=== PATIENT | female | born 1955 | race Caucasian/White ===

== ENCOUNTER 2016-10-28 10:30 | Observation (INO) | payer OTHER ==
[2016-10-21 08:44] VITALS: BMI 29.0
[2016-10-23 09:08] VITALS: BMI 29.0
--- NOTE | 2016-10-23 09:32 | PAT Medication Instructions ---
Service Date Oct 23, 2016. Current Home Medication List Albuterol (Proair Hfa), 2 PUFFS INH Q4 PRN for Shortness of Breath Alendronate/Cholecalciferol (Fosamax+D 70MG/2800 Iu), 1 TABLET PO WK Amphetamine-Dextroamphetamine 10MG (Adderall 10MG), 1 TAB PO HS Cholecalciferol (Vitamin D3), 1 TAB PO QAM Cyanocobalamin (Vitamin B12), 1 TAB PO QAM Dexamethasone (Decadron), 4 MG PO UD Escitalopram Oxalate (Lexapro), 20 MG PO QAM Folic Acid (Folvite), 1 TAB PO QAM Lamotrigine (Lamictal), 200 MG PO HS Levothyroxine (Synthroid *), 100 MCG PO QAM Prednisone (Prednisone), 1 MG PO QAM Prednisone (Prednisone), 5 MG PO QAM Simvastatin (Zocor), 1 TAB PO HS Vitamins C & E (Vitamin C), 1 CAP PO QAM Zinc Sulfate (Zinc Sulfate), 220 MG PO QAM Medication Instructions For Your Scheduled Surgery -Pt takes with chemo treatments: Dexamethasone (Decadron), 4 MG PO UD - Continue as directed: Alendronate/Cholecalciferol (Fosamax+D 70MG/2800 Iu), 1 TABLET PO WK - Hold the following medications the morning of surgery: Cholecalciferol (Vitamin D3), 1 TAB PO QAM Cyanocobalamin (Vitamin B12), 1 TAB PO QAM Zinc Sulfate (Zinc Sulfate), 220 MG PO QAM Folic Acid (Folvite), 1 TAB PO QAM Vitamins C (Vitamin C), 1 CAP PO QAM - Take the following medications the morning of surgery with a sip of water OTHERWISE NOTHING TO EAT OR DRINK AFTER MIDNIGHT: Albuterol (Proair Hfa), 2 PUFFS INH Q4 PRN for Shortness of Breath (may take if needed; BRING TO HOSPITAL) Prednisone (Prednisone), 1 MG PO QAM Prednisone (Prednisone), 5 MG PO QAM Escitalopram Oxalate (Lexapro), 20 MG PO QAM Levothyroxine (Synthroid *), 100 MCG PO QAM - Take the following medications as scheduled the night before surgery: Albuterol (Proair Hfa), 2 PUFFS INH Q4 PRN for Shortness of Breath Simvastatin (Zocor), 1 TAB PO HS Amphetamine-Dextroamphetamine 10MG (Adderall 10MG), 1 TAB PO HS Lamotrigine (Lamictal), 200 MG PO HS If you have any questions please call us at [phone] or [phone] or [phone]
[2016-10-28] VITALS (8 sets, daily range): BP systolic 101–136; BP diastolic 60–70; PULSE 67–101; TEMP 36.7–37.1; O2SAT 93–96; Ht 167.6 cm; Wt 85.9 kg
[~2016-10-28] VITALS: Ht 167.6 cm; Wt 85.9 kg
[~2016-10-28 10:30] MED LIST: ALBU1AER9 INH; AMPH10TA2 PO; ATROPINE SULFATE 0.1 MG/ML 5ML SYR IV PRN; CEFAZOLIN 2000 MG/60 ML D5W IV SCH; CHOL20007 PO; CYAN100020 PO; DXM/4 PO; ESCI1TAB10 PO; EpHEDrine SULFATE INJ 50 MG/ML AMP IV PRN; FENTANYL CITRATE INJ 50 MCG/1 ML 2 ML VIAL IV PRN; FOLI1TAB7 PO; FSMD/70 PO; HYDROmorphone INJ 1 MG/ML SYR IV PRN; LABETALOL HCL IV 5 MG/ML 20ML IV PRN; LACTATED RINGER'S 1000ML 1,000 ML IV SCH; LAMO200T PO; MEPERIDINE HCL 25 MG/ML CARP IV PRN; ONDANSETRON INJ 2 MG/ML 2 ML VIAL IV PRN; PRD/1 PO; PRED-301 PO; SIMV40TA4 PO; SYN100 PO; VITACAP26 PO; ZINC1CAP PO
[2016-10-28] MEDS ORDERED: MIDAZOLAM HCL 1 MG/ML 2ML VIAL ONE ×3 (11:35→14:22)
[2016-10-28] MEDS ORDERED: FENTANYL CITRATE INJ 50 MCG/1 ML 2 ML VIAL ONE ×2 (11:35→12:55)
--- NOTE | 2016-10-28 11:43 | History & Physical Bridge Note ---
H&P Re-Evaluation Bridge Note: I have examined the patient, reviewed the History & Physical and in the interval since the performance of the History & Physical I have noted the following changes of clinical significance: No changes noted
[2016-10-28] MEDS ORDERED: HEPARIN SOD (PORCINE) 1000 UNIT/ML 10 ML VIAL ONE (12:05)
[2016-10-28] MEDS ORDERED: BUPIVACAINE 0.5 % 5 MG/1 ML MPF 30ML VIAL ONE (12:05)
[2016-10-28] MEDS ORDERED: CEFAZOLIN SOD 1 GM VIAL ONE (12:05)
[2016-10-28] MEDS ORDERED: PROPOFOL IV EMULSION 10 MG/ML 20 ML VIAL IV ONE (13:10)
[2016-10-28] MEDS ORDERED: NEOSTIGMINE METHYLSULFATE 5 MG/5 ML SYR ONE (13:10)
[2016-10-28] MEDS ORDERED: LIDOCAINE HCL 2% 2 ML VIAL (20MG/ML) ONE (13:10)
[2016-10-28] MEDS ORDERED: ROCURONIUM BROMIDE 10 MG/ML 5 ML VIAL ONE (13:10)
[2016-10-28] MEDS ORDERED: GLYCOPYRROLATE INJ 0.2 MG/ML VIAL ONE (13:10)
[2016-10-28] MEDS ORDERED: BUPIVACAINE 0.5 % 5 MG/1 ML MPF 30ML VIAL INJ ONE (13:26)
[2016-10-28] MEDS ORDERED: MoRPHine SULFATE 4 MG/ML 1 ML CARP\\VIAL IV PRN (13:30)
[2016-10-28] MEDS ORDERED: SODIUM CHLORIDE 0.9% 1000ML 1,000 ML IV SCH (13:30)
[2016-10-28] MEDS ORDERED: ONDANSETRON INJ 2 MG/ML 2 ML VIAL IV PRN (13:30)
--- NOTE | 2016-10-28 13:30 | [facility] Post Operative Brief Note ---
Immediate Operative Summary Operative Date Oct 28, 2016. Pre-Operative Diagnosis chronic cholecystitis Post-Operative Diagnosis chronic cholecystitis Procedure(s) Performed Laparoscopic Cholecystectomy Surgeon Dr. Percy Ash Slate Roofer Surgeon(s) Genevieve Whalen PA-C Estimated Blood Loss 10ml Findings See dictation Specimens A. Gallbladder Drains None Anesthesia General Complication(s) None Disposition Recovery Room / PACU
--- NOTE | 2016-10-28 13:32 | Discharge Instructions ---
Discharge Instructions Admission Reason for Admission: Right Upper Quadrant Abdominal Pain Discharge Discharge Diagnosis / Problem: Same and cholelithiasis Discharge Goals Goal(s): Decrease discomfort Activity Recommendations Activity Limitations: per Instructions/Follow-up section Lifting Limitations: no more than 10 pounds Shower/Bathe: tomorrow (Shower only) . Instructions / Follow-Up Instructions / Follow-Up Post-Surgical ~ Discharge Instructions Activity Recommendations: - lifting limitation: (10 pounds for 2 weeks), - exercise/sex/sports limit: (nonstrenuous for 2 weeks), - driving or machine use limit: (none for 1 week), - Shower/bathe limit: (may shower beginning tomorrow) Diet: - Resume previous diet SPECIAL CARE INSTRUCTIONS: - May shower in 24 hours. Let water run over area and pat dry. - Leave steri strips on for one week. - Call the surgeon's office with any questions or concerns - - (ex. temperature higher than 101 degrees F, excessive bleeding or pain). MEDICATIONS: - Resume previous medications unless instructed otherwise by your surgeon. - Ibuprofen 600 mg every 6 hours with food - Percocet 1 every 4 hours, as needed for pain FOLLOW UP VISIT: - If not already scheduled, please call the office to schedule a two week follow-up appointment. Office number Current Hospital Diet Patient's current hospital diet: Discharge Diet Recommended Diet: Regular Diet Procedures Procedures Performed: Laparoscopic Cholecystectomy Pending Studies Studies pending at discharge: no Medical Emergencies . Who to Call and When: Medical Emergencies: If at any time you feel your situation is an emergency, please call 911 immediately. . Non-Emergent Contact Non-Emergency issues call your: Primary Care Provider, Surgeon Call Non-Emergent contact if: your pain is worsening, wound has increased redness, wound has increased pain . "Provider Documentation" section prepared by Percy Ash. VTE Core Measure Inpt VTE Proph given/why not?: Treatment not indicated
[2016-10-28] MEDS ORDERED: ALBUTEROL HFA 8 GM INHALER INH PRN (15:00)
[2016-10-28] MEDS ORDERED: ALBUTEROL HFA INHALER 8.5 GM INH ONE (15:07)
--- NOTE | 2016-10-28 15:36 | Anesthesiology Progress Note ---
Anesthesia Post Op Note Date & Time Oct 28, 2016 at 15:24 Vital Signs Pain Intensity: 1 Vital Signs Past 12 Hours Date Time Temp Pulse Resp B/P Pulse Ox O2 Delivery O2 Flow Rate FiO2 10/28/16 15:20 36.4 79 18 86/53 91 Mask 15 10/28/16 15:10 77 18 88/57 92 Mask 10 10/28/16 15:03 78 20 93 Diffusion Mask 10.0 10/28/16 15:00 78 96/58 91 Mechanical Ventilator 10/28/16 14:55 50 10/28/16 14:43 35.3 78 81/51 91 Mechanical Ventilator 10/28/16 14:40 50 10/28/16 10:50 36.7 101 20 136/69 94 Room Air Notes Mental Status: alert / awake / arousable, participated in evaluation Pt Amnestic to Procedure: Yes Nausea / Vomiting: adequately controlled Pain: adequately controlled Airway Patency, RR, SpO2: stable & adequate BP & HR: stable & adequate Hydration State: stable & adequate Anesthetic Complications: no major complications apparent Pt had laparoscopic cholecystectomy under [place]. At conclusion, pt was emerged and extubated. Developed difficulty ventilating and was treated with succinylcholine 60mg IV. Subsequently pt was manually ventilated without difficulty. However, response to peripheral nerve stimulation was weak and spontaneous respiratory effort minimal. For these reasons and for protection against aspiration, pt was reintubated. Transported to PACU and placed on mechanical ventilator. After a short time in PACU, pt emerged, was following commands and demonstrated adequate spontaneous respirations. OGT was placed, suctioned and removed. Pharynx was suctioned and pt extubated. She was placed on O2 mask. Appears comfortable, SaO2 93%. Discussed with surgeon that pt should be admitted for observation and treatment as needed. He agreed and plans PCU admission with supplemental O2 as needed and SaO2 monitor.
[2016-10-28] MEDS ORDERED: IV FLUIDS COMPLETED PRN (15:45)
--- NOTE | 2016-10-28 16:38 | History and Physical ---
History & Physical Date & Time of Service: Oct 28, 2016 at 16:38 Chief Complaint: Right Upper Quadrant Abdominal Pain Primary Care Physician: Cony Hernandez M.D. 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 (6) Distal radius fracture Status: Resolved (7) Dyslipidemia Status: Chronic (8) GERD (gastroesophageal reflux disease) Status: Chronic (9) History of tobacco abuse Status: Chronic (10) Hx Pulmonary nodule Permanent Comment: seen on CT 04/06/15- 1.2 cm left upper lobe nodule and 4 mm right upper lung nodule Status: Chronic (11) Hypothyroidism Status: Chronic (12) Lung cancer Permanent Comment: DIAGNOSIS: Lung, JUMA, adenocarcinoma, T3N3M0, stage IIIB Treatment: Combined radiation and chemotherapy Radiation completed 11/14/2015 received 6000 cGy Status: Chronic (13) Vitamin D deficiency Status: Chronic Surgical Problems: (1) H/O colonoscopy Status: Chronic (2) H/O: hysterectomy Status: Resolved (3) History of hysterectomy Status: Chronic (4) S/P breast biopsy Status: Chronic (5) S/P tonsillectomy and adenoidectomy Status: Chronic Family History FH: COPD (chronic obstructive pulmonary disease) MOTHER FH: HTN (hypertension) FH: cancer GRANDFATHER (lung CA) FH: heart disease FH: lung disease FH: thyroid disease GRANDFATHER GRANDMOTHER Social History Smoking Status: Current Every Day Smoker Immunizations History of Influenza Vaccine: Yes Influenza Vaccine Date: Jul 19, 2015 History of Tetanus Vaccine?: Yes Tetanus Immunization Date: Mar 24, 2014 History of Pneumococcal: Yes Pneumococcal Date: January 30, 2005 Multi-Drug Resistant Organisms History of MDRO: No Allergies Coded Allergies: Tetracyclines (Verified Allergy, Mild, HIVES, 10/28/16) BEE STING (Verified Allergy, Unknown, swelling, 10/28/16) Doxepin (Verified Allergy, Unknown, pt doesn't remember, 10/28/16) Propoxyphene (Verified Allergy, Unknown, pt doesn't remember, 10/28/16) Sulfa Antibiotics (Verified Allergy, Unknown, nausea/vomiting, 10/28/16) Home Medications Scheduled Alendronate/Cholecalciferol (Fosamax+D 70MG/2800 Iu), 1 TABLET PO WK Amphetamine-Dextroamphetamine 10MG (Adderall 10MG), 1 TAB PO HS Cholecalciferol (Vitamin D3), 1 TAB PO QAM Cyanocobalamin (Vitamin B12), 1 TAB PO QAM Dexamethasone (Decadron), 4 MG PO UD Escitalopram Oxalate (Lexapro), 20 MG PO QAM Folic Acid (Folvite), 1 TAB PO QAM Lamotrigine (Lamictal), 200 MG PO HS Levothyroxine (Synthroid *), 100 MCG PO QAM Prednisone (Prednisone), 1 MG PO QAM Prednisone (Prednisone), 5 MG PO QAM Simvastatin (Zocor), 1 TAB PO HS Vitamins C & E (Vitamin C), 1 CAP PO QAM Zinc Sulfate (Zinc Sulfate), 220 MG PO QAM Scheduled PRN Albuterol (Proair Hfa), 2 PUFFS INH Q4 PRN for Shortness of Breath Physical Exam Vital Signs Date Time Temp Pulse Resp B/P Pulse Ox O2 Delivery O2 Flow Rate FiO2 10/28/16 15:40 36.4 68 18 86/60 91 Mask 15 10/28/16 15:30 79 18 88/69 91 Mask 15 10/28/16 15:20 36.4 79 18 86/53 91 Mask 15 10/28/16 15:10 77 18 88/57 92 Mask 10 10/28/16 15:03 78 20 93 Diffusion Mask 10.0 10/28/16 15:00 78 96/58 91 Mechanical Ventilator 10/28/16 14:55 50 10/28/16 14:43 35.3 78 81/51 91 Mechanical Ventilator 10/28/16 14:40 50 10/28/16 10:50 36.7 101 20 136/69 94 Room Air Diagnostics Laboratory Results Results Past 24 Hours Test 10/28/16 10:59 10/28/16 15:14 Range/Units Bedside Glucose 102 246 70-90 mg/dl Impression VTE Prophylaxis VTE Risk Assessment Done? Y/N: Yes Risk Level: Moderate Given or contraindicated: Treatment not indicated
--- NOTE | 2016-10-28 17:15 | Medical Consult ---
Consultation Date of Consultation: Oct 28, 2016. Attending Physician: Percy Ash M.D. Reason for Consultation: medical management . History of Present Illness 60 YO female followed by Dr. Cony Hernandez for Internal Medicine and Dr. Manny Hernandez for Medical Oncology. History of adenocarcinoma of lung treated with chemotherapy + radiation therapy , obstructive lung disease, and other problems as noted today. Elective laparoscopic cholecystectomy performed today under general anesthesia. She was extubated at the conclusion of the case, but required re-intubation for apparent bronchospasm. Monitored in PACU and subsequently extubated without incident. I interviewed the patient after she was transferred to her room. Doing well postoperatively. No fever. No chest pain. No significant cough or dyspnea. No nausea or vomiting. She was having some postoperative abdominal discomfort. . 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 (6) Distal radius fracture Status: Resolved (7) Dyslipidemia Status: Chronic (8) GERD (gastroesophageal reflux disease) Status: Chronic (9) History of tobacco abuse Status: Chronic (10) Hx Pulmonary nodule Permanent Comment: seen on CT 04/06/15- 1.2 cm left upper lobe nodule and 4 mm right upper lung nodule Status: Chronic (11) Hypothyroidism Status: Chronic (12) Lung cancer Permanent Comment: DIAGNOSIS: Lung, JUMA, adenocarcinoma, T3N3M0, stage IIIB Treatment: Combined radiation and chemotherapy Radiation completed 11/14/2015 received 6000 cGy Status: Chronic (13) Vitamin D deficiency Status: Chronic Surgical Problems: (1) H/O colonoscopy Status: Chronic (2) History of hysterectomy Status: Chronic (3) S/P breast biopsy Status: Chronic (4) S/P tonsillectomy and adenoidectomy Status: Chronic . Family History FH: COPD (chronic obstructive pulmonary disease) MOTHER FH: HTN (hypertension) FH: cancer GRANDFATHER (lung CA) FH: heart disease FH: lung disease FH: thyroid disease GRANDFATHER GRANDMOTHER Social History Smoking Status: Current Every Day Smoker Alcohol Use: none Housing Status: unknown Allergies Coded Allergies: Tetracyclines (Verified Allergy, Mild, HIVES, 10/28/16) BEE STING (Verified Allergy, Unknown, swelling, 10/28/16) Doxepin (Verified Allergy, Unknown, pt doesn't remember, 10/28/16) Propoxyphene (Verified Allergy, Unknown, pt doesn't remember, 10/28/16) Sulfa Antibiotics (Verified Allergy, Unknown, nausea/vomiting, 10/28/16) Current Inpatient Medications Current Inpatient Medications Medications (Trade) Dose Ordered Sig/Maryan Route Start Time Stop Time Status Last Admin Dose Admin Cefazolin Sodium (Ancef 2000mg/60 ml D5W) 60 ml @ 100 mls/hr PREOP IV 10/28/16 06:00 10/28/16 18:00 Oxycodone/ Acetaminophen (Percocet 5-325mg Tab) 1 tab Q4H PRN PO 10/28/16 13:30 11/11/16 13:29 Morphine Sulfate (MoRPHine SULFATE INJ) 4 mg Q1H PRN IV 10/28/16 13:30 11/11/16 13:29 Ondansetron HCl (Zofran Inj) 4 mg Q4H PRN IV 10/28/16 13:30 11/27/16 13:29 Albuterol (Ventolin Hfa Inhaler) 2 puffs Q4 PRN INH 10/28/16 15:00 11/27/16 14:59 Miscellaneous Information (Order Awaiting Action) 1 ea QS N/A 10/29/16 00:00 11/28/16 00:00 Escitalopram Oxalate (Lexapro Tab) 20 mg QAM PO 10/29/16 09:00 11/28/16 08:59 Levothyroxine Sodium (Synthroid Tab) 100 mcg DAILYBB PO 10/29/16 06:00 11/28/16 05:59 Simvastatin (Zocor Tab) 40 mg HS PO 10/28/16 21:00 11/27/16 20:59 Amphetamine Aspartate/ Amphetam Sulf (Amphetamine Aspartate/Amph Sulf/Dextramphet) 10 mg DAILY PO 10/29/16 09:00 11/12/16 08:59 Lamotrigine 200 mg 200 mg HS PO 10/28/16 21:00 11/27/16 20:59 Potassium Chloride/Dextrose/ Sod Cl (D5W And 1/2nss + 20meq KCl) 1,000 ml @ 80 mls/hr [id number] IV 10/28/16 16:45 11/27/16 16:44 Miscellaneous (Iv Fluids Completed) 1 ea PRN PRN N/A 10/28/16 15:45 10/28/17 15:44 Prednisone/ Prednisone (PredniSONE TAB/ PredniSONE TAB) 6 mg DAILY PO 10/29/16 09:00 11/28/16 08:59 Review of Systems As noted above in HPI. . Physical Exam Date Time Temp Pulse Resp B/P Pulse Ox O2 Delivery O2 Flow Rate FiO2 10/28/16 16:30 36.7 69 18 101/67 96 Nasal Cannula 6.0 10/28/16 15:40 36.4 68 18 86/60 91 Mask 15 10/28/16 15:30 79 18 88/69 91 Mask 15 10/28/16 15:20 36.4 79 18 86/53 91 Mask 15 10/28/16 15:10 77 18 88/57 92 Mask 10 10/28/16 15:03 78 20 93 Diffusion Mask 10.0 10/28/16 15:00 78 96/58 91 Mechanical Ventilator 10/28/16 14:55 50 10/28/16 14:43 35.3 78 81/51 91 Mechanical Ventilator 10/28/16 14:40 50 10/28/16 10:50 36.7 101 20 136/69 94 Room Air General Appearance: WD/WN, no apparent distress Head: normocephalic, atraumatic Eyes: normal inspection, PERRL, EOMI, sclerae normal ENT: hearing grossly normal, + pertinent finding (upper partial plate) Neck: supple, no adenopathy, trachea midline, + JVD (slight JVD) Respiratory/Chest: + pertinent finding (diffuse mild wheezing, rales right base ) Cardiovascular: regular rate, rhythm, + pertinent finding (distant heart sounds ) Abdomen/GI: + pertinent finding (quiet, slightly distended, soft; incisions from laparoscopy intact without bleeding) Extremities/Musculoskelatal: normal inspection, no calf tenderness, no pedal edema, + pertinent finding (SCD's applied) 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 (PERRL, EOMI, no facial palsy), alert, oriented x 3 Skin: normal color, warm/dry, no rash Lymphatic: no adenopathy Laboratory Results Item Value Date Time Sodium Level 141 mmol/L 2/6/17 1737 Potassium Level 4.2 mmol/L 10/28/16 1737 Chloride Level 104 mmol/L 10/28/16 1737 Carbon Dioxide Level 27 mmol/L 10/28/16 1737 Blood Urea Nitrogen 22 mg/dl H 10/28/16 1737 Creatinine 1.30 mg/dl H 10/28/16 1737 Random Glucose 136 mg/dl H 10/28/16 1737 Calcium Level 8.6 mg/dl 10/28/16 1737 Hemoglobin 13.7 g/dL 10/28/16 1737 White Blood Count 12.47 K/uL H 10/28/16 1737 Platelet Count 188 K/uL 10/28/16 1737 CXR- JUMA density (pneumonia vs postradiation changes) . Assessment & Plan POSTOPERATIVE RESPIRATORY DISTRESS Required re-intubation for apparent bronchospasm in OR, extubated without incident in PACU. Respiratory status stable on Telemetry Unit. No apparent acute findings on postop chest x-ray. O2 sats 96% on 6 L NC. Wean O2 as tolerated. Incentive spirometry. Nebs PRN. COPD / ASTHMA Continue steroids and bronchodilators. CHRONIC PREDNISONE THERAPY On chronic prednisone therapy, apparently for COPD. BP's in 80's in PACU. IV hydrocortisone 50 mg x 1 ordered; repeat PRN for hemodynamic instability. Continue usual prednisone dose. ABNORMAL CHEST X-RAY CXR demonstrates JUMA density. PET scan 07/10/16 demonstrated similar finding and is being followed. HYPOTHYROIDISM Continue levothyroxine. VTE PROPHYLAXIS SCD's ordered. Thank you for this consultation. We will follow the patient with you during their hospital stay. You can reach a member of the [facility] Hospitalist Team 14/04 via pager @ . You can reach me via cell @ [phone]. .
--- NOTE | 2016-10-28 17:25 | DIAGNOSTIC IMAGING REPORT ---
CHEST ONE VIEW PORTABLE CLINICAL HISTORY: Lung carcinoma COMPARISON STUDY: 06/14/2016 FINDINGS: The heart is normal in size. There are left upper lobe airspace opacities. There is no free intraperitoneal air. There is no pneumothorax. The right lung is clear.[ IMPRESSION: Left upper lung zone airspace opacities. The findings are consistent with either pneumonia or postradiation change. Clinical and radiographic follow-up is recommended Electronically signed by: Boo Watt M.D. 10/28/2016 5:23 PM Dictated Date/Time: 10/28/2016 5:22 PM
[2016-10-28] MEDS ORDERED: HYDROCORTISONE IV 50 MG in SYRINGE 0 ML IV SCH (17:30)
[2016-10-28] MEDS: OXYCODONE/ACETAMINOPHEN 5-325 TAB PO PRN (17:49)
[2016-10-28] MEDS: D5W AND 1/2NSS + 20MEQ KCL 1,000 ML IV SCH (17:49)
[2016-10-28 17:58] LABS: HEMATOCRIT 41.2 % (37-47); MEAN CELL VOLUME 104.6 fL (80-100); MEAN CORPUSCULAR HEMOGLOBIN 34.8 pg (25-34); MEAN CORPUSCULAR HGB CONC 33.3 g/dl (32-36); MEAN PLATELET VOLUME 9.2 fL (7.4-10.4); PLATELET COUNT 188 K/uL (130-400); RED BLOOD COUNT 3.94 M/uL (4.2-5.4); WHITE BLOOD COUNT 12.47 K/uL (4.8-10.8)
[2016-10-28 19:51] LABS: CALCIUM 8.6 mg/dl (8.5-10.1); CREATININE 1.3 mg/dl (0.60-1.20); POTASSIUM 4.2 mmol/L (3.5-5.1)
[2016-10-28] MEDS ORDERED: SIMVASTATIN 40 MG TAB PO SCH (21:00)
[2016-10-28] MEDS ORDERED: LORAZEPAM 0.5 MG TAB PO PRN ×2 (21:15→21:30)
[2016-10-28] MEDS ORDERED: LEVALBUTEROL 1.25MG/3ML NEB INH PRN (21:30)
--- NOTE | 2016-10-28 21:55 | OPERATIVE REPORT ---
DATE OF OPERATION: 10/28/2016 PREOPERATIVE DIAGNOSES: Cholelithiasis and chronic cholecystitis. POSTOPERATIVE DIAGNOSES: Same. PROCEDURE: Laparoscopic cholecystectomy. SURGEON: Dr. Ash. FINDINGS: The gallbladder had a few very small black stones. The gallbladder had a significant intrahepatic component. The cystic duct was not dilated. The liver was smooth. The visible bowel appeared normal. TECHNIQUE: The patient was given a general anesthetic, and the area was prepped and draped in the usual sterile fashion. Because of the patient's previous lower abdominal surgery, the upper midline introducer site was established first. Skin incision was made there, carried down through the subcutaneous tissue to the fascia which was grasped with 2 Sukumar clamps and incised between. The muscle was split. The peritoneum was identified, incised, and the introducer was placed bluntly. The abdomen was then insufflated to a pressure of 15 mmHg with carbon dioxide. The camera was passed and the anterior abdominal wall was inspected. There were no adhesions near the umbilicus. A subumbilical incision was made transversely and the introducer was placed under direct vision. The camera was passed through this introducer site, and the midclavicular and anterior axial introducers were placed under direct vision. Traction was placed on the gallbladder. Beginning near the mid to lower infundibulum, adhesions were taken down. Some of those had retracted the duodenum, but those were taken down without cautery and the duodenum fell away easily. Further dissection revealed the cystic artery extending anteriorly up over the front surface of the gallbladder. Its attachments were divided and it was isolated. The gallbladder was then dissected away from the liver on that medial side, confirming that that was the cystic artery as it was followed up toward the body and was seen to enter the gallbladder wall. Three clips were placed proximally, one near its junction with the gallbladder, and it was divided. That allowed better mobility of the infundibulum and I was able to divide further attachments of the infundibulum on the medial side and I was able to work on the lateral side, freeing the infundibulum completely and allowing me to identify the cystic duct and gallbladder junction. I was able then to establish a plane behind the cystic duct, isolating it 360 degrees. Three clips were placed on the proximal cystic duct, 1 near the gallbladder junction, and it was divided. The gallbladder was then peeled off the liver bed. In doing so, a posterior branch of the artery was encountered. This was isolated, clamped twice proximally and once near the gallbladder and divided. Further dissection of the gallbladder off the liver was able to be accomplished. The gallbladder was placed into an Endobag and brought out through the upper midline incision. The introducer was replaced. There was some stone material that had escaped the gallbladder as one of the graspers had created a hole. This was retrieved. Subdiaphragmatic and subhepatic spaces were irrigated and the irrigation was removed and that was repeated until the return was clear. The gallbladder bed of the liver was inspected, there was no bleeding. The previously placed clips were intact. Gas was allowed to escape and the introducers were removed. The fascia of the umbilical and upper midline introducer sites was closed with interrupted 0 Vicryl and skin of all the incisions was closed with 4-0 Monocryl in either an interrupted or running subcuticular fashion. The skin was anesthetized with 0.5% Marcaine. Skin was cleansed, dried, benzoin placed, Steri-Strips applied. The estimated blood loss was 10 mL. Sponge, needle and instrument counts were correct prior to closure. The patient tolerated the surgical procedure without complication and was transferred to recovery. I attest to the content of the Intraoperative Record and any orders documented therein. Any exceptio ns are noted below.
[2016-10-29 00:03] VITALS: PULSE 92; O2SAT 92
[2016-10-29] MEDS: OXYCODONE/ACETAMINOPHEN 5-325 TAB PO PRN (00:41)
[2016-10-29 03:30] VITALS: BP 109/66; PULSE 92; TEMP 37.1; O2SAT 95
[2016-10-29] MEDS: D5W AND 1/2NSS + 20MEQ KCL 1,000 ML IV SCH (04:55)
[2016-10-29 05:24] VITALS: O2SAT 92
[2016-10-29] MEDS ORDERED: LEVOTHYROXINE 100 MCG TAB PO SCH (06:00)
--- NOTE | 2016-10-29 06:41 | Surgery Progress Note ---
Surgery Progress Note Date of Service Oct 29, 2016. Subjective Post OP Day: 1 (s/p elective laparoscopic cholecystectomy) + ambulating, + feeling well, + pain controlled, No SOB, No chest pain, No complaints, No nausea, No vomiting Objective Vital Signs: Date Time Temp Pulse Resp B/P Pulse Ox O2 Delivery O2 Flow Rate FiO2 10/29/16 05:24 92 Nasal Cannula 1.5 10/29/16 04:02 Nasal Cannula 3.0 10/29/16 03:30 37.1 92 18 109/66 95 Nasal Cannula 3.0 10/29/16 00:03 Nasal Cannula 4.0 10/29/16 00:03 92 92 Nasal Cannula 4.0 10/28/16 23:05 37.1 89 16 107/70 95 Nasal Cannula 4.0 10/28/16 20:00 Nasal Cannula 5.0 10/28/16 19:29 36.8 71 20 104/69 96 Nasal Cannula 6.0 10/28/16 19:00 95 Nasal Cannula 5.0 10/28/16 18:00 78 16 112/60 94 Nasal Cannula 6.0 10/28/16 17:00 67 18 101/65 96 Nasal Cannula 6.0 10/28/16 16:30 36.7 69 18 101/67 96 Nasal Cannula 6.0 10/28/16 15:40 36.4 68 18 86/60 91 Mask 15 10/28/16 15:30 79 18 88/69 91 Mask 15 10/28/16 15:20 36.4 79 18 86/53 91 Mask 15 10/28/16 15:10 77 18 88/57 92 Mask 10 10/28/16 15:03 78 20 93 Diffusion Mask 10.0 10/28/16 15:00 78 96/58 91 Mechanical Ventilator 10/28/16 14:55 50 10/28/16 14:43 35.3 78 81/51 91 Mechanical Ventilator 10/28/16 14:40 50 10/28/16 10:50 36.7 101 20 136/69 94 Room Air General Appearance: WD/WN, no apparent distress Head: normocephalic, atraumatic Neck: supple Abdomen: normal bowel sounds, non tender, non distended, soft Incision(s): clean, dry, intact Extremities: normal range of motion Laboratory Results: Results Past 24 Hours Test 10/28/16 10:59 2/6/17 15:14 10/28/16 17:37 10/28/16 20:08 Range/Units Bedside Glucose 102 246 154 70-90 mg/dl White Blood Count 12.47 4.8-10.8 K/uL Red Blood Count 3.94 4.2-5.4 M/uL Hemoglobin 13.7 12.0-16.0 g/dL Hematocrit 41.2 37-47 % Mean Corpuscular Volume 104.6 80-100 fL Mean Corpuscular Hemoglobin 34.8 25-34 pg Mean Corpuscular Hemoglobin Concent 33.3 32-36 g/dl RDW Standard Deviation 59.5 36.4-46.3 fL RDW Coefficient of Variation 15.5 11.5-14.5 % Platelet Count 188 130-400 K/uL Mean Platelet Volume 9.2 7.4-10.4 fL Sodium Level 141 136-145 mmol/L Potassium Level 4.2 3.5-5.1 mmol/L Chloride Level 104 98-107 mmol/L Carbon Dioxide Level 27 21-32 mmol/L Anion Gap 10.0 3-11 mmol/L Blood Urea Nitrogen 22 7-18 mg/dl Creatinine 1.30 0.60-1.20 mg/dl Est Creatinine Clear Calc Drug Dose 43.1 ml/min Estimated GFR () 51.6 Estimated GFR (Non- 44.6 BUN/Creatinine Ratio 17.0 10-20 Random Glucose 136 70-99 mg/dl Calcium Level 8.6 8.5-10.1 mg/dl Hepatitis C Antibody Screen NEG NEG Assessment & Plan POD # 1 s/p Laparoscopic Cholecystectomy - vital signs stable - currently 92% O2 sat on 1.5 L via NC - no shortness of breath or chest pain - abdominal pain minimal Plan: Continue current management Continue NC and wean oxygen as permitted Will await evaluation by internal medicine. Will await their recommendations on pt staying for more observation or discharge Continue current management established by hospitalist. Dr. Ash has seen and examined patient agrees with assessment and plan.
[2016-10-29 08:00] VITALS: BP 115/75; PULSE 84; TEMP 36.7; O2SAT 93
[2016-10-29] MEDS ORDERED: AMPHETAMINE ASP/SULF/DEXTRAMPH 10 MG TAB PO SCH (09:00)
[2016-10-29] MEDS ORDERED: ESCITALOPRAM OXALATE 20 MG TAB PO SCH (09:00)
[2016-10-29] MEDS ORDERED: PREDNISONE PO SCH ×2 (09:00)
[2016-10-29 12:03] VITALS: BP 113/57; PULSE 96; TEMP 36.6; O2SAT 96
[2016-10-29 12:56] VITALS: BP 113/57; PULSE 96; TEMP 36.6; O2SAT 96
--- NOTE | 2016-10-29 19:30 | Progress Note ---
Medicine Progress Note Date & Time of Visit: Oct 29, 2016 at 19:27. Subjective Patient seen and examined. Anxious to go home. Breathing feels fine. Coughing up some sputum. Objective Last 8 Hrs Date Time Temp Pulse Resp B/P Pulse Ox O2 Delivery O2 Flow Rate FiO2 10/29/16 12:56 36.6 96 18 96 Nasal Cannula 10/29/16 12:03 36.6 96 18 113/57 96 10/29/16 12:00 Room Air Physical Exam: General-awake; alert; NAD Eyes-EOMI; no scleral icterus Neck-no stridor; trachea midline Lungs-CTA bilaterally; no wheezes/crackles Heart-RRR; no m/r/g Abdomen-soft; bailee-umbilical incision with dried blood; ND; nBS Extremities-no c/c/e; no deformity Neuro-no gross focal deficits Laboratory Results: Last 24 Hours Test 10/28/16 20:08 10/29/16 07:23 Bedside Glucose 154 mg/dl 121 mg/dl Assessment & Plan POSTOPERATIVE RESPIRATORY DISTRESS Required re-intubation for apparent bronchospasm in OR, extubated without incident in PACU. Respiratory status stable. No apparent acute findings on postop chest x-ray. Weaned off supplemental oxygen. Incentive spirometry. Nebs PRN. COPD / ASTHMA Continue steroids and bronchodilators. ABNORMAL CHEST X-RAY CXR demonstrates JUMA density. PET scan 07/10/16 demonstrated similar finding and is being followed. HYPOTHYROIDISM Continue levothyroxine. VTE PROPHYLAXIS SCD's ordered. Patient stable for discharge.
--- NOTE | 2016-11-11 15:12 | DISCHARGE SUMMARY ---
PRINCIPAL DIAGNOSES: Cholelithiasis, chronic cholecystitis. SECONDARY DIAGNOSES: Include chronic obstructive pulmonary disease, bipolar disorder, dyslipidemia, hypothyroidism, lung cancer. PRINCIPAL PROCEDURE: Laparoscopic cholecystectomy. SECONDARY PROCEDURES: None. CONSULTATION: To Dr. Mckenzie from internal medicine. HISTORY AND PHYSICAL: As per H\T\P on chart with no additions or deletions. BRIEFLY: She was initially referred for evaluation of pain in the right costal margin area. She was evaluated using multiple modalities. She was felt to have cholelithiasis. The discomfort that she was having was postprandial, but she also had tenderness along the rib cage consistent with costochondritis. She was to undergo chemotherapy, but it was recommended that she undergo cholecystectomy. She was not going to start chemotherapy until postoperative. On exam, she had tenderness along the costal margin on the right side. Her abdomen was soft, nondistended, nontender. HOSPITAL COURSE: She was admitted through day surgery, taken to the operating room where the laparoscopic procedure was performed. The gallbladder had a few small black stones. There was a significant intrahepatic component, but the cystic duct was not dilated. The liver was smooth and appeared to be of normal size and contour. Following the procedure, the patient was extubated but it was found to be difficult to ventilate, was given succinylcholine. She was able to be ventilated using a bag mask but had poor inspiratory efforts so she was reintubated and then taken to the PACU. She was weaned off the ventilator there and after a short time extubated again. She was admitted for observation relative to the need for reintubation. By the next morning, she was able to be weaned off the oxygen. She was having no pain. She had no nausea or vomiting, and was tolerating a regular diet. DISCHARGE MEDICATIONS: Included only the medicines that she was on home which included albuterol, Fosamax D, Adderall, vitamin D, vitamin B12, Decadron, Lexapro, Folvite, Lamictal, Synthroid, prednisone, Zocor, vitamin C, and zinc. She was given Percocet for pain and she was also recommended to take ibuprofen as a supplement. DISCHARGE INSTRUCTIONS: She was given her discharge instructions and was to follow up with me in 2 weeks. ELISABETH
== END 2016-10-29 13:26 | disposition home or self-care (01) ==
LOC: ENRESERVDT → ENRESERVTM → C.ACU 10:30 → C.2T 15:19 → EDBEDREQSVC 15:20
PROVIDERS: ADMIT Surgery; ATTEND Surgery
DX: K80.10 Calculus of gallbladder with chronic cholecystitis without obstruction (principal); R06.00 Dyspnea, unspecified; J44.9 Chronic obstructive pulmonary disease, unspecified; E03.9 Hypothyroidism, unspecified; M79.7 Fibromyalgia; F31.9 Bipolar disorder, unspecified; E78.5 Hyperlipidemia, unspecified; K21.9 Gastro-esophageal reflux disease without esophagitis; F17.200 Nicotine dependence, unspecified, uncomplicated; E55.9 Vitamin D deficiency, unspecified; F90.9 Attention-deficit hyperactivity disorder, unspecified type; Z79.52 Long term (current) use of systemic steroids; Z91.030 Bee allergy status; Z85.118 Personal history of other malignant neoplasm of bronchus and lung; Z88.2 Allergy status to sulfonamides; Z90.710 Acquired absence of both cervix and uterus; Z82.49 Family history of ischemic heart disease and other diseases of the circulatory system; Z83.6 Family history of other diseases of the respiratory system

== ENCOUNTER → 2017-11-14 | Outpatient (CLI) | payer OTHER ==
[~2017-11-14] MED LIST changes: -AMPH10TA2 PO; +ARIP1TAB15 PO; +ASCA500 PO; -ATROPINE SULFATE 0.1 MG/ML 5ML SYR IV PRN; +ATV1 PO; -CEFAZOLIN 2000 MG/60 ML D5W IV SCH; -CHOL20007 PO; -EpHEDrine SULFATE INJ 50 MG/ML AMP IV PRN; -FENTANYL CITRATE INJ 50 MCG/1 ML 2 ML VIAL IV PRN; -FOLI1TAB7 PO; +FOLI1TAB8 PO; -FSMD/70 PO; -HYDROmorphone INJ 1 MG/ML SYR IV PRN; -LABETALOL HCL IV 5 MG/ML 20ML IV PRN; -LACTATED RINGER'S 1000ML 1,000 ML IV SCH; -MEPERIDINE HCL 25 MG/ML CARP IV PRN; -ONDANSETRON INJ 2 MG/ML 2 ML VIAL IV PRN; -PRD/1 PO; -PRED-301 PO; -VITACAP26 PO
--- NOTE | 2017-11-14 16:02 | DIAGNOSTIC IMAGING REPORT ---
CT HEAD WITHOUT CONTRAST (CT) CLINICAL HISTORY: FALLS,HX LUNG CA DIZZINESS COMPARISON STUDY: No previous studies for comparison. TECHNIQUE: Axial CT of the brain is performed from the vertex to the skull base. IV contrast was not administered for this examination. A dose lowering technique was utilized adhering to the principles of ALARA. CT DOSE: 537.48 mGy.cm FINDINGS: No intra or extra-axial mass lesions are visualized. There is no CT evidence of acute cortical infarction. There is no evidence of midline shift. There is no acute hemorrhage. No calvarial fractures are visualized. There are patchy white matter hypodensities likely on a small vessel basis. There is no evidence of pathologic ventricular dilatation. There is mucosal thickening/fluid within the left maxillary sinus IMPRESSION: No acute intracranial findings Electronically signed by: Boo Watt M.D. 11/14/2017 4:00 PM Dictated Date/Time: 11/14/2017 3:59 PM
== END | disposition home or self-care (01) ==
LOC: C.CTS 15:51
PROVIDERS: ATTEND Internal Medicine
DX: R29.6 Repeated falls (principal); Z85.118 Personal history of other malignant neoplasm of bronchus and lung

== ENCOUNTER 2022-11-01 16:02 | Observation (INO) ==
[2022-11-01 18:31] LABS: Basophils # (auto) 0.06 K/uL (0-0.2); Basophils % (auto) 0.7 %; Hematocrit (blood only) 39.4 % (37.0-47.0); Hemoglobin 13.4 g/dl (12.0-16.0); Immature Granulocytes # (auto) 0.04 K/uL (0.01-0.20); Immature Granulocytes % (auto) 0.5 %; Lymphocytes # (auto) 0.66 K/uL (1.2-3.4); Lymphocytes % (auto) 8.2 %; Mean Corpuscular Hemoglobin 31.6 pg (25.0-34.0); Mean Corpuscular Volume 92.9 fL (80.0-100.0); Mean Platelet Volume 9.9 fL (9.4-12.4); Monocytes # (auto) 0.72 K/uL (0.11-0.59); Monocytes % (auto) 8.9 %; Neutrophils # (auto) 6.18 K/uL (1.40-6.50); Neutrophils % (auto) 76.7 %; Platelet Count 315 K/uL (130-400); RDW Coefficient of Variation 15.8 % (11.5-14.5); RDW Standard Deviation 54.2 fL (36.4-46.3); Red Blood Count 4.24 M/uL (4.20-5.40); White Blood Count 8.06 K/ul (4.8-10.8)
[2022-11-01] MEDS ORDERED: SODIUM CHLORIDE 0.9% 1000ML 1,000 ML IV ONE (18:38)
[2022-11-01 18:45] LABS: Albumin Globulin Ratio 1.2 (0.9-2); Albumin Level 4.2 gm/dl (3.4-5.0); Bilirubin,Total 0.3 mg/dl (0.2-1.0); Creatinine Clr Calc Pharmacy 45.7 ml/min; Est GFR (African American) 51.9 ml/min; Est GFR (Non-African American) 44.8 ml/min; Globulin 3.6 gm/dl (2.5-4.0); Potassium 3.3 mmol/L (3.5-5.1); Total Protein 7.8 gm/dl (6.0-8.3)
--- NOTE | 2022-11-01 18:46 | Emergency Department Note ---
Impression & Plan Weakness, Elevated troponin I level, Lung cancer ED Provider Note NAME: SCARLET GASPAR AGE: 66 SEX: F : 1955 ARRIVES VIA: Walk-In INFORMANT: Patient, the patient's family members ED PROVIDER(S): Arpit Andrews DO CHIEF COMPLAINT: Forgetfulness HPI: The patient is a 66-year-old female who presented to the emergency department for evaluation of generalized weakness and forgetfulness. It sounds that the patient has a history of lung cancer. She was diagnosed once remotely with lung cancer and was treated for this. She was recently diagnosed with another lung cancer in her lower lung. She states that she was treated with 5 rounds of radiation for this cancer. She presents to the emergency department at the request of her oncologist because the patient's been having multiple months of forgetfulness dizziness and headache. She presents with family members. Reportedly she was sent for CAT scan. She denies having any chest pain or difficulty breathing. She denies having any pelvic pain or leg pain. She states that she has generalized weakness but no unilateral weakness or swelling at this time. ROS: See above HPI for pertinent positives & negatives. A total of 10 systems re viewed and were otherwise negative. PAST MEDICAL HISTORY: See Below PAST SURGICAL HISTORY: See Below FAMILY HISTORY: See Below SOCIAL HISTORY: See Below HOME MEDICATIONS: See Below ALLERGIES: See Below VITALS: See Below PHYSICAL EXAMINATION: GENERAL: Patient is awake alert in no acute distress patient is resting comfortably and showing no signs of anxiety EYES: The conjunctivae are clear. The pupils are round and reactive. EARS, NOSE, MOUTH AND THROAT: The nose is without any evidence of any deformity. NECK: The neck is nontender and supple. RESPIRATORY: Normal respiratory effort is noted there is no evidence of wheezing rhonchi or rales CARDIOVASCULAR: Regular rate and rhythm noted there no murmurs rubs or gallops normal S1 normal S2. GASTROINTESTINAL: The abdomen is soft. Abdomen is nontender. MUSCULOSKELETAL/EXTREMITIES: There is no evidence of gross deformity full range of motion is noted in the hips and shoulders. SKIN: There is no obvious evidence of any rash. There are no petechiae, pallor or cyanosis noted. NEUROLOGIC: Patient is awake alert and oriented x3. Patellar tendon reflexes are 2+ bilaterally. MEDICAL DECISION MAKING: The patient is a 66-year-old female who presented to the emergency department for an evaluation of generalized weakness. The patient was having problems with memory issues as well as dizziness over the course of the last few months. She was encouraged to go to the emergency department by her primary oncologist for further evaluation as well as neuroimaging. The patient has no focal neurologic deficits. I discussed the patient's laboratory and radiographic studies with her. She was treated with IV fluids emergency department. She was found to have an elevation in her troponin. This was repeated and appears to be increasing. For this reason I [facility] They have agreed to evaluate the patient in the emergency department for further management and disposition. The patient was not complaining of any chest pain. Triage Nursing notes reviewed. Prior medical records reviewed Vital Signs: reviewed and remarkable for no significant abnormalities Differential diagnosis: Infection, dehydration, metabolic abnormality, hypo/hyperglycemia, electrolyte disturbance, anemia, hypoxia, cardiac sources, intracerebral event, toxicologic, neurologic, as well as other pathologies. ER treatment provided: See below Diagnostics interpreted by me: ECG: EKG was obtained in the emergency department. My interpretation is normal sinus rhythm at 95 bpm. There is no ectopy. Poor R wave progression was noted. This was compared to a tracing from July 25, 2018. No changes were noted. Cardiac Monitoring: An order was placed for continuous cardiac monitoring. The monitor shows a rate of 90 bpm with sinus rhythm. Laboratory studies: As stated above and show below. Imaging studies: See below. Radiographic imaging was reviewed by myself Consultation(s): I discussed this case with Dr. Ortiz who is on-call for the [facility] Hospitalist group. 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 HAPPENED DURING GALLBLADDER REMOVAL AT [facility]. HAD TO BE RE-INTUBATED. VOCAL CORD WAS INJURED Hypothyroidism Lung cancer (09/01/15) On home oxygen therapy uses 2L N/C prn Vitamin D deficiency Surgical History H/O bilateral cataract extraction H/O colonoscopy History of hysterectomy History of lung biopsy S/P breast biopsy S/P laparoscopic cholecystectomy S/P tonsillectomy and adenoidectomy Family History Grandmother (Maternal) Cancer Grandfather Cancer Other No family history of adverse response to anesthesia Social History Smoking Status: Never smoker Age Started Using Tobacco: 16; Cigarettes Per Day: 20 a day; Second Hand Exposure: Yes (grandparents smoked); Hx Alcohol Use: No Hx Substance Use: Yes (smoked marijuana d/t pain from cancer no marijuana card) Last Used Substance Other:: last used 8 months ago Substance Use Type Other:: HAD USED DURING CHEMO AND RADIATION- NONE CURRENTLY Preferred Language: Turkish Communication Ability: Effective Hearing Ability: Hard of Hearing Manufacturing Shift Supervisor Required: No Beliefs That Will Affect Care: None Current Living Situation: Family Current Living Situation Comment: Lives with daughter Feels Safe at Home: Yes during the past year weight has: decreased > 10 lbs Assistive Devices: Denture - Upper Allergies Allergies Allergy/AdvReac Type Severity Reaction Status Date / Time bee venom protein (honey bee) Allergy Mild swelling Verified 07/30/22 09:23 Sulfa (Sulfonamide Allergy Mild nausea/vomi Verified 07/30/22 09:23 Antibiotics) ting Tetracyclines Allergy Mild HIVES Verified 07/30/22 09:23 doxepin Allergy Unknown pt doesn't Verified 07/30/22 09:23 remember propoxyphene Allergy Unknown pt doesn't Verified 07/30/22 09:23 remember Home Meds Home Medications Medication Instructions Recorded Confirmed atorvastatin 40 mg tablet 40 mg PO QAM 05/14/19 11/01/22 bupropion HCl 150 mg 24 hr tablet, 150 mg PO QAM 05/14/19 11/01/22 extended release escitalopram oxalate 20 mg tablet 20 mg PO QAM 05/14/19 11/01/22 fludrocortisone 0.1 mg tablet 0.2 mg PO DAILY 05/14/19 11/01/22 lamotrigine 200 mg tablet 200 mg PO HS 05/14/19 11/01/22 levothyroxine 100 mcg tablet 100 mcg PO DAILYBB 05/14/19 11/01/22 albuterol sulfate 90 mcg/actuation 2 puff inhalation Q4 PRN Wheezing 07/01/19 11/01/22 aerosol inhaler (ProAir HFA) cyanocobalamin (vitamin B-12) 1,000 mcg PO Q OTHER DAY 07/01/19 11/01/22 1,000 mcg tablet (Vitamin B-12) zinc gluconate 50 mg tablet 50 mg PO QAM 07/01/19 11/01/22 albuterol sulfate 2.5 mg/0.5 mL 2.5 mg inhalation UD PRN as 11/01/22 11/01/22 solution for nebulization directed aripiprazole 10 mg tablet 10 mg PO HS 11/01/22 11/01/22 ascorbic acid (vitamin C) 1,000 mg 1,000 mg PO DAILY 11/01/22 11/01/22 tablet,extended release (Vitamin C ER) aspirin 81 mg tablet,delayed 81 mg PO QPM 11/01/22 11/01/22 release cholecalciferol (vitamin D3) 25 25 mcg PO BID 11/01/22 11/01/22 mcg (1,000 unit) tablet (Vitamin D3) folic acid 800 mcg tablet 0.8 mg PO DAILY 11/01/22 11/01/22 levothyroxine 25 mcg tablet 25 mcg PO DAILYBB 11/01/22 11/01/22 Results & Data (ED) Vital Signs Vital Signs - 24 hr 11/01/22 16:11 11/01/22 18:03 Temperature 37.0 C Temperature Source Temporal Artery Scan Pulse Rate 115 H Pulse Rate [Apical] 90 Pulse Rhythm [Apical] Regular Pulse Strength [Apical] Normal Respiratory Rate 24 20 Respiratory Effort / Characteristics Non-Labored Respiratory Depth Normal Normal Respiratory Pattern Regular Regular Blood Pressure 134/79 Blood Pressure [Right Arm] 116/66 Blood Pressure Mean 97 Blood Pressure Mean [Right Arm] 82 Blood Pressure Position Sitting Blood Pressure Position [Right Arm] Lying Pulse Oximetry 94 96 Oxygen Delivery Method Nasal Cannula Nasal Cannula Oxygen Flow Rate 3 3 Sepsis Recent Fever Within 48 Hours No Sepsis New/Unexplained Change in Mental Status No Sepsis Action Taken by Nursing No Action Required Home Medications Current Medication List: was personally reviewed by me Laboratory Data Attestation: I reviewed the patient's lab results. 11/01/22 18:12 11/01/22 18:12 Lab Results 0211/01/22 11/01/22 Range/Units 18:12 18:12 21:12 WBC 8.06 (4.8-10.8) K/ul RBC 4.24 (4.20-5.40) M/uL Hgb 13.4 (12.0-16.0) g/dl Hct 39.4 (37.0-47.0) % MCV 92.9 (80.0-100.0) fL MCH 31.6 (25.0-34.0) pg MCHC 34.0 (32.0-36.0) g/dL RDW Std Deviation 54.2 H (36.4-46.3) fL RDW Coeff of Jagruti 15.8 H (11.5-14.5) % Plt Count 315 (130-400) K/uL MPV 9.9 (9.4-12.4) fL Immature Gran % (Auto) 0.5 % Neut % (Auto) 76.7 % Lymph % (Auto) 8.2 % [place] % (Auto) 8.9 % Eos % (Auto) 5.0 % Baso % (Auto) 0.7 % Neut # (Auto) 6.18 (1.40-6.50) K/uL Lymph # (Auto) 0.66 L (1.2-3.4) K/uL [place] # (Auto) 0.72 H (0.11-0.59) K/uL Eos # (Auto) 0.40 (0-0.50) K/uL Baso # (Auto) 0.06 (0-0.2) K/uL Immature Gran # (Auto) 0.04 (0.01-0.20) K/uL Sodium 143 (136-145) mmol/L Potassium 3.3 L (3.5-5.1) mmol/L Chloride 101 (98-107) mmol/L Carbon Dioxide 36 H (21-32) mmol/L Anion Gap 6 (3-11) BUN 20 (6-23) mg/dl Creatinine 1.25 H (0.6-1.2) mg/dl Est Cr Clr Drug Dosing 45.7 ml/min Est GFR ( Amer) 51.9 ml/min Est GFR (Non-Af Amer) 44.8 ml/min BUN/Creatinine Ratio 16.0 (10-20) Glucose 125 H (70-99(Fasting)) mg/dl Calcium 11.0 H (8.5-10.1) mg/dl Total Bilirubin 0.3 (0.2-1.0) mg/dl AST 18 (13-39) U/L ALT 14 (7-52) U/L Alkaline Phosphatase 138 H (34-104) U/L Troponin I High Sens 111.1 H* 264.5 H* D (0-14) pg/ml Total Protein 7.8 (6.0-8.3) gm/dl Albumin 4.2 (3.4-5.0) gm/dl Globulin 3.6 (2.5-4.0) gm/dl Albumin/Globulin Ratio 1.2 (0.9-2) Administered Medications Discontinued Medications Sodium Chloride (Nss 1000ml) 1,000 mls @ 999 mls/hr IV .Q1H1M ONE Stop: 11/01/22 19:38 Last Infusion: 11/01/22 21:01 Dose: 0 mls/hr Documented By: Admin: 11/01/22 19:37 Dose: 999 mls/hr Documented By: RS Imaging Data Radiologist's Impression: Cervical Spine CT 11/01/22 18:38 CT OF THE CERVICAL SPINE WITHOUT CONTRAST CLINICAL HISTORY: SENT BY ONCOLOGY FOR FALLS. Lung cancer. COMPARISON STUDY: PET/CT May 21, 2022. TECHNIQUE: Helical axial images of the cervical spine were obtained without IV contrast. Sagittal and coronal reconstructions were viewed. Automated exposure control was utilized for the study. A dose lowering technique was utilized adhering to the principles of ALARA. FINDINGS: There is reversal of the cervical lordosis. Vertebral body heights are maintained. No acute cervical spine fracture or subluxation is present. There is no prevertebral edema. Facet joints are intact. Moderate to severe multilevel degenerative changes within the cervical spine are present. IMPRESSION: No acute cervical spine fracture or subluxation. ACT 112: Negative or not required by law. Electronically signed by: Tima Shane M.D. 11/01/2022 7:54 PM Chest X-Ray 11/01/22 18:38 XR chest 1V portable CLINICAL HISTORY: WEAKNESS COMPARISON STUDY: Chest radiograph July 25, 2018. Chest CT June 14, 2016. Treatment planning CT August 08, 2022. CT of the chest, abdomen and pelvis July 16, 2022. FINDINGS: There is no pneumothorax. Left apical density remains unchanged. This may reflect posttreatment change. A left midlung density is noted. This likely corresponds to the suspicious lesion shown on treatment planning CT of August 08, 2022. This is decreased in conspicuity and could reflect posttreatment changes well. No evidence for pulmonary edema. There is no consolidation to suggest pneumonia. Left lung volume loss is noted. IMPRESSION: 1. No acute cardiopulmonary findings. 2. Decrease in conspicuity of the left lower lobe lesion. This could reflect posttreatment changes however should be assessed on follow-up exams to ensure expected evolution. Left apical opacity favors post treatment change. ACT 112: Negative or not required by law. Electronically signed by: Tima Shane M.D. 11/01/2022 7:[address] 11/01/22 18:38 CT OF THE HEAD WITHOUT CONTRAST CLINICAL HISTORY: SENT BY ONCOLOGY. FADI. Lung cancer. COMPARISON STUDY: MRI of the brain August 07, [address] November 14, 2017. TECHNIQUE: Helical axial images of the head were obtained without IV contrast. Automated exposure control was utilized for the study. A dose lowering technique was utilized adhering to the principles of ALARA. FINDINGS: No acute intracranial hemorrhage, midline shift or mass effect is present. The ventricular system is unremarkable. The basal cisterns are patent. No extra-axial collections are present. There are no findings to suggest acute dural sinus thrombosis or acute territorial infarct. No significant calvarial abnormalities are present. Visualized portions of the sinuses and mastoid air c ells are clear. IMPRESSION: 1. No acute intracranial findings. 2. No acute calvarial fracture. ACT 112: Negative or not required by law. Electronically signed by: Tima Shane M.D. 11/01/2022 7:40 PM Discharge Plan Visit Data Chief Complaint: Referred by Doctor Stated Complaint: REF BY DOC,HBP,FALLS,HEART RATE UP,SOB ED Provider: Arpit Andrews Discharge Problem: Weakness, Elevated troponin I level, Lung cancer Patient Disposition: Being Evaluated by Hospitalist Forms Stand Alone Forms: My [facility] Prescriptions Prescriptions: No Action atorvastatin 40 mg Tablet 40 mg PO QAM lamotrigine 200 mg Tablet 200 mg PO HS levothyroxine 100 mcg Tablet 100 mcg PO DAILYBB fludrocortisone 0.1 mg Tablet 0.2 mg PO DAILY escitalopram oxalate 20 mg Tablet 20 mg PO QAM bupropion HCl 150 mg Tablet Extended Release 24 Hr 150 mg PO QAM cyanocobalamin (vitamin B-12) [Vitamin B-12] 1,000 mcg Tablet 1,000 mcg PO Q OTHER DAY zinc gluconate 50 mg Tablet 50 mg PO QAM albuterol sulfate [ProAir HFA] 90 mcg/actuation Hfa Aerosol Inhaler 2 puff INHALATION Q4 PRN (Reason: Wheezing) aspirin [Aspirin Low-Strength] 81 mg Tablet,Delayed Release (Dr/Ec) 81 mg PO QPM levothyroxine 25 mcg tablet 25 mcg PO DAILYBB Rx Instructions: take in addition to 100 mcg. total daily dose 125 mcg aripiprazole 10 mg tablet 10 mg PO HS folic acid 800 mcg Tablet 0.8 mg PO DAILY cholecalciferol (vitamin D3) [Vitamin D3] 25 mcg (1,000 unit) Tablet 25 mcg PO BID Vitamin C 1,000 mg Tablet Extended Release 1,000 mg PO DAILY albuterol sulfate 2.5 mg/0.5 mL Solution For Nebulization 2.5 mg INHALATION UD PRN (Reason: as directed) Referrals Referrals: Manny Hernandez MD [Primary Care Provider] -
--- NOTE | 2022-11-01 19:24 | XRay Report ---
XR chest 1V portable CLINICAL HISTORY: WEAKNESS COMPARISON STUDY: Chest radiograph July 25, 2018. Chest CT June 14, 2016. Treatment planning CT August 08, 2022. CT of the chest, abdomen and pelvis July 16, 2022. FINDINGS: There is no pneumothorax. Left apical density remains unchanged. This may reflect posttreat ment change. A left midlung density is noted. This likely corresponds to the suspicious lesion shown on treatment planning CT of August 08, 2022. This is decreased in conspicuity and could reflect pos ttreatment changes well. No evidence for pulmonary edema. There is no consolidation to suggest pneumo christy. Left lung volume loss is noted. IMPRESSION: 1. No acute cardiopulmonary findings. 2. Decrease in conspicuity of the left lower lobe lesion. This could reflect posttreatment changes ho wever should be assessed on follow-up exams to ensure expected evolution. Left apical opacity favors post treatment change. ACT 112: Negative or not required by law. Electronically signed by: Tima Shane M.D. 11/01/2022 7:23 PM
[2022-11-01 19:38] LABS: Troponin I High Sensitivity 111.1 pg/ml (0-14)
--- NOTE | 2022-11-01 19:43 | CT Scan Report ---
CT OF THE HEAD WITHOUT CONTRAST CLINICAL HISTORY: SENT BY ONCOLOGY. FALLS. Lung cancer. COMPARISON STUDY: MRI of the brain August 07, [address] November 14, 2017. TECHNIQUE: Helical axial images of the head were obtained without IV contrast. Automated exposure con trol was utilized for the study. A dose lowering technique was utilized adhering to the principles o f ALARA. FINDINGS: No acute intracranial hemorrhage, midline shift or mass effect is present. The ventricular system is unremarkable. The basal cisterns are patent. No extra-axial collections are present. There are no findings to suggest acute dural sinus thrombosis or acute territorial infarct. No significant calvarial abnormalities are present. Visualized portions of the sinuses and mastoid air cells are gail ar. IMPRESSION: 1. No acute intracranial findings. 2. No acute calvarial fracture. ACT 112: Negative or not required by law. Electronically signed by: Tima Shane M.D. 11/01/2022 7:40 PM
--- NOTE | 2022-11-01 19:55 | CT Scan Report ---
CT OF THE CERVICAL SPINE WITHOUT CONTRAST CLINICAL HISTORY: SENT BY ONCOLOGY FOR FALLS. Lung cancer. COMPARISON STUDY: PET/CT May 21, 2022. TECHNIQUE: Helical axial images of the cervical spine were obtained without IV contrast. Sagittal a nd coronal reconstructions were viewed. Automated exposure control was utilized for the study. A do se lowering technique was utilized adhering to the principles of ALARA. FINDINGS: There is reversal of the cervical lordosis. Vertebral body heights are maintained. No acute cervical spine fracture or subluxation is present. There is no prevertebral edema. Facet joints are intact. Moderate to severe multilevel degenerative changes within the cervical spine are present. IMPRESSION: No acute cervical spine fracture or subluxation. ACT 112: Negative or not required by law. Electronically signed by: Tima Shane M.D. 11/01/2022 7:54 PM
[2022-11-01 22:25] LABS: Appearance Urine Cloudy (Clear); Bacteria Urine Automated Negative (Negative); Bilirubin Urine Negative (Negative); Blood Urine Negative (Negative); Color Urine Yellow; Epithelial Cell Urine Auto >30 /lpf (0-5); Glucose Urine UA Negative (Negative); Ketones Urine Trace (Negative); Leukocyte Esterase Urine 1+ (Negative); Nitrite Urine Negative (Negative); Protein Urine 2+ (Negative); RBC Urine Automated 0-4 /hpf (0-4); Specific Gravity Urine 1.023 (1.000-1.030); Urobilinogen Urine Negative (Negative)
[2022-11-01 22:50] LABS: Calcium Oxalate Crystals Urine Present (None Prsent)
[2022-11-01] MEDS ORDERED: POTASSIUM CHLORIDE PWD 20 MEQ PACK PO STA (22:52)
[2022-11-01] MEDS ORDERED: LACTATED RINGER'S 1,000 ML IV STA (23:08)
--- NOTE | 2022-11-01 23:48 | History & Physical Report ---
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 labs Nephrology consult if without improvement of hypercalcemia Follow troponin TTE given progression and patient dizziness/lightheadedness symptoms MRI brain Re: Gait dysfunction, history of malignancy rule out brain mets PT OT eval DVT prophylaxis. Heparin subcu DNR as per patient's prior wishes. Patient requesting for daughter to be updated of progress. Ms. Randa Carrasco, contact #[phone]. Text document was generated using [employer] voice recognition software. It may contain grammatical or spelling errors. Kindly contact undersigned for clarification of any documentation item in question. History of Present Illness Chief Complaint: Weakness, gait instability, episodic confusion Primary Care Provider: Dr. Cony Hernandez History obtained from patient, family, and records. 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 Last confinement 2016 under General Surgery service for cholecystitis status post cholecystectomy. Patient found to have left lung adenocarcinoma status post chemoradiation in 2016. Late last year, patient found to have squamous cell carcinoma of the left lung. Subsequent radiation treatment completed. Patient noted to be more unsteady than usual since last month. No headache, no unusual chest pain, no unusual shortness of breath as per patient. Dizziness described as lightheadedness. Appetite okay. Episode of confusion at home as per family. No abdominal pain or dysuria symptoms. Patient seen at oncologist office today and directed to ER for evaluation. 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 Allergies Allergy/AdvReac Type Severity Reaction Status Date / Time bee venom protein (honey bee) Allergy Mild swelling Verified 07/30/22 09:23 Sulfa (Sulfonamide Allergy Mild nausea/vomi Verified 07/30/22 09:23 Antibiotics) ting Tetracyclines Allergy Mild HIVES Verified 07/30/22 09:23 doxepin Allergy Unknown pt doesn't Verified 07/30/22 09:23 remember propoxyphene Allergy Unknown pt doesn't Verified 07/30/22 09:23 remember Home Medications Medication Instructions Recorded Confirmed Type atorvastatin 40 mg tablet 40 mg PO QAM 05/14/19 11/01/22 History bupropion HCl 150 mg 24 hr tablet, 150 mg PO QAM 05/14/19 11/01/22 History extended release escitalopram oxalate 20 mg tablet 20 mg PO QAM 05/14/19 11/01/22 History fludrocortisone 0.1 mg tablet 0.2 mg PO DAILY 05/14/19 11/01/22 History lamotrigine 200 mg tablet 200 mg PO HS 05/14/19 11/01/22 History levothyroxine 100 mcg tablet 100 mcg PO DAILYBB 05/14/19 11/01/22 History albuterol sulfate 90 mcg/actuation 2 puff inhalation Q4 PRN Wheezing 07/01/19 11/01/22 History aerosol inhaler (ProAir HFA) cyanocobalamin (vitamin B-12) 1,000 mcg PO Q OTHER DAY 07/01/19 11/01/22 History 1,000 mcg tablet (Vitamin B-12) zinc gluconate 50 mg tablet 50 mg PO QAM 07/01/19 11/01/22 History albuterol sulfate 2.5 mg/0.5 mL 2.5 mg inhalation UD PRN as 11/01/22 11/01/22 History solution for nebulization directed aripiprazole 10 mg tablet 10 mg PO HS 11/01/22 11/01/22 History ascorbic acid (vitamin C) 1,000 mg 1,000 mg PO DAILY 11/01/22 11/01/22 History tablet,extended release (Vitamin C ER) aspirin 81 mg tablet,delayed 81 mg PO QPM 11/01/22 11/01/22 History release cholecalciferol (vitamin D3) 25 25 mcg PO BID 11/01/22 11/01/22 History mcg (1,000 unit) tablet (Vitamin D3) folic acid 800 mcg tablet 0.8 mg PO DAILY 11/01/22 11/01/22 History levothyroxine 25 mcg tablet 25 mcg PO DAILYBB 11/01/22 11/01/22 History Past Med/Surg History Medical History ADD (attention deficit disorder) Asthma DOESNT FOLLOW WITH ANYONE- NO ATTACKS FOR OVER A YEAR inhaler prn Bipolar disorder 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 HAPPENED DURING GALLBLADDER REMOVAL AT [facility]. HAD TO BE RE-INTUBATED. VOCAL CORD WAS INJURED Hypothyroidism Lung cancer (09/01/15) On home oxygen therapy uses 2L N/C prn Vitamin D deficiency Surgical History H/O bilateral cataract extraction H/O colonoscopy History of hysterectomy History of lung biopsy S/P breast biopsy S/P laparoscopic cholecystectomy S/P tonsillectomy and adenoidectomy Family History Grandmother (Maternal) Cancer Grandfather Cancer Other No family history of adverse response to anesthesia Social History Smoking Status: Former smoker Age Started Using Tobacco: 16; Cigarettes Per Day: 2 PPD; Smoking End Date: 2020; Second Hand Exposure: Yes (Grandfather, Mother); Do You Dip or Chew Tobacco: No; Tobacco Cessation Education Requested by Patient: No Hx Alcohol Use: No Hx Substance Use: Yes Last Used Substance: Unknown Last Used Substance Other:: last used 8 months ago Substance Use Type Other:: HAD USED DURING CHEMO AND RADIATION- NONE CURRENTLY Preferred Language: [place] Communication Ability: Effective Hearing Ability: Hard of Hearing Nursery Worker Required: No Beliefs That Will Affect Care: None Current Living Situation: Family Current Living Situation Comment: Grandson lives with her Other Information That Helps Us Care for You: No Feels Safe at Home: Yes Safety Concerns: Feels Safe At This Time during the past year weight has: decreased > 10 lbs Assistive Devices: Denture - Upper Review of Systems Review of Systems: As per HPI, all other systems reviewed and negative Physical Exam Physical Exam: GENERAL: Comfortable, pleasant, dysphonic (chronic ), no respiratory distress SKIN: Normal color, warm HEENT: [place] palpebral conjunctivae, no ptosis, dry buccal mucosa, nasal cannula in place NECK : Supple, no tenderness CHEST : Decreased breath sounds, scattered expiratory wheezes, no tenderness HEART : RRR, no obvious murmurs ABDOMEN: Some distention, nontender EXTREMITIES : Minimal LE swelling, no LE tenderness, no other conspicuous deformities noted NEUROLOGIC : Coherent, no facial asymmetry, gait and stance not assessed Results & Data Results & Data ([facility]) Vital Signs (Past 12 Hours) Vital Signs Temp Pulse Pulse Resp BP BP Pulse Ox 11/01/22 18:03 90 20 116/66 96 11/01/22 16:11 37.0 C 115 H 24 134/79 94 O2 Del Method O2 Flow Rate 11/01/22 18:03 Nasal Cannula 3 11/01/22 16:11 Nasal Cannula 3 Laboratory Results Laboratory Results WBC 8.06 K/ul (4.8-10.8) 11/01/22 18:12 RBC 4.24 M/uL (4.20-5.40) 11/01/22 18:12 Hgb 13.4 g/dl (12.0-16.0) 11/01/22 18:12 Hct 39.4 % (37.0-47.0) 11/01/22 18:12 MCV 92.9 fL (80.0-100.0) 11/01/22 18:12 MCH 31.6 pg (25.0-34.0) 11/01/22 18:12 MCHC 34.0 g/dL (32.0-36.0) 11/01/22 18:12 RDW Std Deviation 54.2 fL (36.4-46.3) H 11/01/22 18:12 RDW Coeff of Jagruti 15.8 % (11.5-14.5) H 11/01/22 18:12 Plt Count 315 K/uL (130-400) 11/01/22 18:12 MPV 9.9 fL (9.4-12.4) 11/01/22 18:12 Immature Gran % (Auto) 0.5 % 11/01/22 18:12 Neut % (Auto) 76.7 % 11/01/22 18:12 Lymph % (Auto) 8.2 % 11/01/22 18:12 [place] % (Auto) 8.9 % 11/01/22 18:12 Eos % (Auto) 5.0 % 11/01/22 18:12 Baso % (Auto) 0.7 % 11/01/22 18:12 Neut # (Auto) 6.18 K/uL (1.40-6.50) 11/01/22 18:12 Lymph # (Auto) 0.66 K/uL (1.2-3.4) L 11/01/22 18:12 [place] # (Auto) 0.72 K/uL (0.11-0.59) H 11/01/22 18:12 Eos # (Auto) 0.40 K/uL (0-0.50) 11/01/22 18:12 Baso # (Auto) 0.06 K/uL (0-0.2) 11/01/22 18:12 Immature Gran # (Auto) 0.04 K/uL (0.01-0.20) 11/01/22 18:12 Sodium 143 mmol/L (136-145) 11/01/22 18:12 Potassium 3.3 mmol/L (3.5-5.1) L 11/01/22 18:12 Chloride 101 mmol/L (98-107) 11/01/22 18:12 Carbon Dioxide 36 mmol/L (21-32) H 11/01/22 18:12 Anion Gap 6 (3-11) 11/01/22 18:12 BUN 20 mg/dl (6-23) 11/01/22 18:12 Creatinine 1.25 mg/dl (0.6-1.2) H 11/01/22 18:12 Est Cr Clr Drug Dosing 45.7 ml/min 11/01/22 18:12 Est GFR ( Amer) 51.9 ml/min 11/01/22 18:12 Est GFR (Non-Af Amer) 44.8 ml/min 11/01/22 18:12 BUN/Creatinine Ratio 16.0 (10-20) 11/01/22 18:12 Glucose 125 mg/dl (70-99(Fasting)) H 11/01/22 18:12 Calcium 11.0 mg/dl (8.5-10.1) H 11/01/22 18:12 Total Bilirubin 0.3 mg/dl (0.2-1.0) 11/01/22 18:12 AST 18 U/L (13-39) 11/01/22 18:12 ALT 14 U/L (7-52) 11/01/22 18:12 Alkaline Phosphatase 138 U/L (34-104) H 11/01/22 18:12 Troponin I High Sens 264.5 pg/ml (0-14) H* D 11/01/22 21:12 Total Protein 7.8 gm/dl (6.0-8.3) 11/01/22 18:12 Albumin 4.2 gm/dl (3.4-5.0) 11/01/22 18:12 Globulin 3.6 gm/dl (2.5-4.0) 11/01/22 18:12 Albumin/Globulin Ratio 1.2 (0.9-2) 11/01/22 18:12 Urine Color Yellow 11/01/22 21:50 Urine Appearance Cloudy (Clear) A 11/01/22 21:50 Urine pH 6.0 (4.5-7.5) 11/01/22 21:50 Ur Specific [place] 1.023 (1.000-1.030) 11/01/22 21:50 Urine Protein 2+ (Negative) H 11/01/22 21:50 Urine Glucose (UA) Negative (Negative) 11/01/22 21:50 Urine Ketones Trace (Negative) H 11/01/22 21:50 Urine Blood Negative (Negative) 11/01/22 21:50 Urine Nitrite Negative (Negative) 11/01/22 21:50 Urine Bilirubin Negative (Negative) 11/01/22 21:50 Urine Urobilinogen Negative (Negative) 11/01/22 21:50 Ur Leukocyte Esterase 1+ (Negative) H 11/01/22 21:50 Urine WBC (Auto) 10-30 /hpf (0-5) H 11/01/22 21:50 Urine RBC (Auto) 0-4 /hpf (0-4) 11/01/22 21:50 U Hyaline Cast (Auto) 1-5 /lpf (0-5) 11/01/22 21:50 U Epithel Cells (Auto) >30 /lpf (0-5) H 11/01/22 21:50 Urine Bacteria (Auto) Negative (Negative) 11/01/22 21:50 Urine Crystals Not Reportable 11/01/22 21:50 Calcium Oxalate Crystal Present (None Prsent) A 11/01/22 21:50 SARS-CoV-2, RNA, NAAT NEGATIVE (NEGATIVE) 11/01/22 22:[address] 11/01/22 18:38 CT OF THE CERVICAL SPINE WITHOUT CONTRAST CLINICAL HISTORY: SENT BY ONCOLOGY FOR FALLS. Lung cancer. COMPARISON STUDY: PET/CT May 21, 2022. TECHNIQUE: Helical axial images of the cervical spine were obtained without IV contrast. Sagittal and coronal reconstructions were viewed. Automated exposure control was utilized for the study. A dose lowering technique was utilized adhering to the principles of ALARA. FINDINGS: There is reversal of the cervical lordosis. Vertebral body heights are maintained. No acute cervical spine fracture or subluxation is present. There is no prevertebral edema. Facet joints are intact. Moderate to severe multilevel degenerative changes within the cervical spine are present. IMPRESSION: No acute cervical spine fracture or subluxation. ACT 112: Negative or not required by law. Electronically signed by: Tima Shane M.D. 11/01/2022 7:54 PM Chest X-Ray 11/01/22 18:38 XR chest 1V portable CLINICAL HISTORY: WEAKNESS COMPARISON STUDY: Chest radiograph July 25, 2018. Chest CT June 14, 2016. Treatment planning CT August 08, 2022. CT of the chest, abdomen and pelvis July 16, 2022. FINDINGS: There is no pneumothorax. Left apical density remains unchanged. This may reflect posttreatment change. A left midlung density is noted. This likely corresponds to the suspicious lesion shown on treatment planning CT of August 08, 2022. This is decreased in conspicuity and could reflect posttreatment changes well. No evidence for pulmonary edema. There is no consolidation to suggest pneumonia. Left lung volume loss is noted. IMPRESSION: 1. No acute cardiopulmonary findings. 2. Decrease in conspicuity of the left lower lobe lesion. This could reflect posttreatment changes however should be assessed on follow-up exams to ensure expected evolution. Left apical opacity favors post treatment change. ACT 112: Negative or not required by law. Electronically signed by: Tima Shane M.D. 11/01/2022 7:[address] 11/01/22 18:38 CT OF THE HEAD WITHOUT CONTRAST CLINICAL HISTORY: SENT BY ONCOLOGY. FALLS. Lung cancer. COMPARISON STUDY: MRI of the brain August 07, [address] November 14, 2017. TECHNIQUE: Helical axial images of the head were obtained without IV contrast. Automated exposure control was utilized for the study. A dose lowering technique was utilized adhering to the principles of ALARA. FINDINGS: No acute intracranial hemorrhage, midline shift or mass effect is present. The ventricular system is unremarkable. The basal cisterns are patent. No extra-axial collections are present. There are no findings to suggest acute dural sinus thrombosis or acute territorial infarct. No significant calvarial abnormalities are present. Visualized portions of the sinuses and mastoid air cells are clear. IMPRESSION: 1. No acute intracranial findings. 2. No acute calvarial fracture. ACT 112: Negative or not required by law. Electronically signed by: Tima Shane M.D. 11/01/2022 7:40 PM Diagnostic Findings EKG as per my interpretation : Rate 95, NSR, normal axis, no ischemia
[2022-11-02 01:58] LABS: Magnesium 1.8 mg/dl (1.7-2.4); Phosphorus 3.5 mg/dl (2.5-4.9)
[2022-11-02] MEDS ORDERED: ACETAMINOPHEN 325 MG TAB PO PRN (01:59)
[2022-11-02] MEDS ORDERED: PROMETHAZINE HCL 12.5 MG in SODIUM CHLORIDE 0.9% 50 ML IV PRN (01:59)
[2022-11-02] MEDS ORDERED: ARIPiprazole 10 MG TAB PO SCH (01:59)
[2022-11-02] MEDS ORDERED: lamoTRIgine 100 MG TAB PO SCH (01:59)
[2022-11-02] MEDS ORDERED: ASPIRIN 81 MG ECTAB PO SCH (01:59)
[2022-11-02] MEDS ORDERED: oxyCODONE HCL IR 5 MG TAB (IMMEDIATE RELEASE) PO PRN (01:59)
[2022-11-02 02:26] LABS: Partial Thromboplastin Ratio 1.1; Partial Thromboplastin Time 29.3 Seconds (21.0-31.0)
[2022-11-02] MEDS ORDERED: MAGNESIUM SULFATE / D5W 1 GM/100 ML BAG IV ONE (04:40)
[2022-11-02] MEDS ORDERED: LACTATED RINGER'S 1,000 ML IV ONE (05:00)
[2022-11-02] MEDS: HEPARIN SOD 5,000 UNIT/0.5 ML VIAL SQ SCH ×2 (05:38→15:02)
[2022-11-02 05:49] LABS: Basophils # (auto) 0.04 K/uL (0-0.2); Basophils % (auto) 0.7 %; Eosinophils # (auto) 0.42 K/uL (0-0.50); Eosinophils % (auto) 7.8 %; Hematocrit (blood only) 34.6 % (37.0-47.0); Hemoglobin 11.3 g/dl (12.0-16.0); Immature Granulocytes # (auto) 0.02 K/uL (0.01-0.20); Immature Granulocytes % (auto) 0.4 %; Lymphocytes # (auto) 0.83 K/uL (1.2-3.4); Lymphocytes % (auto) 15.4 %; Mean Corpuscular Hemoglobin 31.4 pg (25.0-34.0); Mean Corpuscular Hgb Conc 32.7 g/dL (32.0-36.0); Mean Corpuscular Volume 96.1 fL (80.0-100.0); Mean Platelet Volume 9.5 fL (9.4-12.4); Monocytes # (auto) 0.67 K/uL (0.11-0.59); Monocytes % (auto) 12.4 %; Neutrophils # (auto) 3.41 K/uL (1.40-6.50); Neutrophils % (auto) 63.3 %; Platelet Count 222 K/uL (130-400); RDW Coefficient of Variation 15.9 % (11.5-14.5); RDW Standard Deviation 56.9 fL (36.4-46.3); White Blood Count 5.39 K/ul (4.8-10.8)
[2022-11-02] MEDS ORDERED: HEPARIN SOD 5,000 UNIT/0.5 ML VIAL SQ SCH (06:00)
[2022-11-02 06:13] LABS: Calcium 8.9 mg/dl (8.5-10.1); Creatinine Clr Calc Pharmacy 53.8 ml/min; Est GFR (African American) 63.4 ml/min; Est GFR (Non-African American) 54.7 ml/min; Potassium 3.4 mmol/L (3.5-5.1)
[2022-11-02] MEDS ORDERED: LEVOTHYROXINE SODIUM 25 MCG TABLET PO SCH (06:30)
[2022-11-02] MEDS ORDERED: LEVOTHYROXINE SODIUM 100 MCG TABLET PO SCH (06:30)
[2022-11-02 07:56] LABS: Estimated Average Glucose 117 mg/dl; Hemoglobin A1C 5.7 % (4.5-5.6)
[2022-11-02] MEDS ORDERED: ALPRAZolam 0.25 MG TABLET PO PRN (08:13)
[2022-11-02] MEDS ORDERED: POTASSIUM CHLORIDE CRTAB 20 MEQ TABCR PO STA (08:52)
[2022-11-02] MEDS ORDERED: ESCITALOPRAM OXALATE 20 MG TAB PO SCH (09:00)
[2022-11-02] MEDS ORDERED: buPROPion XL 150 MG TABCR PO SCH (09:00)
[2022-11-02] MEDS ORDERED: CYANOCOBALAMIN (B-12) 500 MCG TABLET PO SCH (09:00)
[2022-11-02] MEDS ORDERED: FOLIC ACID 400 MCG TAB PO SCH (09:00)
[2022-11-02] MEDS ORDERED: ATORVASTATIN 40 MG TAB PO SCH (09:00)
[2022-11-02] MEDS ORDERED: FLUDROCORTISONE ACETATE 0.1 MG TAB PO SCH (09:00)
[2022-11-02] MEDS ORDERED: GADOBUTROL 65ML VIAL IV ONE (10:29)
--- NOTE | 2022-11-02 11:08 | Magnetic Resonance Report ---
Brain MRI WITH AND WITHOUT CONTRAST HISTORY: unsteady gait, hx ca TECHNIQUE: Multiplanar multisequence MRI of the brain was performed both before and after the intrave nous administration of contrast. COMPARISON STUDY: Head CT 11/01/2022. Brain MRI 08/07/2016. FINDINGS: There are no areas of restricted diffusion to suggest acute infarction. The midline structu res are intact. The paranasal sinuses are clear. The mastoid air cells are clear. The ventricles and sulci are within normal limits for age. There is no mass, hematoma, midline shift. The major vascular flow-voids at the skull base are well maintained. Postcontrast sequences show no areas of abnormal e nhancement. Mild periventricular white matter T2 hyperintensity is nonspecific but favors microvascul ar ischemic change given the patient's age. IMPRESSION: 1. No acute infarct or intracranial hemorrhage. 2. No evidence for intracranial metastatic disease. ACT 112: Negative or not required by law. Electronically signed by: Juma Eaton M.D. 11/02/2022 11:06 AM
--- NOTE | 2022-11-02 14:06 | Discharge Summary ---
Discharge Summary Date of Service November 02, 2022 Notes For Next Care Provider refer to PT for diagnosis and treatment of BPPV consider meclizine therapy--monitor for drug-drug interactions between this and other mood stabilizing medications. small pericardial effusion was present on echocardiogram, not thought to be contributing to symptoms, but may need to be monitored with repeat echo in the future. Medication Changes From Visit START Meclizine PRN vertigo symptoms Admission HPI Per Admitting Provider History obtained from patient, family, and records. 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 Last confinement 2016 under General Surgery service for cholecystitis status post cholecystectomy. Patient found to have left lung adenocarcinoma status post chemoradiation in 2015. Late last year, patient found to have squamous cell carcinoma of the left lung. Subsequent radiation treatment completed. Patient noted to be more unsteady than usual since last month. No headache, no unusual chest pain, no unusual shortness of breath as per patient. Dizziness described as lightheadedness. Appetite okay. Episode of confusion at home as per family. No abdominal pain or dysuria symptoms. Patient seen at oncologist office today and directed to ER for evaluation. 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 Admission Exam Per Admitting Provider Physical Exam: GENERAL: Comfortable, pleasant, dysphonic (chronic ), no respiratory distress SKIN: Normal color, warm HEENT: [place] palpebral conjunctivae, no ptosis, dry buccal mucosa, nasal cannula in place NECK : Supple, no tenderness CHEST : Decreased breath sounds, scattered expiratory wheezes, no tenderness HEART : RRR, no obvious murmurs ABDOMEN: Some distention, nontender EXTREMITIES : Minimal LE swelling, no LE tenderness, no other conspicuous deformities noted NEUROLOGIC : Coherent, no facial asymmetry, gait and stance not assessed Principal Dx & Hospital Course #1 = Principal Diagnosis (1) Vertigo: (2) Hypercalcemia: (3) Squamous cell carcinoma of bronchus in left lower lobe: (4) Elevated troponin I level: Plan This is a 66-year-old female with a history of adenocarcinoma of the lung status post chemo and radiation therapy who presents for recurrent falls and rule out metastasis to the brain. On admission she reports being dizzy for several years but feels her dizziness has worsened in the last couple of months. She underwent a head CT with no acute intracranial findings. She underwent a brain MRI with and without contrast which revealed no acute infarct or intracranial hemorrhage or no evidence of intracranial metastatic disease. Has she had falls in her history she underwent a CT of the cervical spine without contrast revealing no acute cervical spine fracture or subluxation. She also underwent a chest x-ray revealing no acute cardiopulmonary findings. She was seen to have a left lower lobe lesion that was felt to reflect posttreatment changes. She denied any other additional symptoms including no chest pain, no shortness of breath, no urinary issues, no changes in her stool. She does report occasional diarrhea but this is normal for her. On record review she was started on Florinef by [facility] cardiology in November 2017 for a similar clinical picture. At that time she was having recurrent presyncope that was felt to be multifactorial in nature. She was describing vertigo very consistent with BPPV that was positional. Her blood pressure was also on the low side. She continues to take Florinef to this day and her orthostatic vital signs did not reflect any orthostatic hypotension. However, her pulse did rise significantly indicative of a possible orthostatic component to her dizziness. She is describing vertigo and it seems to be positional. She denies ever having gone to physical therapy for treatment of this she denies having ever used meclizine. She reports to me that she is never sought treatment for this in the past. She takes Abilify which has a side effect of orthostatic hypotension and tachycardia. Abilify also is known to cause dry mouth. She was encouraged to follow-up with her primary care doctor to continue the work-up and even consider a referral to neurology if no cause could be found. Clinical picture is highly suspicious of benign positional vertigo. For now will add meclizine as needed but counseled her on anticholinergic side effects that may result in obviously there is a polypharmacy component with something like Abilify. She is also taking Lexapro bupropion, lamotrigine which all may contribute polypharmacy side effects. She also received chemotherapy in the past but did not receive a classically ototoxic substance such as aminoglycosides. She was treated with carboplatin and paclitaxel per oncology notes. Her calcium was elevated to 11, however on record review this is not elevated in the last year and on repeat BMP the following morning her calcium level is normal at 8.9. She did receive 2 to 3 L of fluid during her stay overnight. Further monitoring of her calcium may be done as an outpatient. Although there are no up-to-date tests on her parathyroid hormone or vitamin D which may be explored. Her highly sensitive troponin was checked and elevated at 111. She had no chest pain or ACS symptoms on admission or throughout her hospital stay. The troponin was trended and marly to 264 then 259. EKG reflected no acute ischemia. An echocardiogram was performed revealing no regional wall motion deficits, ejection fraction 50 to 55%, no evidence of pulmonary hypertension, trivial posterolateral loculated pericardial effusion of not hemodynamic significance. Repeat echo may be considered by primary care. It is unclear why her troponin is elevated, but doesn't appear to be from a cardiac cause. Possible etiology may be underlying lung disease. She was discharged in stable condition wtih close followup with primary care recommended. Discharge Exam CONSTITUTIONAL: WNWD, vitals as above, generally well-appearing, NAD EYES: EOMI bilaterally, PERRL, +horizontal nystagmus to the right, normal conjunctivae, no scleral icterus ENT: external ear and nose normal, oropharynx clear, poor dentition NECK: trachea midline RESPIRATORY: clear to auscultation bilaterally, no crackles, rales or wheezes, normal respiratory effort CARDIOVASCULAR: regular rate and rhythm, S1 and 2 heard without murmurs, gallops or rubs, no JVD, no peripheral edema CHEST: inspection of chest was normal GASTROINTESTINAL: soft, nontender, ND, no guarding MUSCULOSKELETAL: strength 5/5 throughout, head is normocephalic and atraumatic SKIN: warm and dry NEUROLOGIC: No facial palsy, no dysarthria. Touch, pain and proprioception normal. CN 2-12 grossly intact, no sensory deficit, normal cognition, normal speech, no tremor, becomes dizzy with standing and has to hold onto an object for balance. PSYCHIATRIC: alert cooperative and oriented to person, place and time. Euthymic mood, makes good eye contact, language grossly intact, recent and remote memory grossly intact. Updated Medication List Medication Instructions Recorded Confirmed Type atorvastatin 40 mg tablet 40 mg PO QAM 05/14/19 11/01/22 History bupropion HCl 150 mg 24 hr tablet, 150 mg PO QAM 05/14/19 11/01/22 History extended release escitalopram oxalate 20 mg tablet 20 mg PO QAM 05/14/19 11/01/22 History fludrocortisone 0.1 mg tablet 0.2 mg PO DAILY 05/14/19 11/01/22 History lamotrigine 200 mg tablet 200 mg PO HS 05/14/19 11/01/22 History levothyroxine 100 mcg tablet 100 mcg PO DAILYBB 05/14/19 11/01/22 History albuterol sulfate 90 mcg/actuation 2 puff inhalation Q4 PRN Wheezing 07/01/19 11/01/22 History aerosol inhaler (ProAir HFA) cyanocobalamin (vitamin B-12) 1,000 mcg PO Q OTHER DAY 07/01/19 11/01/22 History 1,000 mcg tablet (Vitamin B-12) zinc gluconate 50 mg tablet 50 mg PO QAM 07/01/19 11/01/22 History albuterol sulfate 2.5 mg/0.5 mL 2.5 mg inhalation UD PRN as 11/01/22 11/01/22 History solution for nebulization directed aripiprazole 10 mg tablet 10 mg PO HS 11/01/22 11/01/22 History ascorbic acid (vitamin C) 1,000 mg 1,000 mg PO DAILY 11/01/22 11/01/22 History tablet,extended release (Vitamin C ER) aspirin 81 mg tablet,delayed 81 mg PO QPM 11/01/22 11/01/22 History release cholecalciferol (vitamin D3) 25 25 mcg PO BID 11/01/22 11/01/22 History mcg (1,000 unit) tablet (Vitamin D3) folic acid 800 mcg tablet 0.8 mg PO DAILY 11/01/22 11/01/22 History levothyroxine 25 mcg tablet 25 mcg PO DAILYBB 11/01/22 11/01/22 History meclizine 12.5 mg tablet 12.5 mg PO BID PRN dizziness #30 11/02/22 Rx tabs Hospital Stay Data Consultations 11/01/22 22:24 ED Decision to Admit Stat Diagnostic Imagining Performed 11/01/22 18:38 CT cervical spine wo con Stat CT head/brain wo con Stat 11/02/22 07:57 MR brain wo/w con Routine Discharge Instructions Given to Patient (Per Discharging Provider) Please take all medications as instructed on discharge as below. You were given a new medication to start called meclizine that may help you with dizziness. Another important referral will be to outpatient physical therapy for diagnosis and treatment of BPPV (benign paroxysmal positional vertigo). This referral will need to be from your primary care physician. Please follow-up with your primary care physician within 1 week of discharge from the hospital. This will be to order any lab work that is needed and monitor your symptoms of dizziness which are ongoing. While hospitalized you were found to have a small loculated pericardial effusion on your heart ultrasound. This is not causing any significant strain on your heart but may need to be monitored with serial echocardiograms in the future. It was a pleasure taking care of you! Please call if you have any questions or problems. You can reach a [facility]ist [facility] hours [facility] day by calling [phone]. Take care of yourself. Kenya Gilman, [facility] Hospitalist Total Time Total Time Spent Total Time Spent (In Minutes): 60
--- NOTE | 2022-11-02 22:33 | Electrocardiogram Report ---
Test Reason : Blood Pressure : / mmHG Vent. Rate : 095 BPM Atrial Rate : 095 BPM P-R Int : 146 ms QRS Dur : 086 ms QT Int : 412 ms P-R-T Axes : 090 077 098 degrees QTc Int : 517 ms Poor data quality, interpretation may be adversely affected Normal sinus rhythm Prolonged QT Abnormal ECG When compared with ECG of 25-JUL-2018 21:47, QT has lengthened Confirmed by Acosta Pickard ([id number]) on 11/02/2022 10:33:02 PM Referred By: Manny Hernandez Confirmed By:Acosta Pickard
== END 2022-11-02 15:42 | disposition home or self-care (01) | DRG 149 ==
LOC: ED 16:02 → 2N 23:51 → SUATTDRO 23:51 → INTOOBSV 23:51 → 2N 11-02 01:27

== ENCOUNTER 2023-02-24 19:09 | Inpatient (IN) ==
[2023-02-24] MEDS ORDERED: ALBUT/IPRATROP 3MG/0.5MG NEB 3 ML VIAL NEB ONE (19:21)
--- NOTE | 2023-02-24 19:24 | Emergency Department Note ---
Impression & Plan Left upper lobe pneumonia, History of lung cancer ED Provider Note Provider: Humza Oliveira MD DATE OF SERVICE: 02/24/2023 CHIEF COMPLAINT: Shortness of breath HISTORY OF PRESENT ILLNESS: Patient is a 67-year-old female history of COPD on chronic home oxygen as needed, lung cancer status post chemoradiation, hypotension on fludrocortisone, hypothyroidism, GERD, vocal cord paralysis, prediabetes, bipolar disorder presenting here via ambulance today from home. States that over the past approximate 3 days she developed worsening breathing and shortness of breath. States that she has had a bit of productive cough with this. Denies any leg swelling. Reports some pain in the mid central chest. Denies any significant abdominal issues. States she has been bumping into things and unsteady on her feet but denies any significant falls or head trauma. States has been using her home oxygen which is supposed to be as needed regularly last day or 2. Using her home inhalers by her report without significant improvement. PAST MEDICAL HISTORY: As noted above MEDICATIONS: Reviewed home medication list SOCIAL HISTORY: Former smoker PHYSICAL EXAM: GENERAL: alert and oriented in no acute distress on stretcher fatigued in appearance Head: normocephalic and atraumatic EYES: No injection, discharge or icterus. NECK: Trachea midline. Supple. ENT: Mucous membranes pink and moist. LUNGS: Airway patent. No retractions. Breath sounds coarse with scattered wheeze somewhat decreased on the left HEART: Regular rate and rhythm. No chest wall tenderness ABDOMEN: Soft and non-tender, without guarding or rebound. SKIN: Acyanotic, warm, dry, without rashes EXTREMITIES: Without swelling, tenderness or deformity NEUROLOGICAL: No focal deficits. No aphasia. No facial droop or slurred speech. EK bpm normal sinus rhythm. No PVC or PAC. No acute ST segment elevation or depression with a QTc of 474. CONTINUOUS CARDIAC MONITORING: was ordered and showed a heart rate of 90s-100s bpm in normal sinus rhythm to sinus tachycardia 1 view chest x-ray: Clear right lung spaces with left upper lung hazy airspace opacity with what appears to be some stable postsurgical left mid and lower lung findings compared to previous chest x-ray in the system. Patient's laboratory studies and imaging reviewed. Differential includes Reactive airway disease, pneumonia, pneumothorax, COPD, CHF, infections, cardiac ischemia, pulmonary embolism, musculoskeletal, gastrointestinal, as well as other pathologies. IMPRESSION/MEDICAL DECISION MAKING: Patient with underlying significant lung issues including COPD as well as lung cancer. Reports some sputum production. Not hypoxic on room air but placed on some oxygen for comfort. X-ray shows evidence of post chemoradiation changes of the left lung with some increased haziness in the left upper lung. We will complete a CT of the chest for evaluation of this and exclude PE. Blood work here without anemia but slight leukocytosis of 10.8. Lactate normal. Troponin normal. Respiratory viral panel returned negative. Slight AST ALT and alkaline phosphatase elevation no bilirubin elevation. Unclear etiology. Has some chronic alkaline phosphatase elevation. Negative respiratory viral panel. CTA of the chest per radiology questions a left upper lobe consolidation concerning for pneumonia. This is the same area she had prior treatment for lung cancer in his left lower lobe. Will cover with Zosyn at this time I discussed with her further care at the hospital given her comorbidities. Hospitalist contacted. DIAGNOSIS: Left upper lobe pneumonia, shortness of breath, history of lung cancer DISPOSITION: Hospitalist will evaluate Patient was agreeable with this plan. 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 HAPPENED DURING GALLBLADDER REMOVAL AT [facility]. HAD TO BE RE-INTUBATED. VOCAL CORD WAS INJURED Hypothyroidism Lung cancer (09/01/15) On home oxygen therapy uses 2L N/C prn Vitamin D deficiency Surgical History H/O bilateral cataract extraction H/O colonoscopy History of hysterectomy History of lung biopsy S/P breast biopsy S/P laparoscopic cholecystectomy S/P tonsillectomy and adenoidectomy Family History Grandmother (Maternal) Cancer Grandfather Cancer Other No family history of adverse response to anesthesia Social History Smoking Status: Former smoker Age Started Using Tobacco: 16; Cigarettes Per Day: 2 PPD; Second Hand Exposure: Yes (Grandfather, Mother); Do You Dip or Chew Tobacco: No; Hx Alcohol Use: No Hx Substance Use: Yes Last Used Substance: Unknown Last Used Substance Other:: last used 8 months ago Substance Use Type Other:: HAD USED DURING CHEMO AND RADIATION- NONE CURRENTLY Preferred Language: Ukrainian Communication Ability: Effective Visual Impairment: No Limitations Hearing Ability: Hard of Hearing Studio Musician Required: No Beliefs That Will Affect Care: None Current Living Situation: Family Current Living Situation Comment: Grandson lives with her Feels Safe at Home: Yes during the past year weight has: decreased > 10 lbs Assistive Devices: Cane, Denture - Upper, Glasses, Oxygen - Continuous and Walker Allergies Allergies Allergy/AdvReac Type Severity Reaction Status Date / Time bee venom protein (honey bee) Allergy Intermediate swelling Verified 02/24/23 20:41 Tetracyclines Allergy Intermediate HIVES Verified 02/24/23 20:41 doxepin Allergy Unknown pt doesn't Verified 02/24/23 20:41 remember propoxyphene Allergy Unknown pt doesn't Verified 02/24/23 20:41 remember Sulfa (Sulfonamide AdvReac Intermediate nausea/vomi Verified 02/24/23 20:41 Antibiotics) ting Home Meds Home Medications Medication Instructions Recorded Confirmed atorvastatin 40 mg tablet 40 mg PO QAM 05/14/19 02/24/23 bupropion HCl 150 mg 24 hr tablet, 150 mg PO QAM 05/14/19 02/24/23 extended release escitalopram oxalate 20 mg tablet 20 mg PO QAM 05/14/19 02/24/23 fludrocortisone 0.1 mg tablet 0.2 mg PO DAILY 05/14/19 02/24/23 lamotrigine 200 mg tablet 200 mg PO HS 05/14/19 02/24/23 levothyroxine 100 mcg tablet 100 mcg PO DAILYBB 05/14/19 02/24/23 albuterol sulfate 90 mcg/actuation 2 puff inhalation Q4 PRN Wheezing 07/01/19 02/24/23 aerosol inhaler (ProAir HFA) cyanocobalamin (vitamin B-12) 1,000 mcg PO Q OTHER DAY 07/01/19 02/24/23 1,000 mcg tablet (Vitamin B-12) zinc gluconate 50 mg tablet 50 mg PO QAM 07/01/19 02/24/23 aripiprazole 10 mg tablet 10 mg PO HS 11/01/22 02/24/23 aspirin 81 mg tablet,delayed 81 mg PO QPM 11/01/22 02/24/23 release cholecalciferol (vitamin D3) 25 25 mcg PO BID 11/01/22 02/24/23 mcg (1,000 unit) tablet (Vitamin D3) folic acid 800 mcg tablet 0.8 mg PO DAILY 11/01/22 02/24/23 levothyroxine 25 mcg tablet 25 mcg PO DAILYBB 11/01/22 02/24/23 ascorbic acid (vitamin C) 1,000 mg 1 g PO DAILY 02/24/23 02/24/23 tablet (Vitamin C) lorazepam 0.5 mg tablet 0.5 mg PO DAILY PRN Anxiety 02/24/23 02/24/23 meclizine 12.5 mg tablet 12.5 mg PO BID 02/24/23 02/24/23 potassium chloride 20 mEq 20 meq PO DAILY 02/24/23 02/24/23 tablet,extended release(part/cryst) (Diana Denny) Results & Data (ED) Vital Signs Vital Signs - 24 hr 02/24/23 19:11 02/24/23 19:22 02/24/23 19:22 Temperature 37.0 C Temperature Source Oral Pulse Rate 114 H Pulse Rate [Apical] Pulse Rhythm Respiratory Rate 17 Respiratory Effort / Characteristics Non-Labored Spontaneous SOB on Exertion Respiratory Depth Normal Blood Pressure 89/56 L Blood Pressure [Right Arm] Blood Pressure Mean 67 Blood Pressure Mean [Right Arm] Pulse Oximetry 95 Oxygen Delivery Method Room Air Nasal Cannula Nasal Cannula Oxygen Flow Rate 2 2 Sepsis Recent Fever Within 48 Hours No Sepsis New/Unexplained Change in Mental Status N/A Sepsis Action Taken by Nursing Physician Notified 02/24/23 19:24 02/24/23 19:25 02/24/23 19:21 Temperature Temperature Source Pulse Rate 100 H 103 H Pulse Rate [Apical] 99 H Pulse Rhythm Regular Respiratory Rate 18 18 Respiratory Effort / Characteristics Respiratory Depth Normal Blood Pressure Blood Pressure [Right Arm] 140/69 Blood Pressure Mean Blood Pressure Mean [Right Arm] 92 Pulse Oximetry 94 94 Oxygen Delivery Method Nasal Cannula Nasal Cannula Oxygen Flow Rate 2 2 Sepsis Recent Fever Within 48 Hours Sepsis New/Unexplained Change in Mental Status Sepsis Action Taken by Nursing 02/24/23 20:06 02/24/23 21:28 02/24/23 23:29 Temperature Temperature Source Pulse Rate 107 H Pulse Rate [Apical] 113 H Pulse Rhythm Respiratory Rate 19 Respiratory Effort / Characteristics Non-Labored Respiratory Depth Normal Blood Pressure Blood Pressure [Right Arm] 136/60 Blood Pressure Mean Blood Pressure Mean [Right Arm] 85 Pulse Oximetry 92 Oxygen Delivery Method Nasal Cannula Nasal Cannula Oxygen Flow Rate 2 2 Sepsis Recent Fever Within 48 Hours Sepsis New/Unexplained Change in Mental Status Sepsis Action Taken by Nursing 02/24/23 23:56 Temperature Temperature Source Pulse Rate Pulse Rate [Apical] 100 H Pulse Rhythm Respiratory Rate 22 Respiratory Effort / Characteristics Respiratory Depth Blood Pressure Blood Pressure [Right Arm] 98/62 L Blood Pressure Mean Blood Pressure Mean [Right Arm] 74 Pulse Oximetry 94 Oxygen Delivery Method Nasal Cannula Oxygen Flow Rate 2.5 Sepsis Recent Fever Within 48 Hours Sepsis New/Unexplained Change in Mental Status Sepsis Action Taken by Nursing Laboratory Data 02/24/23 19:20 02/24/23 19:20 Lab Results 02/24/23 02/24/23 02/24/23 Range/Units 19:20 19:20 19:20 WBC 10.83 H (4.8-10.8) K/ul RBC 4.11 L (4.20-5.40) M/uL Hgb 12.8 (12.0-16.0) g/dl POC Hgb (12.0-16.0) g/dl Hct 37.8 (37.0-47.0) % POC Hct (37-47) % MCV 92.0 (80.0-100.0) fL MCH 31.1 (25.0-34.0) pg MCHC 33.9 (32.0-36.0) g/dL RDW Std Deviation 51.7 H (36.4-46.3) fL RDW Coeff of Jagruti 15.3 H (11.5-14.5) % Plt Count 255 (130-400) K/uL MPV 10.6 (9.4-12.4) fL Immature Gran % (Auto) 0.6 % Neut % (Auto) 75.9 % Lymph % (Auto) 7.5 % [place] % (Auto) 13.4 % Eos % (Auto) 2.1 % Baso % (Auto) 0.5 % Neut # (Auto) 8.22 H (1.40-6.50) K/uL Lymph # (Auto) 0.81 L (1.2-3.4) K/uL [place] # (Auto) 1.45 H (0.11-0.59) K/uL Eos # (Auto) 0.23 (0-0.50) K/uL Baso # (Auto) 0.05 (0-0.2) K/uL Immature Gran # (Auto) 0.07 (0.01-0.20) K/uL PT Cancelled INR Cancelled APTT Cancelled PTT Ratio Cancelled POC Sodium (135-144) mmol/L Sodium TNP POC Potassium (3.3-5.0) mmol/L Potassium TNP POC Chloride (101-112) mmol/L Chloride TNP Carbon Dioxide TNP POC Total CO2 (24-31) mmol/L Anion Gap TNP POC Anion Gap (16-25) mmol/L POC BUN (7-18) mg/dl BUN TNP Creatinine TNP POC Creatinine (0.6-1.3) mg/dl Est Cr Clr Drug Dosing TNP Est GFR ( Amer) TNP Est GFR (Non-Af Amer) TNP BUN/Creatinine Ratio TNP Glucose TNP POC Glucose (other) (70-99) mg/dl Lactate (0.4-2.0) mmol/L Calcium TNP POC Ioniz Calcium Erlin (1.12-1.32) mmol/l Magnesium TNP Total Bilirubin TNP AST TNP ALT TNP Alkaline Phosphatase TNP Troponin I High Sens 7.4 (0-14) pg/ml Total Protein TNP Albumin TNP Globulin TNP Albumin/Globulin Ratio TNP Adenovirus (PCR) (NotDetected) B. pertussis DNA (PCR) (NotDetected) B.parapertussis DNA PCR (NotDetected) C. pneumoniae DNA (PCR) (NotDetected) Coronavirus OC43 (PCR) (NotDetected) Coronavirus HKU1 (PCR) (NotDetected) Coronavirus 229E (PCR) (NotDetected) SARS-CoV-2 (PCR) (NotDetected) Coronavirus NL63 (PCR) (NotDetected) Human Metapneumovir PCR (NotDetected) Influenza Type A (PCR) (NotDetected) Influenza Type B (PCR) (NotDetected) M. pneumoniae (PCR) (NotDetected) Parainfluenza 1 (PCR) (NotDetected) Parainfluenza 2 (PCR) (NotDetected) Parainfluenza 3 (PCR) (NotDetected) Parainfluenza 4 (PCR) (NotDetected) RSV (PCR) (NotDetected) Entero/Rhino (PCR) (NotDetected) 02/24/23 02/24/23 02/24/23 Range/Units 19:20 19:22 19:52 WBC (4.8-10.8) K/ul RBC (4.20-5.40) M/uL Hgb (12.0-16.0) g/dl POC Hgb (12.0-16.0) g/dl Hct (37.0-47.0) % POC Hct (37-47) % MCV (80.0-100.0) fL MCH (25.0-34.0) pg MCHC (32.0-36.0) g/dL RDW Std Deviation (36.4-46.3) fL RDW Coeff of Jagruti (11.5-14.5) % Plt Count (130-400) K/uL MPV (9.4-12.4) fL Immature Gran % (Auto) % Neut % (Auto) % Lymph % (Auto) % [place] % (Auto) % Eos % (Auto) % Baso % (Auto) % Neut # (Auto) (1.40-6.50) K/uL Lymph # (Auto) (1.2-3.4) K/uL [place] # (Auto) (0.11-0.59) K/uL Eos # (Auto) (0-0.50) K/uL Baso # (Auto) (0-0.2) K/uL Immature Gran # (Auto) (0.01-0.20) K/uL PT INR APTT PTT Ratio POC Sodium (135-144) mmol/L Sodium 133 L POC Potassium (3.3-5.0) mmol/L Potassium 4.0 POC Chloride (101-112) mmol/L Chloride 101 Carbon Dioxide 25 POC Total CO2 (24-31) mmol/L Anion Gap 7 POC Anion Gap (16-25) mmol/L POC BUN (7-18) mg/dl BUN 18 Creatinine 0.92 POC Creatinine (0.6-1.3) mg/dl Est Cr Clr Drug Dosing 55.5 Est GFR ( Amer) 74.7 Est GFR (Non-Af Amer) 64.4 BUN/Creatinine Ratio 19.6 Glucose 106 H POC Glucose (other) (70-99) mg/dl Lactate 1.2 (0.4-2.0) mmol/L Calcium 9.5 POC Ioniz Calcium Erlin (1.12-1.32) mmol/l Magnesium 1.9 Total Bilirubin 1.0 AST 100 H ALT 71 H Alkaline Phosphatase 215 H Troponin I High Sens (0-14) pg/ml Total Protein 7.6 Albumin 3.2 L Globulin 4.4 H Albumin/Globulin Ratio 0.7 L Adenovirus (PCR) Not Detected (NotDetected) B. pertussis DNA (PCR) Not Detected (NotDetected) B.parapertussis DNA PCR Not Detected (NotDetected) C. pneumoniae DNA (PCR) Not Detected (NotDetected) Coronavirus OC43 (PCR) Not Detected (NotDetected) Coronavirus HKU1 (PCR) Not Detected (NotDetected) Coronavirus 229E (PCR) Not Detected (NotDetected) SARS-CoV-2 (PCR) Not Detected (NotDetected) Coronavirus NL63 (PCR) Not Detected (NotDetected) Human Metapneumovir PCR Not Detected (NotDetected) Influenza Type A (PCR) Not Detected (NotDetected) Influenza Type B (PCR) Not Detected (NotDetected) M. pneumoniae (PCR) Not Detected (NotDetected) Parainfluenza 1 (PCR) Not Detected (NotDetected) Parainfluenza 2 (PCR) Not Detected (NotDetected) Parainfluenza 3 (PCR) Not Detected (NotDetected) Parainfluenza 4 (PCR) Not Detected (NotDetected) RSV (PCR) Not Detected (NotDetected) Entero/Rhino (PCR) Not Detected (NotDetected) 02/24/23 02/24/23 Range/Units 20:23 21:01 WBC (4.8-10.8) K/ul RBC (4.20-5.40) M/uL Hgb (12.0-16.0) g/dl POC Hgb 12.9 (12.0-16.0) g/dl Hct (37.0-47.0) % POC Hct 38 (37-47) % MCV (80.0-100.0) fL MCH (25.0-34.0) pg MCHC (32.0-36.0) g/dL RDW Std Deviation (36.4-46.3) fL RDW Coeff of Jagruti (11.5-14.5) % Plt Count (130-400) K/uL MPV (9.4-12.4) fL Immature Gran % (Auto) % Neut % (Auto) % Lymph % (Auto) % [place] % (Auto) % Eos % (Auto) % Baso % (Auto) % Neut # (Auto) (1.40-6.50) K/uL Lymph # (Auto) (1.2-3.4) K/uL [place] # (Auto) (0.11-0.59) K/uL Eos # (Auto) (0-0.50) K/uL Baso # (Auto) (0-0.2) K/uL Immature Gran # (Auto) (0.01-0.20) K/uL PT 11.8 INR 1.1 APTT 33.6 H PTT Ratio 1.2 POC Sodium 137 (135-144) mmol/L Sodium POC Potassium 3.7 (3.3-5.0) mmol/L Potassium POC Chloride 102 (101-112) mmol/L Chloride Carbon Dioxide POC Total CO2 23 L (24-31) mmol/L Anion Gap POC Anion Gap 17.0 (16-25) mmol/L POC BUN 18 (7-18) mg/dl BUN Creatinine POC Creatinine 1.0 (0.6-1.3) mg/dl Est Cr Clr Drug Dosing Est GFR ( Amer) Est GFR (Non-Af Amer) BUN/Creatinine Ratio Glucose POC Glucose (other) 129 H (70-99) mg/dl Lactate (0.4-2.0) mmol/L Calcium POC Ioniz Calcium Erlin 1.19 (1.12-1.32) mmol/l Magnesium Total Bilirubin AST ALT Alkaline Phosphatase Troponin I High Sens (0-14) pg/ml Total Protein Albumin Globulin Albumin/Globulin Ratio Adenovirus (PCR) (NotDetected) B. pertussis DNA (PCR) (NotDetected) B.parapertussis DNA PCR (NotDetected) C. pneumoniae DNA (PCR) (NotDetected) Coronavirus OC43 (PCR) (NotDetected) Coronavirus HKU1 (PCR) (NotDetected) Coronavirus 229E (PCR) (NotDetected) SARS-CoV-2 (PCR) (NotDetected) Coronavirus NL63 (PCR) (NotDetected) Human Metapneumovir PCR (NotDetected) Influenza Type A (PCR) (NotDetected) Influenza Type B (PCR) (NotDetected) M. pneumoniae (PCR) (NotDetected) Parainfluenza 1 (PCR) (NotDetected) Parainfluenza 2 (PCR) (NotDetected) Parainfluenza 3 (PCR) (NotDetected) Parainfluenza 4 (PCR) (NotDetected) RSV (PCR) (NotDetected) Entero/Rhino (PCR) (NotDetected) Administered Medications Sodium Chloride (Nss 1000ml) 1,000 mls @ 100 mls/hr IV .Q10H ONE Stop: 02/25/23 08:29 Last Admin: 02/24/23 22:42 Dose: 100 mls/hr Documented By: Discontinued Medications Albuterol (Albut/Ipratrop 3mg/0.5mg Neb 3 Ml Vial) 12 ml NEB ONE ONE; Protocol Stop: 02/24/23 19:22 Last Admin: 02/24/23 19:43 Dose: 12 ml Documented By: Piperacillin Sod/Tazobactam Sod (Zosyn) 4.5 gm in 120 mls @ 240 mls/hr IV NOW ONE Stop: 02/24/23 22:25 Last Infusion: 02/24/23 22:51 Dose: 0 mls/hr Documented By: Admin: 02/24/23 22:07 Dose: 240 mls/hr Documented By: Magnesium Sulfate/Dextrose (Magnesium Sulfate / D5w) 1 gm in 100 mls @ 50 mls/hr IV ONE ONE Stop: 02/24/23 22:29 Last Admin: 02/24/23 22:42 Dose: 50 mls/hr Documented By: Ioversol (Optiray 320 500ml) 110 ml IV ONCE ONE Stop: 02/24/23 21:18 Last Admin: 02/24/23 21:19 Dose: 110 ml Documented By: ABA Methylprednisolone (Methylprednisolone 40 Mg/Ml Vial) 20 mg IV NOW STA Stop: 02/24/23 22:55 Last Admin: 02/24/23 23:15 Dose: 20 mg Documented By: SARAW Imaging Data Radiologist's Impression: Chest CTA 02/24/23 20:20 Exam(s): CTA CHEST IV Amt: 110 ML OPTIRAY 320 EXAM: CT Angiography Chest With Intravenous Contrast CLINICAL HISTORY: Reason for exam: PE, sob, hx lung ca. TECHNIQUE: Axial computed tomographic angiography images of the chest with intravenous contrast. CTDI is 15.8 mGy and DLP is 553.54 mGy-cm. Automated exposure control was utilized for the study. A dose lowering technique was utilized adhering to the principles of ALARA. MIP reconstructed images were created and reviewed. COMPARISON: No relevant prior studies available. FINDINGS: Pulmonary arteries: Unremarkable. No pulmonary embolism. Aorta: No acute findings. No thoracic aortic aneurysm. Lungs: Dense airspace consolidation in the LEFT upper lobe, consistent with lobar pneumonia. Follow-up chest CT recommended to document resolution and exclude any underlying pathology. Linear subsegmental atelectasis/scarring in the LEFT lower lobe. Pleural space: Unremarkable. No significant effusion. No pneumothorax. Heart: Unremarkable. No cardiomegaly. No significant pericardial effusion. No evidence of RV dysfunction. Bones/joints: No acute fracture. No dislocation. Soft tissues: Unremarkable. Lymph nodes: Unremarkable. No enlarged lymph nodes. Gallbladder and bile ducts: Cholecystectomy. IMPRESSION: Dense airspace consolidation in the LEFT upper lobe, consistent with lobar pneumonia. Follow-up chest CT recommended to document resolution and exclude any underlying pathology. Electronically signed by: Rickie Jurado MD 02/24/23 21:47 PM Discharge Plan Visit Data Chief Complaint: Shortness of Breath/Dyspnea Stated Complaint: SHORTNESS OF BREATH ED Provider: Humza Oliveira Discharge Problem: Left upper lobe pneumonia, History of lung cancer Patient Disposition: Being Evaluated by Hospitalist Forms Stand Alone Forms: [facility] Prescriptions Prescriptions: No Action atorvastatin 40 mg Tablet 40 mg PO QAM lamotrigine 200 mg Tablet 200 mg PO HS levothyroxine 100 mcg Tablet 100 mcg PO DAILYBB Rx Instructions: TOTAL DOSE 125 MCG--TAKES WITH 25 MCG TAB. fludrocortisone 0.1 mg Tablet 0.2 mg PO DAILY escitalopram oxalate 20 mg Tablet 20 mg PO QAM bupropion HCl 150 mg Tablet Extended Release 24 Hr 150 mg PO QAM cyanocobalamin (vitamin B-12) [Vitamin B-12] 1,000 mcg Tablet 1,000 mcg PO Q OTHER DAY zinc gluconate 50 mg Tablet 50 mg PO QAM albuterol sulfate [ProAir HFA] 90 mcg/actuation Hfa Aerosol Inhaler 2 puff INHALATION Q4 PRN (Reason: Wheezing) aspirin 81 mg Tablet,Delayed Release (Dr/Ec) 81 mg PO QPM levothyroxine 25 mcg tablet 25 mcg PO DAILYBB Rx Instructions: take in addition to 100 mcg. total daily dose 125 mcg aripiprazole 10 mg tablet 10 mg PO HS folic acid 800 mcg Tablet 0.8 mg PO DAILY cholecalciferol (vitamin D3) [Vitamin D3] 25 mcg (1,000 unit) Tablet 25 mcg PO BID ascorbic acid (vitamin C) [Vitamin C] 1,000 mg Tablet 1 g PO DAILY potassium chloride [Klor-Con M20] 20 mEq tablet,ER particles/crystals 20 meq PO DAILY lorazepam 0.5 mg tablet 0.5 mg PO DAILY PRN (Reason: Anxiety) meclizine 12.5 mg tablet 12.5 mg PO BID Referrals Referrals: Manny Hernandez MD [Primary Care Provider] -
[2023-02-24 19:43] LABS: Basophils # (auto) 0.05 K/uL (0-0.2); Basophils % (auto) 0.5 %; Eosinophils # (auto) 0.23 K/uL (0-0.50); Eosinophils % (auto) 2.1 %; Hematocrit (blood only) 37.8 % (37.0-47.0); Hemoglobin 12.8 g/dl (12.0-16.0); Immature Granulocytes # (auto) 0.07 K/uL (0.01-0.20); Immature Granulocytes % (auto) 0.6 %; Lymphocytes # (auto) 0.81 K/uL (1.2-3.4); Lymphocytes % (auto) 7.5 %; Mean Corpuscular Hemoglobin 31.1 pg (25.0-34.0); Mean Corpuscular Hgb Conc 33.9 g/dL (32.0-36.0); Mean Platelet Volume 10.6 fL (9.4-12.4); Monocytes # (auto) 1.45 K/uL (0.11-0.59); Monocytes % (auto) 13.4 %; Neutrophils # (auto) 8.22 K/uL (1.40-6.50); Neutrophils % (auto) 75.9 %; Platelet Count 255 K/uL (130-400); RDW Coefficient of Variation 15.3 % (11.5-14.5); RDW Standard Deviation 51.7 fL (36.4-46.3); Red Blood Count 4.11 M/uL (4.20-5.40); White Blood Count 10.83 K/ul (4.8-10.8)
[2023-02-24 20:29] LABS: Troponin I High Sensitivity 7.4 pg/ml (0-14)
[2023-02-24] MEDS ORDERED: MAGNESIUM SULFATE / D5W 1 GM/100 ML BAG IV ONE (20:30)
[2023-02-24 20:32] LABS: Adenovirus PCR Not Detected (NotDetected); Bordetella parapertussis PCR Not Detected (NotDetected); Bordetella pertussis PCR Not Detected (NotDetected); Chlamydia pneumoniae PCR Not Detected (NotDetected); Coronavirus 229E PCR Not Detected (NotDetected); Coronavirus CoV-2 (COVID19)PCR Not Detected (NotDetected); Coronavirus HKU1 PCR Not Detected (NotDetected); Coronavirus NL63 PCR Not Detected (NotDetected); Coronavirus OC43PCR Not Detected (NotDetected); Human Metapneumovirus PCR Not Detected (NotDetected); Influenza A PCR Not Detected (NotDetected); Influenza B PCR Not Detected (NotDetected); Mycoplasma pneumoniae PCR Not Detected (NotDetected); Parainfluenza Virus 1 PCR Not Detected (NotDetected); Parainfluenza Virus 2 PCR Not Detected (NotDetected); Parainfluenza Virus 3 PCR Not Detected (NotDetected); Parainfluenza Virus 4 PCR Not Detected (NotDetected); Respiratory Syncytial VirusPCR Not Detected (NotDetected); Rhinovirus/Enterovirus PCR Not Detected (NotDetected)
[2023-02-24 20:55] LABS: Albumin Globulin Ratio 0.7 (0.9-2); Albumin Level 3.2 gm/dl (3.4-5.0); BUN Creatinine Ratio 19.6 (10-20); Calcium 9.5 mg/dl (8.6-10.3); Creatinine Clr Calc Pharmacy 55.5 ml/min; Est GFR (African American) 74.7 ml/min; Est GFR (Non-African American) 64.4 ml/min; Globulin 4.4 gm/dl (2.5-4.0); Magnesium 1.9 mg/dl (1.7-2.4); Total Protein 7.6 gm/dl (6.0-8.3)
[2023-02-24 21:05] LABS: INR 1.1 (0.9-1.1); Partial Thromboplastin Ratio 1.2; Partial Thromboplastin Time 33.6 Seconds (21.0-31.0); Prothrombin Time 11.8 Seconds (9.0-12.0)
[2023-02-24 21:17] LABS: iSTAT Hemoglobin 12.9 g/dl (12.0-16.0); iSTAT Ionized Calcium 1.19 mmol/l (1.12-1.32); iSTAT Potassium 3.7 mmol/L (3.3-5.0)
[2023-02-24] MEDS ORDERED: OPTIRAY 320 500ml IV ONE (21:17)
--- NOTE | 2023-02-24 21:48 | CT Scan Report ---
Exam(s): CTA CHEST IV Amt: 110 ML OPTIRAY 320 EXAM: CT Angiography Chest With Intravenous Contrast CLINICAL HISTORY: Reason for exam: PE, sob, hx lung ca. TECHNIQUE: Axial computed tomographic angiography images of the chest with intravenous contrast. CTDI is 15.8 mGy and DLP is 553.54 mGy-cm. Automated exposure control was utilized for the study. A dose lowering technique was utilized adhering to the principles of ALARA. MIP reconstructed images were created and reviewed. COMPARISON: No relevant prior studies available. FINDINGS: Pulmonary arteries: Unremarkable. No pulmonary embolism. Aorta: No acute findings. No thoracic aortic aneurysm. Lungs: Dense airspace consolidation in the LEFT upper lobe, consistent with lobar pneumonia. Follow-up chest CT recommended to document resolution and exclude any underlying pathology. Linear subsegmental atelectasis/scarring in the LEFT lower lobe. Pleural space: Unremarkable. No significant effusion. No pneumothorax. Heart: Unremarkable. No cardiomegaly. No significant pericardial effusion. No evidence of RV dysfunction. Bones/joints: No acute fracture. No dislocation. Soft tissues: Unremarkable. Lymph nodes: Unremarkable. No enlarged lymph nodes. Gallbladder and bile ducts: Cholecystectomy. IMPRESSION: Dense airspace consolidation in the LEFT upper lobe, consistent with lobar pneumonia. Follow-up chest CT recommended to document resolution and exclude any underlying pathology. Electronically signed by: Rickie Jurado MD 02/24/23 21:47 PM
[2023-02-24] MEDS ORDERED: PIPERACILLIN/TAZOBACTAM 4.5 GM/120 ML BAG IV ONE (21:56)
[2023-02-24] MEDS ORDERED: SODIUM CHLORIDE 0.9% 1000ML 1,000 ML IV ONE (22:30)
[2023-02-24] MEDS ORDERED: methylPREDNISolone 20 MG in SYRINGE 0 ML IV STA (22:47)
--- NOTE | 2023-02-24 22:47 | History & Physical Report ---
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 Lovenox subcu DNR as per patient's prior wishes. Patient requesting for daughter to be updated of progress. Ms. Randa Carrasco, contact #[phone]. Text document was generated using [employer] voice recognition software. It may contain grammatical or spelling errors. Kindly contact undersigned for clarification of any documentation item in question. History of Present Illness Chief Complaint: Cough, worsening shortness of breath Primary Care Provider: Cony Hernandez MD History obtained from patient, family, and records. Medical history significant for chronic respiratory failure secondary to COPD on home O2, KIRK, lung adenocarcinoma status post chemoradiation, squamous cell carcinoma of the lung status post radiation, PVD, hypotension on fludrocortisone, hyperlipidemia, hypothyroidism, GERD, vocal cord paralysis, history of hypercal cemia as per records, prediabetes, ADD/bipolar disorder, past tobacco abuse. Last confinement October 2022 for dizziness symptoms attributed to vertigo. Patient discharged on meclizine. Hypercalcemia on admission normalized at time of discharge. TTE during confinement showed loculated pericardial effusion without hemodynamic significance. Few days history of junky cough symptoms with worsening shortness of breath. Denies aspiration. Left-sided chest pain from coughing. No fever, no chills. Patient noted to be hoarse by family. Patient brought to the ER for evaluation. Zosyn administered at the ER for possible sepsis. 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 Allergies Allergy/AdvReac Type Severity Reaction Status Date / Time bee venom protein (honey bee) Allergy Intermediate swelling Verified 02/24/23 20:41 Tetracyclines Allergy Intermediate HIVES Verified 02/24/23 20:41 doxepin Allergy Unknown pt doesn't Verified 02/24/23 20:41 remember propoxyphene Allergy Unknown pt doesn't Verified 02/24/23 20:41 remember Sulfa (Sulfonamide AdvReac Intermediate nausea/vomi Verified 02/24/23 20:41 Antibiotics) ting Home Medications Medication Instructions Recorded Confirmed Type atorvastatin 40 mg tablet 40 mg PO QAM 05/14/19 02/24/23 History bupropion HCl 150 mg 24 hr tablet, 150 mg PO QAM 05/14/19 02/24/23 History extended release escitalopram oxalate 20 mg tablet 20 mg PO QAM 05/14/19 02/24/23 History fludrocortisone 0.1 mg tablet 0.2 mg PO DAILY 05/14/19 02/24/23 History lamotrigine 200 mg tablet 200 mg PO HS 05/14/19 02/24/23 History levothyroxine 100 mcg tablet 100 mcg PO DAILYBB 05/14/19 02/24/23 History albuterol sulfate 90 mcg/actuation 2 puff inhalation Q4 PRN Wheezing 07/01/19 02/24/23 History aerosol inhaler (ProAir HFA) cyanocobalamin (vitamin B-12) 1,000 mcg PO Q OTHER DAY 07/01/19 02/24/23 History 1,000 mcg tablet (Vitamin B-12) zinc gluconate 50 mg tablet 50 mg PO QAM 07/01/19 02/24/23 History aripiprazole 10 mg tablet 10 mg PO HS 11/01/22 02/24/23 History aspirin 81 mg tablet,delayed 81 mg PO QPM 11/01/22 02/24/23 History release cholecalciferol (vitamin D3) 25 25 mcg PO BID 11/01/22 02/24/23 History mcg (1,000 unit) tablet (Vitamin D3) folic acid 800 mcg tablet 0.8 mg PO DAILY 11/01/22 02/24/23 History levothyroxine 25 mcg tablet 25 mcg PO DAILYBB 11/01/22 02/24/23 History ascorbic acid (vitamin C) 1,000 mg 1 g PO DAILY 02/24/23 02/24/23 History tablet (Vitamin C) lorazepam 0.5 mg tablet 0.5 mg PO DAILY PRN Anxiety 02/24/23 02/24/23 History meclizine 12.5 mg tablet 12.5 mg PO BID 02/24/23 02/24/23 History potassium chloride 20 mEq 20 meq PO DAILY 02/24/23 02/24/23 History tablet,extended release(part/cryst) (Diana Denny) Past Med/Surg History Medical History ADD (attention deficit disorder) Asthma DOESNT FOLLOW WITH ANYONE- NO ATTACKS FOR OVER A YEAR inhaler prn Bipolar disorder 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 HAPPENED DURING GALLBLADDER REMOVAL AT [facility]. HAD TO BE RE-INTUBATED. VOCAL CORD WAS INJURED Hypothyroidism Lung cancer (09/01/15) On home oxygen therapy uses 2L N/C prn Vitamin D deficiency Surgical History H/O bilateral cataract extraction H/O colonoscopy History of hysterectomy History of lung biopsy S/P breast biopsy S/P laparoscopic cholecystectomy S/P tonsillectomy and adenoidectomy Family History Grandmother (Maternal) Cancer Grandfather Cancer Other No family history of adverse response to anesthesia Social History Smoking Status: Former smoker Age Started Using Tobacco: 16; Cigarettes Per Day: 2 PPD; Second Hand Exposure: Yes (Grandfather, Mother); Do You Dip or Chew Tobacco: No; Hx Alcohol Use: No Hx Substance Use: Yes Last Used Substance: Unknown Last Used Substance Other:: last used 8 months ago Substance Use Type Other:: HAD USED DURING CHEMO AND RADIATION- NONE CURRENTLY Preferred Language: Irish Communication Ability: Effective Visual Impairment: No Limitations Hearing Ability: Hard of Hearing Receivables Specialist Required: No Beliefs That Will Affect Care: None Current Living Situation: Family Current Living Situation Comment: Grandson lives with her Feels Safe at Home: Yes during the past year weight has: decreased > 10 lbs Assistive Devices: Cane, Denture - Upper, Glasses, Oxygen - Continuous and Walker Review of Systems Review of Systems: As per HPI, all other systems reviewed and negative Physical Exam Physical Exam: GENERAL: Comfortable, pleasant, dysphonic, no respiratory distress SKIN: Normal color, warm HEENT: [place] palpebral conjunctivae, no ptosis, dry buccal mucosa, nasal cannula in place NECK : Supple, no tenderness CHEST : Decreased breath sounds, no tenderness HEART : Tachycardic, no obvious murmurs ABDOMEN: Some distention, nontender EXTREMITIES : no LE swelling, no LE tenderness, no other conspicuous deformities noted NEUROLOGIC : Coherent, no facial asymmetry, dysphonic, gait and stance not assessed Results & Data Results & Data Vital Signs (Past 12 Hours) Vital Signs Temp Pulse Pulse Resp BP BP Pulse Ox 02/24/23 21:28 113 H 19 136/60 92 02/24/23 20:06 02/24/23 19:21 103 H 02/24/23 19:25 99 H 18 140/69 94 02/24/23 19:24 100 H 18 94 02/24/23 19:22 02/24/23 19:22 02/24/23 19:11 37.0 C 114 H 17 89/56 L 95 O2 Del Method O2 Flow Rate 02/24/23 21:28 Nasal Cannula 2 02/24/23 20:06 Nasal Cannula 2 02/24/23 19:21 02/24/23 19:25 Nasal Cannula 2 02/24/23 19:24 Nasal Cannula 2 02/24/23 19:22 Nasal Cannula 2 02/24/23 19:22 Nasal Cannula 2 02/24/23 19:11 Room Air Laboratory Results Laboratory Results WBC 10.83 K/ul (4.8-10.8) H 02/24/23 19:20 RBC 4.11 M/uL (4.20-5.40) L 02/24/23 19:20 Hgb 12.8 g/dl (12.0-16.0) 02/24/23 19:20 POC Hgb 12.9 g/dl (12.0-16.0) 02/24/23 21:01 Hct 37.8 % (37.0-47.0) 02/24/23 19:20 POC Hct 38 % (37-47) 02/24/23 21:01 MCV 92.0 fL (80.0-100.0) 02/24/23 19:20 MCH 31.1 pg (25.0-34.0) 02/24/23 19:20 MCHC 33.9 g/dL (32.0-36.0) 02/24/23 19:20 RDW Std Deviation 51.7 fL (36.4-46.3) H 02/24/23 19:20 RDW Coeff of Jagruti 15.3 % (11.5-14.5) H 02/24/23 19:20 Plt Count 255 K/uL (130-400) 02/24/23 19:20 MPV 10.6 fL (9.4-12.4) 02/24/23 19:20 Immature Gran % (Auto) 0.6 % 02/24/23 19:20 Neut % (Auto) 75.9 % 02/24/23 19:20 Lymph % (Auto) 7.5 % 02/24/23 19:20 [place] % (Auto) 13.4 % 02/24/23 19:20 Eos % (Auto) 2.1 % 02/24/23 19:20 Baso % (Auto) 0.5 % 02/24/23 19:20 Neut # (Auto) 8.22 K/uL (1.40-6.50) H 02/24/23 19:20 Lymph # (Auto) 0.81 K/uL (1.2-3.4) L 02/24/23 19:20 [place] # (Auto) 1.45 K/uL (0.11-0.59) H 02/24/23 19:20 Eos # (Auto) 0.23 K/uL (0-0.50) 02/24/23 19:20 Baso # (Auto) 0.05 K/uL (0-0.2) 02/24/23 19:20 Immature Gran # (Auto) 0.07 K/uL (0.01-0.20) 02/24/23 19:20 PT 11.8 Seconds (9.0-12.0) 02/24/23 20:23 INR 1.1 (0.9-1.1) 02/24/23 20:23 APTT 33.6 Seconds (21.0-31.0) H 02/24/23 20:23 PTT Ratio 1.2 02/24/23 20:23 POC Sodium 137 mmol/L (135-144) 02/24/23 21:01 Sodium 133 mmol/L (136-145) L 02/24/23 19:52 POC Potassium 3.7 mmol/L (3.3-5.0) 02/24/23 21:01 Potassium 4.0 mmol/L (3.5-5.1) 02/24/23 19:52 POC Chloride 102 mmol/L (101-112) 02/24/23 21:01 Chloride 101 mmol/L (98-107) 02/24/23 19:52 Carbon Dioxide 25 mmol/L (21-32) 02/24/23 19:52 POC Total CO2 23 mmol/L (24-31) L 02/24/23 21:01 Anion Gap 7 (3-11) 02/24/23 19:52 POC Anion Gap 17.0 mmol/L (16-25) 02/24/23 21:01 POC BUN 18 mg/dl (7-18) 02/24/23 21:01 BUN 18 mg/dl (6-23) 02/24/23 19:52 Creatinine 0.92 mg/dl (0.6-1.2) 02/24/23 19:52 POC Creatinine 1.0 mg/dl (0.6-1.3) 02/24/23 21:01 Est Cr Clr Drug Dosing 55.5 ml/min 02/24/23 19:52 Est GFR ( Amer) 74.7 ml/min 02/24/23 19:52 Est GFR (Non-Af Amer) 64.4 ml/min 02/24/23 19:52 BUN/Creatinine Ratio 19.6 (10-20) 02/24/23 19:52 Glucose 106 mg/dl (70-99(Fasting)) H 02/24/23 19:52 POC Glucose (other) 129 mg/dl (70-99) H 02/24/23 21:01 Lactate 1.2 mmol/L (0.4-2.0) 02/24/23 19:22 Calcium 9.5 mg/dl (8.6-10.3) 02/24/23 19:52 POC Ioniz Calcium [place] 1.19 mmol/l (1.12-1.32) 02/24/23 21:01 Magnesium 1.9 mg/dl (1.7-2.4) 02/24/23 19:52 Total Bilirubin 1.0 mg/dl (0.2-1.0) 02/24/23 19:52 AST 100 U/L (13-39) H 02/24/23 19:52 ALT 71 U/L (7-52) H 02/24/23 19:52 Alkaline Phosphatase 215 U/L (34-104) H 02/24/23 19:52 Troponin I High Sens 7.4 pg/ml (0-14) 02/24/23 19:20 Total Protein 7.6 gm/dl (6.0-8.3) 02/24/23 19:52 Albumin 3.2 gm/dl (3.4-5.0) L 02/24/23 19:52 Globulin 4.4 gm/dl (2.5-4.0) H 02/24/23 19:52 Albumin/Globulin Ratio 0.7 (0.9-2) L 02/24/23 19:52 Adenovirus (PCR) Not Detected (NotDetected) 02/24/23 19:20 B. pertussis DNA (PCR) Not Detected (NotDetected) 02/24/23 19:20 B.parapertussis DNA PCR Not Detected (NotDetected) 02/24/23 19:20 C. pneumoniae DNA (PCR) Not Detected (NotDetected) 02/24/23 19:20 Coronavirus OC43 (PCR) Not Detected (NotDetected) 02/24/23 19:20 Coronavirus HKU1 (PCR) Not Detected (NotDetected) 02/24/23 19:20 Coronavirus 229E (PCR) Not Detected (NotDetected) 02/24/23 19:20 SARS-CoV-2 (PCR) Not Detected (NotDetected) 02/24/23 19:20 Coronavirus NL63 (PCR) Not Detected (NotDetected) 02/24/23 19:20 Human Metapneumovir PCR Not Detected (NotDetected) 02/24/23 19:20 Influenza Type A (PCR) Not Detected (NotDetected) 02/24/23 19:20 Influenza Type B (PCR) Not Detected (NotDetected) 02/24/23 19:20 M. pneumoniae (PCR) Not Detected (NotDetected) 02/24/23 19:20 Parainfluenza 1 (PCR) Not Detected (NotDetected) 02/24/23 19:20 Parainfluenza 2 (PCR) Not Detected (NotDetected) 02/24/23 19:20 Parainfluenza 3 (PCR) Not Detected (NotDetected) 02/24/23 19:20 Parainfluenza 4 (PCR) Not Detected (NotDetected) 02/24/23 19:20 RSV (PCR) Not Detected (NotDetected) 02/24/23 19:20 Entero/Rhino (PCR) Not Detected (NotDetected) 02/24/23 19:20 Impressions Chest CTA 02/24/23 20:20 Exam(s): CTA CHEST IV Amt: 110 ML OPTIRAY 320 EXAM: CT Angiography Chest With Intravenous Contrast CLINICAL HISTORY: Reason for exam: PE, sob, hx lung ca. TECHNIQUE: Axial computed tomographic angiography images of the chest with intravenous contrast. CTDI is 15.8 mGy and DLP is 553.54 mGy-cm. Automated exposure control was utilized for the study. A dose lowering technique was utilized adhering to the principles of ALARA. MIP reconstructed images were created and reviewed. COMPARISON: No relevant prior studies available. FINDINGS: Pulmonary arteries: Unremarkable. No pulmonary embolism. Aorta: No acute findings. No thoracic aortic aneurysm. Lungs: Dense airspace consolidation in the LEFT upper lobe, consistent with lobar pneumonia. Follow-up chest CT recommended to document resolution and exclude any underlying pathology. Linear subsegmental atelectasis/scarring in the LEFT lower lobe. Pleural space: Unremarkable. No significant effusion. No pneumothorax. Heart: Unremarkable. No cardiomegaly. No significant pericardial effusion. No evidence of RV dysfunction. Bones/joints: No acute fracture. No dislocation. Soft tissues: Unremarkable. Lymph nodes: Unremarkable. No enlarged lymph nodes. Gallbladder and bile ducts: Cholecystectomy. IMPRESSION: Dense airspace consolidation in the LEFT upper lobe, consistent with lobar pneumonia. Follow-up chest CT recommended to document resolution and exclude any underlying pathology. Electronically signed by: Rickie Jurado MD 02/24/23 21:47 PM Diagnostic Findings EKG as per my interpretation :Rate 100, NSR, normal axis, no ischemia
[2023-02-24 23:46] LABS: Appearance Urine Clear (Clear); Bacteria Urine Automated Negative (Negative); Bilirubin Urine Negative (Negative); Blood Urine Negative (Negative); Color Urine Dark Yellow; Epithelial Cell Urine Auto >30 /lpf (0-5); Glucose Urine UA Negative (Negative); Ketones Urine 1+ (Negative); Leukocyte Esterase Urine Trace (Negative); Nitrite Urine Negative (Negative); Protein Urine 1+ (Negative); RBC Urine Automated 0-4 /hpf (0-4); Specific Gravity Urine > 1.045 (1.000-1.030); Urobilinogen Urine Positive (Negative)
[2023-02-24] MEDS ORDERED: ACETAMINOPHEN 500 MG TAB PO PRN (23:55)
[2023-02-25 00:24] LABS: Cast Urine Automated 0 /lpf (0-5)
[2023-02-25] MEDS ORDERED: PROMETHAZINE HCL 6.25 MG in SODIUM CHLORIDE 0.9% 50 ML IV PRN (00:45)
[2023-02-25] MEDS ORDERED: traMADol HCL 50 MG TABLET PO PRN (00:45)
[2023-02-25] MEDS ORDERED: LORazepam 0.5 MG TAB PO PRN (00:45)
[2023-02-25] MEDS ORDERED: XOPENEX/ATROVENT 1.25mg/0.5MG NEB COMBO NEB SCH (01:00)
[2023-02-25] MEDS: LEVALBUTEROL 1.25 MG/3 ML NEB NEB SCH ×4 (01:39→19:39)
[2023-02-25] MEDS: IPRATROPIUM BROMIDE NEB SOLN 0.02% 2.5 ML VIAL INH SCH ×4 (01:40→19:39)
[2023-02-25] MEDS: FLUDROCORTISONE ACETATE 0.1 MG TAB PO SCH (02:38)
[2023-02-25] MEDS: LEVOTHYROXINE SODIUM 125 MCG TABLET PO SCH (06:15)
[2023-02-25] MEDS ORDERED: LEVOTHYROXINE SODIUM 100 MCG TABLET PO SCH (06:30)
--- NOTE | 2023-02-25 08:01 | XRay Report ---
SINGLE VIEW CHEST CLINICAL HISTORY: Cough and dyspnea FINDINGS: An AP, portable, upright chest radiograph is compared to study dated 11/01/2022 and correlat ed with chest CT dated 12/11/2022. The examination is degraded by portable technique and patient rotat ion. The cardiomediastinal silhouette is unremarkable noting atherosclerotic calcification of the th oracic aorta. Emphysema and chronic interstitial thickening similar to previous. There is dense airsp isabel consolidation at the left apex. Additional fibrotic change in the left upper lobe with parenchyma l scarring and volume loss is similar to previous. The right lung appears clear. No large pleural eff usion or pneumothorax is seen. The skeletal structures are osteopenic. The bony thorax is grossly int act. IMPRESSION: 1. Dense airspace consolidation at the left apex has progressed from previous and likely represents s egmental atelectasis. Correlate clinically for evidence of a superimposed pneumonia. 2. Emphysema and additional chronic parenchymal changes as above. ACT 112: Negative or not required by law. Electronically signed by: Jan Gaming M.D. 02/25/2023 7:59 AM
[2023-02-25 08:21] LABS: Hematocrit (blood only) 36.1 % (37.0-47.0); Hemoglobin 11.8 g/dl (12.0-16.0); Mean Corpuscular Hemoglobin 30.4 pg (25.0-34.0); Mean Corpuscular Hgb Conc 32.7 g/dL (32.0-36.0); Mean Platelet Volume 10.1 fL (9.4-12.4); Platelet Count 266 K/uL (130-400); RDW Coefficient of Variation 15.1 % (11.5-14.5); Red Blood Count 3.88 M/uL (4.20-5.40); White Blood Count 10.29 K/ul (4.8-10.8)
[2023-02-25 08:35] LABS: Albumin Level 3.4 gm/dl (3.4-5.0); BUN Creatinine Ratio 16.3 (10-20); Bilirubin Direct 0.4 mg/dl (0-0.2); Bilirubin,Total 0.7 mg/dl (0.2-1.0); Calcium 9.6 mg/dl (8.6-10.3); Creatinine Clr Calc Pharmacy 52.1 ml/min; Est GFR (African American) 69.2 ml/min; Est GFR (Non-African American) 59.7 ml/min; Potassium 3.8 mmol/L (3.5-5.1); Total Protein 7.4 gm/dl (6.0-8.3)
[2023-02-25 08:44] LABS: Basophils # (auto) 0.01 K/uL (0-0.2); Basophils % (auto) 0.1 %; Immature Granulocytes # (auto) 0.05 K/uL (0.01-0.20); Immature Granulocytes % (auto) 0.5 %; Lymphocytes % (auto) 2.9 %; Monocytes # (auto) 0.24 K/uL (0.11-0.59); Monocytes % (auto) 2.3 %; Neutrophils # (auto) 9.69 K/uL (1.40-6.50); Neutrophils % (auto) 94.2 %; RBC Morphology Unremarkable
[2023-02-25] MEDS: FOLIC ACID 400 MCG TAB PO SCH (08:53)
[2023-02-25] MEDS: ESCITALOPRAM OXALATE 20 MG TAB PO SCH (08:53)
[2023-02-25] MEDS: CEFEPIME 2,000 MG in SYRINGE 0 ML IV SCH ×2 (08:53→20:51)
[2023-02-25] MEDS: predniSONE 20 MG TAB PO SCH (08:53)
[2023-02-25] MEDS: buPROPion XL 150 MG TABCR PO SCH (08:54)
[2023-02-25] MEDS: CYANOCOBALAMIN (B-12) 500 MCG TABLET PO SCH (08:54)
[2023-02-25] MEDS: ENOXAPARIN INJ 40 MG/0.4 ML SYR SQ SCH (08:54)
[2023-02-25] MEDS ORDERED: FLUDROCORTISONE ACETATE 0.1 MG TAB PO SCH (09:00)
--- NOTE | 2023-02-25 15:04 | Hospitalist Progress Note ---
Date of Service February 25, 2023 Assessment & Plan (1) Sepsis: (2) Left upper lobe pneumonia: (3) History of lung cancer: (4) COPD exacerbation: (5) Hypothyroidism: (6) Bipolar disorder: (7) Heart murmur: (8) Transaminitis: Plan: 2/2 pneumonia vs COPD, improved on IV abx. steroids and nebs. Left upper lobe scarring on CT chest 3 months ago hx lung adenocarcinoma status post chemoradiation hx squamous cell carcinoma of the lung (second primary) status post radiation COPD exacerbation secondary to above hx chronic respiratory failure secondary to COPD on home O2 Abnormal LFTs, patient without abdominal pain complaints, improved today, cont to trend hx PVD hypotension on fludrocortisone hyperlipidemia on statin Rx hypothyroidism, chronic, stable. Prediabetes, hemoglobin A1c of 5.8 last November 2022 ADD/bipolar disorder Past tobacco abuse Plan CS, Cefepime Steroid course, nebs RTC for COPD exacerbation Pulmonary consult if without improvement Echo performed in Oct 2022 revealing aortic sclerosis without stenosis. Trivial loculated pericardial effusion. OP follow-up with PCP/cardiology to see if repeat echo is indicated. DVT prophylaxis. Lovenox subcu DNR Kenya Gilman DO [facility] Hospitalist Admission and Anticipated Discharge Date Admission Date: February 24, 2023 Subjective 67 yo F with h/o lung cancer presents with 3 days of cough and fatigue. Workup revealed sepsis 2/2 pneumonia. she is feeling better today with cough improved denies chills or fever Still requiring 2LPM and not typically on oxygen at home. reports walking to and from bathroom without issues. denies issue with BMs and tolerating PO Review of Systems Review of Systems: All systems were reviewed and negative except as indicated on HPI above. Physical Exam Physical Exam: CONSTITUTIONAL: WNWD, vitals as above, generally well-appearing, NAD EYES: normal conjunctivae, no scleral icterus ENT: external ear and nose normal, MMM NECK: trachea midline RESPIRATORY: clear to auscultation bilaterally, no crackles, rales or wheezes, normal respiratory effort CARDIOVASCULAR: regular rate and rhythm,3/6 heard, gallops or rubs, no JVD, no peripheral edema CHEST: inspection of chest was normal GASTROINTESTINAL: soft, nontender, no guarding MUSCULOSKELETAL: strength 5/5 throughout, head is normocephalic and atraumatic SKIN: warm and dry NEUROLOGIC: CN 2-12 grossly intact, no sensory deficit, normal cognition, normal speech, no tremor PSYCHIATRIC: alert cooperative and oriented to person, place and time. Results & Data Results & Data Vital Signs (Past 12 Hours) Vital Signs Temp Pulse Pulse Resp BP Pulse Ox O2 Del Method 02/25/23 13:06 81 18 96 Nasal Cannula 02/25/23 11:10 36.4 C L 76 18 134/72 96 Nasal Cannula 02/25/23 09:00 Nasal Cannula 02/25/23 07:22 36.4 C L 75 18 118/74 100 Nebulizer 02/25/23 07:00 72 02/25/23 07:09 63 18 96 Nasal Cannula 02/25/23 03:43 36.4 C L 85 18 121/68 97 Room Air O2 Flow Rate 02/25/23 13:06 2 02/25/23 11:10 2 02/25/23 09:00 3 02/25/23 07:22 02/25/23 07:00 02/25/23 07:09 3 02/25/23 03:43 Laboratory Results Short CBC 02/24/23 02/25/23 Range/Units 19:20 07:33 WBC 10.83 H 10.29 (4.8-10.8) K/ul Hgb 12.8 11.8 L (12.0-16.0) g/dl Hct 37.8 36.1 L (37.0-47.0) % Plt Count 255 266 (130-400) K/uL BMP 02/24/23 02/24/23 02/25/23 19:20 19:52 07:33 Sodium TNP 133 L 137 Potassium TNP 4.0 3.8 Chloride TNP 101 101 Carbon Dioxide TNP 25 27 BUN TNP 18 16 Creatinine TNP 0.92 0.98 Glucose TNP 106 H 166 H Calcium TNP 9.5 9.6 Liver Function 02/24/23 02/24/23 02/25/23 Range/Units 19:20 19:52 07:33 Total Bilirubin TNP 1.0 0.7 Direct Bilirubin 0.4 H (0-0.2) mg/dl AST TNP 100 H 78 H ALT TNP 71 H 71 H Alkaline Phosphatase TNP 215 H 208 H Albumin TNP 3.2 L 3.4 Urine 02/24/23 Range/Units 23:30 Urine Color Dark Yellow Urine Appearance Clear (Clear) Urine pH 6.0 (4.5-7.5) Ur Specific [place] > 1.045 H (1.000-1.030) Urine Protein 1+ H (Negative) Urine Glucose (UA) Negative (Negative) Diagnostic Findings Chest X-Ray 02/24/23 19:21 SINGLE VIEW CHEST CLINICAL HISTORY: Cough and dyspnea FINDINGS: An AP, portable, upright chest radiograph is compared to study dated 11/01/2022 and correlated with chest CT dated 12/11/2022. The examination is degraded by portable technique and patient rotation. The cardiomediastinal silhouette is unremarkable noting atherosclerotic calcification of the thoracic aorta. Emphysema and chronic interstitial thickening similar to previous. There is dense airspace consolidation at the left apex. Additional fibrotic change in the left upper lobe with parenchymal scarring and volume loss is similar to previous. The right lung appears clear. No large pleural effusion or p neumothorax is seen. The skeletal structures are osteopenic. The bony thorax is grossly intact. IMPRESSION: 1. Dense airspace consolidation at the left apex has progressed from previous and likely represents segmental atelectasis. Correlate clinically for evidence of a superimposed pneumonia. 2. Emphysema and additional chronic parenchymal changes as above. ACT 112: Negative or not required by law. Electronically signed by: Jan Gaming M.D. 02/25/2023 7:59 AM
[2023-02-25] MEDS: ARIPiprazole 10 MG TAB PO SCH (20:46)
[2023-02-25] MEDS: ASPIRIN 81 MG ECTAB PO SCH (20:47)
[2023-02-25] MEDS: lamoTRIgine 100 MG TAB PO SCH (20:47)
[2023-02-26] MEDS: IPRATROPIUM BROMIDE NEB SOLN 0.02% 2.5 ML VIAL INH SCH ×4 (00:21→19:12)
[2023-02-26] MEDS: LEVALBUTEROL 1.25 MG/3 ML NEB NEB SCH ×4 (00:21→19:12)
[2023-02-26] MEDS: LEVOTHYROXINE SODIUM 125 MCG TABLET PO SCH (06:00)
[2023-02-26 07:20] LABS: Hematocrit (blood only) 34.5 % (37.0-47.0); Hemoglobin 11.5 g/dl (12.0-16.0); Mean Corpuscular Hemoglobin 30.8 pg (25.0-34.0); Mean Corpuscular Hgb Conc 33.3 g/dL (32.0-36.0); Mean Corpuscular Volume 92.5 fL (80.0-100.0); Mean Platelet Volume 10.2 fL (9.4-12.4); Platelet Count 295 K/uL (130-400); RDW Coefficient of Variation 15.1 % (11.5-14.5); RDW Standard Deviation 51.9 fL (36.4-46.3); Red Blood Count 3.73 M/uL (4.20-5.40); White Blood Count 13.31 K/ul (4.8-10.8)
[2023-02-26 07:44] LABS: BUN Creatinine Ratio 20.2 (10-20); Calcium 9.7 mg/dl (8.6-10.3); Creatinine Clr Calc Pharmacy 39.6 ml/min; Est GFR (African American) 49.6 ml/min; Est GFR (Non-African American) 42.8 ml/min; Potassium 4.6 mmol/L (3.5-5.1)
[2023-02-26] MEDS: buPROPion XL 150 MG TABCR PO SCH (08:41)
[2023-02-26] MEDS: ESCITALOPRAM OXALATE 20 MG TAB PO SCH (08:41)
[2023-02-26] MEDS: predniSONE 20 MG TAB PO SCH (08:42)
[2023-02-26] MEDS: ENOXAPARIN INJ 40 MG/0.4 ML SYR SQ SCH (08:42)
[2023-02-26] MEDS: FLUDROCORTISONE ACETATE 0.1 MG TAB PO SCH (08:42)
[2023-02-26] MEDS: FOLIC ACID 400 MCG TAB PO SCH (08:42)
[2023-02-26] MEDS: CEFEPIME 2,000 MG in SYRINGE 0 ML IV SCH ×2 (08:45→20:02)
--- NOTE | 2023-02-26 14:06 | Hospitalist Progress Note ---
Date of Service February 26, 2023 Assessment & Plan (1) Sepsis: (2) Left upper lobe pneumonia: (3) History of lung cancer: (4) COPD exacerbation: (5) Hypothyroidism: (6) Bipolar disorder: (7) Heart murmur: (8) Transaminitis: Plan: 2/2 pneumonia vs COPD, improved on IV abx. steroids and nebs. 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 Prediabetes, hemoglobin A1c of 5.8 last November 2022 ADD/bipolar disorder Past tobacco abuse Plan Blood cultx, sputum cultx - pending - cont. Cefepime - guafenesin, flutter valve, IS Steroid course, nebs RTC for COPD exacerbation Pulmonary consult if without improvement Echo performed in Oct 2022 revealing aortic sclerosis without stenosis. Trivial loculated pericardial effusion. OP follow-up with PCP/cardiology to see if repeat echo is indicated. DVT prophylaxis. Lovenox subcu DNR Admission and Anticipated Discharge Date Admission Date: February 24, 2023 Subjective 67 yo F with h/o lung cancer presents with 3 days of cough and fatigue. Workup revealed sepsis 2/2 pneumonia. she is feeling better today, + cough w/ sputum production denies chills or fever Still requiring 2LPM - per friend at the bedside - pt is supposed to use oxygen at all times but she does not - will need to clarify Ambulates to commode w/ walker denies issue with BMs and tolerating PO Sputum cultx obtained this AM Review of Systems Review of Systems: All systems reviewed & are unremarkable except as noted in Subjective Physical Exam Physical Exam: CONSTITUTIONAL:thin frail, elderly F, in NAD EYES: normal conjunctivae, no scleral icterus ENT: external ear and nose normal, MMM NECK: trachea midline, neck supple RESPIRATORY: normal respiratory effort, on 2L of suppl.O2, mild rhonchi CARDIOVASCULAR: regular rate and rhythm, syst. murmur 3/6 CHEST: inspection of chest normal GASTROINTESTINAL: soft, nontender, no guarding, + bowel sounds MUSCULOSKELETAL: head is normocephalic and atraumatic, moves extremities SKIN: warm and dry NEUROLOGIC:awake and alert, answers appropriately, normal cognition, normal speech, no tremor, moves extremities Results & Data Results & Data Vital Signs (Past 12 Hours) Vital Signs Temp Pulse Pulse Resp BP Pulse Ox O2 Del Method 02/26/23 13:21 75 18 95 Nasal Cannula 02/26/23 11:21 36.6 C 72 20 152/73 H 95 Nasal Cannula 02/26/23 08:45 Nasal Cannula 02/26/23 07:36 36.4 C L 81 20 114/56 L 97 Nasal Cannula 02/26/23 07:31 68 02/26/23 07:17 74 18 92 Nasal Cannula 02/26/23 05:19 36.3 C L 74 16 110/56 L 97 Nasal Cannula O2 Flow Rate 02/26/23 13:21 2 02/26/23 11:21 2 02/26/23 08:45 2 02/26/23 07:36 2 02/26/23 07:31 02/26/23 07:17 2 02/26/23 05:19 2 Laboratory Results 02/26/23 02/26/23 Range/Units 06:46 06:46 WBC 13.31 H (4.8-10.8) K/ul RBC 3.73 L (4.20-5.40) M/uL Hgb 11.5 L (12.0-16.0) g/dl Hct 34.5 L (37.0-47.0) % MCV 92.5 (80.0-100.0) fL MCH 30.8 (25.0-34.0) pg MCHC 33.3 (32.0-36.0) g/dL RDW Std Deviation 51.9 H (36.4-46.3) fL RDW Coeff of Jagruti 15.1 H (11.5-14.5) % Plt Count 295 (130-400) K/uL MPV 10.2 (9.4-12.4) fL Sodium 138 (136-145) mmol/L Potassium 4.6 D (3.5-5.1) mmol/L Chloride 102 (98-107) mmol/L Carbon Dioxide 29 (21-32) mmol/L Anion Gap 7 (3-11) BUN 26 H (6-23) mg/dl Creatinine 1.29 H D (0.6-1.2) mg/dl Est Cr Clr Drug Dosing 39.6 ml/min Est GFR ( Amer) 49.6 ml/min Est GFR (Non-Af Amer) 42.8 ml/min BUN/Creatinine Ratio 20.2 H (10-20) Glucose 123 H (70-99(Fasting)) mg/dl Calcium 9.7 (8.6-10.3) mg/dl Medications Administered Current Inpatient Medications Acetaminophen (Acetaminophen 500 Mg Tab) 500 mg PO Q6H PRN PRN Reason: pain/fever Stop: 03/26/23 23:54 Aripiprazole (Aripiprazole 10 Mg Tab) 10 mg PO HS [facility] Stop: 03/27/23 20:59 Last Admin: 02/25/23 20:46 Dose: 10 mg Aspirin (Aspirin 81 Mg Ectab) 81 mg PO QPM [facility] Stop: 03/27/23 20:59 Last Admin: 02/25/23 20:47 Dose: 81 mg Bupropion HCl (Bupropion Xl 150 Mg Tabcr) 150 mg PO QAM [facility] Stop: 03/27/23 08:59 Last Admin: 02/26/23 08:41 Dose: 150 mg Cyanocobalamin (Cyanocobalamin (B-12) 500 Mcg Tablet) 1,000 mcg PO Q2D [facility] Stop: 03/27/23 08:59 Last Admin: 02/25/23 08:54 Dose: 1,000 mcg Enoxaparin Sodium (Enoxaparin Inj 40 Mg/0.4 Ml Syr) 40 mg SQ QAM [facility] Stop: 03/27/23 08:59 Last Admin: 02/26/23 08:42 Dose: 40 mg Escitalopram Oxalate (Escitalopram Oxalate 20 Mg Tab) 20 mg PO QAM [facility] Stop: 03/27/23 08:59 Last Admin: 02/26/23 08:41 Dose: 20 mg Fludrocortisone Acetate (Fludrocortisone Acetate 0.1 Mg Tab) 0.2 mg PO DAILY [facility] Stop: 03/27/23 01:14 Last Admin: 02/26/23 08:42 Dose: 0.2 mg Folic Acid (Folic Acid 400 Mcg Tab) 800 mcg PO DAILY [facility] Stop: 03/27/23 08:59 Last Admin: 02/26/23 08:42 Dose: 800 mcg Cefepime HCl 2,000 mg/ Syringe 20 mls @ 5 mls/min IV Q12H [facility]; Protocol Stop: 03/04/23 07:59 Last Admin: 02/26/23 08:45 Dose: 5 mls/min Promethazine HCl 6.25 mg/ (Sodium Chloride) 50.25 mls @ 201 mls/hr IV Q6H PRN PRN Reason: Nausea And Vomiting Stop: 03/27/23 00:44 Ipratropium [place] (Ipratropium [place] Neb Soln 0.02% 2.5 Ml Vial) 0.5 mg INH Q6R [facility] Stop: 03/27/23 00:59 Last Admin: 02/26/23 13:19 Dose: 0.5 mg Lamotrigine (Lamotrigine 100 Mg Tab) 200 mg PO HS [facility] Stop: 03/27/23 20:59 Last Admin: 02/25/23 20:47 Dose: 200 mg Levalbuterol HCl (Levalbuterol 1.25 Mg/3 Ml Neb) 1.25 mg NEB Q6R [facility] Stop: 03/27/23 00:59 Last Admin: 02/26/23 13:19 Dose: 1.25 mg Levothyroxine Sodium (Levothyroxine Sodium 125 Mcg Tablet) 125 mcg PO DAILYBB [facility] Stop: 03/27/23 06:29 Last Admin: 02/26/23 06:00 Dose: 125 mcg Lorazepam (Lorazepam 0.5 Mg Tab) 0.5 mg PO DAILY PRN PRN Reason: Anxiety Stop: 03/27/23 00:44 Prednisone (Prednisone 20 Mg Tab) 20 mg PO DAILY [facility] Stop: 03/01/23 08:59 Last Admin: 02/26/23 08:42 Dose: 20 mg Tramadol HCl (Tramadol Hcl 50 Mg Tablet) 25 mg PO Q4H PRN PRN Reason: Pain Stop: 03/27/23 00:44
[2023-02-26] MEDS: ADVANCED PROBIOTIC 1250 MG CAPSULE PO SCH (18:35)
[2023-02-26] MEDS: ARIPiprazole 10 MG TAB PO SCH (20:22)
[2023-02-26] MEDS: ASPIRIN 81 MG ECTAB PO SCH (20:22)
[2023-02-26] MEDS: lamoTRIgine 100 MG TAB PO SCH (20:22)
[2023-02-26] MEDS: guaiFENesin 600 MG TABCR PO SCH (20:22)
--- NOTE | 2023-02-26 22:53 | Electrocardiogram Report ---
Test Reason : Blood Pressure : / mmHG Vent. Rate : 100 BPM Atrial Rate : 100 BPM P-R Int : 144 ms QRS Dur : 080 ms QT Int : 368 ms P-R-T Axes : 085 072 088 degrees QTc Int : 474 ms Normal sinus rhythm Normal ECG When compared with ECG of 01-NOV-2022 18:10, QT has shortened Confirmed by Acosta Pickard ([id number]) on 02/26/2023 10:53:00 PM Referred By: REFERRED SELF Confirmed By:Acosta Pickard
[2023-02-27] MEDS: IPRATROPIUM BROMIDE NEB SOLN 0.02% 2.5 ML VIAL INH SCH ×4 (00:15→19:26)
[2023-02-27] MEDS: LEVALBUTEROL 1.25 MG/3 ML NEB NEB SCH ×4 (00:15→19:26)
[2023-02-27] MEDS: LEVOTHYROXINE SODIUM 125 MCG TABLET PO SCH (06:12)
[2023-02-27 07:20] LABS: Hematocrit (blood only) 34.5 % (37.0-47.0); Hemoglobin 11.6 g/dl (12.0-16.0); Mean Corpuscular Hemoglobin 30.7 pg (25.0-34.0); Mean Corpuscular Hgb Conc 33.6 g/dL (32.0-36.0); Mean Corpuscular Volume 91.3 fL (80.0-100.0); Mean Platelet Volume 9.8 fL (9.4-12.4); Platelet Count 334 K/uL (130-400); RDW Coefficient of Variation 14.9 % (11.5-14.5); RDW Standard Deviation 49.8 fL (36.4-46.3); Red Blood Count 3.78 M/uL (4.20-5.40); White Blood Count 11.19 K/ul (4.8-10.8)
[2023-02-27] MEDS: ENOXAPARIN INJ 40 MG/0.4 ML SYR SQ SCH (08:13)
[2023-02-27] MEDS: CEFEPIME 2,000 MG in SYRINGE 0 ML IV SCH ×2 (08:14→20:33)
[2023-02-27] MEDS: guaiFENesin 600 MG TABCR PO SCH ×2 (08:14→20:34)
[2023-02-27] MEDS: ESCITALOPRAM OXALATE 20 MG TAB PO SCH (08:14)
[2023-02-27] MEDS: ADVANCED PROBIOTIC 1250 MG CAPSULE PO SCH (08:14)
[2023-02-27] MEDS: predniSONE 20 MG TAB PO SCH (08:14)
[2023-02-27] MEDS: FOLIC ACID 400 MCG TAB PO SCH (08:14)
[2023-02-27] MEDS: CYANOCOBALAMIN (B-12) 500 MCG TABLET PO SCH (08:14)
[2023-02-27] MEDS: buPROPion XL 150 MG TABCR PO SCH (08:14)
[2023-02-27] MEDS: FLUDROCORTISONE ACETATE 0.1 MG TAB PO SCH (08:14)
[2023-02-27 08:51] LABS: Calcium 9.6 mg/dl (8.6-10.3); Magnesium 2.1 mg/dl (1.7-2.4); Potassium 3.8 mmol/L (3.5-5.1)
[2023-02-27 08:57] LABS: Creatinine Clr Calc Pharmacy 47.3 ml/min; Est GFR (African American) 61.5 ml/min; Est GFR (Non-African American) 53.1 ml/min; Phosphorus 2.7 mg/dl (2.5-4.9)
--- NOTE | 2023-02-27 16:50 | Hospitalist Progress Note ---
Date of Service February 27, 2023 Assessment & Plan (1) Sepsis: (2) Left upper lobe pneumonia: (3) History of lung cancer: (4) COPD exacerbation: (5) Hypothyroidism: (6) Bipolar disorder: (7) Heart murmur: (8) Transaminitis: Plan: 2/2 pneumonia vs COPD, improved on IV abx. steroids and nebs. 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 Prediabetes, hemoglobin A1c of 5.8 last November 2022 ADD/bipolar disorder Past tobacco abuse Plan Blood cultx - negat. in 48 hrs Sputum cultx - pending - cont. Cefepime - guafenesin, flutter valve, IS Steroid course, nebs RTC for COPD exacerbation Pulmonary consult if without improvement Echo performed in Oct 2022 revealing aortic sclerosis without stenosis. Trivial loculated pericardial effusion. OP follow-up with PCP/cardiology to see if repeat echo is indicated. DVT prophylaxis. Lovenox subcu DNR Admission and Anticipated Discharge Date Admission Date: February 24, 2023 Subjective 67 yo F with h/o lung cancer presents with 3 days of cough and fatigue. Workup revealed sepsis 2/2 pneumonia. she is feeling better today, + cough w/ sputum production denies chills or fever Still requiring 2LPM - reportedly pt is supposed to use oxygen at all times but she does not - will need to clarify Ambulates to bathroom w/ walker denies issue with BMs and tolerating PO Sputum cultx obtained yesterday Review of Systems Review of Systems: All systems reviewed & are unremarkable except as noted in Subjective Physical Exam Physical Exam: CONSTITUTIONAL:thin frail, elderly F, in NAD EYES: normal conjunctivae, no scleral icterus ENT: external ear and nose normal, MMM NECK: trachea midline, neck supple RESPIRATORY: normal respiratory effort, on 2L of suppl.O2, +rhonchi CARDIOVASCULAR: regular rate and rhythm, syst. murmur 3/6 CHEST: inspection of chest normal GASTROINTESTINAL: soft, nontender, no guarding, + bowel sounds MUSCULOSKELETAL: head is normocephalic and atraumatic, moves extremities SKIN: warm and dry NEUROLOGIC:awake and alert, answers appropriately, normal cognition, normal speech, no tremor, moves extremities Results & Data Results & Data Vital Signs (Past 12 Hours) Vital Signs Temp Pulse Pulse Resp BP BP Pulse Ox 02/27/23 15:31 72 02/27/23 12:27 67 16 95 02/27/23 11:28 36.4 C L 68 20 150/72 H 96 02/27/23 08:15 02/27/23 10:19 78 02/27/23 07:58 36.4 C L 84 18 120/71 91 02/27/23 07:26 70 18 97 O2 Del Method O2 Flow Rate 02/27/23 15:31 02/27/23 12:27 Nasal Cannula 2 02/27/23 11:28 Nasal Cannula 2 02/27/23 08:15 Nasal Cannula 2 02/27/23 10:19 02/27/23 07:58 Room Air 02/27/23 07:26 Nasal Cannula 2 Laboratory Results 02/27/23 02/27/23 Range/Units 06:39 06:39 WBC 11.19 H (4.8-10.8) K/ul RBC 3.78 L (4.20-5.40) M/uL Hgb 11.6 L (12.0-16.0) g/dl Hct 34.5 L (37.0-47.0) % MCV 91.3 (80.0-100.0) fL MCH 30.7 (25.0-34.0) pg MCHC 33.6 (32.0-36.0) g/dL RDW Std Deviation 49.8 H (36.4-46.3) fL RDW Coeff of Jagruti 14.9 H (11.5-14.5) % Plt Count 334 (130-400) K/uL MPV 9.8 (9.4-12.4) fL Sodium 139 (136-145) mmol/L Potassium 3.8 (3.5-5.1) mmol/L Chloride 103 (98-107) mmol/L Carbon Dioxide 29 (21-32) mmol/L Anion Gap 7 (3-11) BUN 27 H (6-23) mg/dl Creatinine 1.08 (0.6-1.2) mg/dl Est Cr Clr Drug Dosing 47.3 ml/min Est GFR ( Amer) 61.5 ml/min Est GFR (Non-Af Amer) 53.1 ml/min BUN/Creatinine Ratio 25.0 H (10-20) Glucose 92 (70-99(Fasting)) mg/dl Calcium 9.6 (8.6-10.3) mg/dl Phosphorus 2.7 (2.5-4.9) mg/dl Magnesium 2.1 (1.7-2.4) mg/dl Medications Administered Current Inpatient Medications Acetaminophen (Acetaminophen 500 Mg Tab) 500 mg PO Q6H PRN PRN Reason: pain/fever Stop: 03/26/23 23:54 Aripiprazole (Aripiprazole 10 Mg Tab) 10 mg PO HS [facility] Stop: 03/27/23 20:59 Last Admin: 02/26/23 20:22 Dose: 10 mg Aspirin (Aspirin 81 Mg Ectab) 81 mg PO QPM [facility] Stop: 03/27/23 20:59 Last Admin: 02/26/23 20:22 Dose: 81 mg Bupropion HCl (Bupropion Xl 150 Mg Tabcr) 150 mg PO QAM [facility] Stop: 03/27/23 08:59 Last Admin: 02/27/23 08:14 Dose: 150 mg Cyanocobalamin (Cyanocobalamin (B-12) 500 Mcg Tablet) 1,000 mcg PO Q2D [facility] Stop: 03/27/23 08:59 Last Admin: 02/27/23 08:14 Dose: 1,000 mcg Enoxaparin Sodium (Enoxaparin Inj 40 Mg/0.4 Ml Syr) [facility] [place] Stop: 03/27/23 08:59 Last Admin: 02/27/23 08:13 Dose: 40 mg Escitalopram Oxalate (Escitalopram Oxalate 20 Mg Tab) 20 mg PO QAM [facility] Stop: 03/27/23 08:59 Last Admin: 02/27/23 08:14 Dose: 20 mg Fludrocortisone Acetate (Fludrocortisone Acetate 0.1 Mg Tab) 0.2 mg PO DAILY [facility] Stop: 03/27/23 01:14 Last Admin: 02/27/23 08:14 Dose: 0.2 mg Folic Acid (Folic Acid 400 Mcg Tab) 800 mcg PO DAILY [facility] Stop: 03/27/23 08:59 Last Admin: 02/27/23 08:14 Dose: 800 mcg Guaifenesin (Guaifenesin 600 Mg Tabcr) 600 mg PO Q12 [facility] Stop: 03/28/23 20:59 Last Admin: 02/27/23 08:14 Dose: 600 mg Cefepime HCl 2,000 mg/ Syringe 20 mls @ 5 mls/min IV Q12H [facility]; Protocol Stop: 03/04/23 07:59 Last Admin: 02/27/23 08:14 Dose: 5 mls/min Promethazine HCl 6.25 mg/ (Sodium Chloride) 50.25 mls @ 201 mls/hr IV Q6H PRN PRN Reason: Nausea And Vomiting Stop: 03/27/23 00:44 Ipratropium [place] (Ipratropium [place] Neb Soln 0.02% 2.5 Ml Vial) 0.5 mg INH Q6R [facility] Stop: 03/27/23 00:59 Last Admin: 02/27/23 12:25 Dose: 0.5 mg Lactobacillus Acidophilus (Advanced Probiotic 1250 Mg Capsule) 2 cap PO DAILY [facility] Stop: 03/28/23 17:29 Last Admin: 02/27/23 08:14 Dose: 2 cap Lamotrigine (Lamotrigine 100 Mg Tab) 200 mg PO HS [facility] Stop: 03/27/23 20:59 Last Admin: 02/26/23 20:22 Dose: 200 mg Levalbuterol HCl (Levalbuterol 1.25 Mg/3 Ml Neb) 1.25 mg NEB Q6R [facility] Stop: 03/27/23 00:59 Last Admin: 02/27/23 12:25 Dose: 1.25 mg Levothyroxine Sodium (Levothyroxine Sodium 125 Mcg Tablet) 125 mcg PO DAILYBB [facility] Stop: 03/27/23 06:29 Last Admin: 02/27/23 06:12 Dose: 125 mcg Lorazepam (Lorazepam 0.5 Mg Tab) 0.5 mg PO DAILY PRN PRN Reason: Anxiety Stop: 03/27/23 00:44 Prednisone (Prednisone 20 Mg Tab) 20 mg PO DAILY [facility] Stop: 03/01/23 08:59 Last Admin: 02/27/23 08:14 Dose: 20 mg Tramadol HCl (Tramadol Hcl 50 Mg Tablet) 25 mg PO Q4H PRN PRN Reason: Pain Stop: 03/27/23 00:44
[2023-02-27] MEDS: ASPIRIN 81 MG ECTAB PO SCH (20:34)
[2023-02-27] MEDS: lamoTRIgine 100 MG TAB PO SCH (20:34)
[2023-02-27] MEDS: ARIPiprazole 10 MG TAB PO SCH (20:34)
[2023-02-28] MEDS: IPRATROPIUM BROMIDE NEB SOLN 0.02% 2.5 ML VIAL INH SCH ×4 (01:37→19:48)
[2023-02-28] MEDS: LEVALBUTEROL 1.25 MG/3 ML NEB NEB SCH ×4 (01:37→19:48)
[2023-02-28] MEDS: LEVOTHYROXINE SODIUM 125 MCG TABLET PO SCH (05:48)
[2023-02-28] MEDS: predniSONE 20 MG TAB PO SCH (08:31)
[2023-02-28] MEDS: buPROPion XL 150 MG TABCR PO SCH (08:31)
[2023-02-28] MEDS: guaiFENesin 600 MG TABCR PO SCH ×2 (08:31→20:15)
[2023-02-28] MEDS: ESCITALOPRAM OXALATE 20 MG TAB PO SCH (08:31)
[2023-02-28] MEDS: ADVANCED PROBIOTIC 1250 MG CAPSULE PO SCH (08:31)
[2023-02-28] MEDS: FLUDROCORTISONE ACETATE 0.1 MG TAB PO SCH (08:31)
[2023-02-28] MEDS: FOLIC ACID 400 MCG TAB PO SCH (08:31)
[2023-02-28] MEDS: ENOXAPARIN INJ 40 MG/0.4 ML SYR SQ SCH (08:32)
[2023-02-28] MEDS: CEFEPIME 2,000 MG in SYRINGE 0 ML IV SCH ×2 (08:35→20:15)
[2023-02-28] MEDS ORDERED: POLYETHYLENE (MIRALAX) 17 GM PACK PO PRN (10:39)
[2023-02-28] MEDS: BENZONATATE 100 MG CAPSULE PO PRN ×2 (11:21→22:03)
[2023-02-28 12:17] LABS: Hematocrit (blood only) 35.2 % (37.0-47.0); Hemoglobin 11.7 g/dl (12.0-16.0); Mean Corpuscular Hemoglobin 31.1 pg (25.0-34.0); Mean Corpuscular Hgb Conc 33.2 g/dL (32.0-36.0); Mean Corpuscular Volume 93.6 fL (80.0-100.0); Mean Platelet Volume 9.7 fL (9.4-12.4); Platelet Count 357 K/uL (130-400); RDW Coefficient of Variation 15.7 % (11.5-14.5); Red Blood Count 3.76 M/uL (4.20-5.40)
[2023-02-28 12:29] LABS: BUN Creatinine Ratio 23.6 (10-20); Calcium 9.4 mg/dl (8.6-10.3); Creatinine Clr Calc Pharmacy 46.5 ml/min; Est GFR (African American) 60.2 ml/min; Est GFR (Non-African American) 51.9 ml/min; Magnesium 1.9 mg/dl (1.7-2.4); Phosphorus 2.4 mg/dl (2.5-4.9); Potassium 3.8 mmol/L (3.5-5.1)
[2023-02-28] MEDS: SENNA 8.6 MG TAB PO SCH (14:50)
--- NOTE | 2023-02-28 14:51 | Hospitalist Progress Note ---
Date of Service February 28, 2023 Assessment & Plan (1) Sepsis: (2) Left upper lobe pneumonia: (3) History of lung cancer: (4) COPD exacerbation: (5) Hypothyroidism: (6) Bipolar disorder: (7) Heart murmur: (8) Transaminitis: Plan: 2/2 pneumonia vs COPD, improved on IV abx. steroids and nebs. 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 Prediabetes, hemoglobin A1c of 5.8 last November 2022 ADD/bipolar disorder Past tobacco abuse Plan Blood cultx - negat. in 48 hrs Sputum cultx - normal gee - cont. Cefepime - guafenesin, flutter valve, IS Steroid course, nebs RTC for COPD exacerbation 02/28 - Pt is doing much better and currently is on RA Echo performed in Oct 2022 revealing aortic sclerosis without stenosis. Trivial loculated pericardial effusion. OP follow-up with PCP/cardiology to see if repeat echo is indicated. DVT prophylaxis. Lovenox subcu DNR Admission and Anticipated Discharge Date Admission Date: February 24, 2023 Subjective 67 yo F with h/o lung cancer presents with 3 days of cough and fatigue. Workup revealed sepsis 2/2 pneumonia. she is feeling much better today denies chills or fever Now on RA Review of Systems Review of Systems: All systems reviewed & are unremarkable except as noted in Subjective Physical Exam Physical Exam: CONSTITUTIONAL:thin frail, elderly F, in NAD EYES: normal conjunctivae, no scleral icterus ENT: external ear and nose normal, MMM NECK: trachea midline, neck supple RESPIRATORY: normal respiratory effort, +rhonchi (improved) CARDIOVASCULAR: regular rate and rhythm, syst. murmur 3/6 CHEST: inspection of chest normal GASTROINTESTINAL: soft, nontender, no guarding, + bowel sounds MUSCULOSKELETAL: head is normocephalic and atraumatic, moves extremities SKIN: warm and dry NEUROLOGIC:awake and alert, answers appropriately, normal cognition, normal speech, no tremor, moves extremities Results & Data Results & Data Vital Signs (Past 12 Hours) Vital Signs Temp Pulse Pulse Resp BP BP Pulse Ox 02/28/23 12:54 78 18 90 02/28/23 12:22 36.3 C L 82 18 118/64 92 02/28/23 09:54 02/28/23 08:28 96 02/28/23 08:26 80 18 145/73 H 96 02/28/23 07:30 62 02/28/23 06:55 76 18 98 02/28/23 03:32 36.4 C L 74 18 155/71 H 98 02/28/23 03:35 70 02/28/23 03:35 O2 Del Method O2 Flow Rate 02/28/23 12:54 Room Air 02/28/23 12:22 Room Air 02/28/23 09:54 Room Air 02/28/23 08:28 Room Air 02/28/23 08:26 Nasal Cannula 2 02/28/23 07:30 02/28/23 06:55 Nasal Cannula 3 02/28/23 03:32 Nasal Cannula 3 02/28/23 03:35 02/28/23 03:35 Nasal Cannula 3 Laboratory Results 02/28/23 02/28/23 Range/Units 11:44 11:44 WBC 8.90 (4.8-10.8) K/ul RBC 3.76 L (4.20-5.40) M/uL Hgb 11.7 L (12.0-16.0) g/dl Hct 35.2 L (37.0-47.0) % MCV 93.6 (80.0-100.0) fL MCH 31.1 (25.0-34.0) pg MCHC 33.2 (32.0-36.0) g/dL RDW Std Deviation 54.0 H (36.4-46.3) fL RDW Coeff of Jagruti 15.7 H (11.5-14.5) % Plt Count 357 (130-400) K/uL MPV 9.7 (9.4-12.4) fL Sodium 138 (136-145) mmol/L Potassium 3.8 (3.5-5.1) mmol/L Chloride 101 (98-107) mmol/L Carbon Dioxide 29 (21-32) mmol/L Anion Gap 8 (3-11) BUN 26 H (6-23) mg/dl Creatinine 1.10 (0.6-1.2) mg/dl Est Cr Clr Drug Dosing 46.5 ml/min Est GFR ( Amer) 60.2 ml/min Est GFR (Non-Af Amer) 51.9 ml/min BUN/Creatinine Ratio 23.6 H (10-20) Glucose 113 H (70-99(Fasting)) mg/dl Calcium 9.4 (8.6-10.3) mg/dl Phosphorus 2.4 L (2.5-4.9) mg/dl Magnesium 1.9 (1.7-2.4) mg/dl Medications Administered Current Inpatient Medications Acetaminophen (Acetaminophen 500 Mg Tab) 500 mg PO Q6H PRN PRN Reason: pain/fever Stop: 03/26/23 23:54 Aripiprazole (Aripiprazole 10 Mg Tab) 10 mg PO HS [facility] Stop: 03/27/23 20:59 Last Admin: 02/27/23 20:34 Dose: 10 mg Aspirin (Aspirin 81 Mg Ectab) 81 mg PO QPM [facility] Stop: 03/27/23 20:59 Last Admin: 02/27/23 20:34 Dose: 81 mg Benzonatate (Benzonatate 100 Mg Capsule) 100 mg PO TID PRN PRN Reason: cough Stop: 03/30/23 13:59 Last Admin: 02/28/23 11:21 Dose: 100 mg Bupropion HCl (Bupropion Xl 150 Mg Tabcr) 150 mg PO QAM [facility] Stop: 03/27/23 08:59 Last Admin: 02/28/23 08:31 Dose: 150 mg Cyanocobalamin (Cyanocobalamin (B-12) 500 Mcg Tablet) 1,000 mcg PO Q2D [facility] Stop: 03/27/23 08:59 Last Admin: 02/27/23 08:14 Dose: 1,000 mcg Enoxaparin Sodium (Enoxaparin Inj 40 Mg/0.4 Ml Syr) 40 mg SQ QAM [facility] Stop: 03/27/23 08:59 Last Admin: 02/28/23 08:32 Dose: 40 mg Escitalopram Oxalate (Escitalopram Oxalate 20 Mg Tab) [facility] [place] Stop: 03/27/23 08:59 Last Admin: 02/28/23 08:31 Dose: 20 mg Fludrocortisone Acetate (Fludrocortisone Acetate 0.1 Mg Tab) 0.2 mg PO DAILY [facility] Stop: 03/27/23 01:14 Last Admin: 02/28/23 08:31 Dose: 0.2 mg Folic Acid (Folic Acid 400 Mcg Tab) 800 mcg PO DAILY [facility] Stop: 03/27/23 08:59 Last Admin: 02/28/23 08:31 Dose: 800 mcg Guaifenesin (Guaifenesin 600 Mg Tabcr) 600 mg PO Q12 [facility] Stop: 03/28/23 20:59 Last Admin: 02/28/23 08:31 Dose: 600 mg Cefepime HCl 2,000 mg/ Syringe 20 mls @ 5 mls/min IV Q12H [facility]; Protocol Stop: 03/04/23 07:59 Last Admin: 02/28/23 08:35 Dose: 5 mls/min Promethazine HCl 6.25 mg/ (Sodium Chloride) 50.25 mls @ 201 mls/hr IV Q6H PRN PRN Reason: Nausea And Vomiting Stop: 03/27/23 00:44 Ipratropium [place] (Ipratropium [place] Neb Soln 0.02% 2.5 Ml Vial) 0.5 mg INH Q6R [facility] Stop: 03/27/23 00:59 Last Admin: 02/28/23 12:52 Dose: 0.5 mg Lactobacillus Acidophilus (Advanced Probiotic 1250 Mg Capsule) 2 cap PO DAILY [facility] Stop: 03/28/23 17:29 Last Admin: 02/28/23 08:31 Dose: 2 cap Lamotrigine (Lamotrigine 100 Mg Tab) 200 mg PO HS [facility] Stop: 03/27/23 20:59 Last Admin: 02/27/23 20:34 Dose: 200 mg Levalbuterol HCl (Levalbuterol 1.25 Mg/3 Ml Neb) 1.25 mg NEB Q6R [facility] Stop: 03/27/23 00:59 Last Admin: 02/28/23 12:52 Dose: 1.25 mg Levothyroxine Sodium (Levothyroxine Sodium 125 Mcg Tablet) 125 mcg PO DAILYBB [facility] Stop: 03/27/23 06:29 Last Admin: 02/28/23 05:48 Dose: 125 mcg Lorazepam (Lorazepam 0.5 Mg Tab) 0.5 mg PO DAILY PRN PRN Reason: Anxiety Stop: 03/27/23 00:44 Last Admin: 02/28/23 08:31 Dose: 0.5 mg Polyethylene Glycol (Polyethylene (Miralax) 17 Gm Pack) 17 gm PO DAILY PRN PRN Reason: Constipation Stop: 03/30/23 10:38 Prednisone (Prednisone 20 Mg Tab) 20 mg PO DAILY [facility] Stop: 03/01/23 08:59 Last Admin: 02/28/23 08:31 Dose: 20 mg Sennosides (Senna 8.6 Mg Tab) 8.6 mg PO QAM [facility] Stop: 03/30/23 10:44 Last Admin: 02/28/23 14:50 Dose: 8.6 mg Tramadol HCl (Tramadol Hcl 50 Mg Tablet) 25 mg PO Q4H PRN PRN Reason: Pain Stop: 03/27/23 00:44
[2023-02-28] MEDS: lamoTRIgine 100 MG TAB PO SCH (20:15)
[2023-02-28] MEDS: ASPIRIN 81 MG ECTAB PO SCH (20:16)
[2023-02-28] MEDS: ARIPiprazole 10 MG TAB PO SCH (20:16)
[2023-03-01] MEDS: IPRATROPIUM BROMIDE NEB SOLN 0.02% 2.5 ML VIAL INH SCH ×2 (00:25→07:06)
[2023-03-01] MEDS: LEVALBUTEROL 1.25 MG/3 ML NEB NEB SCH ×2 (00:26→07:08)
[2023-03-01] MEDS: LEVOTHYROXINE SODIUM 125 MCG TABLET PO SCH (06:00)
[2023-03-01 06:54] LABS: BUN Creatinine Ratio 25.2 (10-20); Calcium 9.7 mg/dl (8.6-10.3); Creatinine Clr Calc Pharmacy 44.4 ml/min; Est GFR (Non-African American) 49.2 ml/min; Phosphorus 3.5 mg/dl (2.5-4.9); Potassium 3.7 mmol/L (3.5-5.1)
[2023-03-01 07:03] LABS: Hematocrit (blood only) 38.3 % (37.0-47.0); Hemoglobin 12.6 g/dl (12.0-16.0); Mean Corpuscular Hemoglobin 30.7 pg (25.0-34.0); Mean Corpuscular Hgb Conc 32.9 g/dL (32.0-36.0); Mean Corpuscular Volume 93.2 fL (80.0-100.0); Mean Platelet Volume 9.7 fL (9.4-12.4); Platelet Count 441 K/uL (130-400); RDW Coefficient of Variation 15.8 % (11.5-14.5); RDW Standard Deviation 54.1 fL (36.4-46.3); Red Blood Count 4.11 M/uL (4.20-5.40); White Blood Count 8.91 K/ul (4.8-10.8)
--- NOTE | 2023-03-01 08:31 | Hospitalist Progress Note ---
Date of Service March 01, 2023 Assessment & Plan (1) Sepsis: (2) Left upper lobe pneumonia: (3) History of lung cancer: (4) COPD exacerbation: (5) Hypothyroidism: (6) Bipolar disorder: (7) Heart murmur: (8) Transaminitis: Plan: 2/2 pneumonia vs COPD, improved on IV abx. steroids and nebs. 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 Prediabetes, hemoglobin A1c of 5.8 last November 2022 ADD/bipolar disorder Past tobacco abuse Echo performed in Oct 2022 revealing aortic sclerosis without stenosis. Trivial loculated pericardial effusion. OP follow-up with PCP/cardiology to see if repeat echo is indicated. Plan Blood cultx - negat. in 48 hrs Sputum cultx - normal gee - cont. Cefepime while inpt - guafenesin, flutter valve, IS Steroid course, nebs RTC for COPD exacerbation 02/28 - Pt is doing much better and currently is on RA 03/01 Continues to do well, plan for DC -> oral abx, guaifenesin DVT prophylaxis. Lovenox subcu DNR Admission and Anticipated Discharge Date Admission Date: February 24, 2023 Subjective 67 yo F with h/o lung cancer presents with 3 days of cough and fatigue. Workup revealed sepsis 2/2 pneumonia. she is feeling much better today denies chills or fever Now on RA Inquiring about going home. Review of Systems Review of Systems: All systems reviewed & are unremarkable except as noted in Subjective Physical Exam Physical Exam: CONSTITUTIONAL:thin frail, elderly F, in NAD EYES: normal conjunctivae, no scleral icterus ENT: external ear and nose normal, MMM NECK: trachea midline, neck supple RESPIRATORY: normal respiratory effort, CTAB (improved) CARDIOVASCULAR: regular rate and rhythm, syst. murmur / CHEST: inspection of chest normal GASTROINTESTINAL: soft, nontender, no guarding, + bowel sounds MUSCULOSKELETAL: head is normocephalic and atraumatic, moves extremities SKIN: warm and dry NEUROLOGIC:awake and alert, answers appropriately, normal cognition, normal speech, no tremor, moves extremities Results & Data Results & Data Vital Signs (Past 12 Hours) Vital Signs Temp Pulse Pulse Pulse Resp BP BP 03/01/23 07:38 36.4 C L 70 18 106/64 03/01/23 07:22 82 03/01/23 07:08 72 16 03/01/23 03:18 36.4 C L 82 18 172/76 H 03/01/23 00:26 66 18 02/28/23 23:02 18 02/28/23 23:01 36.4 C L 71 18 158/70 H 02/28/23 22:20 Pulse Ox O2 Del Method O2 Flow Rate 03/01/23 07:38 94 Room Air 03/01/23 07:22 03/01/23 07:08 94 Room Air 03/01/23 03:18 97 Nasal Cannula 1 03/01/23 00:26 100 Nasal Cannula 1 02/28/23 23:02 93 Nasal Cannula 1 02/28/23 23:01 90 Room Air 02/28/23 22:20 Room Air Laboratory Results 03/01/23 03/01/23 02/28/23 Range/Units 06:05 06:05 11:44 WBC 8.91 (4.8-10.8) K/ul RBC 4.11 L (4.20-5.40) M/uL Hgb 12.6 (12.0-16.0) g/dl Hct 38.3 (37.0-47.0) % MCV 93.2 (80.0-100.0) fL MCH 30.7 (25.0-34.0) pg MCHC 32.9 (32.0-36.0) g/dL RDW Std Deviation 54.1 H (36.4-46.3) fL RDW Coeff of Jagruti 15.8 H (11.5-14.5) % Plt Count 441 H (130-400) K/uL MPV 9.7 (9.4-12.4) fL Sodium 140 138 (136-145) mmol/L Potassium 3.7 3.8 (3.5-5.1) mmol/L Chloride 101 101 (98-107) mmol/L Carbon Dioxide 31 29 (21-32) mmol/L Anion Gap 8 8 (3-11) BUN 29 H 26 H (6-23) mg/dl Creatinine 1.15 1.10 (0.6-1.2) mg/dl Est Cr Clr Drug Dosing 44.4 46.5 ml/min Est GFR ( Amer) 57.0 60.2 ml/min Est GFR (Non-Af Amer) 49.2 51.9 ml/min BUN/Creatinine Ratio 25.2 H 23.6 H (10-20) Glucose 77 113 H (70-99(Fasting)) mg/dl Calcium 9.7 9.4 (8.6-10.3) mg/dl Phosphorus 3.5 D 2.4 L (2.5-4.9) mg/dl Magnesium 2.0 1.9 (1.7-2.4) mg/dl 02/28/23 Range/Units 11:44 WBC 8.90 (4.8-10.8) K/ul RBC 3.76 L (4.20-5.40) M/uL Hgb 11.7 L (12.0-16.0) g/dl Hct 35.2 L (37.0-47.0) % MCV 93.6 (80.0-100.0) fL MCH 31.1 (25.0-34.0) pg MCHC 33.2 (32.0-36.0) g/dL RDW Std Deviation 54.0 H (36.4-46.3) fL RDW Coeff of Jagruti 15.7 H (11.5-14.5) % Plt Count 357 (130-400) K/uL MPV 9.7 (9.4-12.4) fL Sodium (136-145) mmol/L Potassium (3.5-5.1) mmol/L Chloride (98-107) mmol/L Carbon Dioxide (21-32) mmol/L Anion Gap (3-11) BUN (6-23) mg/dl Creatinine (0.6-1.2) mg/dl Est Cr Clr Drug Dosing ml/min Est GFR ( Amer) ml/min Est GFR (Non-Af Amer) ml/min BUN/Creatinine Ratio (10-20) Glucose (70-99(Fasting)) mg/dl Calcium (8.6-10.3) mg/dl Phosphorus (2.5-4.9) mg/dl Magnesium (1.7-2.4) mg/dl Medications Administered Current Inpatient Medications Acetaminophen (Acetaminophen 500 Mg Tab) 500 mg PO Q6H PRN PRN Reason: pain/fever Stop: 03/26/23 23:54 Aripiprazole (Aripiprazole 10 Mg Tab) 10 mg PO HS MARIAH Stop: 03/27/23 20:59 Last Admin: 02/28/23 20:16 Dose: 10 mg Aspirin (Aspirin 81 Mg Ectab) 81 mg PO QPM MARIAH Stop: 03/27/23 20:59 Last Admin: 02/28/23 20:16 Dose: 81 mg Benzonatate (Benzonatate 100 Mg Capsule) 100 mg PO TID PRN PRN Reason: cough Stop: 03/30/23 13:59 Last Admin: 02/28/23 22:03 Dose: 100 mg Bupropion HCl (Bupropion Xl 150 Mg Tabcr) 150 mg PO QAM [facility] Stop: 03/27/23 08:59 Last Admin: 02/28/23 08:31 Dose: 150 mg Cyanocobalamin (Cyanocobalamin (B-12) 500 Mcg Tablet) 1,000 mcg PO Q2D [facility] Stop: 03/27/23 08:59 Last Admin: 02/27/23 08:14 Dose: 1,000 mcg Enoxaparin Sodium (Enoxaparin Inj 40 Mg/0.4 Ml Syr) 40 mg SQ QAM [facility] Stop: 03/27/23 08:59 Last Admin: 02/28/23 08:32 Dose: 40 mg Escitalopram Oxalate (Escitalopram Oxalate 20 Mg Tab) 20 mg PO QAM [facility] Stop: 03/27/23 08:59 Last Admin: 02/28/23 08:31 Dose: 20 mg Fludrocortisone Acetate (Fludrocortisone Acetate 0.1 Mg Tab) 0.2 mg PO DAILY [facility] Stop: 03/27/23 01:14 Last Admin: 02/28/23 08:31 Dose: 0.2 mg Folic Acid (Folic Acid 400 Mcg Tab) 800 mcg PO DAILY [facility] Stop: 03/27/23 08:59 Last Admin: 02/28/23 08:31 Dose: 800 mcg Guaifenesin (Guaifenesin 600 Mg Tabcr) 600 mg PO Q12 [facility] Stop: 03/28/23 20:59 Last Admin: 02/28/23 20:15 Dose: 600 mg Cefepime HCl 2,000 mg/ Syringe 20 mls @ 5 mls/min IV Q12H [facility]; Protocol Stop: 03/04/23 07:59 Last Admin: 02/28/23 20:15 Dose: 5 mls/min Promethazine HCl 6.25 mg/ (Sodium Chloride) 50.25 mls @ 201 mls/hr IV Q6H PRN PRN Reason: Nausea And Vomiting Stop: 03/27/23 00:44 Ipratropium [place] (Ipratropium [place] Neb Soln 0.02% 2.5 Ml Vial) 0.5 mg INH Q6R [facility] Stop: 03/27/23 00:59 Last Admin: 03/01/23 07:06 Dose: 0.5 mg Lactobacillus Acidophilus (Advanced Probiotic 1250 Mg Capsule) 2 cap PO DAILY [facility] Stop: 03/28/23 17:29 Last Admin: 02/28/23 08:31 Dose: 2 cap Lamotrigine (Lamotrigine 100 Mg Tab) 200 mg PO HS [facility] Stop: 03/27/23 20:59 Last Admin: 02/28/23 20:15 Dose: 200 mg Levalbuterol HCl (Levalbuterol 1.25 Mg/3 Ml Neb) 1.25 mg NEB Q6R [facility] Stop: 03/27/23 00:59 Last Admin: 03/01/23 07:08 Dose: 1.25 mg Levothyroxine Sodium (Levothyroxine Sodium 125 Mcg Tablet) 125 mcg PO DAILYBB [facility] Stop: 03/27/23 06:29 Last Admin: 03/01/23 06:00 Dose: 125 mcg Lorazepam (Lorazepam 0.5 Mg Tab) 0.5 mg PO DAILY PRN PRN Reason: Anxiety Stop: 03/27/23 00:44 Last Admin: 02/28/23 08:31 Dose: 0.5 mg Polyethylene Glycol (Polyethylene (Miralax) 17 Gm Pack) 17 gm PO DAILY PRN PRN Reason: Constipation Stop: 03/30/23 10:38 Prednisone (Prednisone 20 Mg Tab) 20 mg PO DAILY [facility] Stop: 03/01/23 08:59 Last Admin: 02/28/23 08:31 Dose: 20 mg Sennosides (Senna 8.6 Mg Tab) 8.6 mg PO QAM [facility] Stop: 03/30/23 10:44 Last Admin: 02/28/23 14:50 Dose: 8.6 mg Tramadol HCl (Tramadol Hcl 50 Mg Tablet) 25 mg PO Q4H PRN PRN Reason: Pain Stop: 03/27/23 00:44
[2023-03-01] MEDS: FOLIC ACID 400 MCG TAB PO SCH (08:34)
[2023-03-01] MEDS: buPROPion XL 150 MG TABCR PO SCH (08:34)
[2023-03-01] MEDS: ENOXAPARIN INJ 40 MG/0.4 ML SYR SQ SCH (08:34)
[2023-03-01] MEDS: ESCITALOPRAM OXALATE 20 MG TAB PO SCH (08:34)
[2023-03-01] MEDS: CEFEPIME 2,000 MG in SYRINGE 0 ML IV SCH (08:34)
[2023-03-01] MEDS: guaiFENesin 600 MG TABCR PO SCH (08:34)
[2023-03-01] MEDS: SENNA 8.6 MG TAB PO SCH (08:34)
[2023-03-01] MEDS: CYANOCOBALAMIN (B-12) 500 MCG TABLET PO SCH (08:34)
[2023-03-01] MEDS: FLUDROCORTISONE ACETATE 0.1 MG TAB PO SCH (08:34)
[2023-03-01] MEDS: ADVANCED PROBIOTIC 1250 MG CAPSULE PO SCH (09:12)
--- NOTE | 2023-03-01 10:15 | Discharge Summary ---
Date of Service March 01, 2023 Admission HPI Per Admitting Provider History obtained from patient, family, and records. 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 Last confinement October 2022 for dizziness symptoms attributed to vertigo. Patient discharged on meclizine. Hypercalcemia on admission normalized at time of discharge. TTE during confinement showed loculated pericardial effusion without hemodynamic significance. Few days history of junky cough symptoms with worsening shortness of breath. Denies aspiration. Left-sided chest pain from coughing. No fever, no chills. Patient noted to be hoarse by family. Patient brought to the ER for evaluation. Zosyn administered at the ER for possible sepsis. 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 Admission Exam Per Admitting Provider GENERAL: Comfortable, pleasant, dysphonic, no respiratory distress SKIN: Normal color, warm HEENT: [place] palpebral conjunctivae, no ptosis, dry buccal mucosa, nasal cannula in place NECK : Supple, no tenderness CHEST : Decreased breath sounds, no tenderness HEART : Tachycardic, no obvious murmurs ABDOMEN: Some distention, nontender EXTREMITIES : no LE swelling, no LE tenderness, no other conspicuous deformities noted NEUROLOGIC : Coherent, no facial asymmetry, dysphonic, gait and stance not assessed Principal Diagnosis Sepsis, pneumonia Discharge Exam CONSTITUTIONAL:thin frail, elderly F, in NAD EYES: normal conjunctivae, no scleral icterus ENT: external ear and nose normal, MMM NECK: trachea midline, neck supple RESPIRATORY: normal respiratory effort, CTAB (improved) CARDIOVASCULAR: regular rate and rhythm, syst. murmur 3/6 CHEST: inspection of chest normal GASTROINTESTINAL: soft, nontender, no guarding, + bowel sounds MUSCULOSKELETAL: head is normocephalic and atraumatic, moves extremities SKIN: warm and dry NEUROLOGIC:awake and alert, answers appropriately, normal cognition, normal speech, no tremor, moves extremities Discharge Data Allergies Allergy/AdvReac Type Severity Reaction Status Date / Time bee venom protein (honey bee) Allergy Intermediate swelling Verified 02/24/23 20:41 Tetracyclines Allergy Intermediate HIVES Verified 02/24/23 20:41 doxepin Allergy Unknown pt doesn't Verified 02/24/23 20:41 remember propoxyphene Allergy Unknown pt doesn't Verified 02/24/23 20:41 remember Sulfa (Sulfonamide AdvReac Intermediate nausea/vomi Verified 02/24/23 20:41 Antibiotics) ting Consultations 02/24/23 22:16 ED Decision to Admit Stat Ordered Studies 02/24/23 20:20 CT angio chest PE protocol Stat FINDINGS: Pulmonary arteries: Unremarkable. No pulmonary embolism. Aorta: No acute findings. No thoracic aortic aneurysm. Lungs: Dense airspace consolidation in the LEFT upper lobe, consistent with lobar pneumonia. Follow-up chest CT recommended to document resolution and exclude any underlying pathology. Linear subsegmental atelectasis/scarring in the LEFT lower lobe. Pleural space: Unremarkable. No significant effusion. No pneumothorax. Heart: Unremarkable. No cardiomegaly. No significant pericardial effusion. No evidence of RV dysfunction. Bones/joints: No acute fracture. No dislocation. Soft tissues: Unremarkable. Lymph nodes: Unremarkable. No enlarged lymph nodes. Gallbladder and bile ducts: Cholecystectomy. IMPRESSION: Dense airspace consolidation in the LEFT upper lobe, consistent with lobar pneumonia. Follow-up chest CT recommended to document resolution and exclude any underlying pathology. Hospital Course (1) Sepsis: (2) Left upper lobe pneumonia: (3) History of lung cancer: (4) COPD exacerbation: (5) Hypothyroidism: (6) Bipolar disorder: (7) Heart murmur: (8) Transaminitis: 2/2 pneumonia vs COPD, improved on IV abx. steroids and nebs. 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 Prediabetes, hemoglobin A1c of 5.8 last November 2022 ADD/bipolar disorder Past tobacco abuse Echo performed in Oct 2022 revealing aortic sclerosis without stenosis. Trivial loculated pericardial effusion. OP follow-up with PCP/cardiology to see if repeat echo is indicated. Plan Ct chest Dense airspace consolidation in the LEFT upper lobe, consistent with lobar pneumonia. Follow-up chest CT recommended to document resolution and exclude any underlying pathology. Blood cultx - negat. in 48 hrs Sputum cultx - normal gee - cont. Cefepime while inpt - guafenesin, flutter valve, IS Steroid course, nebs RTC for COPD exacerbation 02/28 - Pt is doing much better and currently is on RA 03/01 Continues to do well, plan for DC -> oral abx, guaifenesin, pcp follow up on 03/06/23 Total Time Total Time Spent Total Time Spent (In Minutes): 40 Discharge Plan Discharge Items Patient Disposition: Home - Self-Care Reason For Visit: SEPSIS Discharge Diagnosis: Sepsis, pneumonia Activity: Per Instructions section Non-emergency contact: Primary Care Provider Call non-emergency contact if: you have any medication questions and your symptoms worsen Follow-up/Referrals: Cony Hernandez MD [Primary Care Provider] - (Date & Time 03/06/2023 2:20 PM Provider Cony Hernandez MD Department General Internal Medicine [facility] ) Diet: Regular Addtl Attending Provider Instructions: Follow-up with your primary care doctor, the appointment was scheduled for you for March 06. Finish antibiotic treatment with levofloxacin. Also use guaifenesin. Recommend taking probiotics while on antibiotic, to prevent any stomach upset. You can continue using your flutter valve and spirometer. Discuss further with your primary care physician. Pending Studies at Discharge: Yes Studies:: final results of blood cultures Stand-Alone Forms: My [facility] [employer], Smoking Cessation Medications and DC Order Prescriptions: New guaifenesin [Mucinex] 600 mg Tablet Extended Release 12hr 600 mg PO Q12 Qty: 10 0RF Advanced Probiotic 625 mg (10 billion cell) Capsule 2 cap PO DAILY Qty: 10 0RF levofloxacin 750 mg tablet 750 mg PO DAILY Qty: 3 0RF Continued atorvastatin 40 mg Tablet 40 mg PO QAM lamotrigine 200 mg Tablet 200 mg PO HS levothyroxine 100 mcg Tablet 100 mcg PO DAILYBB Rx Instructions: TOTAL DOSE 125 MCG--TAKES WITH 25 MCG TAB. fludrocortisone 0.1 mg Tablet 0.2 mg PO DAILY escitalopram oxalate 20 mg Tablet 20 mg PO QAM bupropion HCl 150 mg Tablet Extended Release 24 Hr 150 mg PO QAM cyanocobalamin (vitamin B-12) [Vitamin B-12] 1,000 mcg Tablet 1,000 mcg PO Q OTHER DAY zinc gluconate 50 mg Tablet 50 mg PO QAM albuterol sulfate [ProAir HFA] 90 mcg/actuation Hfa Aerosol Inhaler 2 puff INHALATION Q4 PRN (Reason: Wheezing) aspirin 81 mg Tablet,Delayed Release (Dr/Ec) 81 mg PO QPM levothyroxine 25 mcg tablet 25 mcg PO DAILYBB Rx Instructions: take in addition to 100 mcg. total daily dose 125 mcg aripiprazole 10 mg tablet 10 mg PO HS folic acid 800 mcg Tablet 0.8 mg PO DAILY cholecalciferol (vitamin D3) [Vitamin D3] 25 mcg (1,000 unit) Tablet 25 mcg PO BID ascorbic acid (vitamin C) [Vitamin C] 1,000 mg Tablet 1 g PO DAILY potassium chloride [Klor-Con M20] 20 mEq tablet,ER particles/crystals 20 meq PO DAILY lorazepam 0.5 mg tablet 0.5 mg PO DAILY PRN (Reason: Anxiety) meclizine 12.5 mg tablet 12.5 mg PO BID Discharge Orders: Discharge Order (Routine); Ordered 03/01/23 Ordered By: Yassine Melendez Admission Data Admit Date/Time: 02/24/23 22:52 Attending Provider: Yassine Melendez Admit Provider: Brandon Ramirez Primary Care Provider: Cony Hernandez Other Providers: Brandon Ramirez ; Kenya Gilman
== END 2023-03-01 11:59 | disposition home health service (06) | DRG 871 ==
LOC: ED 19:09 → SUATTDRO 22:52 → 2N 22:52 → SUPCPDRO 22:52 → 2N 02-25 00:14

== ENCOUNTER 2024-11-19 17:32 | Inpatient (IN) ==
[2024-11-19 18:06] LABS: Basophils # (auto) 0.03 K/uL (0.00-0.20); Basophils % (auto) 0.3 %; Eosinophils # (auto) 0.53 K/uL (0.00-0.50); Eosinophils % (auto) 5.4 %; Hematocrit (blood only) 30.3 % (37.0-47.0); Hemoglobin 10.1 g/dl (12.0-16.0); Immature Granulocytes # (auto) 0.05 K/uL (0.01-0.20); Immature Granulocytes % (auto) 0.5 %; Lymphocytes # (auto) 0.51 K/uL (1.20-3.40); Lymphocytes % (auto) 5.2 %; Mean Corpuscular Hemoglobin 30.1 pg (25.0-34.0); Mean Corpuscular Hgb Conc 33.3 g/dL (32.0-36.0); Mean Corpuscular Volume 90.2 fL (80.0-100.0); Mean Platelet Volume 9.4 fL (9.4-12.4); Monocytes # (auto) 0.76 K/uL (0.11-0.59); Monocytes % (auto) 7.8 %; Neutrophils # (auto) 7.86 K/uL (1.40-6.50); Neutrophils % (auto) 80.8 %; Platelet Count 292 K/uL (130-400); RDW Standard Deviation 46.5 fL (36.4-46.3); Red Blood Count 3.36 M/uL (4.20-5.40); White Blood Count 9.74 K/ul (4.8-10.8)
[2024-11-19] MEDS: HYDROmorphone INJ 0.5 MG/0.5 ML SYR IV PRN ×2 (18:13→23:08)
[2024-11-19] MEDS: ONDANSETRON INJ 2 MG/ML 2 ML VIAL IV STA (18:13)
[2024-11-19 18:26] LABS: Albumin Globulin Ratio 0.9 (0.9-2); Albumin Level 3.2 gm/dl (3.4-5.0); BUN Creatinine Ratio 20.2 (10-20); Bilirubin,Total 0.3 mg/dl (0.2-1.0); Calcium 8.7 mg/dl (8.6-10.3); Globulin 3.6 gm/dl (2.5-4.0); Potassium 4.3 mmol/L (3.5-5.1); Total Protein 6.8 gm/dl (6.0-8.3)
--- NOTE | 2024-11-19 18:34 | Emergency Department Note ---
Impression & Plan Cancer-related breakthrough pain, Lung cancer ED Provider Note NAME: SCARLET GASPAR AGE: 68 SEX: Female INFORMANT: Patient ED PROVIDER(S): Samuel Varela MD CHIEF COMPLAINT: Cancer pain PLAN: Disposition: Admitted Outpatient prescription management: none Referral: None MEDICAL DECISION MAKING: Patient presented complaining of worsening cancer pain. She notes that this has been present for over 2 months but really worse over the last few days. She states that her oncologist at [facility] has given her about 2 months to live. IV was established. ECG did not reveal any acute ST changes. Monitoring was unremarkable. Patient was treated with IV Dilaudid and Zofran. Patient required multiple doses of IV Dilaudid for pain control. Chest x-ray did not reveal any acute findings. Cancer noted in the left upper lung field. Patient was reassessed. Discussed further management in the hospital and patient and family in agreement. Consultation was made with the [facility] hospitalist service, Dr. Madison. Patient was evaluated in the ER and admitted for further management Care/management discussed with: assisted living manager Level of care consideration(s): After review of the information above and other included data, I feel the patient requires escalation of care to admission Triage Nursing notes: reviewed and agree them. Vital Signs: reviewed and remarkable for no significant abnormalities Additional History obtained from: none Chronic Medical/Social Conditions affecting care: Metastatic lung cancer Prior/ Outside/ External records reviewed: none Differential Diagnosis: Intractable cancer pain,Cardiac ischemia, aortic dissection, pulmonary embolism, pneumothorax, pneumonia, pericarditis, myocarditis, esophageal rupture, GERD, cholecystitis, pancreatitis, musculoskeletal, as well as other pathologies. Diagnostics, independently interpreted by me: ECG: Twelve-lead ECG reveals normal sinus rhythm at 77 beats per minute. No evidence of pericarditis, ischemia, ectopy, or dysrhythmia. Nonspecific ST Cardiac Monitoring: Cardiac monitoring ordered by me: The patient was placed on continuous cardiac monitoring and observed. It revealed a normal sinus rhythm at 80 beats per minute without ectopy or evidence of dysrhythmia. Medical decision rules: none Imaging studies: Chest x-ray reveals left upper lobe opacity. No pneumothorax. When compared to prior no significant change. I refer you to the EMR for further details. HPI: 68 year old Female arrives for evaluation of breakthrough cancer pain. This started to worsen over the last several days and is located in the left side of her chest as well as her back. Patient has metastatic lung cancer.. The patient also notes the following associated symptoms, some shortness of breath and fatigue. The patient has used her morphine and oxycodone for relieving factors. Current pain is rated as 9/10. Patient denies any trauma. Patient was directed to the ER by hospice for pain management. Pt denies LOC, headache, fevers, chills, diaphoresis, neck pain nausea, vomiting, abdominal pain, melena, hematochezia, urinary symptoms, weakness, lymphadenopathy, rash, or other complaints.. PAST MEDICAL HISTORY: See Below, metastatic lung cancer, end-stage PAST SURGICAL HISTORY: See Below, SOCIAL HISTORY: See Below, retired HOME MEDICATIONS: See Below ALLERGIES: See Below VITALS: See Below PHYSICAL EXAMINATION: GENERAL: Awake, alert, uncomfortable-appearing, in mild distress HENT: Normocephalic, atraumatic. Oropharynx unremarkable. EYES: Normal conjunctiva. Sclera non-icteric. NECK: Inspection normal. Non-tender. Supple. No nuchal rigidity. FROM. No masses. RESPIRATORY: Clear to auscultation. No wheezes. No rales. Normal respiratory effort. CARDIAC: Normal rate. Normal rhythm. No murmurs. No rubs. Extremities warm and well perfused. Pulses equal. No JVD. GI: Soft, non-distended. No tenderness to palpation. No rebound or guarding. No masses. RECTAL: Deferred. MUSCULOSKELETAL: Atraumatic. Chest examination reveals left-sided rib tenderness. The back is mildly kyphotic on inspection without obvious abnormality. There is no CVA tenderness to palpation. Mild tenderness across the upper back around the scapula bilaterally. No joint edema. LOWER EXTREMITIES: Calves are equal size bilaterally and non-tender. No edema. No discoloration. NEURO: Normal sensorium. No sensory or motor deficits noted. SKIN: No rash or jaundice noted. 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 HAPPENED DURING GALLBLADDER REMOVAL AT [facility]. HAD TO BE RE-INTUBATED. 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" GERD (gastroesophageal reflux disease) Dyslipidemia Asthma DOESNT FOLLOW WITH ANYONE- NO ATTACKS FOR OVER A YEAR inhaler prn Surgical History (Updated 07/21/24 @ 09:56 by Lea Jones RN) History of lung biopsy 06/23/24; [facility] H/O bilateral cataract extraction History of lung biopsy S/P laparoscopic cholecystectomy H/O colonoscopy S/P breast biopsy S/P tonsillectomy and adenoidectomy History of hysterectomy Family History Grandmother (Maternal) Cancer Grandfather Cancer Other No family history of adverse response to anesthesia Social History Smoking Status: Former smoker Age Started Using Tobacco: 16; Cigarettes Per Day: 2 PPD; Second Hand Exposure: Yes (Grandfather, Mother); Do You Dip or Chew Tobacco: No; Hx Alcohol Use: No Hx Substance Use: Yes Last Used Substance: Unknown Last Used Substance Other:: last week Substance Use Type Other:: smokes Preferred Language: Bengali Communication Ability: Effective Visual Impairment: No Limitations Hearing Ability: Hard of Hearing Windshield Technician Required: No Beliefs That Will Affect Care: None Current Living Situation: Family Current Living Situation Comment: lives home with grandson Feels Safe at Home: Yes during the past year weight has: decreased > 10 lbs Assistive Devices: Oxygen - Continuous Allergies Allergies Allergy/AdvReac Type Severity Reaction Status Date / Time bee venom protein (honey bee) Allergy Intermediate swelling Verified 08/23/24 15:05 Tetracyclines Allergy Intermediate HIVES Verified 08/23/24 15:05 doxepin Allergy Unknown pt doesn't Verified 08/23/24 15:05 remember propoxyphene Allergy Unknown pt doesn't Verified 08/23/24 15:05 remember Sulfa (Sulfonamide AdvReac Intermediate nausea/vomi Verified 08/23/24 15:05 Antibiotics) ting Home Meds Home Medications Medication Instructions Recorded Confirmed bupropion HCl 150 mg 24 hr tablet, 150 mg PO QAM 05/14/19 11/19/24 extended release escitalopram oxalate 20 mg tablet 20 mg PO QAM 05/14/19 11/19/24 fludrocortisone 0.1 mg tablet 0.2 mg PO DAILY 05/14/19 11/19/24 levothyroxine 100 mcg tablet 100 mcg PO DAILYBB 05/14/19 11/19/24 albuterol sulfate 90 mcg/actuation 2 puff inhalation Q4 PRN Wheezing 07/01/19 11/19/24 aerosol inhaler (ProAir HFA) cyanocobalamin (vitamin B-12) 1,000 mcg PO Q OTHER DAY 07/01/19 11/19/24 1,000 mcg tablet (Vitamin B-12) zinc gluconate 50 mg tablet 50 mg PO QAM 07/01/19 11/19/24 aripiprazole 10 mg tablet 10 mg PO HS 11/01/22 11/19/24 aspirin 81 mg tablet,delayed 81 mg PO QPM 11/01/22 11/19/24 release cholecalciferol (vitamin D3) 25 25 mcg PO BID 11/01/22 11/19/24 mcg (1,000 unit) tablet (Vitamin D3) folic acid 800 mcg tablet 0.8 mg PO DAILY 11/01/22 11/19/24 ascorbic acid (vitamin C) 1,000 mg 1 g PO DAILY 02/24/23 11/19/24 tablet (Vitamin C) lorazepam 0.5 mg tablet 0.5 mg PO DAILY Anxiety 02/24/23 11/19/24 meclizine 12.5 mg tablet 12.5 mg PO BID 02/24/23 11/19/24 potassium chloride 20 mEq 20 meq PO DAILY 02/24/23 11/19/24 tablet,extended release(part/cryst) (Klor-Con M) ibuprofen 200 mg tablet (Advil) 400 mg PO Q6H PRN Pain 12/04/23 11/19/24 calcium carbonate 600 mg PO DAILY 06/15/24 11/19/24 fluticasone 250 mcg-salmeterol 50 1 inh inhalation BID 07/21/24 11/19/24 mcg/dose blistr powdr for inhalation (Wixela Inhub) oxycodone 5 mg tablet 10 mg PO Q8H PRN Pain 07/21/24 11/19/24 morphine 15 mg tablet,extended 30 mg PO BID PRN Pain 11/19/24 11/19/24 release Results & Data (ED) Vital Signs Vital Signs - 24 hr 11/19/24 17:41 11/19/24 17:42 11/19/24 17:59 Temperature 36.6 C Temperature Source Oral Pulse Rate 77 80 Pulse Rate from SpO2 Sensor Respiratory Rate 12 Blood Pressure 112/56 L Blood Pressure Mean 74 Pulse Oximetry 98 Oxygen Delivery Method Nasal Cannula Nasal Cannula Oxygen Flow Rate 2 Sepsis New/Unexplained Change in Mental Status No Sepsis Action Taken by Nursing No Action Required 11/19/24 18:00 Temperature Temperature Source Pulse Rate 80 Pulse Rate from SpO2 Sensor 80 Respiratory Rate 20 Blood Pressure Blood Pressure Mean Pulse Oximetry 98 Oxygen Delivery Method Nasal Cannula Oxygen Flow Rate 2 Sepsis New/Unexplained Change in Mental Status Sepsis Action Taken by Nursing Laboratory Data 11/19/24 17:41 11/19/24 17:41 Lab Results 11/19/24 Range/Units 17:41 WBC 9.74 (4.8-10.8) K/ul RBC 3.36 L (4.20-5.40) M/uL Hgb 10.1 L (12.0-16.0) g/dl Hct 30.3 L (37.0-47.0) % MCV 90.2 (80.0-100.0) fL MCH 30.1 (25.0-34.0) pg MCHC 33.3 (32.0-36.0) g/dL RDW Std Deviation 46.5 H (36.4-46.3) fL RDW Coeff of Jagruti 14.0 (11.5-14.5) % Plt Count 292 (130-400) K/uL MPV 9.4 (9.4-12.4) fL Immature Gran % (Auto) 0.5 % Neut % (Auto) 80.8 % Lymph % (Auto) 5.2 % Taliaferro % (Auto) 7.8 % Eos % (Auto) 5.4 % Baso % (Auto) 0.3 % Neut # (Auto) 7.86 H (1.40-6.50) K/uL Lymph # (Auto) 0.51 L (1.20-3.40) K/uL Taliaferro # (Auto) 0.76 H (0.11-0.59) K/uL Eos # (Auto) 0.53 H (0.00-0.50) K/uL Baso # (Auto) 0.03 (0.00-0.20) K/uL Immature Gran # (Auto) 0.05 (0.01-0.20) K/uL Sodium 130 L (136-145) mmol/L Potassium 4.3 (3.5-5.1) mmol/L Chloride 94 L (98-107) mmol/L Carbon Dioxide 31 (21-32) mmol/L Anion Gap 5 (3-11) BUN 17 (6-23) mg/dl Creatinine 0.84 (0.6-1.2) mg/dl Est Cr Clr Drug Dosing 60.0 ml/min eGFR 75.65 BUN/Creatinine Ratio 20.2 H (10-20) Glucose 125 H (70-99(Fasting)) mg/dl Calcium 8.7 (8.6-10.3) mg/dl Total Bilirubin 0.3 (0.2-1.0) mg/dl AST 18 (13-39) U/L ALT 13 (7-52) U/L Alkaline Phosphatase 123 H (34-104) U/L Total Protein 6.8 (6.0-8.3) gm/dl Albumin 3.2 L (3.4-5.0) gm/dl Globulin 3.6 (2.5-4.0) gm/dl Albumin/Globulin Ratio 0.9 (0.9-2) Administered Medications Hydromorphone HCl (Hydromorphone Inj 0.5 Mg/0.5 Ml Syr) 0.5 mg IV Q15M PRN PRN Reason: Pain Stop: 12/03/24 17:48 Last Admin: 11/19/24 20:41 Dose: 0.5 mg Documented By: Admin: 11/19/24 19:31 Dose: 0.5 mg Documented By: Admin: 11/19/24 18:45 Dose: 0.5 mg Documented By: Admin: 11/19/24 18:13 Dose: 0.5 mg Documented By: LYN Discontinued Medications Ondansetron HCl (Ondansetron Inj 2 Mg/Ml 2 Ml Vial) 4 mg IV NOW STA Stop: 11/19/24 17:50 Last Admin: 11/19/24 18:13 Dose: 4 mg Documented By: LYN Imaging Data Radiologist's Impression: Chest X-Ray 11/19/24 18:07 EXAM: Portable AP chest radiograph TECHNIQUE: AP portable radiograph of the chest was obtained. INDICATION: Shortness of breath Comparison: Chest radiograph August 31, 2024, May 21, 2024 FINDINGS: LINES and TUBES: None CARDIOVASCULAR: Cardiac silhouette is normal in size. LUNGS/PLEURA: No focal consolidation identified. No significant pleural fluid. No discernible pneumothorax. Emphysema. Unchanged density over the left midlung and left apex likely representing fibrotic changes with similar volume loss coompared to previous examinations. No significant change in the irregular shaped nodular density over the right upper lobe which may represent additional focus of fibrosis. OSSEOUS/OTHER: No displaced acute osseous process identified. IMPRESSION: No radiographic evidence of acute cardiopulmonary process. Overall no significant change detected compared to previous radiographs. Electronically signed by Jeff Holland 11-19-2024 6:55 PM Discharge Plan Visit Data Chief Complaint: Pain (Generalized) ED Provider: Samuel Varela Discharge Problem: Cancer-related breakthrough pain, Lung cancer Forms Stand Alone Forms: [facility] [employer] Prescriptions Prescriptions: No Action ibuprofen [Advil] 200 mg tablet 400 mg PO Q6H PRN (Reason: Pain) calcium carbonate 600 mg calcium (1,500 mg) tablet 600 mg PO DAILY oxycodone 5 mg tablet 10 mg PO Q8H PRN (Reason: Pain) fluticasone propion-salmeterol [Wixela Inhub] 250-50 mcg/dose blister with device 1 inh inhalation BID levothyroxine 100 mcg Tablet 100 mcg PO DAILYBB Rx Instructions: TOTAL DOSE 125 MCG--TAKES WITH 25 MCG TAB. fludrocortisone 0.1 mg Tablet 0.2 mg PO DAILY escitalopram oxalate 20 mg Tablet 20 mg PO QAM bupropion HCl 150 mg Tablet Extended Release 24 Hr 150 mg PO QAM cyanocobalamin (vitamin B-12) [Vitamin B-12] 1,000 mcg Tablet 1,000 mcg PO Q OTHER DAY zinc gluconate 50 mg Tablet 50 mg PO QAM albuterol sulfate [ProAir HFA] 90 mcg/actuation Hfa Aerosol Inhaler 2 puff INHALATION Q4 PRN (Reason: Wheezing) aspirin 81 mg Tablet,Delayed Release (Dr/Ec) 81 mg PO QPM aripiprazole 10 mg tablet 10 mg PO HS folic acid 800 mcg Tablet 0.8 mg PO DAILY cholecalciferol (vitamin D3) [Vitamin D3] 25 mcg (1,000 unit) Tablet 25 mcg PO BID ascorbic acid (vitamin C) [Vitamin C] 1,000 mg Tablet 1 g PO DAILY potassium chloride [Klor-Con M20] 20 mEq tablet,ER particles/crystals 20 meq PO DAILY lorazepam 0.5 mg tablet 0.5 mg PO DAILY meclizine 12.5 mg tablet 12.5 mg PO BID morphine 15 mg tablet extended release 30 mg PO BID PRN (Reason: Pain) Referrals Referrals: Cony Hernandez MD [Primary Care Provider] -
--- NOTE | 2024-11-19 18:55 | XRay Report ---
EXAM: Portable AP chest radiograph TECHNIQUE: AP portable radiograph of the chest was obtained. INDICATION: Shortness of breath Comparison: Chest radiograph August 31, 2024, May 21, 2024 FINDINGS: LINES and TUBES: None CARDIOVASCULAR: Cardiac silhouette is normal in size. LUNGS/PLEURA: No focal consolidation identified. No significant pleural fluid. No discernible pneumothorax. Emphysema. Unchanged density over the left midlung and left apex likely representing fibrotic changes with similar volume loss coompared to previous examinations. No significant change in the irregular shaped nodular density over the right upper lobe which may represent additional focus of fibrosis. OSSEOUS/OTHER: No displaced acute osseous process identified. IMPRESSION: No radiographic evidence of acute cardiopulmonary process. Overall no significant change detected compared to previous radiographs. Electronically signed by Jeff Holland 11-19-2024 6:55 PM
--- NOTE | 2024-11-19 21:18 | History & Physical Report ---
Date of Service November 19, 2024 Assessment & Plan (1) Cancer-related breakthrough pain: Plan: 68-year-old female with past medical history significant for chronic respiratory failure with hypoxia on 2 L oxygen, COPD, hypercalcemia, hypothyroidism, prediabetes, non-small cell lung cancer of left lung, vocal cord paralysis, peripheral vascular disease, bilateral carotid stenosis, GERD, bipolar disorder, attention deficit disorder, comes because of severe pain in the chest and back. Patient is on home hospice. Currently not on any chemo as per patient. Patient lives with her grandson. Sister and [id number] in the room. Not much ambulating as per sister. Appetite is poor. Patient says has difficulty swallowing. Pain is in the posterior chest and the back. She is on pain meds but pain is not getting controlled. Has cough and bringing up phlegm. No fevers. Has runny nose sometimes. No abdominal pain. Constipated. No blood in stools or black stools. Micturating okay. Hemodynamics are okay. Cancer-related breakthrough pain History of left lung non-small cell cancer with extensive mediastinal and left supraclavicular node involvement stage IIIb diagnosed in 07/2015 S/p chemo and radiation last chemo was in April 2017 Seems was in remission for 5 years August 2022 completed radiation treatment for the new left lower lobe nodule Recently increasing pain left upper chest wall and left upper back in the scapular region and imaging studies showed left first fifth rib destructive changes. Patient had again PET scan which showed large metabolically active left upper lobe mass measuring up to 5.1 cm with cystic changes and soaring. Fourth ribs and biopsy on 08/02/2024 shows, l cancer in 1 left upper lobe mass Completed SBRT to left upper lobe mass in July 2024. As per Heme-onc was not a good candidate for systemic chemotherapy curently On pain meds at home and on home hospice coms to er today as pain is not controlled at home Will continue home oxycodone as needed IV Dilaudid as needed Consult pain management for further recommendations Hypothyroidism On Synthyroid Depression and anxiety, bipolar disorder, attention deficit disorder On aripiprazole and bupropion and Lexapro Ativan as needed History of peripheral vascular disease On aspirin Chronic respiratory failure hypoxia on 2 L History of COPD Continue home inhalers Left vocal cord paralysis Dysphagia Speech consult Hyponatremia Sodium 130 Will follow labs Anemia Hemoglobin 10.1 Will follow stool for Hemoccult DVT prophylaxis Lovenox Disposition Medical floor CODE STATUS DNR/DNI History of Present Illness Chief Complaint: Severe cancer pain Primary Care Provider: Cony Hernandez MD 68-year-old female with past medical history significant for chronic respiratory failure with hypoxia on 2 L oxygen, COPD, hypercalcemia, hypothyroidism, prediabetes, non-small cell lung cancer of left lung, vocal cord paralysis, peripheral vascular disease, bilateral carotid stenosis, GERD, bipolar disorder, attention deficit disorder, comes because of severe pain in the chest and back. Patient is on home hospice. Currently not on any chemo as per patient. Patient lives with her grandson. Sister and [id number] in the room. Not much ambulating as per sister. Appetite is poor. Patient says has difficulty swallowing. Pain is in the posterior chest and the back. She is on pain meds but pain is not getting controlled. Has cough and bringing up phlegm. No fevers. Has runny nose sometimes. No abdominal pain. Constipated. No blood in stools or black stools. Micturating okay. Hemodynamics are okay. Past medical history. As mentioned above Past surgical history. Right biopsy of breast. Bronchoscopy. Colonoscopy. IR biopsy. Laparoscopic cholecystectomy. Injection of lumbosacral spine. Repair of right wrist. Tonsillectomy.. Cervical lymph node injection. Total abdominal hysterectomy. Social history. Quit smoking 2020. Smoked 2 packs a day for 50 years. No alcohol use. Smokes marijuana once a week as per epic. Family history. Father had COPD. Mother had heart disorder. Sister has psoriasis. Maternal grandfather had lung cancer. Thyroid disorder. Allergies Allergy/AdvReac Type Severity Reaction Status Date / Time bee venom protein (honey bee) Allergy Intermediate swelling Verified 08/23/24 15:05 Tetracyclines Allergy Intermediate HIVES Verified 08/23/24 15:05 doxepin Allergy Unknown pt doesn't Verified 08/23/24 15:05 remember propoxyphene Allergy Unknown pt doesn't Verified 08/23/24 15:05 remember Sulfa (Sulfonamide AdvReac Intermediate nausea/vomi Verified 08/23/24 15:05 Antibiotics) ting Home Medications Medication Instructions Recorded Confirmed Type bupropion HCl 150 mg 24 hr tablet, 150 mg PO QAM 05/14/19 11/19/24 History extended release escitalopram oxalate 20 mg tablet 20 mg PO QAM 05/14/19 11/19/24 History fludrocortisone 0.1 mg tablet 0.2 mg PO DAILY 05/14/19 11/19/24 History levothyroxine 100 mcg tablet 100 mcg PO DAILYBB 05/14/19 11/19/24 History albuterol sulfate 90 mcg/actuation 2 puff inhalation Q4 PRN Wheezing 07/01/19 11/19/24 History aerosol inhaler (ProAir HFA) cyanocobalamin (vitamin B-12) 1,000 mcg PO Q OTHER DAY 07/01/19 11/19/24 History 1,000 mcg tablet (Vitamin B-12) zinc gluconate 50 mg tablet 50 mg PO QAM 07/01/19 11/19/24 History aripiprazole 10 mg tablet 10 mg PO HS 11/01/22 11/19/24 History aspirin 81 mg tablet,delayed 81 mg PO QPM 11/01/22 11/19/24 History release cholecalciferol (vitamin D3) 25 25 mcg PO BID 11/01/22 11/19/24 History mcg (1,000 unit) tablet (Vitamin D3) folic acid 800 mcg tablet 0.8 mg PO DAILY 11/01/22 11/19/24 History ascorbic acid (vitamin C) 1,000 mg 1 g PO DAILY 02/24/23 11/19/24 History tablet (Vitamin C) lorazepam 0.5 mg tablet 0.5 mg PO DAILY Anxiety 02/24/23 11/19/24 History meclizine 12.5 mg tablet 12.5 mg PO BID 02/24/23 11/19/24 History potassium chloride 20 mEq 20 meq PO DAILY 02/24/23 11/19/24 History tablet,extended release(part/cryst) (Klor-Con M) ibuprofen 200 mg tablet (Advil) 400 mg PO Q6H PRN Pain 12/04/23 11/19/24 History calcium carbonate 600 mg PO DAILY 06/15/24 11/19/24 History fluticasone 250 mcg-salmeterol 50 1 inh inhalation BID 07/21/24 11/19/24 History mcg/dose blistr powdr for inhalation (Wixela Inhub) oxycodone 5 mg tablet 10 mg PO Q8H PRN Pain 07/21/24 11/19/24 History morphine 15 mg tablet,extended 30 mg PO BID PRN Pain 11/19/24 11/19/24 History release Past Med/Surg History Problem List (Updated 11/19/24 @ 18:34 by Samuel Varela MD) Cancer-related breakthrough pain (Acute) Pain from bone metastases (Chronic) Heart murmur Transaminitis Bipolar disorder Hypothyroidism COPD exacerbation Sepsis Left upper lobe pneumonia (Acute) History of lung cancer (Acute) Hypercalcemia Weakness (Acute) Elevated troponin I level (Acute) Lung cancer (Acute) 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 HAPPENED DURING GALLBLADDER REMOVAL AT [facility]. HAD TO BE RE-INTUBATED. 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" GERD (gastroesophageal reflux disease) Dyslipidemia Asthma DOESNT FOLLOW WITH ANYONE- NO ATTACKS FOR OVER A YEAR inhaler prn Surgical History (Updated 07/21/24 @ 09:56 by Lea Jones RN) History of lung biopsy 06/23/24; [facility] H/O bilateral cataract extraction History of lung biopsy S/P laparoscopic cholecystectomy H/O colonoscopy S/P breast biopsy S/P tonsillectomy and adenoidectomy History of hysterectomy Family History Grandmother (Maternal) Cancer Grandfather Cancer Other No family history of adverse response to anesthesia Social History Smoking Status: Former smoker Tobacco Type: Declines Age Started Using Tobacco: 16; Cigarettes Per Day: 2 PPD; Second Hand Exposure: No; Do You Dip or Chew Tobacco: No; Tobacco Cessation Education Requested by Patient: No Hx Alcohol Use: No Hx Substance Use: No Preferred Language: Macedonian Communication Ability: Effective Visual Impairment: No Limitations Hearing Ability: Hard of Hearing Insurance Marketing Rep Required: No Beliefs That Will Affect Care: None Current Living Situation: Family Current Living Situation Comment: lives home with grandson Other Information That Helps Us Care for You: No Feels Safe at Home: Yes Safety Concerns: Feels Safe At This Time during the past year weight has: decreased > 10 lbs Assistive Devices: Hospital Bed Review of Systems Review of Systems: All systems reviewed & are unremarkable except as noted in HPI & below Physical Exam Physical Exam: General- Not in distress Head- atraumatic Eyes- PERRL. ENT- oropharynx clear Neck- supple, no JVD. Lungs- clear to auscultation no wheezing or crackles. Heart- regular rhythm; no murmur, no gallop. Abdomen- normal bowel sounds, soft, nontender, no distension Extremities- trace pretibial edema, no erythema seen Neuro- alert, oriented PERRL, no facial palsy; no dysarthria; moves extremities. Results & Data Results & Data Vital Signs (Past 12 Hours) Vital Signs Temp Pulse Pulse Resp BP BP Pulse Ox 11/19/24 20:56 84 20 116/61 95 11/19/24 18:00 80 20 98 11/19/24 17:59 11/19/24 17:42 36.6 C 80 12 112/56 L 98 11/19/24 17:41 77 O2 Del Method O2 Flow Rate 11/19/24 20:56 Nasal Cannula 2 11/19/24 18:00 Nasal Cannula 2 11/19/24 17:59 Nasal Cannula 11/19/24 17:42 Nasal Cannula 2 11/19/24 17:41 Diagnostic Findings Laboratory Results WBC 9.74 K/ul (4.8-10.8) 11/19/24 17:41 RBC 3.36 M/uL (4.20-5.40) L 11/19/24 17:41 Hgb 10.1 g/dl (12.0-16.0) L 11/19/24 17:41 Hct 30.3 % (37.0-47.0) L 11/19/24 17:41 MCV 90.2 fL (80.0-100.0) 11/19/24 17:41 MCH 30.1 pg (25.0-34.0) 11/19/24 17:41 MCHC 33.3 g/dL (32.0-36.0) 11/19/24 17:41 RDW Std Deviation 46.5 fL (36.4-46.3) H 11/19/24 17:41 RDW Coeff of Jagruti 14.0 % (11.5-14.5) 11/19/24 17:41 Plt Count 292 K/uL (130-400) 11/19/24 17:41 MPV 9.4 fL (9.4-12.4) 11/19/24 17:41 Immature Gran % (Auto) 0.5 % 11/19/24 17:41 Neut % (Auto) 80.8 % 11/19/24 17:41 Lymph % (Auto) 5.2 % 11/19/24 17:41 Wise % (Auto) 7.8 % 11/19/24 17:41 Eos % (Auto) 5.4 % 11/19/24 17:41 Baso % (Auto) 0.3 % 11/19/24 17:41 Neut # (Auto) 7.86 K/uL (1.40-6.50) H 11/19/24 17:41 Lymph # (Auto) 0.51 K/uL (1.20-3.40) L 11/19/24 17:41 Wise # (Auto) 0.76 K/uL (0.11-0.59) H 11/19/24 17:41 Eos # (Auto) 0.53 K/uL (0.00-0.50) H 11/19/24 17:41 Baso # (Auto) 0.03 K/uL (0.00-0.20) 11/19/24 17:41 Immature Gran # (Auto) 0.05 K/uL (0.01-0.20) 11/19/24 17:41 Sodium 130 mmol/L (136-145) L 11/19/24 17:41 Potassium 4.3 mmol/L (3.5-5.1) 11/19/24 17:41 Chloride 94 mmol/L (98-107) L 11/19/24 17:41 Carbon Dioxide 31 mmol/L (21-32) 11/19/24 17:41 Anion Gap 5 (3-11) 11/19/24 17:41 BUN 17 mg/dl (6-23) 11/19/24 17:41 Creatinine 0.84 mg/dl (0.6-1.2) 11/19/24 17:41 Est Cr Clr Drug Dosing 60.0 ml/min 11/19/24 17:41 eGFR 75.65 11/19/24 17:41 BUN/Creatinine Ratio 20.2 (10-20) H 11/19/24 17:41 Glucose 125 mg/dl (70-99(Fasting)) H 11/19/24 17:41 Calcium 8.7 mg/dl (8.6-10.3) 11/19/24 17:41 Total Bilirubin 0.3 mg/dl (0.2-1.0) 11/19/24 17:41 AST 18 U/L (13-39) 11/19/24 17:41 ALT 13 U/L (7-52) 11/19/24 17:41 Alkaline Phosphatase 123 U/L (34-104) H 11/19/24 17:41 Total Protein 6.8 gm/dl (6.0-8.3) 11/19/24 17:41 Albumin 3.2 gm/dl (3.4-5.0) L 11/19/24 17:41 Globulin 3.6 gm/dl (2.5-4.0) 11/19/24 17:41 Albumin/Globulin Ratio 0.9 (0.9-2) 11/19/24 17:41 Impressions Chest X-Ray 11/19/24 18:07 EXAM: Portable AP chest radiograph TECHNIQUE: AP portable radiograph of the chest was obtained. INDICATION: Shortness of breath Comparison: Chest radiograph August 31, 2024, May 21, 2024 FINDINGS: LINES and TUBES: None CARDIOVASCULAR: Cardiac silhouette is normal in size. LUNGS/PLEURA: No focal consolidation identified. No significant pleural fluid. No discernible pneumothorax. Emphysema. Unchanged density over the left midlung and left apex likely representing fibrotic changes with similar volume loss coompared to previous examinations. No significant change in the irregular shaped nodular density over the right upper lobe which may represent additional focus of fibrosis. OSSEOUS/OTHER: No displaced acute osseous process identified. IMPRESSION: No radiographic evidence of acute cardiopulmonary process. Overall no significant change detected compared to previous radiographs. Electronically signed by Jeff Holland 11-19-2024 6:55 PM ECG Additional Comments: ECG. Normal sinus rhythm at the rate of 77. Nonspecific ST abnormality. QTc 473. Code Status & VTE Plan VTE Prophylaxis Plan VTE Prophylaxis will be ordered: Yes
[2024-11-19] MEDS ORDERED: ACETAMINOPHEN 325 MG TAB PO PRN (22:45)
[2024-11-19] MEDS ORDERED: POLYETHYLENE (MIRALAX) 17 GM PACK PO PRN (22:45)
[2024-11-19] MEDS ORDERED: ONDANSETRON INJ 2 MG/ML 2 ML VIAL IV PRN (22:45)
[2024-11-19] MEDS ORDERED: ALBUTEROL HFA 8 GM INHALER INH PRN (22:45)
--- OUTSIDE RECORDS SUMMARY | 2024-11-20 04:51 | External Medical Summary | Summary of Care ---
Author Name Unknown Organization [facility] Address [address] [facility] [place] [address] Phone [phone] Care Team Providers Care Project Controller Name Role Phone Cony Hernandez MD Primary Care Provider + Reason for Visit * Reason Onset Date Comments Medication Refill 10/25/2024 Encounter Details Date Type Department Care Team (Late st Contact Info) Description 10/25/2024 Refill Hematology/Oncology Celia Russo [place] [address] [place] [id number] Manny Hernandez MD [address] [place] [address] NSCLC of left lung (HCC); Rib pain on left side Allergies Active Allergy Reactions Criticality Noted Date Comments Doxepin 08/29/2005 bad nightmares Propoxyphene Napsylate 09/10/1999 Makes pt "hostile & mean" Tetracyclines & Related 02/23/1998 hives documented as of this encounter (statuses as of 11/01/2024) Medications ARIPiprazole 10 MG Oral Tablet Take 1 Tablet by mouth in the morning. 08/13/20 17 Active Escitalopram Oxalate 20 MG Oral TabletIndications: Depression Take 1 Tablet by mouth in the morning. 90 Tab 3 11/14/19 18 Active Cholecalciferol (VITAMIN D3) 1000 units CAPS Take 1 Capsule by mouth in the morning and 1 Capsule before bedtime. Active zinc gluconate 50 MG Tablet Take 1 Tablet by mouth in the morning. Active aspirin enteric coated 81 MG TBEC Take 1 Tablet by mouth in the morning. 30 Tab 11 09/28/19 19 Active Folic Acid 800 MCG Oral Tablet Take 1 Tablet by mouth in the morning. Active lamoTRIgine 200 MG Oral Tablet (LaMICtal) TAKE 1 TABLET BY MOUTH EVERY DAY 90 Tab 1 06/14/20 20 Active Zoster Vac Recomb Adjuvanted 50 MCG/0.5ML Intramuscular Suspension Reconstituted (SHINGRIX)Indicati ons:Need for shingles vaccine Inject 0.5 mL into a large muscle now and repeat dose in 60 to 180 days 1 Each 1 06/29/20 20 Active Vitamin B-12 250 MCG Oral Tablet (CYANOCOBALAMIN) Take 1 Tablet by mouth every other day. 07/02/20 20 Active Vitamin C ER 1000 MG Oral Tablet Extended Release Take by mouth daily. 01/03/20 21 Active ProAir HFA 108 (90 Base) MCG/ACT Inhalation Aerosol SolutionIndication s:Acute bronchitis, complicated USE TWO PUFFS EVERY FOUR HOURS NEEDED FOR WHEEZING 18 g 3 07/05/20 21 Active buPROPion HCl ER (XL) 150 MG Oral Tablet Extended Release 24 Hour (Wellbutrin XL) daily . 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:CRAS D, severity to be determined (HCC),Malignant neoplasm of upper lobe of left lung (HCC),SOB (shortness of breath) Use 2 LPM with exertion. Needs portable tanks 1 Each 02/13/20 22 Active Atorvastatin Calcium 40 MG Oral Tablet (Lipitor)Indicatio ns:Pain of left lower leg,Asymptomatic stenosis of left carotid artery Take 1 Tablet by mouth in the morning. 90 Tablet 3 09/26/19 23 Active LORazepam 0.5 MG Oral Tablet (Ativan) Take 1 Tablet by mouth as needed. 10/24/19 23 Active Dexamethasone 4 MG Oral Tablet (Decadron) Take 1 Tablet by mouth as needed. Take one tablet by mouth one hour prior to radiation treatment. 08/21/20 22 Active Zoster Vac Recomb Adjuvanted 50 MCG/0.5ML Intramuscular Suspension Reconstituted (Shingrix)Indicati ons:Need for shingles vaccine Inject 0.5 mL into a large muscle now and repeat dose in 60 to 180 days 1 Each 1 01/22/20 23 Active Full Kit Nebulizer SetIndications:Exa cerbation of Dyspnea,Reactive Airways Disease Foe use with nebulizer Medications as suggested. 1 Each 1 02/14/20 Active guaiFENesin ER 600 MG Oral Tablet Extended Release 12 Hour (Humibid LA) 1 Tablet in the morning and 1 Tablet before bedtime. 03/01/20 23 Active Probiotic Advanced Oral Capsule 2 Capsules daily. 03/01/20 23 Active Meclizine HCl 12.5 MG Oral Tablet (Antivert) TAKE 1 TABLET BY MOUTH IN THE MORNING AND IN THE EVENING 180 Tablet 3 09/21/20 23 Active Fludrocortisone Acetate 0.1 MG Oral Tablet (Florinef) Take 2 Tablets by mouth in the morning. 180 Tablet 3 09/24/19 24 Active Tiotropium Gardner Monohydrate 18 MCG Inhalation Capsule (Spiriva HandiHaler)Indicat ions:COPD, group B, by GOLD 2017 classification ([facility]) Inhale 1 Capsule by mouth in the morning. For inhaler only, do not swallow.. 30 Capsule 11 10/16/19 24 Active Ibuprofen 200 MG Oral Capsule Take 1 Capsule by mouth every 4 hours as needed. Active Levothyroxine Sodium 25 MCG Oral Tablet (Levoxyl)Indicatio ns:Acquired hypothyroidism TAKE 1 TAB BY MOUTH DAILY. (AT LEAST 30 MIN PRIOR TO BREAKFAST OR OTHER MEDS) TAKE IN ADDITION TO 100MCG TABLET DAILY. TOTAL DAILY DOSE 125MCG. 90 Tablet 3 12/29/19 24 Active Levothyroxine Sodium 100 MCG Oral Tablet (Levoxyl) TAKE 1 TAB BY MOUTH EVERY MORNING AT LEAST 30 MINS PRIOR TO BREAKFAST 90 Tablet 3 02/24/20 24 Active Potassium Chloride Kacie ER 20 MEQ Oral Tablet Extended Release (Klor-Con M20)Indications:El ectrolyte and fluid disorder TAKE 1 TABLET BY MOUTH EVERY DAY 90 Tablet 02/24/20 24 Active Calcium Carb-Cholecalcifer ol 600-10 MG-MCG Oral Tablet Take by mouth. Act zaheer Alendronate Sodium 70 MG Oral Tablet (Fosamax) Take 1 Tablet by mouth once a week. with 8 oz. water 30 minutes before first meal of the day. Remain upright for 30 min after taking tablet. 5 Tablet 06/03/20 24 Active Azithromycin 250 MG Oral Tablet (Zithromax Z-Giuseppe) Please take 500 mg by mouth on day one, followed by 250 mg by mouth for four days. 6 Tablet 07/08/20 24 Active Additional Information Patient not taking.Reported on 08/02/2024 Fluticasone-Salmet aquiles 250-50 MCG/ACT Inhalation Aerosol Powder Breath Activated (Wixela Inhub) Inhale 1 Puff by mouth in the morning and 1 Puff before bedtime. 180 Each 07/08/20 24 Active oxyCODONE HCl 5 MG Oral Tablet (Oxy IR)Indications:NSC LC of left lung (HCC),Rib pain on left side Take 2 Tablets by mouth every 8 hours as needed for Pain, Breakthrough. 60 Tablet 08/17/20 24 Active oxyCODONE HCl 10 MG Oral Tablet (Roxicodone)Indica tions:NSCLC of left lung (HCC),Rib pain on left side Take 1 Tablet by mouth every 8 hours as needed for Pain, Breakthrough. 60 Tablet 10/05/19 25 Active Morphine Sulfate ER 15 MG Oral Tablet Extended Release (MS Contin)Indications :NSCLC of left lung (HCC),Rib pain on left side Take 1 Tablet by mouth in the morning and 1 Tablet before bedtime. 60 Tablet 10/13/19 25 Active documented as of this encounter (statuses as of 11/01/2024) Active Problems Problem Noted Date Diagnosed Date Bilateral carotid artery stenosis 02/05/2023 Food insecurity 12/02/2022 Overview: Per [facility] Protocol Bipolar affective disorder, currently depressed, mild 11/06/2022 Chronic respiratory failure with hypoxia 022 Lung consolidation 11/14/2021 NSCLC of left lung 11/14/2021 Atherosclerosis of [place] of left lower extremity with intermittent claudication 01/02/2021 COPD, group B, by GOLD 2017 classification 07/03 Overview: Per COPD GOLD Classification Prediabetes 07/03/2020 Overview: Per Prediabetes protocol Bipolar II disorder 06/04/2019 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 06/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 Acquired hypothyroidism 05/22/2017 Hypercalcemia 12/02/2016 Need for prophylactic measure 01/02/2016 Encounter for antineoplastic chemotherapy 2015 ADD (attention deficit disorder) 07/19/2015 Vitamin D deficiency 02/26/2008 Vocal cord paralysis Esophageal reflux Bipolar disorder documented as of this encounter (statuses as of 11/01/2024) Resolved Problems Problem Noted Date Diagnosed Date Resolved Date Stage 3a chronic kidney disease 07/31/2020 10/20/2023 Overview: Per CKD protocol - Per CKD protocol Kidney disease, chronic, sta ge III (GFR 30-59 ml/min) 07/03/2020 08/03/2020 Overview: Per CKD protocol Malignant neoplasm of upper lobe of left lung 09/13/20 15 06/29/2020 Cancer Staging:Clinical:Stage IIIB(T3, N3, M0) - Signed by Manny Hernandez MD on 09/13/2015 Pathologic: Unsigned Lung nodule, multiple 04/18/20152018 Prediabetes 03/24/2014 07/06/2018 Elevated blood pressure, situational 09/02/2013 06/12/2019 COPD, severity to be determined 02/26/2008 07/06/2020 Benign neoplasm of colon 02/24/2007 Overview (02/28/2007): repeat colonoscopy in 10 years Dyslipidemia, goal to be determined 02/04/2006 05/22/2017 ADVANCE DIRECTIVE INFORMATION 01/30/2005 07/26/2024 Overview (01/30/2005): No, Advance Directive brochure given to patient. Need for prophylactic hormon e replacement therapy (postmenopausal) 02/23/1998 06/12/2019 Tobacco use disorder 015 Dyslipidemia, goal LDL below 100 03/24/2014 documented as of this encounter (statuses as of 11/01/2024) Immunizations Name Administration Dates Next Due COVID-19 mRNA, LNP-s, No Pre serve, 2-Dose Series (Moderna) 12/25/2020,11/27/2020 COVID-19, MRNA-LNP, PF, 30 M CG/0.3 mL, 12 YRS AND ABOVE, IM ([facility]) 07/09/2023 COVID-19, mRNA, LNP-s, PF, B ooster, 100mcg/0.5mg (Moderna) 01/02/2022,07/20/2021 Influenza, Whole Virus 06/24/1995,06/05/1993 Pneumococcal Conjugate Vacci ne, 20-valent ([id number]) 01/21/2023 Pneumococcal Polysaccharide PPV23 (Pneumovax) 02/14/2022,01/30/2005,10/01/1993 Season Influenza, Quad, PF, Adjuvanted, 65+ Yrs, IM (FLUAD) 07/09/2023 Seasonal Influenza Vac., MDV , IM, 0.5 mL (Fluzone) 07/15/2013,06/24/2012,07/03/2011,06/22,07/17/2009 Seasonal Influenza, High Dos e, Trivalent, PF, IM (Fluzone HD) 06/02/2024 Seasonal Influenza, PF, 6 M & above, IM , (FluLaval or Fluzone) 06/29/2020,06/04/2019,06/23/2018,10/2406/23/2019 Seasonal Influenza, Quadriva lent Hd (Fluzone Hd) 07/18/2022,07/05/2021 Seasonal Influenza, Quadriva lent, No Preserve, IM 07/04/2016,07/19/2015 TDAP (age 10 and older)(Boostrix) 03/24/2014 TDAP, Age 7 and older, IM (Adacel) 04/15/2024, Zoster Vaccine Recombinant (Shingrix) 06/29/2020 documented as of this encounter Social History Tobacco Use Types Packs/Day Years Used Date Smoking Tobacco: Former Cigarettes 2 50 1 971 - 2020 Smokeless Tobacco: Never Alcohol Use Standard Drinks/Week Comments No 0 (1 standard drink = 0.6 oz pur e alcohol) PHQ-2 Answer Date Recorded PHQ Adult Total Score 7 10/16/2023 Hunger Vital Sign Answer Date Recorded Within the past 12 months, y ou worried that your food would run out before you got the money to buy more. Often true 11/06/19 23 Within the past 12 months, t he food you bought just didn't last and you didn't have money to get more. Often true 11/06/2022 Comments No Sex and Gender Information Value Date Recorded Sex Assigned at Female 06/04/2019 11:51 AM EDT Legal Sex Female 5:12 AM EST Gender Identity Female 06/04/2019 11:51 AM EDT Sexual Orientation Choose not to disclose 2018 11:51 AM EDT documented as of this encounter Miscellaneous Notes * Telephone Encounter - Aria Omalley senior graduate advisor - 11/01/2024 9:33 AM EST Received VM on [facility] Refill line dated 10/26/24 at 4:48pm. Venu calling, screaming into VM stating patient is dying and needs her Oxy and she is going to have a report written. Thank you, Aria Omalley [employer] [facility] 11/01/2024,9:34 AM * Telephone Encounter - Mya Tillman CPhT - 10/26/2024 4:31 PM EST Patient's daughter calling to check on status of oxycodone. Caller can be reached at [phone]. Relayed information from previous note stating that [facility] is taking over prescribing this medication. Caller verbalized understanding and stated she would check with [facility]. Thank you, Mya Tillman CPhT [employer] [facility] ([facility]) 10/26/2024,4:31 PM * Telephone Encounter - Nick Swenson LPN - 10/26/2024 8:48 AM EST Per SRIDEVI Baumann at [facility], they have taken over prescribing patient's pain medications and willrefill the Oxycodone Hcl 10 mg. * Telephone Encounter - Nick Swenson LPN - 10/26/2024 8:48 AM ESTRefused Prescriptions: Disp Refills oxyCODONE HCl 10 MG Oral Tablet (Roxicodon*60 Tab*0 Sig: Take 1 Tablet by mouth every 8 hours as needed for Pain, Breakthrough. Refused By: NICK SWENSON Reason for Refusal: Managed by another physician documented in this encounter Plan of Treatment Health Maintenance Due Date Last Done Comments Cologuard 12/26/2000 Fecal Occult Blood Test 12/26/2000 Sigmoidoscopy 12/26/2000 Colonoscopy 02/24/2017 02/24/2007 Colorectal Cancer Screening 02/24/2017 HbA1c 12/17/2023 12/16/2022, 03/22, 06/29/2020, Additional history exists COVID-19 Vaccine ( season) 2024 07/09/2023, 09/04/2022, 01/02/2022, Additional history exists Depression Monitoring 10/16/2024 10/16/2023 TSH 02/09/2025 02/10/2024, 11/21, 04/06/2021, Additional history exists Mammogram 05/03/2025 05/03/2024, 02/20, 12/28/2021, Additional history exists O2 ASSESSMENT COMPLETED IN PAST YEAR FOR COPD 08/25/2025 08/25/2024 DXA Scan 05/14/2031 05/14/2024, 06/24, 02/26/2007, Additional history exists DTap/Tdap Vaccines (4 - Td or Tdap) 04/15/2034 04/15/2024, 03/24/2014, 01/30/2005 Alpha-1 Antitrypsin Completed 04/03/2022 Pneumococcal Vaccine: 50+ Years Completed 01/21/2023, 02/14/2022, 01/30/2005, Additional history exists Albumin/Creatinine Ratio Discontinued 023, 04/03/2022, 01/02/2021 Zoster Vaccines Completed 05/05/2023, 01/22, 06/29/2020 Influenza Vaccine (FLU shot) Completed 06/02/2024, 07/09/2023, 07/18/2022, Additional history exists Lung Cancer Screening Completed 06/08/2024 , 05/21/2024, 11/27/2023, Additional history exists HPV (Gardasil) Vaccine Aged Out No lo nger eligible based on patient's age to complete this topic Hepatitis B Vaccine Aged Out No longe r eligible based on patient's age to complete this topic MENINGOCOCCAL (MENACTRA/MENVEO) Aged Out No longer eligible based on patient's age to complete this topic documented as of this encounter Medical Devices Not on filedocumented as of this encounter Visit Diagnoses Diagnosis NSCLC of left lung (HCC) Rib pain on left side Chest pain, unspecified documented in this encounter Care Teams Project Controller Relationship Specialty Start Date End Date Cony Hernandez MD [address] [facility] [place] [address] PCP - General Internal Medicine 07/01/16 documented as of this encounter
--- OUTSIDE RECORDS SUMMARY | 2024-11-20 04:51 | External Medical Summary | Summary of Care ---
Author Name Unknown Organization [facility] Address [address] [facility] [place] [address] Phone [phone] Care Team Providers Care University Manager Name Role Phone Reggie Hernandez MD Primary Care Provider + Reason for Referral * Medication Prior Authorization - Pending Review Specialty Diagnoses / Procedures Referred By Controsy t Referred To Contact Diagnoses Dizziness NSCLC of left lung (HCC) Reggie Hernandez MD [address] [facility] [place] [place] [address] Phone: tel: fax: Referral ID Status Reason Start Date Expiration Date V isits Requested Visits Authorized [id number] Pending Review 999 999 Reason for Visit * Reason Comments eRx-Medication Refill Encounter Details Date Type Department Care Team (Late st Contact Info) Description 11/12/2024 Refill General Internal Medicine [address] [place] [address] [place] [address] Reggie Hernandez MD [address] [facility] [place] [address] Dizziness*; NSCLC of left lung (HCC) Allergies Active Allergy Reactions Criticality Noted Date Comments Doxepin 08/29/2005 bad nightmares Propoxyphene Napsylate 09/10/1999 Makes pt "hostile & mean" Tetracyclines & Related 02/23/1998 hives documented as of this encounter (statuses as of 11/18/2024) Medications ARIPiprazole 10 MG Oral Tablet Take 1 Tablet by mouth in the morning. 017 Active Escitalopram Oxalate 20 MG Oral TabletIndications :Depression Take 1 Tablet by mouth in the morning. 90 Tab 3 018 Active Cholecalciferol (VITAMIN D3) 1000 units CAPS Take 1 Capsule by mouth in the morning and 1 Capsule before bedtime. Active zinc gluconate 50 MG Tablet Take 1 Tablet by mouth in the morning. Active aspirin enteric coated 81 MG TBEC Take 1 Tablet by mouth in the morning. 30 Tab 11 019 Active Folic Acid 800 MCG Oral Tablet Take 1 Tablet by mouth in the morning. Active lamoTRIgine 200 MG Oral Tablet (LaMICtal) TAKE 1 TABLET BY MOUTH EVERY DAY 90 Tab 1 020 Active Zoster Vac Recomb Adjuvanted 50 MCG/0.5ML Intramuscular Suspension Reconstituted (SHINGRIX)Indicat ions:Need for shingles vaccine Inject 0.5 mL into a large muscle now and repeat dose in 60 to 180 days 1 Each 1 020 Active Vitamin B-12 250 MCG Oral Tablet (CYANOCOBALAMIN) Take 1 Tablet by mouth every other day. Active Vitamin C ER 1000 MG Oral Tablet Extended Release Take by mouth daily. Active ProAir HFA 108 (90 Base) MCG/ACT Inhalation Aerosol SolutionIndicatio ns:Acute bronchitis, complicated USE TWO PUFFS EVERY FOUR HOURS NEEDED FOR WHEEZING 18 g 3 021 Active buPROPion HCl ER (XL) 150 MG Oral Tablet Extended Release 24 Hour (Wellbutrin XL) daily . 022 Active oxygen IN GASIndications:CO PD, severity to be determined (HCC),Malignant neoplasm of upper lobe of left lung (HCC),SOB (shortness of breath) Use 2 LPM with exertion. Needs portable tanks 1 Each 022 Active Atorvastatin Calcium 40 MG Oral Tablet (Lipitor)Indicati ons:Pain of left lower leg,Asymptomatic stenosis of left carotid artery Take 1 Tablet by mouth in the morning. 90 Tablet 3 023 Active LORazepam 0.5 MG Oral Tablet (Ativan) Take 1 Tablet by mouth as needed. 02/02/2 023 Active Dexamethasone 4 MG Oral Tablet (Decadron) Take 1 Tablet by mouth as needed. Take one tablet by mouth one hour prior to radiation treatment. Active Zoster Vac Recomb Adjuvanted 50 MCG/0.5ML Intramuscular Suspension Reconstituted (Shingrix)Indicat ions:Need for shingles vaccine Inject 0.5 mL into a large muscle now and repeat dose in 60 to 180 days 1 Each Active Full Kit Nebulizer SetIndications:Ex acerbation of Dyspnea,Reactive Airways Disease Foe use with nebulizer Medications as suggested. 1 Each Active guaiFENesin ER 600 MG Oral Tablet Extended Release 12 Hour (Humibid LA) 1 Tablet in the morning and 1 Tablet before bedtime. Active Probiotic Advanced Oral Capsule 2 Capsules daily. Active Meclizine HCl 12.5 MG Oral Tablet (Antivert) TAKE 1 TABLET BY MOUTH IN THE MORNING AND IN THE EVENING 180 Tablet 3 Active Tiotropium [place] Monohydrate 18 MCG Inhalation Capsule (Spiriva HandiHaler)Indica tions:COPD, group B, by GOLD 2017 classification ([facility]) Inhale 1 Capsule by mouth in the morning. For inhaler only, do not swallow.. 30 Capsule Active Ibuprofen 200 MG Oral Capsule Take 1 Capsule by mouth every 4 hours as needed. Active Levothyroxine Sodium 25 MCG Oral Tablet (Levoxyl)Indicati ons:Acquired hypothyroidism TAKE 1 TAB BY MOUTH DAILY. (AT LEAST 30 MIN PRIOR TO BREAKFAST OR OTHER MEDS) TAKE IN ADDITION TO 100MCG TABLET DAILY. TOTAL DAILY DOSE 125MCG. 90 Tablet Active Levothyroxine Sodium 100 MCG Oral Tablet (Levoxyl) TAKE 1 TAB BY MOUTH EVERY MORNING AT LEAST 30 MINS PRIOR TO BREAKFAST 90 Tablet Active Potassium Chloride Kacie ER 20 MEQ Oral Tablet Extended Release (Klor-Con M20)Indications:E lectrolyte and fluid disorder TAKE 1 TABLET BY MOUTH EVERY DAY 90 Tablet 3 Active Calcium Carb-Cholecalcife rol 600-10 MG-MCG Oral Tablet Take by mouth. Act zaheer Alendronate Sodium 70 MG Oral Tablet (Fosamax) Take 1 Tablet by mouth once a week. with 8 oz. water 30 minutes before first meal of the day. Remain upright for 30 min after taking tablet. 5 Tablet 11 024 Active Azithromycin 250 MG Oral Tablet (Zithromax Z-Giuseppe) Please take 500 mg by mouth on day one, followed by 250 mg by mouth for four days. 6 Tablet Active Additional Information Patient not taking.Reported on 08/02/2024 Fluticasone-Salme terol 250-50 MCG/ACT Inhalation Aerosol Powder Breath Activated (Wixela Inhub) Inhale 1 Puff by mouth in the morning and 1 Puff before bedtime. 180 Each 024 Active oxyCODONE HCl 5 MG Oral Tablet (Oxy IR)Indications:NS CLC of left lung (HCC),Rib pain on left side Take 2 Tablets by mouth every 8 hours as needed for Pain, Breakthrough. 60 Tablet 024 Active oxyCODONE HCl 10 MG Oral Tablet (Roxicodone)Indic ations:NSCLC of left lung (HCC),Rib pain on left side Take 1 Tablet by mouth every 8 hours as needed for Pain, Breakthrough. 60 Tablet 025 Active Morphine Sulfate ER 15 MG Oral Tablet Extended Release (MS Contin)Indication s:NSCLC of left lung (HCC),Rib pain on left side Take 1 Tablet by mouth in the morning and 1 Tablet before bedtime. 60 Tablet 025 Active Meclizine HCl 12.5 MG Oral Tablet (Antivert)Indicat ions:Dizziness,NS CLC of left lung (HCC) Take 1 Tablet by mouth 2 times a day as needed for Dizziness. 60 Tablet 025 Active Fludrocortisone Acetate 0.1 MG Oral Tablet (Florinef) Take 2 Tablets by mouth in the morning. 180 Tablet 3 024 2024 Discontinued documented as of this encounter (statuses as of 11/18/2024) Active Problems Problem Noted Date Diagnosed Date Bilateral carotid artery stenosis 02/05/2023 Food insecurity 12/02/2022 Overview: Per [facility] Protocol Bipolar affective disorder, currently depressed, mild 11/06/2022 Chronic respiratory failure with hypoxia 022 Lung consolidation 11/14/2021 NSCLC of left lung 11/14/2021 Atherosclerosis of [place] of left lower extremity with [...] as of this encounter (statuses as of 11/18/2024) Resolved Problems Problem Noted Date Diagnosed Date [...] as of this encounter (statuses as of 11/18/2024) Immunizations Name Administration Dates Next Due COVID-19 mRNA, LNP-s, No Pre serve, 2-Dose Series (Moderna) 12/25/2020,11/27/2020 COVID-19, MRNA-LNP, PF, 30 M CG/0.3 mL, 12 YRS AND ABOVE, IM (PFIZER-Comirnaty) 07/09/2023 COVID-19, mRNA, LNP-s, PF, B ooster, 100mcg/0.5mg (Moderna) 01/02/2022,07/20/2021 Pneumococcal Conjugate Vacci ne, 20-valent ([id number]) 01/21/2023 Pneumococcal Polysaccharide PPV23 (Pneumovax) 02/14/2022 Season Influenza, Quad, PF, Adjuvanted, 65+ Yrs, [...] encounter Miscellaneous Notes * Telephone Encounter - Valorie Diggs RPh - 11/18/2024 3:49 PM EST Called and spoke to Page Discussed refill sent to pharmacy and advised to use only PRN Pt verbalized understanding and had no further questions ThanksValorie, PharmD Clinical Pharmacist [facility] ([facility]) [phone] 11/18/2024 3:49 PM * Telephone Encounter - Reggie Hernandez MD - 11/18/2024 3:40 PM ESTSigned Prescriptions: Disp Refills Meclizine HCl 12.5 MG Oral Tablet (Antiver*60 Tab*0 Sig: Take 1 Tablet by mouth 2 times a day as needed for Dizziness. Authorizing Provider: REGGIE HERNANDEZ Refused Prescriptions: Disp Refills Meclizine HCl 12.5 MG Oral Tablet (Antiver*180 Ta*3 Sig: TAKE 1 TABLET BY MOUTH IN THE MORNING AND IN THE EVENING Refused By: VALORIE DIGGS Reason for Refusal: Dose needs clarification * Telephone Encounter - Reggie Hernandez MD - 11/18/2024 3:39 PM EST She should use it only as needed. Would continue as prescribed as needed for her looking at her medical condition. * Telephone Encounter - Valorie Diggs RPh - 11/18/2024 2:06 PM EST Called and spoke to patient She is taking this twice daily and feels like it is helping her with her dizziness which she thinkscan be from her cancer. Thanks, Valorie Diggs, PharmD Clinical Pharmacist [facility] Clinical Pharmacy Services ([facility]) [phone] 11/18/2024 2:07 PM . * Telephone Encounter - Reggie Hernandez MD - 11/17/2024 2:02 PM EST Pending Prescriptions: Disp Refills Meclizine HCl 12.5 MG Oral Tablet (Antiver*180 Ta*0 Sig: Take 1 Tablet by mouth 2 times a day. Refused Prescriptions: Disp Refills Meclizine HCl 12.5 MG Oral Tablet (Antiver*180 Ta*3 Sig: TAKE 1 TABLET BY MOUTH IN THE MORNING AND IN THE EVENING Refused By: VALORIE DIGGS Reason for Refusal: Dose needs clarification * Telephone Encounter - Reggie Hernandez MD - 11/17/2024 2:00 PM EST Noted. Patient with Lung CA with mets, on assisted Narcotics and sees Oncology. Please check with the patient how she feels clinically at this time. Ask how often she takes Meclizine and how does it help her. Thanks * Telephone Encounter - Areli Ramsey PA-C - 11/16/2024 11:15 AM EST Inboxologist note: This prescription can not be addressed by the Inboxology team due to: Chronic med? Acute? This prescription will remain in the PCP inbox to be addressed by the PCP upon their return, or a covering provider in that clinic. * Telephone Encounter - Valorie Diggs RP - 11/13/2024 12:07 PM ESTPending Prescriptions: Disp Refills Meclizine HCl 12.5 MG Oral Tablet (Antiver*180 Ta*0 Sig: Take 1 Tablet by mouth 2 times a day. Refused Prescriptions: Disp Refills Meclizine HCl 12.5 MG Oral Tablet (Antiver*180 Ta*3 Sig: TAKE 1 TABLET BY MOUTH IN THE MORNING AND IN THE EVENING Refused By: VALORIE DIGGS Reason for Refusal: Dose needs clarification * Telephone Encounter - Valorie Diggs RPh - 11/13/2024 12:07 PM EST Unable to authorize medication refills for pended medication(s) at this time. Part of the protocol criteria used for refill authorization was not satisfied: The last prescription was ordered before the Planned Duration and Indication questions were implemented, so these have not been selected. Meclizine is typically intended for acute use as a PRN medication and not for long-term routine use, and the patient has been taking meclizine for more than 3 months. Please consider referral to one of the following: Otolaryngology if there are associated aural complaints (hearing loss, tinnitus) associated with the dizziness or if the dizziness evolves spontaneously. Neurology if the dizziness is associated with migraine headache, diplopia, limb incoordination, weakness, dysarthria, dysphagia or inability to ambulate/highly frequent falls. Vestibular physical therapist if the dizziness is primarily related to position changes or head movement (BPPV). Thanks, Valorie Diggs, PharmD Clinical Pharmacist [facility] ([facility]) [phone] 11/13/2024 12:07 PM * Telephone Encounter - Valorie Diggs RPh - 11/13/2024 12:05 PM EST Pending Prescriptions: Disp Refills Meclizine HCl 12.5 MG Oral Tablet (Antive*180 Ta*0 Sig: Take 1 Tablet by mouth 2 times a day. Last Visit: 04/15/2024 (in office), Visit date not found (telemedicine) Next Visit: Visit date not found If no future appointments scheduled, and last appointment is greater than a year ago, please schedule patient for a follow-up appointment Last date the medication was ordered: 09/21/23 Pharmacy: [id number] [address] [facility] Is this request for a controlled substance? No Urine Drug Screen:No results found. However, due to the size of the patient record, not all encounters were searched. Please check Results Review for a complete set of results. Patient Phone Numbers Labs: Lab Results Component Value Date/Time CREAT 1.0 11/28/2023 08:51 AM CREAT 1.2 (H) 10/06/2020 02:46 PM CREAT 0.7 12/29/1996 11:00 AM POTASSIUM 4.4 11/28/2023 08:51 AM POTASSIUM 3.3 (L) 10/06/2020 02:46 PM POTASSIUM 4.4 12/29/1996 11:00 AM TSH 0.34 02/10/2024 02:26 PM TSH 6.03 (H) 04/05/2020 01:31 PM TSH 1.17 12/29/1996 11:00 AM LDL 116 02/10/2024 02:26 PM LDL 57 02/03/2020 11:18 AM LDL NOT APPLICABLE 02/03/2020 11:18 AM LDL 142. (H) 12/29/1996 11:00 AM ALT 12 02/10/2024 02:26 PM ALT 16 10/06/2020 02:46 PM ALT 25 12/29/1996 11:00 AM HGBA1C 5.8 (H) 12/16/2022 02:31 PM HGBA1C 6.0 (H) 06/29/2020 02:20 PM documented in this encounter Plan of Treatment [...] on patient's age to complete this topic Meningitis B Vaccine (Bexsero/Trumemba) Aged Out No longer eligible based on patient's age to complete this topic documented as of this encounter Medical Devices Not on filedocumented as of this encounter Visit Diagnoses Diagnosis Dizziness- Primary Dizziness and giddiness NSCLC of left lung (HCC) documented in this encounter Care Teams University Manager Relationship Specialty Start Date End Date Reggie Hernandez MD [address] [place] [id number] PCP - General Internal Medicine 07/01/16 documented as of this encounter
--- OUTSIDE RECORDS SUMMARY | 2024-11-20 04:51 | External Medical Summary | Summary of Care ---
Author Name Unknown Organization [facility] Address [address] [facility] [place] [address] Phone [phone] Care Team Providers Care Scouring Machine Operator Name Role Phone Cony Hernandez MD Primary Care Provider + Reason for Visit * Reason Onset Date Comments Advice 10/18/2024 David Encounter Details Date Type Department Care Team (Late st Contact Info) Description 10/18/2024 Telephone Hematology/Oncology [facility] [place] [place] [address] [place] [address] Manny Heranndez MD [address] [place] [address] Advice (David) Allergies Active Allergy Reactions Criticality Noted Date Comments Doxepin 08/29/2005 bad nightmares Propoxyphene Napsylate 09/10/1999 Makes pt "hostile & mean" Tetracyclines & Related 02/23/1998 hives documented as of this encounter (statuses as of 10/27/2024) Medications ARIPiprazole 10 MG Oral Tablet Take [...] daily . 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 For inhaler only, do not swallow.. 30 Capsule 10/16/19 24 Active Ibuprofen 200 MG Oral [...] as of this encounter (statuses as of 10/27/2024) Active Problems Problem Noted Date Diagnosed Date Bilateral carotid artery stenosis 02/05/2023 Food insecurity 12/02/2022 Overview: Per [facility] Protocol Bipolar affective disorder, currently depressed, mild 11/06/2022 Chronic respiratory failure with hypoxia 022 Lung consolidation 11/14/2021 NSCLC of left lung 11/14/2021 Atherosclerosis of [place] of left lower extremity with [...] as of this encounter (statuses as of 10/27/2024) Resolved Problems Problem Noted Date Diagnosed Date [...] as of this encounter (statuses as of 10/27/2024) Immunizations Name Administration Dates Next Due COVID-19 mRNA, LNP-s, No Pre serve, 2-Dose Series (Moderna) 12/25/2020,11/27/2020 COVID-19, MRNA-LNP, PF, 30 M CG/0.3 mL, 12 YRS AND ABOVE, IM (PFIZER-Comirnat) 07/09/2023 COVID-19, mRNA, LNP-s, PF, B ooster, 100mcg/0.5mg (Moderna) 01/02/2022,07/20/2021 Influenza, Whole Virus 06/24/1995,06/05/1993 Pneumococcal Conjugate Vacci ne, 20-valent ([id number]) 01/21/2023 Pneumococcal Polysaccharide PPV23 (Pneumovax) 02/14/2022,01/30/2005,10/01/1993 Season [...] encounter Miscellaneous Notes * Telephone Encounter - Ayaka Truong RN - 10/27/2024 11:35 AM EST Patients daughter called back. Explained to her that since hospice is in seeing the patient, they are able to make medication adjustments faster and physically get the medications to her more quicklythan we can. Often, this is much more convenient for patients on hospice and leads to better pain control. Randa verbalized understanding, she states that after she had left voicemail (which she apologized for), she contacted [facility] and [facility] had her moms pain medications delivered directly to her home. This was a lot easier for Randa than having to call the doctors office and pharmacy and then drive to the pharmacy to pick them up. She is agreeable to hospice managing medications. * Telephone Encounter - Ayaka Truong RN - 10/27/2024 11:10 AM EST Left message for patients daughter to return call. * Telephone Encounter - Greer Reynolds, websphere consultant - 10/27/2024 10:19 AM EST Received message on [facility] voicemail from patient's daughter Randa who was very unhappy, stating she requested a refill on patient's oxycodone 10mg and "for some reason we don't feel like giving her anymore". She states she has a message from Nelida, the nurse from [facility] stating that we don't feel comfortable giving her mom her refill on her oxycodone 10mg because the patient's pain level is higher. Daughter states in the message she is not happy and "well guess what, up the oxyto higher levels because the woman is dying of terminal cancer". She states "we better figure something out and that there will be a written report about this." Please review and contact patient's daughter regarding this. Thank you, Greer Reynolds Rosin Barrel Filler I [facility] ([facility]) 10/27/2024,10:25 AM * Telephone Encounter - Genna Swenson LPN - 10/26/2024 8:50 AM EST Left message on patient's voicemail, return phone number provided. My G sent. * Telephone Encounter - Genna Swenson LPN - 10/26/2024 8:43 AM EST Received refill request for Oxycodone HCL 10 mg this morning from patient. Verbally verified with [facility] at [facility] that the [employer] has taken over the patient's pain prescriptions. She also reports that she provided patient with how to request refills from [facility]. She states she is seeing the patient today and will re-educate the patient on contacting [facility] for her refills. She also states that the patient currently has other pain medications prescribed by the [employer] at [facility] to take at this time. She states the patient was offered a prescription for the Fentanyl patch on Friday10/23/2024 and the patient refused. [facility] states they will refill the patient's Oxycodone Hcl 10 mg. * Telephone Encounter - Ayaka Truong RN - 10/18/2024 3:54 PM EST Called [facility] back. Advised her that on 10/05/24, Dr Hernandez asked that hospice take over medications (had been sent to [facility] to call them). She states that she did not get this message. She will ask visual education director to take over pain meds. * Telephone Encounter - Ayaka Truong RN - 10/18/2024 2:30 PM EST Attempted to call back- no answer, voicemail did not give name or say it was [facility] so no message left. Patient is on hospice- hospice/ visual education director should be adjusting medications as indicated. * Telephone Encounter - Jessica Scott OSA - 10/18/2024 2:24 PM EST [facility] from [facility] called saying the pt is in pain and the medication prescribed is not helping. Please call her back [phone] documented in this encounter Plan of Treatment [...] Not on filedocumented as of this encounter Care Teams Scouring Machine Operator Relationship Specialty Start Date End Date Cony Hernandez MD [address] [place] [address] PCP - General Internal Medicine 07/01/16 documented as of this encounter
--- OUTSIDE RECORDS SUMMARY | 2024-11-20 04:51 | External Medical Summary | Summary of Care ---
Author Name Unknown Organization [facility] Address [address] [place] [address] Phone [phone] Care Team Providers Care Fisheries Specialist Name Role Phone Cony Hernandez MD Primary Care Provider + Reason for Visit * Reason Onset Date Comments Appointment 11/04/2024 Encounter Details Date Type Department Care Team ([facility] st Contact Info) Description 11/04/2024 Telephone Vascular Surg [facility] [address] [place] [address] Gus Smart MD [address] [place], [place] [id number] Appointment Allergies Active Allergy Reactions Criticality Noted Date Comments Doxepin 08/29/2005 bad nightmares Propoxyphene Napsylate 09/10/1999 Makes pt "hostile & mean" Tetracyclines & Related 02/23/1998 hives documented as of this encounter (statuses as of 11/04/2024) Medications ARIPiprazole 10 MG Oral Tablet Take [...] daily . 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:CT SCAN TECH D, severity to be determined (HCC),Malignant neoplasm [...] Medications as suggested. 1 Each 1 02/14/20 23 Active guaiFENesin ER 600 MG Oral Tablet [...] 180 Tablet 3 09/24/19 24 Active Tiotropium [place] Monohydrate 18 MCG Inhalation Capsule (Spiriva HandiHaler)Indicat ions:COPD, group B, by GOLD 2017 classification ([facility]) Inhale 1 Capsule by mouth in [...] BY MOUTH EVERY DAY 90 Tablet 3 02/24/20 24 Active Calcium Carb-Cholecalcifer ol 600-10 [...] as of this encounter (statuses as of 11/04/2024) Active Problems Problem Noted Date Diagnosed Date Bilateral carotid artery stenosis 02/05/2023 Food insecurity 12/02/2022 Overview: Per [facility] Protocol Bipolar affective disorder, currently depressed, mild 11/06/2022 Chronic respiratory failure with hypoxia 022 Lung consolidation 11/14/2021 NSCLC of left lung 11/14/2021 Atherosclerosis of [place] of left lower extremity with [...] as of this encounter (statuses as of 11/04/2024) Resolved Problems Problem Noted Date Diagnosed Date [...] as of this encounter (statuses as of 11/04/2024) Immunizations Name Administration Dates Next Due COVID-19 mRNA, LNP-s, No Pre serve, 2-Dose Series (Moderna) 12/25/2020,11/27/2020 COVID-19, MRNA-LNP, PF, 30 M CG/0.3 mL, 12 YRS AND ABOVE, IM (B[employer] Tek-Comirnat) 07/09/2023 COVID-19, mRNA, LNP-s, PF, B ooster, 100mcg/0.5mg (Moderna) 01/02/2022,07/20/2021 Pneumococcal Conjugate Vacci ne, 20-valent ([id number]) 01/21/2023 Pneumococcal Polysaccharide PPV23 (Pneumovax) 02/14/2022 Season [...] encounter Miscellaneous Notes * Telephone Encounter - Pavloski, Lizzy M, [employer]OVER [employer] TURNER - 11/04/2024 3:38 PM EST Pt is due for her 2 year f/u in January [address] Smart and carotid duplex. Pt is on Hospice for NSCLC of Left Lung Would not recommend any f/u at this time, but we will be happy to see her if her condition changes. Lizzy Allen LPN 11/04/2024 3:39 PM documented in this encounter Plan of [...] filedocumented as of this encounter Care Teams Fisheries Specialist Relationship Specialty Start Date End Date Cony Hernandez MD [address] [facility] [place] [address] PCP - General Internal Medicine 07/01/16 documented as of this encounter
--- OUTSIDE RECORDS SUMMARY | 2024-11-20 04:51 | External Medical Summary | Summary of Care ---
Author Name Unknown Organization [facility] Address [address] [facility] [place] [address] Phone [phone] Care Team Providers Care Beauty Sales Advisor Name Role Phone Cony Hernandez MD Primary Care Provider + Reason for Visit * Reason Onset Date Comments Advice 10/18/2024 David Encounter Details Date Type Department Care Team (Late st Contact Info) Description 10/18/2024 Telephone Hematology/Oncology [facility] [address] [place] [address] [place] [address] Manny Hernandez MD [address] [place] [address] Advice (David) Allergies Active Allergy Reactions Criticality [...] daily . 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 * Telephone Encounter - Greer Reynolds, lining stamper - 10/27/2024 10:19 AM EST Received message on [facility] voicemail from patient's daughter Randa who was very unhappy, stating she requested a refill on patient's oxycodone 10mg and "for some reason we don't feel like giving her anymore". She states she has a message from Nelida, the nurse from [facility] stating that we don't feel comfortable [...] daughter regarding this. Thank you, Greer Reynolds Painter And Paperhanger Apprentice I [facility] ([facility]) 10/27/2024,10:25 AM * Telephone Encounter - Genna Swenson LPN - 10/26/2024 8:50 AM EST Left message on patient's voicemail, return phone number provided. My G sent. * Telephone Encounter - Genna Swenson LPN - 10/26/2024 8:43 AM EST Received refill request for Oxycodone HCL 10 mg this morning from patient. Verbally verified with Ibis at [facility] that the Biazzi Nitrator Operator has taken over the patient's pain prescriptions. She also reports that she provided patient with how to request refills from [facility]. She states she is seeing the patient today and will re-educate the patient on contacting [facility] for her refills. She also states that the patient currently has other pain medications prescribed by the Biazzi Nitrator Operator at [facility] to take at this time. She states [...] take over medications (had been sent to [facility] to call them). She states that she did not get this message. She will ask consulting practice director to take over pain meds. * Telephone Encounter - Ayaka Truong RN - 10/18/2024 2:30 PM EST Attempted to call back- no answer, voicemail did not give name or say it was [facility] so no message left. Patient is on hospice- hospice/ consulting practice director should be adjusting medications as indicated. * Telephone Encounter - Jessica Scott OSA - 10/18/2024 2:24 PM EST Ibis from [facility] called saying the pt is in pain and the medication prescribed is not helping. Please call her back [phone] documented in this encounter Plan of Treatment [...] filedocumented as of this encounter Care Teams Beauty Sales Advisor Relationship Specialty Start Date End Date Cony Hernandez MD [address] [place] [address] PCP - General Internal Medicine 07/01/16 documented as of this encounter
--- OUTSIDE RECORDS SUMMARY | 2024-11-20 04:51 | External Medical Summary | Summary of Care ---
Author Name Unknown Organization [facility] Address [address] [facility] [place] [address] Phone [phone] Care Team Providers Care Automotive Accessory Installer Name Role Phone Cony Hernandez MD Primary Care Provider + Reason for Visit * Reason Comments eRx-Medication Refill Encounter Details Date Type Department Care Team (Late st Contact Info) Description 11/12/2024 Refill Cardiology, [facility] [address] [place] [address] Victor Manuel Carter, DO [address] [place] [address] Allergies Active Allergy Reactions Criticality Noted Date Comments Doxepin 08/29/2005 bad nightmares Propoxyphene Napsylate 09/10/1999 Makes pt "hostile & mean" Tetracyclines & Related 02/23/1998 hives documented as of this encounter (statuses as of 11/15/2024) Medications ARIPiprazole 10 MG Oral Tablet Take [...] BY MOUTH EVERY DAY 90 Tab 1 Active Zoster Vac Recomb Adjuvanted 50 MCG/0.5ML Intramuscular Suspension Reconstituted (SHINGRIX)Indicat ions:Need for shingles vaccine Inject 0.5 mL into a large muscle now and repeat dose in 60 to 180 days 1 Each 1 Active Vitamin B-12 250 MCG Oral Tablet (CYANOCOBALAMIN) Take 1 Tablet by mouth every other day. Active Vitamin C ER 1000 MG Oral Tablet Extended Release Take by mouth daily. Active ProAir HFA 108 (90 Base) MCG/ACT Inhalation Aerosol SolutionIndicatio ns:Acute bronchitis, complicated USE TWO PUFFS EVERY FOUR HOURS NEEDED FOR WHEEZING 18 g 3 Active buPROPion HCl ER (XL) 150 MG Oral Tablet Extended Release 24 Hour (Wellbutrin XL) daily . Active oxygen IN GASIndications:CO PD, severity to [...] Take 1 Tablet by mouth as needed. 023 Active Dexamethasone 4 MG Oral Tablet (Decadron) Take 1 Tablet by mouth as needed. Take one tablet by mouth one hour prior to radiation treatment. Active Zoster Vac Recomb Adjuvanted 50 MCG/0.5ML Intramuscular Suspension Reconstituted (Shingrix)Indicat ions:Need for shingles vaccine Inject 0.5 mL into a large muscle now and repeat dose in 60 to 180 days 1 Each 1 023 Active Full Kit Nebulizer SetIndications:Ex acerbation of Dyspnea,Reactive Airways Disease Foe use with nebulizer Medications as suggested. 1 Each 1 05/25/2 023 Active guaiFENesin ER 600 MG Oral Tablet Extended Release 12 Hour (Humibid LA) 1 Tablet in the morning and 1 Tablet before bedtime. Active Probiotic Advanced Oral Capsule 2 Capsules daily. Active Meclizine HCl 12.5 MG Oral Tablet (Antivert) TAKE 1 TABLET BY MOUTH IN THE MORNING AND IN THE EVENING 180 Tablet 3 Active Tiotropium [place] Monohydrate 18 MCG Inhalation Capsule (Spiriva HandiHaler)Indica tions:COPD, group B, by GOLD 2017 classification ([facility]) Inhale 1 Capsule by mouth in the morning. For inhaler only, do not swallow.. 30 Capsule 11 Active Ibuprofen 200 MG Oral Capsule Take 1 Capsule by mouth every 4 hours as needed. Active Levothyroxine Sodium 25 MCG Oral Tablet (Levoxyl)Indicati ons:Acquired hypothyroidism TAKE 1 TAB BY MOUTH DAILY. (AT LEAST 30 MIN PRIOR TO BREAKFAST OR OTHER MEDS) TAKE IN ADDITION TO 100MCG TABLET DAILY. TOTAL DAILY DOSE 125MCG. 90 Tablet 3 Active Levothyroxine Sodium 100 MCG Oral Tablet (Levoxyl) TAKE 1 TAB BY MOUTH EVERY MORNING AT LEAST 30 MINS PRIOR TO BREAKFAST 90 Tablet 3 Active Potassium Chloride Kacie ER 20 MEQ [...] 30 min after taking tablet. 5 Tablet Active Azithromycin 250 MG Oral Tablet (Zithromax Z-Gisueppe) Please take 500 mg by mouth on [...] Tablet before bedtime. 60 Tablet 025 Active Fludrocortisone Acetate 0.1 MG Oral Tablet (Florinef) TAKE 2 TABLETS BY MOUTH EVERY MORNING 180 Tablet 3 025 Active Fludrocortisone Acetate 0.1 MG Oral Tablet (Florinef) Take 2 Tablets by mouth in the morning. 180 Tablet 3 024 2024 Discontinued documented as of this encounter (statuses as of 11/15/2024) Active Problems Problem Noted Date Diagnosed Date Bilateral carotid artery stenosis 02/05/2023 Food insecurity 12/02/2022 Overview: Per [facility] Protocol Bipolar affective disorder, currently depressed, mild 11/06/2022 Chronic respiratory failure with hypoxia 022 Lung consolidation 11/14/2021 NSCLC of left lung 11/14/2021 Atherosclerosis of [place] of left lower extremity with [...] as of this encounter (statuses as of 11/15/2024) Resolved Problems Problem Noted Date Diagnosed Date [...] as of this encounter (statuses as of 11/15/2024) Immunizations Name Administration Dates Next Due COVID-19 mRNA, LNP-s, No Pre serve, 2-Dose Series (Moderna) 12/25/2020,11/27/2020 COVID-19, MRNA-LNP, PF, 30 M CG/0.3 mL, 12 YRS AND ABOVE, [facility] 07/09/2023 COVID-19, mRNA, LNP-s, PF, B ooster, 100mcg/0.5mg (Moderna) 01/02/2022,07/20/2021 Pneumococcal Conjugate Vacci ne, 20-valent ([id number]) 01/21/2023 Pneumococcal Polysaccharide PPV23 (Pneumovax) 02/14/2022 Season [...] encounter Miscellaneous Notes * Telephone Encounter - Victor Manuel Carter DO - 11/15/2024 2:37 PM ESTSigned Prescriptions: Disp Refills Fludrocortisone Acetate 0.1 MG Oral Tablet*180 Ta*3 Sig: TAKE 2 TABLETS BY MOUTH EVERY MORNING Authorizing Provider: VICTOR MANUEL CARTER * Telephone Encounter - Deep Grider [facility] - 11/12/2024 4:27 PM EST Pending Prescriptions: Disp Refills Fludrocortisone Acetate 0.1 MG Oral Tablet*180 Ta*3 Sig: TAKE 2 TABLETS BY MOUTH EVERY MORNING * Telephone Encounter - Deep Grider [facility] - 11/12/2024 4:26 PM EST [facility] is currently not authorized to approve refills for the pended medication(s) per refill protocol. Please approve if appropriate. Thanks, Deep Grider, PharmD Clinical Pharmacist [facility] Pharmacy Services [phone] 11/12/2024, 4:27 PM documented in this encounter Plan of Treatment Health Maintenance Due Date Last Done Comments Chrissy 12/26/2000 Fecal Occult Blood Test 12/26/2000 Sigmoidoscopy [...] filedocumented as of this encounter Care Teams Automotive Accessory Installer Relationship Specialty Start Date End Date Cony Hernandez MD [address] [facility] [place] [address] PCP - General Internal Medicine 07/01/16 documented as of this encounter
--- OUTSIDE RECORDS SUMMARY | 2024-11-20 04:52 | External Medical Summary | Summary of Care ---
Author Name Unknown Organization [facility] Address [address] [facility] [place] [address] Phone [phone] Care Team Providers Care Lamination Inspector Name Role Phone Cony Hernandez MD Primary Care Provider + Reason for Visit * Reason Onset Date Comments Medication Refill 10/25/2024 Encounter Details Date Type Department Care Team (Late st Contact Info) Description 10/25/2024 Refill Hematology/Oncology [address] [place] [address] [place] [address] Manny Hernandez MD [address] [place] [address] NSCLC of left lung (HCC); Rib pain [...] daily . 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 07/09/2023 COVID-19, mRNA, LNP-s, PF, B ooster, 100mcg/0.5mg (Moderna) 01/02/2022,07/20/2021 Pneumococcal Conjugate Vacci ne, 20-valent ([id number]) 01/21/2023 Pneumococcal Polysaccharide PPV23 (Pneumovax) 02/14/2022 Season [...] encounter Miscellaneous Notes * Telephone Encounter - Mya Tillman CPhT - 10/26/2024 4:31 PM EST Patient's daughter calling to check on status of oxycodone. Caller can be reached at [phone]. Relayed information from previous note stating that [facility] is taking over prescribing this medication. Caller verbalized understanding and stated she would check with [facility]. Thank you, Mya Tillman CPhT Cardroom Manager II [facility] ([facility]) 10/26/2024,4:31 PM * Telephone Encounter - Nick Swenson LPN - 10/26/2024 8:48 AM EST Per Ibis RN at [facility], they have taken over prescribing patient's pain [...] unspecified documented in this encounter Care Teams Lamination Inspector Relationship Specialty Start Date End Date Cony Hernandez MD [address] [place] [id number] PCP - General Internal Medicine 07/01/16 documented as of this encounter
--- OUTSIDE RECORDS SUMMARY | 2024-11-20 04:52 | External Medical Summary | Summary of Care ---
Author Name Unknown Organization [facility] Address [address] [facility] [place] [address] Phone [phone] Care Team Providers Care Lead Advisor Name Role Phone Cony Hernandez MD Primary Care Provider + Reason for Visit * Reason Onset Date Comments Advice 10/18/2024 David Encounter Details Date Type Department Care Team (Late st Contact Info) Description 10/18/2024 Telephone Hematology/Oncology [facility] [address] [place] [address] [place] [address] Manny Hernandez MD [address] [place] [address] Advice (David) Allergies Active Allergy Reactions Criticality [...] daily . 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 * Telephone Encounter - Greer Reynolds, skid wrapper - 10/27/2024 10:19 AM EST Received message on [facility] voicemail from patient's daughter Randa who was very unhappy, stating she requested a refill on patient's oxycodone 10mg and "for some reason we don't feel like giving her anymore". She states she has a message from Nelida, the nurse from [facility] stating that we don't feel comfortable giving [...] daughter regarding this. Thank you, Greer Reynolds Digital Media Producer I [facility] ([facility]) 10/27/2024,10:25 AM * Telephone Encounter - Genna Swenson LPN - 10/26/2024 8:50 AM EST Left message on patient's voicemail, return phone number provided. My G sent. * Telephone Encounter - Genna Swenson LPN - 10/26/2024 8:43 AM EST Received refill request for Oxycodone HCL 10 mg this morning from patient. Verbally verified with Ibis at [facility] that the Parts Cleaner has taken over the patient's pain prescriptions. She also reports that she provided patient with how to request refills from [facility]. She states she is seeing the patient today and will re-educate the patient on contacting [facility] for her refills. She also states that the patient currently has other pain medications prescribed by the Parts Cleaner at [facility] to take at this time. She states [...] take over medications (had been sent to [facility] to call them). She states that she did not get this message. She will ask fashion director party plan sales to take over pain meds. * Telephone Encounter - Ayaka Truong RN - 10/18/2024 2:30 PM EST Attempted to call back- no answer, voicemail did not give name or say it was [facility] so no message left. Patient is on hospice- hospice/ fashion director party plan sales should be adjusting medications as indicated. * Telephone Encounter - Jessica Scott OSA - 10/18/2024 2:24 PM EST Ibis from [facility] called saying the pt is in pain and the medication prescribed is not helping. Please call her back [phone] documented in this encounter Plan of Treatment [...] filedocumented as of this encounter Care Teams Lead Advisor Relationship Specialty Start Date End Date Cony Hernandez MD [address] [place] [address] PCP - General Internal Medicine 07/01/16 documented as of this encounter
--- OUTSIDE RECORDS SUMMARY | 2024-11-20 04:52 | External Medical Summary | Summary of Care ---
Author Name Unknown Organization [facility] Address [address] [facility] [place] [address] Phone [phone] Care Team Providers Care Side Panel Hanger Name Role Phone Cony Hernandez MD Primary Care Provider + Reason for Visit * Reason Onset Date Comments Medication Refill 10/13/2024 Encounter Details Date Type Department Care Team (Late st Contact Info) Description 10/13/2024 Refill Hematology/Oncology [place] [place] [address] [place] [address] Manny Hernandez MD [address] [place] [address] NSCLC of left lung (HCC); Rib pain on left side Allergies Active Allergy Reactions Criticality Noted Date Comments Doxepin 08/29/2005 bad nightmares Propoxyphene Napsylate 09/10/1999 Makes pt "hostile & mean" Tetracyclines & Related 02/23/1998 hives documented as of this encounter (statuses as of 10/13/2024) Medications ARIPiprazole 10 MG Oral Tablet Take [...] daily . 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 60 Tablet 10/13/19 25 Active Morphine Sulfate ER 15 MG Oral Tablet Extended Release (MS Contin)Indications :NSCLC of left lung (HCC),Rib pain on left side Take 1 Tablet by mouth in the morning and 1 Tablet before bedtime. 60 Tablet 09/16/20 24 025 Discontin ued(Refil l) documented as of this encounter (statuses as of 10/13/2024) Active Problems Problem Noted Date Diagnosed Date Bilateral carotid artery stenosis 02/05/2023 Food insecurity 12/02/2022 Overview: Per [facility] Protocol Bipolar affective disorder, currently depressed, mild 11/06/2022 Chronic respiratory failure with hypoxia 022 Lung consolidation 11/14/2021 NSCLC of left lung 11/14/2021 Atherosclerosis of [place] ar [place]uliana of left lower extremity with [...] as of this encounter (statuses as of 10/13/2024) Resolved Problems Problem Noted Date Diagnosed Date Resolved Date Stage 3a chronic kidney disease 07/31/2020 10/20/2023 Overview: Per CKD protocol - Per CKD protocol Kidney disease, chronic, sta ge III (GFR 30-59 ml/min) 07/03/2020 08/03/2020 Overview: Per CKD protocol Malignant neoplasm of upper lobe of left lung 09/13/20 15 06/29/2020 Cancer Staging:Clinical:Stage IIIB(T3, N3, M0) - Signed by aMnny Hernandez MD on 09/13/2015 Pathologic: Unsigned Lung [...] as of this encounter (statuses as of 10/13/2024) Immunizations Name Administration Dates Next Due COVID-19 mRNA, LNP-s, No Pre serve, 2-Dose Series (Moderna) 12/25/2020,11/27/2020 COVID-19, MRNA-LNP, PF, 30 M CG/0.3 mL, 12 YRS AND ABOVE, IM (PFIZER-Comirnaty) 07/09/2023 COVID-19, mRNA, LNP-s, PF, B ooster, 100mcg/0.5mg (Moderna) 01/02/2022,07/20/2021 Pneumococcal Conjugate Vacci ne, 20-valent ([id number]) 01/21/2023 Pneumococcal Polysaccharide PPV23 (Pneumovax) 02/14/2022 Season [...] encounter Miscellaneous Notes * Telephone Encounter - Manny Hernandez MD - 10/13/2024 4:36 PM EST E-prescribed MS Contin. * Telephone Encounter - Genna Swenson LPN - 10/13/2024 2:21 PM ESTPending Prescriptions: Disp Refills Morphine Sulfate ER 15 MG Oral Tablet Exte*60 Tab*0 Sig: Take 1 Tablet by mouth in the morning and 1 Tablet before bedtime. * Telephone Encounter - Genna Swenson LPN - 10/13/2024 2:15 PM EST Refill request for Morphine Sulfate ER 15 mg tab pended below: Last Refill: 09/16/2024 PDMP reviewed per [facility] regulations. Last Script written by Dr. Manny Hernandez # of tablets ordered 60 Date script written 09/16/2024 Last seen: 08/25/2025 I would like to start long-acting opioid with MS Contin 15 mg every 12 hourly and she will continueto use oxycodone for the breakthrough pain. Next Appt.: Not scheduled, Evaluate/Admit to Hospice Signed and faxed [facility] 10/13/2024 Requesting: Patient documented in this encounter Plan of Treatment [...] unspecified documented in this encounter Care Teams Side Panel Hanger Relationship Specialty Start Date End Date Cony Hernandez MD [address] [place] [address] PCP - General Internal Medicine 07/01/16 documented as of this encounter
--- OUTSIDE RECORDS SUMMARY | 2024-11-20 04:52 | External Medical Summary | Summary of Care ---
Author Name Unknown Organization [facility] Address [address] [facility] [place] [address] Phone [phone] Care Team Providers Care Artillery Specialist Name Role Phone Cony Hernandez MD Primary Care Provider + Reason for Visit * Reason Onset Date Comments Advice 10/18/2024 David Encounter Details Date Type Department Care Team (Late st Contact Info) Description 10/18/2024 Telephone Hematology/Oncology [facility] Rafaela [place] [address] [place] [address] Manny Hernandez MD [address] [place] [address] Advice (David) Allergies Active Allergy Reactions Criticality [...] daily . 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 * Telephone Encounter - Greer Reynolds, customer support professional - 10/27/2024 10:19 AM EST Received message on [facility] voicemail from patient's daughter Randa who was very unhappy, stating she requested a refill on patient's oxycodone 10mg and "for some reason we don't feel like giving her anymore". She states she has a message from Nelida, the nurse from [facility] stating that we don't feel comfortable [...] daughter regarding this. Thank you, Greer Reynolds Fleet Salesperson [facility] 10/27/2024,10:25 AM * Telephone Encounter - Genna Swenson LPN - 10/26/2024 8:50 AM EST Left message on patient's voicemail, return phone number provided. My G sent. * Telephone Encounter - Genna Swenson LPN - 10/26/2024 8:43 AM EST Received refill request for Oxycodone HCL 10 mg this morning from patient. Verbally verified with Ibis at [facility] that the Auto Tester has taken over the patient's pain prescriptions. She also reports that she provided patient with how to request refills from [facility]. She states she is seeing the patient today and will re-educate the patient on contacting [facility] for her refills. She also states that the patient currently has other pain medications prescribed by the Auto Tester at [facility] to take at this time. [...] take over medications (had been sent to [facility] to call them). She states that she did not get this message. She will ask hospice nurse to take over pain meds. * Telephone Encounter - Ayaka Truong RN - 10/18/2024 2:30 PM EST Attempted to call back- no answer, voicemail did not give name or say it was [facility] so no message left. Patient is on hospice- hospice/ hospice nurse should be adjusting medications as indicated. * Telephone Encounter - Jessica Scott OSA - 10/18/2024 2:24 PM EST Ibis from [facility] called saying the pt is in pain and the medication prescribed is not helping. Please call her back [phone] documented in this encounter Plan of Treatment [...] filedocumented as of this encounter Care Teams Artillery Specialist Relationship Specialty Start Date End Date Cony Hernandez MD [address] [place] [address] PCP - General Internal Medicine 07/01/16 documented as of this encounter
--- OUTSIDE RECORDS SUMMARY | 2024-11-20 04:52 | External Medical Summary | Summary of Care ---
Author Name Unknown Organization [facility] Address [address] [facility] [place] [address] Phone [phone] Care Team Providers Care Breaker Boss Name Role Phone Cony Hernandez MD Primary Care Provider + Reason for Visit * Reason Onset Date Comments Advice 10/06/2024 Dr. Hernandez Encounter Details Date Type Department Care Team ([facility] st Contact Info) Description 10/06/2024 Telephone Hematology/Oncology [facility] Rafaela [place] [address] [place] [address] Manny Hernandez MD [address] [place] [address] Advice (Dr. Hernandez) Allergies Active Allergy Reactions Criticality Noted Date Comments Doxepin 08/29/2005 bad nightmares Propoxyphene Napsylate 09/10/1999 Makes pt "hostile & mean" Tetracyclines & Related 02/23/1998 hives documented as of this encounter (statuses as of 10/06/2024) Medications ARIPiprazole 10 MG Oral Tablet Take [...] daily . 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 For inhaler only, do not swallow.. 30 Capsule 11 10/16/19 Active Ibuprofen 200 MG Oral Capsule Take [...] Pain, Breakthrough. 60 Tablet 08/17/20 24 Active Morphine Sulfate ER 15 MG Oral Tablet Extended Release (MS Contin)Indications :NSCLC of left lung (HCC),Rib pain on left side Take 1 Tablet by mouth in the morning and 1 Tablet before bedtime. 60 Tablet 09/16/20 24 Active oxyCODONE HCl 10 MG Oral Tablet (Roxicodone)Indica tions:NSCLC of left lung (HCC),Rib pain on left side Take 1 Tablet by mouth every 8 hours as needed for Pain, Breakthrough. 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 with [...] as of this encounter (statuses as of 10/06/2024) Resolved Problems Problem Noted Date Diagnosed Date [...] as of this encounter (statuses as of 10/06/2024) Immunizations Name Administration Dates Next Due COVID-19 mRNA, LNP-s, No Pre serve, 2-Dose Series (Moderna) 12/25/2020,11/27/2020 COVID-19, MRNA-LNP, PF, 30 M CG/0.3 mL, 12 YRS AND ABOVE, IM (PFIZER-Comirnat) 07/09/2023 COVID-19, mRNA, LNP-s, PF, B ooster, 100mcg/0.5mg (Moderna) 01/02/2022,07/20/2021 Pneumococcal Conjugate Vacci ne, 20-valent ([id number]) 01/21/2023 Pneumococcal Polysaccharide PPV23 (Pneumovax) 02/14/2022 Season [...] encounter Miscellaneous Notes * Telephone Encounter - Juma Crum RN - 10/06/2024 9:41 AM EST Called patients daughter back. Advised that since her mother is on hospice currently she does not need to come to the office for follow up. I advised if the daughter or patient needed anything to nothesitate to call our office. She was very appreciative of the return phone call. * Telephone Encounter - Gosia Taylor OSA - 10/06/2024 9:00 AM EST Pt's daughter/POA Randa Carrasco called to cancel today's appt with Dr. Hernandez because Pt was feelingtoo weak to travel; declined video appt. She is asking for nurse callback to discuss the need of any additional future appts; she is not sure at this point in Pt's illness if further appts will even help but she would like to discuss with nurse and/or Dr. Hernandez. Please call Randa Carrasco to discuss, . documented in this encounter Plan of Treatment Upcoming Encounters Date Type Department Care Team (Late st Contact Info) Description 10/12/2024 10:20 AM EST Office Visit Pulmonary Medicine, [facility] [address] [facility] [place] [address] Gary Schreiber MD [address] [place] [id number] Health Maintenance Due Date Last Done Comments [...] filedocumented as of this encounter Care Teams Breaker Boss Relationship Specialty Start Date End Date Cony Hernandez MD [address] [facility] [place] [address] PCP - General Internal Medicine 07/01/16 documented as of this encounter
--- OUTSIDE RECORDS SUMMARY | 2024-11-20 04:52 | External Medical Summary | Summary of Care ---
Author Name Unknown Organization [facility] Address [address] [facility] [place] [address] Phone [phone] Care Team Providers Care Fisher Hand Line Name Role Phone Cony Hernandez MD Primary Care Provider + Reason for Visit * Reason Onset Date Comments Other 09/29/2024 Hospice Certific ation Encounter Details Date Type Department Care Team (Late st Contact Info) Description 09/29/2024 Telephone Hematology/Oncology [facility] [place] [address] [place] [address] Manny Hernandez MD [address] [place] [address] Other (Hospice Certification) Allergies Active Allergy Reactions Criticality Noted Date Comments Doxepin 08/29/2005 bad nightmares Propoxyphene Napsylate 09/10/1999 Makes pt "hostile & mean" Tetracyclines & Related 02/23/1998 hives documented as of this encounter (statuses as of 10/18/2024) Medications ARIPiprazole 10 MG Oral Tablet Take [...] daily . 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 5 Tablet 06/03/20 Active Azithromycin 250 MG Oral Tablet (Zithromax [...] Tablet 09/16/20 24 025 Discontin ued(Refil l) oxyCODONE HCl 10 MG Oral Tablet (Roxicodone)Indica tions:NSCLC of left lung (HCC),Rib pain on left side Take 1 Tablet by mouth every 8 hours as needed for Pain, Breakthrough. 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 with [...] as of this encounter (statuses as of 10/18/2024) Resolved Problems Problem Noted Date Diagnosed Date [...] as of this encounter (statuses as of 10/18/2024) Immunizations Name Administration Dates Next Due COVID-19 mRNA, LNP-s, No Pre serve, 2-Dose Series (Moderna) 12/25/2020,11/27/2020 COVID-19, MRNA-LNP, PF, 30 M CG/0.3 mL, 12 YRS AND ABOVE, IM ([facility]) 07/09/2023 COVID-19, mRNA, LNP-s, PF, B ooster, 100mcg/0.5mg (Moderna) 01/02/2022,07/20/2021 Influenza, Whole Virus 06/24/1995,06/05/1993 Pneumococcal Conjugate Vacci ne, 20-valent ([id number]) 01/21/2023 Pneumococcal Polysaccharide PPV23 (Pneumovax) 02/14/2022,01/30/2005,10/01/1993 Season [...] encounter Miscellaneous Notes * Telephone Encounter - Genna Swenson LPN - 10/04/2024 11:31 AM EST Faxed updated Hospice Certification and POC to Attn: Rachell Baker at [facility]. Confirmation page will be scanned in with form. * Telephone Encounter - Genna Swenson LPN - 09/29/2024 10:16 AM EST Called and spoke with Linda at [facility], Hospice Certification and Plan of Care fax received. The name of ordering MD is under Cony Hernandez MD. Per chart review ordering Physician is MD Rehan. Dr. Manny Hernandez placed Hospice Referral on 09/06/2024. She will have the paperwork adjusted and fax back to our office. She states the fax should come in 1 to 2 business days. documented in this encounter Plan of Treatment [...] filedocumented as of this encounter Care Teams Fisher Hand Line Relationship Specialty Start Date End Date Cony Hernandez MD [address] [place] [address] PCP - General Internal Medicine 07/01/16 documented as of this encounter
--- OUTSIDE RECORDS SUMMARY | 2024-11-20 04:52 | External Medical Summary | Summary of Care ---
Author Name Unknown Organization [facility] Address [address] [facility] [place] [address] Phone [phone] Care Team Providers Care Ore Dryer Name Role Phone Cony Hernandez MD Primary Care Provider + Reason for Visit * Reason Onset Date Comments Advice 10/18/2024 David Encounter Details Date Type Department Care Team (Late st Contact Info) Description 10/18/2024 Telephone Hematology/Oncology [facility] Rafael[place] [address] [place] [address] Manny Hernandez MD [address] [place] [address] Advice (David) Allergies Active Allergy Reactions Criticality Noted Date Comments Doxepin 08/29/2005 bad nightmares Propoxyphene Napsylate 09/10/1999 Makes pt "hostile & mean" Tetracyclines & Related 02/23/1998 hives documented as of this encounter (statuses as of 10/26/2024) Medications ARIPiprazole 10 MG Oral Tablet Take [...] daily . 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 (HCC),Malignant neoplasm [...] 180 Tablet 3 09/24/19 24 Active Tiotropium [place] Monohydrate 18 MCG Inhalation Capsule (Spiriva HandiHaler)Indicat ions:COPD, group B, by GOLD 2017 classification ([facility]) Inhale 1 Capsule by mouth in the [...] as of this encounter (statuses as of 10/26/2024) Active Problems Problem Noted Date Diagnosed Date Bilateral carotid artery stenosis 02/05/2023 Food insecurity 12/02/2022 Overview: Per [facility] Protocol Bipolar affective disorder, currently depressed, mild 11/06/2022 Chronic respiratory failure with hypoxia 022 Lung consolidation 11/14/2021 NSCLC of left lung 11/14/2021 Atherosclerosis of [place] of left lower extremity with [...] as of this encounter (statuses as of 10/26/2024) Resolved Problems Problem Noted Date Diagnosed Date [...] as of this encounter (statuses as of 10/26/2024) Immunizations Name Administration Dates Next Due COVID-19 mRNA, LNP-s, No Pre serve, 2-Dose Series (Moderna) 12/25/2020,11/27/2020 COVID-19, MRNA-LNP, PF, 30 M CG/0.3 mL, 12 YRS AND ABOVE, IM (PFIZER-Comirnat) 07/09/2023 COVID-19, mRNA, LNP-s, PF, B ooster, 100mcg/0.5mg (Moderna) 01/02/2022,07/20/2021 Influenza, Whole Virus 06/24/1995,06/05/1993 Pneumococcal Conjugate Vacci ne, 20-valent ([id number]) 01/21/2023 Pneumococcal Polysaccharide PPV23 (Pneumovax) 02/14/2022,01/30/2005,10/01/1993 Season [...] from patient. Verbally verified with Ibis at [facility] that the Machinery Rigger has taken over the patient's pain prescriptions. She also reports that she provided patient with how to request refills from [facility]. She states she is seeing the patient today and will re-educate the patient on contacting [facility] for her refills. She also states that the patient currently has other pain medications prescribed by the Machinery Rigger at [facility] to take at this time. [...] take over medications (had been sent to [facility] to call them). She states that she did not get this message. She will ask infrastructure director to take over pain meds. * Telephone Encounter - Ayaka Truong RN - 10/18/2024 2:30 PM EST Attempted to call back- no answer, voicemail did not give name or say it was [facility] so no message left. Patient is on hospice- hospice/ infrastructure director should be adjusting medications as indicated. * Telephone Encounter - Jessica Scott OSA - 10/18/2024 2:24 PM EST Ibis from [facility] called saying the pt is in pain and the medication prescribed is not helping. Please call her back [phone] documented in this encounter Plan of Treatment [...] filedocumented as of this encounter Care Teams Ore Dryer Relationship Specialty Start Date End Date Cony Hernandez MD [address] [place] [address] PCP - General Internal Medicine 07/01/16 documented as of this encounter
--- OUTSIDE RECORDS SUMMARY | 2024-11-20 04:53 | External Medical Summary | Summary of Care ---
Author Name Unknown Organization [facility] Address [address] [facility] [place] [address] Phone [phone] Care Team Providers Care Laboratory Analyst Name Role Phone Cony Hernandez MD Primary Care Provider + Reason for Visit * Reason Onset Date Comments Other 09/29/2024 Hospice Certific ation Encounter Details Date Type Department Care Team (Late st Contact Info) Description 09/29/2024 Telephone Hematology/Oncology [place] [place] [address] [place] [address] Manny Hernandez MD [address] [place] [address] Other (Hospice Certification) Allergies Active Allergy Reactions Criticality Noted Date Comments Doxepin 08/29/2005 bad nightmares Propoxyphene Napsylate 09/10/1999 Makes pt "hostile & mean" Tetracyclines & Related 02/23/1998 hives documented as of this encounter (statuses as of 10/04/2024) Medications ARIPiprazole 10 MG Oral Tablet Take [...] daily . 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 60 Tablet 09/16/20 24 Active documented as of this encounter (statuses as of 10/04/2024) Active Problems Problem Noted Date Diagnosed Date Bilateral carotid artery stenosis 02/05/2023 Food insecurity 12/02/2022 Overview: Per [facility] Protocol Bipolar affective disorder, currently depressed, mild 11/06/2022 Chronic respiratory failure with hypoxia 022 Lung consolidation 11/14/2021 NSCLC of left lung 11/14/2021 Atherosclerosis of [place] of left lower extremity with [...] as of this encounter (statuses as of 10/04/2024) Resolved Problems Problem Noted Date Diagnosed Date [...] as of this encounter (statuses as of 10/04/2024) Immunizations Name Administration Dates Next Due COVID-19 mRNA, LNP-s, No Pre serve, 2-Dose Series (Moderna) 12/25/2020,11/27/2020 COVID-19, MRNA-LNP, PF, 30 M CG/0.3 mL, 12 YRS AND ABOVE, IM (PFIZER-Comirnat) 07/09/2023 COVID-19, mRNA, LNP-s, PF, B ooster, 100mcg/0.5mg (Moderna) 01/02/2022,07/20/2021 Influenza, Whole Virus 06/24/1995,06/05/1993 Pneumococcal Conjugate Vacci ne, 20-valent ([id number]) 01/21/2023 Pneumococcal Polysaccharide PPV23 (Pneumovax) 02/14/2022,01/30/2005,10/01/1993 Season [...] and POC to Attn: Rachell Baker at [facility]. Confirmation page will be scanned in with form. * Telephone Encounter - Genna Swenson LPN - 09/29/2024 10:16 AM EST Called and spoke with Linda at [facility], Hospice Certification and Plan of Care fax [...] Care Team (Late st Contact Info) Description 10/19/2024 12:40 PM EST Office Visit Pulmonary Medicine, [facility] [address] [facility] [place] [address] Gary Schreiber MD [address] [facility] [place] [address] Health Maintenance Due Date Last Done Comments [...] filedocumented as of this encounter Care Teams Laboratory Analyst Relationship Specialty Start Date End Date Cony Hernandez MD [address] [place] [address] PCP - General Internal Medicine 07/01/16 documented as of this encounter
--- OUTSIDE RECORDS SUMMARY | 2024-11-20 04:53 | External Medical Summary | Summary of Care ---
Author Name Unknown Organization [facility] Address [address] [place] [address] Phone [phone] Care Team Providers Care Bowling Ball Engraver Name Role Phone Cony Hernandez MD Primary Care Provider + Reason for Referral * Ancillary Services (Within 3 days (urgent)) - Authorized Specialty Diagnoses / Procedures Referred By Controsy t Referred To Contact HOME CARE / Palliative Medicine Diagnoses NSCLC of left lung (HCC) Manny Hernandez MD [address] [place] [address] [address] Phone: tel: fax: Referral ID Status Reason Start Date Expiration Date Visits Requested Visits Authorized [id number] Authorized Ancillary Services Required 4 [phone] Question Answer Referral Priority Within 3 days (urgent) Where should this appointment be scheduled? [facility] Reason for Visit * Reason Onset Date Comments Advice 08/27/2024 Pain management/ end of life care Referral 08/27/2024 Hospice Encounter Details Date Type Department Care Team (Late st Contact Info) Description 08/27/2024 Telephone Hematology/Oncology [facility] [address] [phone] Manny Hernandez MD [address] [place] [address] Advice (Pain management/end of life care);... Allergies Active Allergy Reactions Criticality Noted Date Comments Doxepin 08/29/2005 bad nightmares Propoxyphene Napsylate 09/10/1999 Makes pt "hostile & mean" Tetracyclines & Related 02/23/1998 hives documented as of this encounter (statuses as of 09/08/2024) Medications ARIPiprazole 10 MG Oral Tablet Take [...] daily . 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 08/21/20 Active Zoster Vac Recomb Adjuvanted 50 MCG/0.5ML Intramuscular Suspension Reconstituted (Shingrix)Indicati ons:Need for shingles vaccine Inject 0.5 mL into a large muscle now and repeat dose in 60 to 180 days 1 Each 1 01/22/20 23 Active Full Kit Nebulizer SetIndications:Exa cerbation of Dyspnea,Reactive Airways Disease Foe use with nebulizer Medications as suggested. 1 Each 02/14/20 23 Active guaiFENesin ER 600 MG [...] 180 Tablet 3 09/24/19 24 Active Tiotropium [place] Monohydrate 18 MCG Inhalation Capsule (Spiriva HandiHaler)Indicat ions:COPD, group B, by GOLD 2017 classification ([facility]) Inhale 1 Capsule by mouth in the [...] min after taking tablet. 5 Tablet 11 06/03/20 24 Active Azithromycin 250 MG Oral [...] and 1 Tablet before bedtime. 60 Tablet 08/25/20 24 Active documented as of this encounter (statuses as of 09/08/2024) Active Problems Problem Noted Date Diagnosed Date Bilateral carotid artery stenosis 02/05/2023 Food insecurity 12/02/2022 Overview: Per [facility] Protocol Bipolar affective disorder, currently depressed, mild 11/06/2022 Chronic respiratory failure with hypoxia 022 Lung consolidation 11/14/2021 NSCLC of left lung 11/14/2021 Atherosclerosis of [place] of left lower extremity with [...] as of this encounter (statuses as of 09/08/2024) Resolved Problems Problem Noted Date Diagnosed Date [...] as of this encounter (statuses as of 09/08/2024) Immunizations Name Administration Dates Next Due COVID-19 mRNA, LNP-s, No Pre serve, 2-Dose Series (Moderna) 12/25/2020,11/27/2020 COVID-19, MRNA-LNP, PF, 30 M CG/0.3 mL, 12 YRS AND ABOVE, IM (PFIZER-Comirnat) 07/09/2023 COVID-19, mRNA, LNP-s, PF, B ooster, 100mcg/0.5mg (Moderna) 01/02/2022,07/20/2021 Influenza, Whole Virus 06/24/1995,06/05/1993 Pneumococcal Conjugate Vacci ne, 20-valent ([id number]) 01/21/2023 Pneumococcal Polysaccharide PPV23 (Pneumovax) 02/14/2022,01/30/2005,10/01/1993 Season [...] encounter Miscellaneous Notes * Telephone Encounter - Janna Reeves OSA - 09/08/2024 8:18 AM EST Printed and faxed all info to number they provided me at [phone] * Telephone Encounter - Juma Acuña RN - 09/07/2024 3:34 PM EST Scheduling - please fax referral and office note to [facility]. Please include that they should call the daughters phone # Randa Carrasco [phone]. Thank you. * Addendum Note - Juma Acuña RN - 09/06/2024 10:48 AM ESTAddended by: JUMA ACUÑA on: 09/06/2024 10:48 AM Modules accepted: Orders * Telephone Encounter - Juma Acuña RN - 09/06/2024 10:40 AM EST I called and spoke with the daughter, Randa. She states her mom hasn't been doing very well and "her mass grew on imaging at the ER." She states she is unable to look over her mom's medications andis unsure if she is taking her pain medication appropriately. We did discuss about using a pill boxfor her mom and monitoring counts of her pain medication to see if she is taking this appropriately. Reviewed that she is currently on a long acting and short acting pain medications which she verbalized understanding. After further discussion, the daughter would like to pursue hospice for her mom at this time. I didadvise that she may call us anytime if she has any questions or concerns. Hospice referral placed. * Telephone Encounter - Juma Acuña RN - 08/27/2024 4:10 PM EST MyG sent. * Telephone Encounter - Ayaka Truong RN - 08/27/2024 11:17 AM EST Only 1 rx in message. Attempted to call patient to clarify- left message requesting return call. * Telephone Encounter - Dariusz Duran OSA - 08/27/2024 10:11 AM EST Patient calling in to request 2 prescriptions. Morphine - requesting Generic documented in this encounter Plan of Treatment Upcoming Encounters Date Type Department Care Team (Late st Contact Info) Description 10/06/2024 9:00 AM EST Office Visit Hematology/Oncology [facility] [address] [facility] [place], [place] [phone] Manny Hernandez MD [address] [facility] [place] [address] 10/19/2024 12:40 PM EST Office Visit Pulmonary Medicine, [facility] [address] [facility] [place] [address] Gary Schreiber MD [address] [address] Scheduled Referrals Name Type Priority Associated Diagnoses Orde r Schedule HOSPICE REFERRAL OP Referral Within 3 day s (urgent) NSCLC of left lung (HCC) Ordered: 09/06/2024 Health Maintenance Due Date Last Done Comments Cologuard 12/26/2000 Fecal Occult Blood Test 12/26/2000 Sigmoidoscopy 12/26/2000 Colonoscopy 02/24/2017 02/24/2007 Colorectal Cancer Screening 02/24/2017 Adult Wellness Visit 12/26/2021 HbA1c 12/17/2023 12/16/2022, 03/22, 06/29/2020, Additional history [...] 01/30/2005 Alpha-1 Antitrypsin Completed 04/03/2022 Pneumococcal Vaccine: 65+ Years Completed 01/21/2023, 02/14/2022, 01/30/2005, Additional history [...] Visit Diagnoses Diagnosis NSCLC of left lung (HCC)- Primary documented in this encounter Care Teams Bowling Ball Engraver Relationship Specialty Start Date End Date Cony Hernandez MD [address] [facility] [place] [address] PCP - General Internal Medicine 07/01/16 documented as of this encounter
--- OUTSIDE RECORDS SUMMARY | 2024-11-20 04:53 | External Medical Summary | Summary of Care ---
Author Name Unknown Organization [facility] Address [address] [facility] [place] [address] Phone [phone] Care Team Providers Care Free Lance Model Name Role Phone Cony Hernandez MD Primary Care Provider + Reason for Visit * Reason Onset Date Comments Other 09/29/2024 Hospice Certific ation Encounter Details Date Type Department Care Team (Late st Contact Info) Description 09/29/2024 Telephone Hematology/Oncology [facility] [address] [place] [address] Manny Hernandez MD [address] [place] [address] Other (Hospice Certification) Allergies Active Allergy Reactions Criticality Noted Date Comments Doxepin 08/29/2005 bad nightmares Propoxyphene Napsylate 09/10/1999 Makes pt "hostile & mean" Tetracyclines & Related 02/23/1998 hives documented as of this encounter (statuses as of 09/29/2024) Medications ARIPiprazole 10 MG Oral Tablet Take [...] daily . 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:BARKEEP D, severity to be determined (HCC),Malignant neoplasm [...] 180 Tablet 3 09/24/19 24 Active Tiotropium [place] Monohydrate 18 MCG Inhalation Capsule (Spiriva HandiHaler)Indicat ions:COPD, group B, by GOLD 2017 classification ([facility]) Inhale 1 Capsule by mouth [...] as of this encounter (statuses as of 09/29/2024) Active Problems Problem Noted Date Diagnosed Date Bilateral carotid artery stenosis 02/05/2023 Food insecurity 12/02/2022 Overview: Per [facility] Protocol Bipolar affective disorder, currently depressed, mild 11/06/2022 Chronic respiratory failure with hypoxia 022 Lung consolidation 11/14/2021 NSCLC of left lung 11/14/2021 Atherosclerosis of [place] ar [place]ul[place] of left lower extremity with [...] as of this encounter (statuses as of 09/29/2024) Resolved Problems Problem Noted Date Diagnosed Date [...] as of this encounter (statuses as of 09/29/2024) Immunizations Name Administration Dates Next Due COVID-19 mRNA, LNP-s, No Pre serve, 2-Dose Series (Moderna) 12/25/2020,11/27/2020 COVID-19, MRNA-LNP, PF, 30 M CG/0.3 mL, 12 YRS AND ABOVE, IM (PFIZER-Comirnat) 07/09/2023 COVID-19, mRNA, LNP-s, PF, B ooster, 100mcg/0.5mg (Moderna) 01/02/2022,07/20/2021 Pneumococcal Conjugate Vacci ne, 20-valent ([id number]) 01/21/2023 Pneumococcal Polysaccharide PPV23 (Pneumovax) 02/14/2022 Season [...] EST Called and spoke with Linda at [facility], Hospice Certification and Plan of Care fax [...] 10/06/2024 9:00 AM EST Office Visit Hematology/Oncology [facility] [address] [facility] [place] [phone] Manny Hernandez MD [address] [place] [address] 10/19/2024 12:40 PM EST Office Visit Pulmonary Medicine, [facility] [address] [facility] [place] [address] Gary Schreiber MD [address] [facility] [place] [phone] Health Maintenance Due Date Last Done Comments [...] filedocumented as of this encounter Care Teams Free Lance Model Relationship Specialty Start Date End Date Cony Hernandez MD [address] [place], [place] [address] PCP - General Internal Medicine 07/01/16 documented as of this encounter
--- OUTSIDE RECORDS SUMMARY | 2024-11-20 04:53 | External Medical Summary | Summary of Care ---
Author Name Unknown Organization [facility] Address [address] [place] [address] Phone [phone] Care Team Providers Care Bullion Weigher Name Role Phone Cony Hernandez MD Primary Care Provider + Reason for Visit * Reason Onset Date Comments Advice 09/08/2024 Hernandez Encounter Details Date Type Department Care Team ([facility] st Contact Info) Description 09/08/2024 Telephone Hematology/Oncology [facility] [address] [place] [address] Services, Scheduling [address] [place] [address] Advice (David) Allergies Active Allergy Reactions Criticality [...] daily . 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:IRON PILER D, severity to be determined (HCC),Malignant neoplasm [...] 180 Tablet 3 09/24/19 24 Active Tiotropium [place] Monohydrate 18 MCG Inhalation Capsule (Spiriva HandiHaler)Indicat ions:COPD, group B, by GOLD 2017 classification ([facility]) Inhale 1 Capsule by mouth [...] before bedtime. 60 Tablet 08/25/20 24 Active oxyCODONE HCl 10 MG Oral Tablet (Roxicodone)Indica tions:NSCLC of left lung (HCC),Rib pain on left side Take 1 Tablet by mouth every 8 hours as needed for Pain, Breakthrough. 60 Tablet 08/29/20 24 Active documented as of this encounter (statuses as of 09/08/2024) Active Problems Problem Noted Date Diagnosed Date Bilateral carotid artery stenosis 02/05/2023 Food insecurity 12/02/2022 Overview: Per [facility] Protocol Bipolar affective disorder, currently depressed, mild 11/06/2022 Chronic respiratory failure with hypoxia 022 Lung consolidation 11/14/2021 NSCLC of left lung 11/14/2021 Atherosclerosis of [place] ar [place]uliana of left lower extremity with [...] (Moderna) 01/02/2022,07/20/2021 Pneumococcal Conjugate Vacci ne, 20-valent ([id number]) 01/21/2023 Pneumococcal Polysaccharide PPV23 (Pneumovax) 02/14/2022 Season [...] Telephone Encounter - Ayaka Truong RN - 09/08/2024 1:05 PM EST Called and spoke to Geo, verified that they have Randa's number, gave patients number as well. * Telephone Encounter - Peyton Juarez OSA - 09/08/2024 12:25 PM EST Geo from [facility] calling, has been unable to get in contact with the daughter asking to have the pts number unsure why the number was jimmie out. Please call geo with alternate number. * Telephone Encounter - Vianca Aquino OSA - 09/08/2024 8:42 AM EST Geo from [facility] called to advise that she received the referral and will process it. documented in this encounter Plan of Treatment Upcoming Encounters Date Type Department Care Team (Late st Contact Info) Description 10/06/2024 9:00 AM EST Office Visit Hematology/Oncology [facility] [address] [place] [phone] Manny Hernandez MD [address] [facility] [place] [address] 10/19/2024 12:40 PM EST Office Visit Pulmonary Medicine, [facility] [address] [facility] [place] [address] Gary [facility]reiber MD [address] [facility] [phone] Health Maintenance Due Date Last Done Comments [...] filedocumented as of this encounter Care Teams Bullion Weigher Relationship Specialty Start Date End Date Cony Hernandez MD [address] [place] [address] PCP - General Internal Medicine 07/01/16 documented as of this encounter
--- OUTSIDE RECORDS SUMMARY | 2024-11-20 04:53 | External Medical Summary | Summary of Care ---
Author Name Unknown Organization [facility] Address [address] [facility] [place] [address] Phone [phone] Care Team Providers Care Manganese Wheeler Name Role Phone Cony Hernandez MD Primary Care Provider + Reason for Visit * Reason Onset Date Comments Medication Refill 10/05/2024 Encounter Details Date Type Department Care Team (Late st Contact Info) Description 10/05/2024 Refill Hematology/Oncology [facility] [place] [address] [place] [phone] Arnaud Hernandez MD [address] [place] [address] NSCLC of left lung (HCC); Rib pain on left side Allergies Active Allergy Reactions Criticality Noted Date Comments Doxepin 08/29/2005 bad nightmares Propoxyphene Napsylate 09/10/1999 Makes pt "hostile & mean" Tetracyclines & Related 02/23/1998 hives documented as of this encounter (statuses as of 10/05/2024) Medications ARIPiprazole 10 MG Oral Tablet Take [...] daily . 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 60 Tablet 10/05/19 25 Active oxyCODONE HCl 10 MG Oral Tablet (Roxicodone)Indica tions:NSCLC of left lung (HCC),Rib pain on left side Take 1 Tablet by mouth every 8 hours as needed for Pain, Breakthrough. 60 Tablet 09/16/20 24 025 Discontin ued(Refil l) documented as of this encounter (statuses as of 10/05/2024) Active Problems Problem Noted Date Diagnosed Date Bilateral carotid artery stenosis 02/05/2023 Food insecurity 12/02/2022 Overview: Per [facility] Protocol Bipolar affective disorder, currently depressed, mild 11/06/2022 Chronic respiratory failure with hypoxia 022 Lung consolidation 11/14/2021 NSCLC of left lung 11/14/2021 Atherosclerosis of [place] of left lower extremity with [...] as of this encounter (statuses as of 10/05/2024) Resolved Problems Problem Noted Date Diagnosed Date Resolved Date Stage 3a chronic kidney disease 07/31/2020 10/20/2023 Overview: Per CKD protocol - Per CKD protocol Kidney disease, chronic, sta ge III (GFR 30-59 ml/min) 07/03/2020 08/03/2020 Overview: Per CKD protocol Malignant neoplasm of upper lobe of left lung 09/13/20 15 06/29/2020 Cancer Staging:Clinical:Stage IIIB(T3, N3, M0) - Signed by Arnaud Hernandez MD on 09/13/2015 Pathologic: Unsigned Lung [...] as of this encounter (statuses as of 10/05/2024) Immunizations Name Administration Dates Next Due COVID-19 mRNA, LNP-s, No Pre serve, 2-Dose Series (Moderna) 12/25/2020,11/27/2020 COVID-19, MRNA-LNP, PF, 30 M CG/0.3 mL, 12 YRS AND ABOVE, IM (PFIZER-Comirnaty) 07/09/2023 COVID-19, mRNA, LNP-s, PF, B ooster, 100mcg/0.5mg (Moderna) 01/02/2022,07/20/2021 Pneumococcal Conjugate Vacci ne, 20-valent ([id number]) 01/21/2023 Pneumococcal Polysaccharide PPV23 (Pneumovax) 02/14/2022 Season [...] Telephone Encounter - Ayaka Truong RN - 10/05/2024 12:13 PM ESTSigned Prescriptions: Disp Refills oxyCODONE HCl 10 MG Oral Tablet (Roxicodon*60 Tab*0 Sig: Take 1 Tablet by mouth every 8 hours as needed for Pain, Breakthrough.Authorizing Provider: ARNAUD HERNANDEZ- * Telephone Encounter - Arnaud Hernandez MD - 10/05/2024 12:10 PM EST E-prescribed oxycodone. If she is enrolled in the home hospice, can they take over the oxycodone prescription? * Telephone Encounter - Genna Swenson LPN - 10/05/2024 11:59 AM ESTPending Prescriptions: Disp Refills oxyCODONE HCl 10 MG Oral Tablet (Roxicodon*60 Tab*0 Sig: Take 1 Tablet by mouth every 8 hours as needed for Pain, Breakthrough. * Telephone Encounter - Genna Swenson LPN - 10/05/2024 11:54 AM EST Refill request for Oxycodone Hcl 10 mg tab pended below: Last Refill: 09/16/2024 PDMP: Last filled 09/19/2024, Qty: 60, 20-day supply, no issues Last seen: 08/25/2024 Next Appt.: Patient cancelled 10/06/2024 Requesting: Patient documented in this encounter Plan of Treatment Upcoming Encounters Date Type Department Care Team (Late st Contact Info) Description 10/12/2024 10:20 AM EST Office Visit Pulmonary Medicine, [facility] [address] [facility] [place] [address] Gary Schreiber MD [address] [facility] [place] [address] Health Maintenance Due Date Last Done Comments [...] unspecified documented in this encounter Care Teams Manganese Wheeler Relationship Specialty Start Date End Date Cony Hernandez MD [address] [place] [address] PCP - General Internal Medicine 07/01/16 documented as of this encounter
--- OUTSIDE RECORDS SUMMARY | 2024-11-20 04:53 | External Medical Summary | Summary of Care ---
Author Name Unknown Organization [facility] Address [address] [facility] [place] [address] Phone [phone] Care Team Providers Care Private Chef Name Role Phone Cony Hernandez MD Primary Care Provider + Reason for Referral * Ancillary Services (Within 3 days (urgent)) - Authorized Specialty Diagnoses / Procedures Referred By Controsy t Referred To Contact HOME CARE / Palliative Medicine Diagnoses NSCLC of left lung (HCC) Manny Hernandez MD [address] [place] [address] [address] Phone: tel: fax: Referral ID Status Reason Start Date Expiration Date Visits Requested Visits Authorized [id number] Authorized Ancillary Services Required 4 [phone] Question Answer Referral Priority Within 3 days (urgent) Where should this appointment be scheduled? [facility] Reason for Visit * Reason Onset Date Comments Advice 08/27/2024 Pain management/ end of life care Referral 08/27/2024 Hospice Encounter Details Date Type Department Care Team ([facility] st Contact Info) Description 08/27/2024 Telephone Hematology/Oncology [facility] [address] [place] [address] [phone] Manny Hernandez MD [address] [place] [address] Advice (Pain management/end of life care);... Allergies Active Allergy Reactions Criticality Noted Date Comments Doxepin 08/29/2005 bad nightmares Propoxyphene Napsylate 09/10/1999 Makes pt "hostile & mean" Tetracyclines & Related 02/23/1998 hives documented as of this encounter (statuses as of 09/07/2024) Medications ARIPiprazole 10 MG Oral Tablet Take [...] daily . 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 (HCC),Malignant neoplasm [...] 180 Tablet 3 09/24/19 24 Active Tiotropium [place] Monohydrate 18 MCG Inhalation Capsule (Spiriva HandiHaler)Indicat [...] as of this encounter (statuses as of 09/07/2024) Active Problems Problem Noted Date Diagnosed Date Bilateral carotid artery stenosis 02/05/2023 Food insecurity 12/02/2022 Overview: Per [facility] Protocol Bipolar affective disorder, currently depressed, mild 11/06/2022 Chronic respiratory failure with hypoxia 022 Lung consolidation 11/14/2021 NSCLC of left lung 11/14/2021 Atherosclerosis of [place] of left lower extremity with [...] as of this encounter (statuses as of 09/07/2024) Resolved Problems Problem Noted Date Diagnosed Date [...] as of this encounter (statuses as of 09/07/2024) Immunizations Name Administration Dates Next Due COVID-19 mRNA, LNP-s, No Pre serve, 2-Dose Series (Moderna) 12/25/2020,11/27/2020 COVID-19, MRNA-LNP, PF, 30 M CG/0.3 mL, 12 YRS AND ABOVE, IM (PFIZER-Comirnat) 07/09/2023 COVID-19, mRNA, LNP-s, PF, B ooster, 100mcg/0.5mg (Moderna) 01/02/2022,07/20/2021 Influenza, Whole Virus 06/24/1995,06/05/1993 Pneumococcal Conjugate Vacci ne, 20-valent ([id number]) 01/21/2023 Pneumococcal Polysaccharide PPV23 (Pneumovax) 02/14/2022,01/30/2005,10/01/1993 Season [...] Miscellaneous Notes * Telephone Encounter - Juma Acuña RN - 09/07/2024 3:34 PM EST Scheduling - please fax referral and office note to [facility]. Please include that they should call the daughters phone # Randa Carrasco [phone]. Thank you. * Addendum Note - Juma [...] 10/06/2024 9:00 AM EST Office Visit Hematology/Oncology [facility] 200 [facility] [place] [phone] Manny [facility] [address] 10/19/2024 12:40 PM EST Office Visit Pulmonary Medicine, [facility] [address] [facility] [place] [address] Gary Schreiber MD [address] [place] [phone] Scheduled Referrals Name Type Priority Associated Diagnoses [...] Primary documented in this encounter Care Teams Private Chef Relationship Specialty Start Date End Date Cony Hernandez MD 200 [facility] [place] [address] PCP - General Internal Medicine 07/01/16 documented as of this encounter
--- OUTSIDE RECORDS SUMMARY | 2024-11-20 04:53 | External Medical Summary | Summary of Care ---
Author Name Unknown Organization [facility] Address [address] [facility] [place] [address] Phone [phone] Care Team Providers Care Rv Service Technician Name Role Phone Cony Hernandez MD Primary Care Provider + Reason for Visit * Reason Onset Date Comments Medication Refill 10/05/2024 Encounter Details Date Type Department Care Team (Late st Contact Info) Description 10/05/2024 Refill Hematology/Oncology Celia Russo [place] [address] [place] [address] Arnaud Hernandez MD [address] [place] [address] NSCLC of left lung (HCC); Rib pain [...] daily . 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 determined (HCC),Malignant [...] 180 Tablet 3 09/24/19 24 Active Tiotropium [place] Monohydrate 18 MCG Inhalation Capsule (Spiriva HandiHaler)Indicat ions:COPD, group B, by GOLD 2017 classification ([facility]) Inhale 1 Capsule by mouth in the [...] NSCLC of left lung 11/14/2021 Atherosclerosis of [place] of left lower extremity with [...] (Moderna) 01/02/2022,07/20/2021 Pneumococcal Conjugate Vacci ne, 20-valent ([id number]) 01/21/2023 Pneumococcal Polysaccharide PPV23 (Pneumovax) 02/14/2022 Season [...] 10:20 AM EST Office Visit Pulmonary Medicine, [facility] 132 [facility] [place] [address] Gary Schreiber MD [address] [facility] [place] [address] Health Maintenance Due [...] unspecified documented in this encounter Care Teams Rv Service Technician Relationship Specialty Start Date End Date Cony Hernandez MD 200 [facility] [place] [address] PCP - General Internal Medicine 07/01/16 documented as of this encounter
--- OUTSIDE RECORDS SUMMARY | 2024-11-20 04:53 | External Medical Summary | Summary of Care ---
Author Name Unknown Organization [facility] Address [address] [facility] [place] [address] Phone [phone] Care Team Providers Care It Architecture Analyst Name Role Phone Cony Hernandez MD Primary Care Provider + Reason for Visit * Reason Onset Date Comments Other 09/29/2024 Hospice Certific ation Encounter Details Date Type Department Care Team (Late st Contact Info) Description 09/29/2024 Telephone Hematology/Oncology [facility] [address] [place] [address] Manny Hernandez MD [address] [place] [address] Other (Hospice Certification) Allergies Active Allergy Reactions Criticality Noted Date Comments Doxepin 08/29/2005 bad nightmares Propoxyphene Napsylate 09/10/1999 Makes pt "hostile & mean" Tetracyclines & Related 02/23/1998 hives documented as of this encounter (statuses as of 10/01/2024) Medications ARIPiprazole 10 MG Oral Tablet Take [...] daily . 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 (HCC),Malignant [...] 180 Tablet 3 09/24/19 24 Active Tiotropium [place] Monohydrate 18 MCG Inhalation Capsule (Spiriva HandiHaler)Indicat ions:COPD, group B, by GOLD 2017 classification ([facility]) Inhale 1 Capsule by mouth in the [...] Tablet 3 02/24/20 24 Active Potassium Chloride Akcie ER 20 MEQ Oral Tablet Extended Release [...] as of this encounter (statuses as of 10/01/2024) Active Problems Problem Noted Date Diagnosed Date Bilateral carotid artery stenosis 02/05/2023 Food insecurity 12/02/2022 Overview: Per [facility] Protocol Bipolar affective disorder, currently depressed, mild 11/06/2022 Chronic respiratory failure with hypoxia 022 Lung consolidation 11/14/2021 NSCLC of left lung 11/14/2021 Atherosclerosis of [place] of left lower extremity with [...] as of this encounter (statuses as of 10/01/2024) Resolved Problems Problem Noted Date Diagnosed Date [...] as of this encounter (statuses as of 10/01/2024) Immunizations Name Administration Dates Next Due COVID-19 mRNA, LNP-s, No Pre serve, 2-Dose Series (Moderna) 12/25/2020,11/27/2020 COVID-19, MRNA-LNP, PF, 30 M CG/0.3 mL, 12 YRS AND ABOVE, IM (PFIZER-Comirnat) 07/09/2023 COVID-19, mRNA, LNP-s, PF, B ooster, 100mcg/0.5mg (Moderna) 01/02/2022,07/20/2021 Pneumococcal Conjugate Vacci ne, 20-valent ([id number]) 01/21/2023 Pneumococcal Polysaccharide PPV23 (Pneumovax) 02/14/2022 Season [...] EST Called and spoke with Linda at [facility], Hospice Certification and Plan of Care [...] 10/06/2024 9:00 AM EST Office Visit Hematology/Oncology [facility] [address] [facility] [place] [phone] Manny Hernandez MD [address] [place] [address] 10/19/2024 12:40 PM EST Office Visit Pulmonary Medicine, [facility] [address] [facility] [place] [address] Gary Schreiber MD [address] [facility] [place] [phone] Health Maintenance Due Date Last Done Comments [...] filedocumented as of this encounter Care Teams It Architecture Analyst Relationship Specialty Start Date End Date Cony Hernandez MD [address] [facility] [place] [address] PCP - General Internal Medicine 07/01/16 documented as of this encounter
--- OUTSIDE RECORDS SUMMARY | 2024-11-20 04:53 | External Medical Summary | Summary of Care ---
Author Name Unknown Organization [facility] Address [address] [facility] [place] [address] Phone [phone] Care Team Providers Care Bridge Carpenter Name Role Phone Cony Hernandez MD Primary Care Provider + Reason for Visit * Reason Onset Date Comments Medication Refill 09/15/2024 Encounter Details Date Type Department Care Team (Late st Contact Info) Description 09/15/2024 Refill Hematology/Oncology [facility] [place] [address] [place] [phone] Arnaud Hernandez MD [address] [place] [address] NSCLC of left lung (HCC); Rib pain on left side Allergies Active Allergy Reactions Criticality Noted Date Comments Doxepin 08/29/2005 bad nightmares Propoxyphene Napsylate 09/10/1999 Makes pt "hostile & mean" Tetracyclines & Related 02/23/1998 hives documented as of this encounter (statuses as of 09/16/2024) Medications ARIPiprazole 10 MG Oral Tablet Take [...] daily . 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 60 Tablet 09/16/20 24 Active Morphine Sulfate ER 15 MG Oral Tablet Extended Release (MS Contin)Indications :NSCLC of left lung (HCC),Rib pain on left side Take 1 Tablet by mouth in the morning and 1 Tablet before bedtime. 60 Tablet 08/25/20 24 024 Discontin ued(Refil l) oxyCODONE HCl 10 MG Oral Tablet (Roxicodone)Indica tions:NSCLC of left lung (HCC),Rib pain on left side Take 1 Tablet by mouth every 8 hours as needed for Pain, Breakthrough. 60 Tablet 08/29/20 24 024 Discontin ued(Refil l) documented as of this encounter (statuses as of 09/16/2024) Active Problems Problem Noted Date Diagnosed Date Bilateral carotid artery stenosis 02/05/2023 Food insecurity 12/02/2022 Overview: Per [facility] Protocol Bipolar affective disorder, currently depressed, mild 11/06/2022 Chronic respiratory failure with hypoxia 022 Lung consolidation 11/14/2021 NSCLC of left lung 11/14/2021 Atherosclerosis of [place] of left lower extremity with [...] as of this encounter (statuses as of 09/16/2024) Resolved Problems Problem Noted Date Diagnosed Date [...] as of this encounter (statuses as of 09/16/2024) Immunizations Name Administration Dates Next Due COVID-19 mRNA, LNP-s, No Pre serve, 2-Dose Series (Moderna) 12/25/2020,11/27/2020 COVID-19, MRNA-LNP, PF, 30 M CG/0.3 mL, 12 YRS AND ABOVE, IM (PFIZER-Comirnaty) 07/09/2023 COVID-19, mRNA, LNP-s, PF, B ooster, 100mcg/0.5mg (Moderna) 01/02/2022,07/20/2021 Pneumococcal Conjugate Vacci ne, 20-valent ([id number]) 01/21/2023 Pneumococcal Polysaccharide PPV23 (Pneumovax) 02/14/2022 Season [...] Telephone Encounter - Ayaka Truong RN - 09/16/2024 10:34 AM ESTSigned Prescriptions: Disp Refills Morphine Sulfate ER 15 MG Oral Tablet Exte*60 Tab*0 Sig: Take 1Tablet by mouth in the morning and 1 Tablet before bedtime.Authorizing Provider: ARNAUD HERNANDEZ oxyCODONE HCl 10 MG Oral Tablet (Roxicodon*60 Tab*0 Sig: Take 1 Tablet by mouth every 8 hours as needed for Pain, Breakthrough.Authorizing Provider: ARNAUD HERNANDEZ * Telephone Encounter - Arnaud Hernandez MD - 09/16/2024 10:32 AM EST E-prescribed Arnaud Hernandez MD Hem/Onc * Telephone Encounter - Genna Swenson LPN - 09/16/2024 10:15 AM ESTPending Prescriptions: Disp Refills Morphine Sulfate ER 15 MG Oral Tablet Exte*60 Tab*0 Sig: Take 1 Tablet by mouth in the morning and 1 Tablet before bedtime. oxyCODONE HCl 10 MG Oral Tablet (Roxicodon*60 Tab*0 Sig: Take 1 Tablet by mouth every 8 hours as needed for Pain, Breakthrough. * Telephone Encounter - Genna Swenson LPN - 09/16/2024 9:57 AM EST Refill request for Morpine Sulfate ER 15 mg and Oxycodone hcl 10 mg pended below: Last Refill: MS ER 15 mg- 08/25/2024 Oxycodone 10 mg- 08/25/2024 PDMP: Oxycodone 10 mg: Last filled 08/29/2024, Qty: 60, 20-day supply, no issues Morphine sulfate 15 mg: Last filled 08/25/2024, Qty: 50, 25-day supply, no issues Last seen:08/25/2024 Overall she is not doing well, has increasing pain left upper chest left shoulder region, she takesoxycodone total 10 mg every 8 hourly. I would like to start long-acting opioid with MS Contin 15 mgevery 12 hourly and she will continue to use oxycodone for the breakthrough pain. Next Appt.: 10/06/2024 Requesting: Patient documented in this encounter Plan of Treatment Upcoming Encounters Date Type Department Care Team (Late st Contact Info) Description 10/06/2024 9:00 AM EST Office Visit Hematology/Oncology [facility] [place] [address] [phone] Arnaud Hernandez MD [address] [place] [address] 10/19/2024 12:40 PM EST Office Visit Pulmonary Medicine, [facility] [address] [facility] [place] [address] Gary Schreiber MD [address] [place] [address] Health Maintenance Due Date Last Done [...] unspecified documented in this encounter Care Teams Bridge Carpenter Relationship Specialty Start Date End Date Cony Hernandez MD [address] [place] [address] PCP - General Internal Medicine 07/01/16 documented as of this encounter
--- OUTSIDE RECORDS SUMMARY | 2024-11-20 04:53 | External Medical Summary | Summary of Care ---
Author Name Unknown Organization [facility] Address [address] [facility] [place] [address] Phone [phone] Care Team Providers Care Field Mechanic/Site Lead Name Role Phone Cony Hernandez MD Primary Care Provider + Reason for Referral * Ancillary Services (Within 3 days (urgent)) - Authorized Specialty Diagnoses / Procedures Referred By Controsy t Referred To Contact HOME CARE / Palliative Medicine Diagnoses NSCLC of left lung (HCC) Manny Hernandez MD [address] [place] [address] [address] Phone: tel: fax: Referral ID Status Reason Start Date Expiration Date Visits Requested Visits Authorized [id number] Authorized Ancillary Services Required 4 [phone] Question Answer Referral Priority Within 3 days (urgent) Where should this appointment be scheduled? [facility] Reason for Visit * Reason Onset Date Comments Advice 08/27/2024 Pain management/ end of life care Referral 08/27/2024 Hospice Encounter Details Date Type Department Care Team (Late st Contact Info) Description 08/27/2024 Telephone Hematology/Oncology [facility] [address] [place] [address] [phone] Manny Hernandez MD [address] [place] [address] [address] Advice (Pain management/end of life care);... Allergies Active Allergy Reactions Criticality Noted Date Comments Doxepin 08/29/2005 bad nightmares Propoxyphene Napsylate 09/10/1999 Makes pt "hostile & mean" Tetracyclines & Related 02/23/1998 hives documented as of this encounter (statuses as of 09/06/2024) Medications ARIPiprazole 10 MG Oral Tablet Take [...] daily . 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),Malignant neoplasm [...] 180 Tablet 3 09/24/19 24 Active Tiotropium [place] Monohydrate 18 MCG Inhalation Capsule (Spiriva HandiHaler)Indicat ions:COPD, group B, by GOLD 2017 classification ([facility]) Inhale 1 Capsule by mouth [...] as of this encounter (statuses as of 09/06/2024) Active Problems Problem Noted Date Diagnosed Date Bilateral carotid artery stenosis 02/05/2023 Food insecurity 12/02/2022 Overview: Per [facility] Protocol Bipolar affective disorder, currently depressed, mild 11/06/2022 Chronic respiratory failure with hypoxia 022 Lung consolidation 11/14/2021 NSCLC of left lung 11/14/2021 Atherosclerosis of [place] of left lower extremity with [...] as of this encounter (statuses as of 09/06/2024) Resolved Problems Problem Noted Date Diagnosed Date [...] as of this encounter (statuses as of 09/06/2024) Immunizations Name Administration Dates Next Due COVID-19 mRNA, LNP-s, No Pre serve, 2-Dose Series (Moderna) 12/25/2020,11/27/2020 COVID-19, MRNA-LNP, PF, 30 M CG/0.3 mL, 12 YRS AND ABOVE, IM (PFIZER-Comirnat) 07/09/2023 COVID-19, mRNA, LNP-s, PF, B ooster, 100mcg/0.5mg (Moderna) 01/02/2022,07/20/2021 Influenza, Whole Virus 06/24/1995,06/05/1993 Pneumococcal Conjugate Vacci ne, 20-valent ([id number]) 01/21/2023 Pneumococcal Polysaccharide PPV23 (Pneumovax) 02/14/2022,01/30/2005,10/01/1993 Season [...] as of this encounter Miscellaneous Notes * Addendum Note - uJma Acuña RN - 09/06/2024 10:48 AM ESTAddended [...] 10/06/2024 9:00 AM EST Office Visit Hematology/Oncology [facility] [address] [facility] [place] [address] Manny Hernandez MD [address] [facility] [place] [address] 10/19/2024 12:40 PM EST Office Visit Pulmonary Medicine, [facility] [address] [facility] [place] [address] Gary Schreiber MD [address] [facility] [phone] Scheduled Referrals Name Type Priority Associated Diagnoses [...] Primary documented in this encounter Care Teams Field Mechanic/Site Lead Relationship Specialty Start Date End Date Cony Hernandez MD [address] [place] [address] PCP - General Internal Medicine 07/01/16 documented as of this encounter
--- OUTSIDE RECORDS SUMMARY | 2024-11-20 04:54 | External Medical Summary | Summary of Care ---
Author Name Unknown Organization [facility] Address [address] [facility] [place] [address] Phone [phone] Care Team Providers Care Ceramic Maker Demonstrator Name Role Phone Cony Hernandez MD Primary Care Provider + Reason for Visit * Reason Onset Date Comments Medication Refill 07/08/2024 Encounter Details Date Type Department Care Team (Late st Contact Info) Description 07/08/2024 Refill General Internal Medicine [facility] [address] [facility] [place] [address] Cony Hernandez MD [address] [facility] [address] Allergies Active Allergy Reactions Criticality Noted Date Comments Doxepin 08/29/2005 bad nightmares Propoxyphene Napsylate 09/10/1999 Makes pt "hostile & mean" Tetracyclines & Related 02/23/1998 hives documented as of this encounter (statuses as of 09/02/2024) Medications ARIPiprazole 10 MG Oral Tablet Take [...] daily . 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 5 Tablet 06/03/20 24 Active oxyCODONE HCl 5 MG Oral Tablet (Oxy IR)Indications:NSC LC of left lung (HCC),Rib pain on left side Take 1 Tablet by mouth every 8 hours as needed for Pain, Breakthrough. 30 Tablet 06/16/20 24 024 Discontin ued(Refil l) documented as of this encounter (statuses as of 09/02/2024) Active Problems Problem Noted Date Diagnosed Date Bilateral carotid artery stenosis 02/05/2023 Food insecurity 12/02/2022 Overview: Per [facility] Protocol Bipolar affective disorder, currently depressed, mild 11/06/2022 Chronic respiratory failure with hypoxia 022 Lung consolidation 11/14/2021 NSCLC of left lung 11/14/2021 Atherosclerosis of [place] of left lower extremity with [...] as of this encounter (statuses as of 09/02/2024) Resolved Problems Problem Noted Date Diagnosed Date [...] as of this encounter (statuses as of 09/02/2024) Immunizations Name Administration Dates Next Due COVID-19 mRNA, LNP-s, No Pre serve, 2-Dose Series (Moderna) 12/25/2020,11/27/2020 COVID-19, MRNA-LNP, PF, 30 M CG/0.3 mL, 12 YRS AND ABOVE, IM ([facility]) 07/09/2023 COVID-19, mRNA, LNP-s, PF, B ooster, 100mcg/0.5mg (Moderna) 01/02/2022,07/20/2021 Pneumococcal Conjugate Vacci ne, 20-valent ([id number]) 01/21/2023 Pneumococcal Polysaccharide PPV23 (Pneumovax) 02/14/2022 Season [...] encounter Miscellaneous Notes * Telephone Encounter - Charlene Higuera CMA - 07/09/2024 10:25 AM EDTRefused Prescriptions: Disp Refills Alendronate Sodium 70 MG Oral Tablet (Fosa*5 Tabl*11 Sig: Take 1 Tablet by mouth once a week. with 8 oz. water 30 minutes before first meal of the day. Remain upright for 30 min after taking tablet. Refused By: CHARLENE HIGUERA Reason for Refusal: Too soon * Telephone Encounter - Jayleen Corbett OSA - 07/08/2024 6:41 AM EDT Did you pend patient's preferred pharmacy and medication before forwarding?yes Pharmacy: [id number] [address] [facility] Pending Prescriptions: Disp Refills Alendronate Sodium 70 MG Oral Tablet (Fos*5 Tabl*11 Sig: Take 1 Tablet by mouth once a week. with 8 oz. water 30 minutes before first meal of the day. Remain upright for 30 min after taking tablet. Last Visit: 04/15/2024 (in office), Visit date not found (telemedicine) Next Visit: Visit date not found If no future appointments scheduled, and last appointment is greater than a year ago, please schedule patient for a follow-up appointment Last date the medication was ordered: 06/03/2024 Is this request for a controlled substance?No Urine Drug Screen:No results found. However, due [...] 10/06/2024 9:00 AM EST Office Visit Hematology/Oncology [facility] 200 [facility] [place], [place] [address] Manny Hernandez MD [address] [facility] [place] [address] 10/19/2024 12:40 PM EST Office Visit Pulmonary Medicine, [facility] [address] [facility] [place] [address] Gary Schreiber MD [address] [place] [address] Health Maintenance Due Date Last Done Comments [...] filedocumented as of this encounter Care Teams Ceramic Maker Demonstrator Relationship Specialty Start Date End Date Cony Hernandez MD [address] [place] [address] PCP - General Internal Medicine 07/01/16 documented as of this encounter
--- OUTSIDE RECORDS SUMMARY | 2024-11-20 04:54 | External Medical Summary | Summary of Care ---
Author Name Unknown Organization [facility] Address [address] [facility] [place] [address] Phone [phone] Care Team Providers Care Estate Conservator Name Role Phone Cony Hernandez MD Primary Care Provider + Reason for Visit * Reason Onset Date Comments Advice 08/31/2024 Encounter Details Date Type Department Care Team (Late st Contact Info) Description 08/31/2024 Telephone Hematology/Oncology [facility] [place] [address] [place] [address] Manny Hernandez MD [address] [place] [address] Advice Allergies Active Allergy Reactions Criticality Noted Date Comments Doxepin 08/29/2005 bad nightmares Propoxyphene Napsylate 09/10/1999 Makes pt "hostile & mean" Tetracyclines & Related 02/23/1998 hives documented as of this encounter (statuses as of 08/31/2024) Medications ARIPiprazole 10 MG Oral Tablet Take [...] daily . 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 03/01/20 Active Probiotic Advanced Oral Capsule 2 Capsules daily. 03/01/20 Active Meclizine HCl 12.5 MG Oral Tablet (Antivert) TAKE 1 TABLET BY MOUTH IN THE MORNING AND IN THE EVENING 180 Tablet 3 09/21/20 Active Fludrocortisone Acetate 0.1 MG Oral Tablet (Florinef) Take 2 Tablets by mouth in the morning. 180 Tablet 3 09/24/19 24 Active Tiotropium [place] Monohydrate 18 MCG Inhalation Capsule (Spiriva HandiHaler)Indicat [...] as of this encounter (statuses as of 08/31/2024) Active Problems Problem Noted Date Diagnosed Date Bilateral carotid artery stenosis 02/05/2023 Food insecurity 12/02/2022 Overview: Per [facility] Protocol Bipolar affective disorder, currently depressed, mild 11/06/2022 Chronic respiratory failure with hypoxia 022 Lung consolidation 11/14/2021 NSCLC of left lung 11/14/2021 Atherosclerosis of [place]ul[place] of left lower extremity with [...] as of this encounter (statuses as of 08/31/2024) Resolved Problems Problem Noted Date Diagnosed Date [...] as of this encounter (statuses as of 08/31/2024) Immunizations Name Administration Dates Next Due COVID-19 mRNA, LNP-s, No Pre serve, 2-Dose Series (Moderna) 12/25/2020,11/27/2020 COVID-19, MRNA-LNP, PF, 30 M CG/0.3 mL, 12 YRS AND ABOVE, IM (Hunie-Comirnat) 07/09/2023 COVID-19, mRNA, LNP-s, PF, B ooster, 100mcg/0.5mg (Moderna) 01/02/2022,07/20/2021 Pneumococcal Conjugate Vacci ne, 20-valent ([id number]) 01/21/2023 Pneumococcal Polysaccharide PPV23 (Pneumovax) 02/14/2022 Season [...] encounter Miscellaneous Notes * Telephone Encounter - Denita Lucas MED ASSIST - 08/31/2024 11:31 AM EST Addressed in other encounter. * Telephone Encounter - Emma Austin OSA - 08/31/2024 9:47 AM EST Hello! i have the daughter of Page Carrasco on the phone asking to speak to a nurse dyllan. Stated her mom has terminal lung cancer and she noticed yesterday that her moms tongue and lip areall swelled up and it doesn't look good. Can someone call daughter at [phone]. She is also going to go on patients CardiOxt and upload pictures. documented in this encounter Plan of Treatment Upcoming Encounters Date Type Department Care Team (Late st Contact Info) Description 10/06/2024 9:00 AM EST Office Visit Hematology/Oncology [facility] [address] [facility] [place] [phone] Manny Hernandez MD 200 [facility] [place] [address] 10/19/2024 12:40 PM EST Office Visit Pulmonary Medicine, [facility] [address] [facility] [place] [address] Gary Schreiber MD [address] [place] [address] Health Maintenance Due Date Last Done Comments [...] filedocumented as of this encounter Care Teams Estate Conservator Relationship Specialty Start Date End Date Cony Hernandez MD [address] [place] [address] PCP - General Internal Medicine 07/01/16 documented as of this encounter
[2024-11-20 05:43] LABS: Basophils # (auto) 0.04 K/uL (0.00-0.20); Basophils % (auto) 0.5 %; Eosinophils # (auto) 0.87 K/uL (0.00-0.50); Eosinophils % (auto) 10.4 %; Hemoglobin 10.2 g/dl (12.0-16.0); Immature Granulocytes # (auto) 0.03 K/uL (0.01-0.20); Immature Granulocytes % (auto) 0.4 %; Lymphocytes % (auto) 7.2 %; Mean Corpuscular Hemoglobin 30.3 pg (25.0-34.0); Mean Corpuscular Hgb Conc 32.9 g/dL (32.0-36.0); Mean Platelet Volume 9.3 fL (9.4-12.4); Monocytes # (auto) 0.88 K/uL (0.11-0.59); Monocytes % (auto) 10.5 %; Neutrophils # (auto) 5.93 K/uL (1.40-6.50); Platelet Count 283 K/uL (130-400); RDW Coefficient of Variation 14.1 % (11.5-14.5); RDW Standard Deviation 47.8 fL (36.4-46.3); Red Blood Count 3.37 M/uL (4.20-5.40); White Blood Count 8.35 K/ul (4.8-10.8)
[2024-11-20] MEDS: LEVOTHYROXINE SODIUM 100 MCG TABLET PO SCH (05:53)
[2024-11-20 05:56] LABS: Calcium 8.4 mg/dl (8.6-10.3); Creatinine Clr Calc Pharmacy 47.1 ml/min; Magnesium 1.9 mg/dl (1.7-2.4); Potassium 4.6 mmol/L (3.5-5.1)
[2024-11-20] MEDS: oxyCODONE HCL IR 5 MG TAB (IMMEDIATE RELEASE) PO PRN (06:12)
--- NOTE | 2024-11-20 07:44 | Hospitalist Progress Note ---
Date of Service November 20, 2024 Assessment & Plan (1) Cancer-related breakthrough pain: Plan: Ms Carrasco is a 68-year-old female with past medical history significant for chronic respiratory failure with hypoxia on 2 L oxygen, COPD, hypercalcemia, hypothyroidism, prediabetes, non-small cell lung cancer of left lung, vocal cord paralysis, peripheral vascular disease, bilateral carotid stenosis, GERD, bipolar disorder, attention deficit disorder, comes because of severe pain in the chest and back in the setting of NSCLC with large metabolically active lesion in JUMA and bony metastatic disease. Patient is on home hospice. #Cancer-related breakthrough pain #Recurrent left lung non-small cell cancer with extensive mediastinal and left supraclavicular node involvement stage IIIb diagnosed in 07/2015 #S/p chemo and radiation last chemo was in April 2017, SBRT 2023 Recently increasing pain left upper chest wall and left upper back in the scapular region and imaging studies showed left first fifth rib destructive changes. Patient had again PET scan which showed large metabolically active left upper lobe mass measuring up to 5.1 cm with cystic changes and soaring. Fourth ribs and biopsy on 08/02/2024 shows, still cancer in 1 left upper lobe mass Completed SBRT to left upper lobe mass in July 2024. Heme-onc (was not a good candidate for systemic chemotherapy Will continue home oxycodone as needed IV Dilaudid as needed Consult pain management for further recommendations -pain management/palliative would not be available to see over weekend -Resumed home ER 30mg BID -Discussed case with colleague with experience in palliative medicine and concur with recommended pain regimen -start decadron 4mg in AM for bone pain -start pregablin 25 mg tid for neuropathic component of pain, uptitrate to effect -start dilaudid 4mg PO q3hrs prn for severe nociceptive pain -start dialudid 1 mg IV q3hrs prn for severe breakthrough pain -start lidocaine patch Will give 10mg decadron IV given ongoing acute pain #Hypothyroidism On Synthyroid #Depression and anxiety, bipolar disorder, attention deficit disorder On aripiprazole and bupropion and Lexapro Ativan as needed #History of peripheral vascular disease On aspirin #Chronic respiratory failure hypoxia on 2 L History of COPD Continue home inhalers #Left vocal cord paralysis #Dysphagia Speech consult #Hyponatremia Sodium 130 Will follow labs #Anemia Hemoglobin 10.1 Will follow stool for Hemoccult DVT prophylaxis Lovenox Disposition Medical floor CODE STATUS DNR/DNI Admission and Anticipated Discharge Date Admission Date: November 19, 2024 Subjective evaluated this am patient reports extreme pain around chest and into shoulder Notes that she did not receive any of her scheduled home medicines and is not experiencing any relief with IV dilaudid Physical Exam Constitutional: chronically ill appearing woman Respiratory: diminished 2/2 effort Cardiovascular: RRR, no murmur, no edema Musculoskeletal: tenderness to touch along ribs/left shoulder Results & Data Results & Data Vital Signs (Past 12 Hours) Vital Signs Temp Pulse Pulse Resp BP Pulse Ox O2 Del Method 11/19/24 22:45 Nasal Cannula 11/19/24 22:45 36.5 C 90 16 130/70 97 Nasal Cannula 11/19/24 22:45 36.5 C 90 16 130/70 97 Nasal Cannula 11/19/24 22:00 88 14 94 Nasal Cannula 11/19/24 20:56 84 20 116/61 95 Nasal Cannula O2 Flow Rate 11/19/24 22:45 2 11/19/24 22:45 11/19/24 22:45 2 11/19/24 22:00 2 11/19/24 20:56 2 Laboratory Results Short CBC 11/19/24 11/20/24 Range/Units 17:41 05:29 WBC 9.74 8.35 (4.8-10.8) K/ul Hgb 10.1 L 10.2 L (12.0-16.0) g/dl Hct 30.3 L 31.0 L (37.0-47.0) % Plt Count 292 283 (130-400) K/uL BMP 11/19/24 11/20/24 17:41 05:29 Sodium 130 L 130 L Potassium 4.3 4.6 Chloride 94 L 96 L Carbon Dioxide 31 32 BUN 17 16 Creatinine 0.84 1.07 Glucose 125 H 98 Calcium 8.7 8.4 L Liver Function 11/19/24 Range/Units 17:41 Total Bilirubin 0.3 (0.2-1.0) mg/dl AST 18 (13-39) U/L ALT 13 (7-52) U/L Alkaline Phosphatase 123 H (34-104) U/L Albumin 3.2 L (3.4-5.0) gm/dl Medications Administered Home Medications Medication Instructions Recorded Confirmed Last Taken bupropion HCl 150 mg 24 hr tablet, 150 mg PO QAM 05/14/19 11/19/24 02/24/23 extended release escitalopram oxalate 20 mg tablet 20 mg PO QAM 05/14/19 11/19/24 02/24/23 fludrocortisone 0.1 mg tablet 0.2 mg PO DAILY 05/14/19 11/19/24 02/24/23 levothyroxine 100 mcg tablet 100 mcg PO DAILYBB 05/14/19 11/19/24 02/24/23 albuterol sulfate 90 mcg/actuation 2 puff inhalation Q4 PRN Wheezing 07/01/19 11/19/24 07/21/19 05:00 aerosol inhaler (ProAir HFA) cyanocobalamin (vitamin B-12) 1,000 mcg PO Q OTHER DAY 07/01/19 11/19/24 02/23/23 1,000 mcg tablet (Vitamin B-12) zinc gluconate 50 mg tablet 50 mg PO QAM 07/01/19 11/19/24 02/24/23 aripiprazole 10 mg tablet 10 mg PO HS 11/01/22 11/19/24 02/23/23 aspirin 81 mg tablet,delayed 81 mg PO QPM 11/01/22 11/19/24 02/23/23 release cholecalciferol (vitamin D3) 25 25 mcg PO BID 11/01/22 11/19/24 02/24/23 08:00 mcg (1,000 unit) tablet (Vitamin D3) folic acid 800 mcg tablet 0.8 mg PO DAILY 11/01/22 11/19/24 02/24/23 ascorbic acid (vitamin C) 1,000 mg 1 g PO DAILY 02/24/23 11/19/24 02/24/23 tablet (Vitamin C) lorazepam 0.5 mg tablet 0.5 mg PO DAILY Anxiety 02/24/23 11/19/24 Unknown meclizine 12.5 mg tablet 12.5 mg PO BID 02/24/23 11/19/24 02/24/23 08:00 potassium chloride 20 mEq 20 meq PO DAILY 02/24/23 11/19/24 02/24/23 tablet,extended release(part/cryst) (Klor-Con M) ibuprofen 200 mg tablet (Advil) 400 mg PO Q6H PRN Pain 12/04/23 11/19/24 Unknown calcium carbonate 600 mg PO DAILY 06/15/24 11/19/24 Unknown fluticasone 250 mcg-salmeterol 50 1 inh inhalation BID 07/21/24 11/19/24 Unknown mcg/dose blistr powdr for inhalation (Wixela Inhub) oxycodone 5 mg tablet 10 mg PO Q8H PRN Pain 07/21/24 11/19/24 Unknown morphine 15 mg tablet,extended 30 mg PO BID PRN Pain 11/19/24 11/19/24 Unknown release Active Medications Generic Name Dose Route Start Last Admin Trade Name Freq PRN Reason Stop Dose Admin Hydromorphone HCl 0.5 mg 11/19/24 22:45 11/20/24 05:50 Hydromorphone Inj 0.5 Mg/0.5 Ml Syr IV 12/03/24 22:44 0.5 mg Q3H PRN Administration Mod-Sev Pain (Scale 4-10) Levothyroxine Sodium 100 mcg 11/20/24 06:30 11/20/24 05:53 Levothyroxine Sodium 100 Mcg Tablet PO 12/20/24 06:29 100 mcg DAILYBB MARIAH Administration Oxycodone HCl 10 mg 11/19/24 22:45 11/20/24 06:12 Oxycodone Hcl Ir 5 Mg Tab (Immediate Release) PO 12/03/24 22:44 10 mg Q8H PRN Administration Severe Pain (Scale 7, 8, 9,10)
[2024-11-20] MEDS: CALCIUM CARBONATE 1250MG TAB PO SCH (09:45)
[2024-11-20] MEDS: buPROPion XL 150 MG TABCR PO SCH (09:45)
[2024-11-20] MEDS: CHOLECALCIFEROL 25 MCG (1000 UNITS) TAB PO SCH (09:45)
[2024-11-20] MEDS: ASCORBIC ACID 500 MG TAB PO SCH (09:45)
[2024-11-20] MEDS: ESCITALOPRAM OXALATE 20 MG TAB PO SCH (09:46)
[2024-11-20] MEDS: FOLIC ACID 400 MCG TAB PO SCH (09:46)
[2024-11-20] MEDS: FLUDROCORTISONE ACETATE 0.1 MG TAB PO SCH (09:46)
[2024-11-20] MEDS: LORazepam 0.5 MG TAB PO SCH (09:46)
[2024-11-20] MEDS: FLUTICASONE/VILANTEROL 200/25MCG 14 PUFFS/INHALER INH SCH (09:46)
[2024-11-20] MEDS: ZINC SULFATE 220 MG CAPSULE PO SCH (09:46)
[2024-11-20] MEDS: POTASSIUM CHLORIDE CRTAB 20 MEQ TABCR PO SCH (09:46)
[2024-11-20] MEDS: MECLIZINE 12.5 MG TAB PO SCH (09:46)
[2024-11-20] MEDS: ENOXAPARIN INJ 40 MG/0.4 ML SYR SQ SCH (09:47)
[2024-11-20] MEDS ORDERED: NALOXONE HCL 0.4 MG/1 ML VIAL/CARP IV PRN (10:40)
[2024-11-20] MEDS: HYDROmorphone INJ 1 MG/ML SYRINGE IV STA (10:48)
[2024-11-20] MEDS: DICLOFENAC SOD 1% GEL 100 GM TUBE EXT SCH (11:43)
[2024-11-20] MEDS: MoRPHine SULFATE CR 15 MG TABCR PO SCH (11:44)
[2024-11-20] MEDS: HYDROmorphone INJ 0.5 MG/0.5 ML SYR IV PRN (13:02)
--- NOTE | 2024-11-20 14:35 | Communication Note ---
Patient seen and examined at bedside. Patient is not doing well today. She states she is in a significant amount of pain. Patient is on hospice from non- small cell lung cancer, status postchemotherapy and radiation, last chemotherapy or radiation dose 1 year ago. Patient has a ECOG of 4 at this time. Patient is writhing up and down in in bed in pain. When when asked whether IV Dilaudid at 1 mg is effective for her, she says it is. She says it lasts about an hour. She states the oral oxycodone does not work. she does like the long-acting pain medication she is currently on. When asked to describe the pain she states is a sharp pain in her left upper back. She states the pain radiates from the long into the back. She also states she has a significant amount of pain on her rib cage the anterior lateral part on the left side. This pain correlates with tumor burden in the left upper lobe is likely having a compressive feature on the nerve. Patient also has rib fractures, from metastatic disease. Gen: A&O 3 NAD HEENT: NCAT, EOMI, not icteric. External ears normal. No rhinorrhea. Moist mucous membranes. Neck: Supple, full range of motion, no observable masses, No meningeal sign. Lungs: No Respiratory distress. CV: RRR, no edema. Abdomen: Soft, nondistended, No rebound tenderness. MSK: tenderness to palpation in left upper back, also left rib cage Skin: No rashes, petechiae, lesions. Normal color per patient. Neuro: Normal Gait, Grossly intact. Psych: Appropriate for situation. #Comfort Care #Acute Neuropathic Pain #Acute Nociceptive Pain #Bone Pain -patient has metastatic disease in ribs, and JUMA mass -pain correlates with these regions -shooting pain is neuropathic in nature -sharp pain is nociceptive and likely from bone and muscle pain -of note on florinef for blood pressure -of note patient does seem to have some mild myoclonus, likely 2/2 significant opioid burden, however patient asymptomatic from these and patient would rather have good pain control Plan: -stop florinef, start decadron 4mg in AM for bone pain -stop PO oxycodone -continue MS contin 30 bid -start pregablin 25 mg tid for neuropathic component of pain, uptitrate to effect -start dilaudid 4mg PO q3hrs prn for severe nociceptive pain -start dialudid 1 mg IV q3hrs prn for severe breakthrough pain -start lidocaine patch -stop vitamins to decrease pill burden -if myoclonus worsens, will consider rotation of MS contin to methadone -if acute pain worsens, can consider increasing dilaudid to 1.5mg IV and 6mg PO Date of Service: November 20, 2024
[2024-11-20] MEDS: LIDOCAINE 5% 1 PATCH TD SCH (15:14)
[2024-11-20] MEDS: HYDROmorphone HCL 4 MG TAB PO PRN (15:14)
[2024-11-20] MEDS: HYDROmorphone INJ 1 MG/ML SYRINGE IV PRN (16:29)
[2024-11-20] MEDS ORDERED: LORazepam 2 MG/1 ML VIAL IV PRN (17:21)
[2024-11-20] MEDS ORDERED: dexAMETHasone**PF** 10 MG/ML VIAL IV ONE (17:21)
[2024-11-20] MEDS: PREGABALIN 25 MG CAP PO SCH (17:57)
[2024-11-20] MEDS: dexAMETHasone 10 MG in SYRINGE 0 ML IV ONE (17:57)
[2024-11-20] MEDS: ARIPiprazole 10 MG TAB PO SCH (19:47)
[2024-11-20] MEDS: ASPIRIN 81 MG ECTAB PO SCH (19:47)
[2024-11-20] MEDS ORDERED: PREGABALIN 25 MG CAP PO SCH (21:00)
[2024-11-21] MEDS ORDERED: HYDROmorphone HCL 2 MG TAB PO PRN (07:27)
[2024-11-21] MEDS: CYANOCOBALAMIN (B-12) 500 MCG TABLET PO SCH (07:46)
--- NOTE | 2024-11-21 07:51 | Hospitalist Progress Note ---
Date of Service November 21, 2024 Assessment & Plan (1) Cancer-related breakthrough pain: Plan: Ms Carrasco is a 68-year-old female with past medical history significant for chronic respiratory failure with hypoxia on 2 L oxygen, COPD, hypercalcemia, hypothyroidism, prediabetes, non-small cell lung cancer of left lung, vocal cord paralysis, peripheral vascular disease, bilateral carotid stenosis, GERD, bipolar disorder, attention deficit disorder, comes because of severe pain in the chest and back in the setting of NSCLC with large metabolically active lesion in JUMA and bony metastatic disease. Patient is on home hospice. Patient doing better with current regimen. Plan to encourage mobility and assess prn effectiveness to ensure efficacious pain plan for discharge home #Cancer-related breakthrough pain #Recurrent left lung non-small cell cancer with extensive mediastinal and left supraclavicular node involvement stage IIIb diagnosed in 07/2015 #S/p chemo and radiation last chemo was in April 2017, SBRT 2023 Recently increasing pain left upper chest wall and left upper back in the scapular region and imaging studies showed left first fifth rib destructive changes. Patient had again PET scan which showed large metabolically active left upper lobe mass measuring up to 5.1 cm with cystic changes and soaring. Fourth ribs and biopsy on 08/02/2024 shows, still cancer in 1 left upper lobe mass Completed SBRT to left upper lobe mass in July 2024. Heme-onc (was not a good candidate for systemic chemotherapy Will continue home oxycodone as needed IV Dilaudid as needed Consult pain management for further recommendations -pain management/palliative would not be available to see over weekend -continue home MS ER 30mg BID -Discussed case with colleague with experience in palliative medicine and concur with recommended pain regimen -continue decadron 4mg in AM for bone pain -continue pregablin 25 mg tid for neuropathic component of pain, uptitrate to effect -continue dilaudid 4mg PO q3hrs prn for severe nociceptive pain -continue dialudid 1 mg IV q3hrs prn for severe breakthrough pain -start lidocaine patchs/p IV decadron with good effect #Hypothyroidism On Synthyroid #Depression and anxiety, bipolar disorder, attention deficit disorder On aripiprazole and bupropion and Lexapro Ativan as needed #History of peripheral vascular disease On aspirin #Chronic respiratory failure hypoxia on 2 L History of COPD Continue home inhalers #Left vocal cord paralysis #Dysphagia Speech consult: diet for comfort #Hyponatremia Sodium 130 #Anemia Hemoglobin 10.1 DVT prophylaxis Lovenox Disposition Medical floor dispo likely tomorrow CODE STATUS DNR/DNI Admission and Anticipated Discharge Date Admission Date: November 19, 2024 Subjective pain much improved this am Reports that she likes the topical agents that are being applied denies any new symptoms at this time Physical Exam Constitutional: WD/WN, vitals as above Respiratory: normal respiratory effort, lungs clear to auscultation Cardiovascular: RRR, no murmur, no edema Musculoskeletal: limited ROM LUE 2/2 pain, otherwise moving all extremities appropriately Results & Data Results & Data Vital Signs (Past 12 Hours) Vital Signs Temp Pulse Resp BP Pulse Ox O2 Del Method O2 Flow Rate 11/20/24 19:53 36.6 C 97 H 18 121/62 96 Nasal Cannula 2 Medications Administered Home Medications Medication Instructions Recorded Confirmed Last Taken bupropion HCl 150 mg 24 hr tablet, 150 mg PO QAM 05/14/19 11/19/24 02/24/23 extended release escitalopram oxalate 20 mg tablet 20 mg PO QAM 05/14/19 11/19/24 02/24/23 fludrocortisone 0.1 mg tablet 0.2 mg PO DAILY 05/14/19 11/19/24 02/24/23 levothyroxine 100 mcg tablet 100 mcg PO DAILYBB 05/14/19 11/19/24 02/24/23 albuterol sulfate 90 mcg/actuation 2 puff inhalation Q4 PRN Wheezing 07/01/19 11/19/24 07/21/19 05:00 aerosol inhaler (ProAir HFA) cyanocobalamin (vitamin B-12) 1,000 mcg PO Q OTHER DAY 07/01/19 11/19/24 02/23/23 1,000 mcg tablet (Vitamin B-12) zinc gluconate 50 mg tablet 50 mg PO QAM 07/01/19 11/19/24 02/24/23 aripiprazole 10 mg tablet 10 mg PO HS 11/01/22 11/19/24 02/23/23 aspirin 81 mg tablet,delayed 81 mg PO QPM 11/01/22 11/19/24 02/23/23 release cholecalciferol (vitamin D3) 25 25 mcg PO BID 11/01/22 11/19/24 02/24/23 08:00 mcg (1,000 unit) tablet (Vitamin D3) folic acid 800 mcg tablet 0.8 mg PO DAILY 11/01/22 11/19/24 02/24/23 ascorbic acid (vitamin C) 1,000 mg 1 g PO DAILY 02/24/23 11/19/24 02/24/23 tablet (Vitamin C) lorazepam 0.5 mg tablet 0.5 mg PO DAILY Anxiety 02/24/23 11/19/24 Unknown meclizine 12.5 mg tablet 12.5 mg PO BID 02/24/23 11/19/24 02/24/23 08:00 potassium chloride 20 mEq 20 meq PO DAILY 02/24/23 11/19/24 02/24/23 tablet,extended release(part/cryst) (Klor-Con M) ibuprofen 200 mg tablet (Advil) 400 mg PO Q6H PRN Pain 12/04/23 11/19/24 Unknown calcium carbonate 600 mg PO DAILY 06/15/24 11/19/24 Unknown fluticasone 250 mcg-salmeterol 50 1 inh inhalation BID 07/21/24 11/19/24 Unknown mcg/dose blistr powdr for inhalation (Wixela Inhub) oxycodone 5 mg tablet 10 mg PO Q8H PRN Pain 07/21/24 11/19/24 Unknown morphine 15 mg tablet,extended 30 mg PO BID PRN Pain 11/19/24 11/19/24 Unknown release Active Medications Generic Name Dose Route Start Last Admin Trade Name Freq PRN Reason Stop Dose Admin Aripiprazole 10 mg 11/20/24 21:00 11/20/24 19:47 Aripiprazole 10 Mg Tab PO 12/20/24 20:59 10 mg HS MARIAH Administration Aspirin 81 mg 11/20/24 21:00 11/20/24 19:47 Aspirin 81 Mg Ectab PO 12/20/24 20:59 81 mg QPM MARIAH Administration Bupropion HCl 150 mg 11/20/24 09:00 11/20/24 09:45 Bupropion Xl 150 Mg Tabcr PO 12/20/24 08:59 150 mg QAM MARIAH Administration Calcium Carbonate 1 tab 11/20/24 09:00 11/20/24 09:45 Calcium Carbonate 1250mg Tab PO 12/20/24 08:59 1 tab DAILY MARIAH Administration Diclofenac Sodium 4 gm 11/20/24 10:45 11/21/24 05:08 Diclofenac Sod 1% Gel 100 Gm Tube EXT 12/20/24 10:44 4 gm Q8H MARIAH Administration Protocol Enoxaparin Sodium 40 mg 11/20/24 09:00 11/20/24 09:47 Enoxaparin Inj 40 Mg/0.4 Ml Syr SQ 12/20/24 08:59 40 mg Q24H MARIAH Administration Escitalopram Oxalate 20 mg 11/20/24 09:00 11/20/24 09:46 Escitalopram Oxalate 20 Mg Tab PO 12/20/24 08:59 20 mg QAM MARIAH Administration Fluticasone/Vilanterol 1 puffs 11/20/24 09:00 11/20/24 09:46 Fluticasone/Vilanterol 200/25mcg 14 Puffs/Inhaler INH 12/20/24 08:59 1 puffs DAILY MARIAH Administration Folic Acid 800 mcg 11/20/24 09:00 11/20/24 09:46 Folic Acid 400 Mcg Tab PO 12/20/24 08:59 800 mcg DAILY MARIAH Administration Hydromorphone HCl 1 mg 11/20/24 14:26 11/20/24 16:29 Hydromorphone Inj 1 Mg/Ml Syringe IV 12/04/24 14:25 1 mg Q6H PRN Administration Breakthrough Pain Levothyroxine Sodium 100 mcg 11/20/24 06:30 11/21/24 06:24 Levothyroxine Sodium 100 Mcg Tablet PO 12/20/24 06:29 100 mcg DAILYBB MARIAH Administration Lidocaine 1 patch 11/20/24 14:30 11/20/24 15:14 Lidocaine 5% 1 Patch TD 12/20/24 14:29 1 patch QAM MARIAH Administration Lorazepam 0.5 mg 11/20/24 09:00 11/20/24 09:46 Lorazepam 0.5 Mg Tab PO 12/20/24 08:59 0.5 mg DAILY MARIAH Administration Meclizine HCl 12.5 mg 11/20/24 09:00 11/20/24 19:47 Meclizine 12.5 Mg Tab PO 12/20/24 08:59 12.5 mg BID MARIAH Administration Miscellaneous 1 each 11/20/24 23:00 11/20/24 23:01 Remove Lidoderm Patch N/A 12/20/24 22:59 1 each DAILY@2100 MARIAH Administration Morphine Sulfate 30 mg 11/20/24 11:00 11/20/24 23:01 Morphine Sulfate Cr 15 Mg Tabcr PO 12/04/24 10:59 30 mg Q12H MARIAH Administration Potassium Chloride 20 meq 11/20/24 09:00 11/20/24 09:46 Potassium Chloride Crtab 20 Meq Tabcr PO 12/20/24 08:59 20 meq DAILY MARIAH Administration Pregabalin 25 mg 11/20/24 17:30 11/20/24 19:46 Pregabalin 25 Mg Cap PO 12/20/24 17:29 25 mg TID MARIAH Administration Vitamin D 25 mcg 11/20/24 09:00 11/20/24 19:47 Cholecalciferol 25 Mcg (1000 Units) Tab PO 12/20/24 08:59 25 mcg BID MARIAH Administration
[2024-11-21] MEDS: dexAMETHasone 4 MG TAB PO SCH (07:58)
[2024-11-21] MEDS: DOCUSATE SODIUM 100 MG CAP PO SCH (09:41)
[2024-11-21] MEDS: POLYETHYLENE (MIRALAX) 17 GM PACK PO SCH (09:41)
--- NOTE | 2024-11-21 10:36 | Communication Note ---
Patient seen and examined at bedside. Ms. Carrasco is much improved from prior, she really likes the patch and cream on her left shoulder. She states the 4mg PO dilaudid helps but quite enough. Feels her shooting pain is improved as well. Gen: A&O 3 NAD, cachexia noted HEENT: NCAT, EOMI, not icteric. External ears normal. No rhinorrhea. Moist mucous membranes. Neck: Supple, full range of motion, no observable masses, No meningeal sign. Lungs: No Respiratory distress. CV: RRR, no edema. Abdomen: Soft, nondistended, No rebound tenderness. MSK: No joint swelling, no redness. IMproved tenderness of left shoulder Skin: No rashes, petechiae, lesions. Normal color per patient. Neuro: Normal Gait, Grossly intact. Psych: Appropriate for situation. #Comfort Care #Acute Neuropathic Pain #Acute Nociceptive Pain #Bone Pain -patient has metastatic disease in ribs, and JUMA mass -pain correlates with these regions -shooting pain is neuropathic in nature -sharp pain is nociceptive and likely from bone and muscle pain -myoclonus improved from yesterday, likely 2/2 oxycodone -patient symptoms much improved from prior Plan: -continue decadron 4mg in AM for bone pain -continue MS contin 30 bid -increase pregablin to 50 mg tid for neuropathic component of pain -incrase dilaudid to 6mg PO q3hrs prn for severe nociceptive pain based on use yesterday IV+PO -continue dialudid 1 mg IV q3hrs prn for severe breakthrough pain, hoping this will decrease with increased PO dosing -continue lidocaine patch -if pain worsens at home or before discharge, can consider rotation of MS contin to methadone 2.5 mg tid Date of Service: November 21, 2024
[2024-11-21] MEDS: PREGABALIN 50 MG CAP PO SCH (14:00)
[2024-11-21] MEDS: MELATONIN 3 MG TAB PO PRN (20:54)
[2024-11-22 08:13] VITALS: RESP 14
--- NOTE | 2024-11-22 10:42 | Discharge Summary ---
Discharge Summary Date of Service November 22, 2024 Principal Dx & Hospital Course #1 = Principal Diagnosis (1) Cancer-related breakthrough pain: Ms Carrasco is a 68-year-old female with past medical history significant for chronic respiratory failure with hypoxia on 2 L oxygen, COPD, hypercalcemia, hypothyroidism, prediabetes, non-small cell lung cancer of left lung, vocal cord paralysis, peripheral vascular disease, bilateral carotid stenosis, GERD, bipolar disorder, attention deficit disorder, comes because of severe pain in the chest and back in the setting of NSCLC with large metabolically active lesion in JUMA and bony metastatic disease. Patient is on home hospice. Patient was able to be transitioned of IV Prn and on a stable pain regimen.Patient stable for discharge back on home hospice. #Cancer-related breakthrough pain #Recurrent left lung non-small cell cancer with extensive mediastinal and left supraclavicular node involvement stage IIIb diagnosed in 07/2015 #S/p chemo and radiation last chemo was in April 2017, SBRT 2023 Recently increasing pain left upper chest wall and left upper back in the scapular region and imaging studies showed left first fifth rib destructive changes. Patient had again PET scan which showed large metabolically active left upper lobe mass measuring up to 5.1 cm with cystic changes and soaring. Fourth ribs and biopsy on 08/02/2024 shows, still cancer in 1 left upper lobe mass Completed SBRT to left upper lobe mass in July 2024. Heme-onc (was not a good candidate for systemic chemotherapy Will continue home oxycodone as needed IV Dilaudid as needed Consult pain management for further recommendations -pain management/palliative would not be available to see over weekend -continue home MS ER 30mg BID -Discussed case with colleague with experience in palliative medicine and concur with recommended pain regimen -continue decadron 4mg in AM for bone pain -continue pregablin 50 mg tid for neuropathic component of pain -start lidocaine patchs/p IV decadron with good effect #Hypothyroidism On Synthyroid #Depression and anxiety, bipolar disorder, attention deficit disorder On aripiprazole and bupropion and Lexapro Ativan as needed #History of peripheral vascular disease On aspirin #Chronic respiratory failure hypoxia on 2 L History of COPD Continue home inhalers #Left vocal cord paralysis #Dysphagia Speech consult: diet for comfort #Hyponatremia Sodium 130 #Anemia Hemoglobin 10.1 Notes For Next Care Provider Medication Changes From Visit Started dexamethsone 4 mg daily Hold florinef while on dexamethsone Started on lyrica 50mg tid lidocaine patches volatren gel to left should q8h Admission HPI Per Admitting Provider 68-year-old female with past medical history significant for chronic respiratory failure with hypoxia on 2 L oxygen, COPD, hypercalcemia, hypothyroidism, prediabetes, non-small cell lung cancer of left lung, vocal cord paralysis, peripheral vascular disease, bilateral carotid stenosis, GERD, bipolar disorder, attention deficit disorder, comes because of severe pain in the chest and back. Patient is on home hospice. Currently not on any chemo as per patient. Patient lives with her grandson. Sister and [id number] in the room. Not much ambulating as per sister. Appetite is poor. Patient says has difficulty swallowing. Pain is in the posterior chest and the back. She is on pain meds but pain is not getting controlled. Has cough and bringing up phlegm. No fevers. Has runny nose sometimes. No abdominal pain. Constipated. No blood in stools or black stools. Micturating okay. Hemodynamics are okay. Past medical history. As mentioned above Past surgical history. Right biopsy of breast. Bronchoscopy. Colonoscopy. IR biopsy. Laparoscopic cholecystectomy. Injection of lumbosacral spine. Repair of right wrist. Tonsillectomy.. Cervical lymph node injection. Total abdominal hysterectomy. Social history. Quit smoking 2020. Smoked 2 packs a day for 50 years. No alcohol use. Smokes marijuana once a week as per [place]. Family history. Father had COPD. Mother had heart disorder. Sister has psoriasis. Maternal grandfather had lung cancer. Thyroid disorder. Admission Exam Per Admitting Provider General- Not in distress Head- atraumatic Eyes- PERRL. ENT- oropharynx clear Neck- supple, no JVD. Lungs- clear to auscultation no wheezing or crackles. Heart- regular rhythm; no murmur, no gallop. Abdomen- normal bowel sounds, soft, nontender, no distension Extremities- trace pretibial edema, no erythema seen Neuro- alert, oriented PERRL, no facial palsy; no dysarthria; moves extremities. Discharge Exam Constitutional WD/WN, vitals as above (much more comfortable no distress) Respiratory normal respiratory effort, lungs clear to auscultation Cardiovascular RRR, no murmur, no edema Musculoskeletal no cyanosis or clubbing, extremities motor strength 5/5 Updated Medication List Medication Instructions Recorded Confirmed Type bupropion HCl 150 mg 24 hr tablet, 150 mg PO QAM 05/14/19 11/19/24 History extended release escitalopram oxalate 20 mg tablet 20 mg PO QAM 05/14/19 11/19/24 History fludrocortisone 0.1 mg tablet 0.2 mg PO DAILY 05/14/19 11/19/24 History levothyroxine 100 mcg tablet 100 mcg PO DAILYBB 05/14/19 11/19/24 History albuterol sulfate 90 mcg/actuation 2 puff inhalation Q4 PRN Wheezing 07/01/19 11/19/24 History aerosol inhaler (ProAir HFA) cyanocobalamin (vitamin B-12) 1,000 mcg PO Q OTHER DAY 07/01/19 11/19/24 History 1,000 mcg tablet (Vitamin B-12) zinc gluconate 50 mg tablet 50 mg PO QAM 07/01/19 11/19/24 History aripiprazole 10 mg tablet 10 mg PO HS 11/01/22 11/19/24 History aspirin 81 mg tablet,delayed 81 mg PO QPM 11/01/22 11/19/24 History release cholecalciferol (vitamin D3) 25 25 mcg PO BID 11/01/22 11/19/24 History mcg (1,000 unit) tablet (Vitamin D3) folic acid 800 mcg tablet 0.8 mg PO DAILY 11/01/22 11/19/24 History ascorbic acid (vitamin C) 1,000 mg 1 g PO DAILY 02/24/23 11/19/24 History tablet (Vitamin C) lorazepam 0.5 mg tablet 0.5 mg PO DAILY Anxiety 02/24/23 11/19/24 History meclizine 12.5 mg tablet 12.5 mg PO BID 02/24/23 11/19/24 History potassium chloride 20 mEq 20 meq PO DAILY 02/24/23 11/19/24 History tablet,extended release(part/cryst) (Klor-Con M) ibuprofen 200 mg tablet (Advil) 400 mg PO Q6H PRN Pain 12/04/23 11/19/24 History calcium carbonate 600 mg PO DAILY 06/15/24 11/19/24 History fluticasone 250 mcg-salmeterol 50 1 inh inhalation BID 07/21/24 11/19/24 History mcg/dose blistr powdr for inhalation (Wixela Inhub) oxycodone 5 mg tablet 10 mg PO Q8H PRN Pain 07/21/24 11/19/24 History morphine 15 mg tablet,extended 30 mg PO BID PRN Pain 11/19/24 11/19/24 History release dexamethasone 4 mg tablet 4 mg PO QD@08 30 days #30 tabs 11/22/24 Rx diclofenac sodium 1 % topical gel 4 g EXT Q8H #100 grams 11/22/24 Rx (Voltaren Arthritis Pain) docusate sodium 100 mg capsule 100 mg PO BID 30 days #60 caps 11/22/24 Rx lidocaine 5 % topical patch 1 patch transdermal QAM #30 ea 11/22/24 Rx pregabalin 50 mg capsule (Lyrica) 50 mg PO TID 30 days #90 caps 11/22/24 Rx Hospital Stay Data Pending Results Patient Have Any Pending Studies at Discharge: No Discharge Instructions Given to Patient (Per Discharging Provider) You were admitted for pain crisis given progress cancer. You were started on dexamethsone 4mg Please hold your florinef while on the dexamethasone. You were also started on Lyrica three times a day Please continue your other pain regimen as prescribed by Hospice Total Time Total Time Spent Total Time Spent (In Minutes): 45
[2024-11-22 11:58] VITALS: BP 110/68; PULSE 65; TEMP 97.9; O2SAT 98
--- NOTE | 2024-11-22 13:28 | Electrocardiogram Report ---
Test Reason : Blood Pressure : */* mmHG Vent. Rate : 77 BPM Atrial Rate : 77 BPM P-R Int : 174 ms QRS Dur : 84 ms QT Int : 418 ms P-R-T Axes : 84 85 100 degrees QTcB Int : 473 ms Normal sinus rhythm Nonspecific ST abnormality Abnormal ECG When compared with ECG of 21-May-2024 14:15, Vent. rate has decreased by 40 bpm Confirmed by Carlos Brizuela ([id number]) on 11/22/2024 1:28:01 PM Referred By: REFERRED SELF Confirmed By: Carlos Brizuela
== END 2024-11-22 13:11 | disposition hospice, home (50) | DRG 948 ==
LOC: ED 17:32 → 3E 21:06

== ENCOUNTER 2025-05-07 12:40 | Observation (INO) ==
[2025-05-07] MEDS: SODIUM CHLORIDE 0.9% 1,000 ML IV STA (12:58)
[2025-05-07] MEDS: MoRPHine SULFATE 4 MG/ML 1 ML CARP\\VIAL IV STA (12:59)
[2025-05-07] MEDS: ONDANSETRON INJ 2 MG/ML 2 ML VIAL IV STA (12:59)
--- NOTE | 2025-05-07 12:59 | Emergency Department Note ---
Impression & Plan Lower abdominal pain, Lung cancer, Constipation, Anemia, Rectal bleeding, Hospice care patient ED Provider Note NAME: SCARLET GASPAR AGE: 69 SEX: F : 1955 ARRIVES VIA: Ambulance INFORMANT: [Patient][ems, nursing] ED PROVIDER(S): [Jan Merida MD] CHIEF COMPLAINT: Rectal bleeding, abdominal pain HISTORY OF PRESENT ILLNESS: The patient is a 69-year-old female who has terminal lung cancer. She is on 5 L of oxygen at all times. She is part of the hospice program. She had a few days of darker, bloody stools and some lower abdominal/rectal pain. She was sent today by the hospice team for evaluation. The patient has not had a fever. She did receive Dilaudid and morphine prior to arrival. She received 300 cc of saline prior to arrival. PMHx/PSHx/Social Hx: See Below PHYSICAL EXAM: GENERAL: Patient is in no acute distress. HEENT: No acute trauma, normocephalic atraumatic, mucous membranes moist, no nasal congestion. NECK: No stridor, no adenopathy, no meningismus, trachea is midline. LUNGS: Wet cough noted. Diminished breath sounds on the left. No wheezing or respiratory distress. HEART: Without murmurs gallops or rubs, regular rate and rhythm. ABDOMEN: Soft, tender in the lower abdomen bilaterally, no distention. EXTREMITIES: No cyanosis, full range of motion of all the joints without pain or difficulty. NEUROLOGIC: Oriented x 3, no acute motor or sensory deficits, no focal weakness. SKIN: No jaundice, no diaphoresis. Somewhat pale. Rectal: Hard stool, no obvious rectal bleeding. Stool brown in color. DIFFERENTIAL DIAGNOSIS: Hemorrhoids, diverticular bleeding, anal tear, anemia, dehydration, constipation, among others. EMERGENCY DEPARTMENT PROCEDURES: MEDICAL DECISION MAKING: There is no leukocytosis. The patient is anemic with a hemoglobin of 8. She carries a history of anemia but today's value is below her typical baseline. There was a normal platelet count. No concerning coagulopathy. No renal failure or significant electrolyte abnormality. No concerning liver enzyme elevation. No evidence for pancreatitis. Chest x-ray shows findings of her lung cancer, no focal infiltrate. Abdominal and pelvis CT shows significant constipation, no bowel obstruction. No acute surgical pathology. On exam, the patient did not have any active rectal bleeding, she had very hard stool in the rectal vault. The patient received IV saline for hydration, 1 L. She was given IV Zofran and IV morphine for pain and nausea control. I did speak with the patient and her caregivers. At this point, her constipation, her pain, her bleeding has become unmanageable at home even through the hospice team. The patient will be hospitalized for a bowel regimen and help with her constipation. I suspect the rectal bleeding is from rectal/anal irritation from the constipation itself. If her hemoglobin drops below 7, she may qualify for a packed red blood cell transfusion. I did speak with case management, the on-call hospitalist was consulted. Patient does seem improved since being medicated and receiving her IV fluids. Prior/Outside records/notes reviewed: Today's EMS notes describing her presentation and transport to this hospital. ECG per my interpretation: Indication was abdominal pain and rectal bleeding. The ECG shows a normal sinus rhythm with a rate of 69. There is some baseline artifact. No acute ST elevation, no PVCs. There is some nonspecific ST change. The QTc is 488. Continuous Cardiac Monitoring per my interpretation: An order was placed for continuous cardiac monitoring. The monitor shows a rate of 71 with normal sinus rhythm. Imaging/x-ray results per my interpretation: Chest x-ray shows a left upper lung mass consistent with her lung cancer diagnosis. There is decreased aeration of the left lung. Chronic Medical/Social conditions affecting care: Terminal lung cancer, part of the hospice program. Care/Management discussed with: Case management, the on-call hospitalist. Level of care consideration(s): After review of the information above and other included data: --I believe the patient requires escalation of care to admission DISPOSITION: Admission Past Med/Surg History Problem List (Updated 05/07/25 @ 16:25 by Jan Merida MD) Hospice care patient (Acute) Rectal bleeding (Acute) Anemia (Acute) Constipation (Acute) Lung cancer (Acute) Lower abdominal pain (Acute) Cancer-related breakthrough pain (Acute) Pain from bone metastases (Chronic) Heart murmur Transaminitis Bipolar disorder Hypothyroidism COPD exacerbation Sepsis Left upper lobe pneumonia (Acute) History of lung cancer (Acute) Hypercalcemia Weakness (Acute) Elevated troponin I level (Acute) Lung cancer (Acute) 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 HAPPENED DURING GALLBLADDER REMOVAL AT [facility]. HAD TO BE RE-INTUBATED. 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" GERD (gastroesophageal reflux disease) Dyslipidemia Asthma DOESNT FOLLOW WITH ANYONE- NO ATTACKS FOR OVER A YEAR inhaler prn Surgical History (Updated 07/21/24 @ 09:56 by Lea Jones RN) History of lung biopsy 06/23/24; [facility] H/O bilateral cataract extraction History of lung biopsy S/P laparoscopic cholecystectomy H/O colonoscopy S/P breast biopsy S/P tonsillectomy and adenoidectomy History of hysterectomy Family History Grandmother (Maternal) Cancer Grandfather Cancer Other No family history of adverse response to anesthesia Social History Smoking Status: Former smoker Tobacco Type: Cigarettes Age Started Using Tobacco: 16; Cigarettes Per Day: 2 PPD; Second Hand Exposure: No; Do You Dip or Chew Tobacco: No; Hx Alcohol Use: No Hx Substance Use: No Preferred Language: Croatian Communication Ability: Effective Visual Impairment: No Limitations Hearing Ability: Hard of Hearing Industrial Relations Analyst Required: No Beliefs That Will Affect Care: None Current Living Situation: Family Current Living Situation Comment: lives home with grandson Feels Safe at Home: Yes during the past year weight has: decreased > 10 lbs Assistive Devices: Oxygen - Continuous and Walker Allergies Allergies Allergy/AdvReac Type Severity Reaction Status Date / Time bee venom protein (honey bee) Allergy Intermediate swelling Verified 08/23/24 15:05 Tetracyclines Allergy Intermediate HIVES Verified 08/23/24 15:05 doxepin Allergy Unknown pt doesn't Verified 08/23/24 15:05 remember propoxyphene Allergy Unknown pt doesn't Verified 08/23/24 15:05 remember Sulfa (Sulfonamide AdvReac Intermediate nausea/vomi Verified 08/23/24 15:05 Antibiotics) nash Home Meds Home Medications Medication Instructions Recorded Confirmed bupropion HCl 150 mg 24 hr tablet, 150 mg PO QAM 05/14/19 11/19/24 extended release escitalopram oxalate 20 mg tablet 20 mg PO QAM 05/14/19 11/19/24 fludrocortisone 0.1 mg tablet 0.2 mg PO DAILY 05/14/19 11/19/24 levothyroxine 100 mcg tablet 100 mcg PO DAILYBB 05/14/19 11/19/24 albuterol sulfate 90 mcg/actuation 2 puff inhalation Q4 PRN Wheezing 07/01/19 11/19/24 aerosol inhaler (ProAir HFA) cyanocobalamin (vitamin B-12) 1,000 mcg PO Q OTHER DAY 07/01/19 11/19/24 1,000 mcg tablet (Vitamin B-12) zinc gluconate 50 mg tablet 50 mg PO QAM 07/01/19 11/19/24 aripiprazole 10 mg tablet 10 mg PO HS 11/01/22 11/19/24 aspirin 81 mg tablet,delayed 81 mg PO QPM 11/01/22 11/19/24 release cholecalciferol (vitamin D3) 25 25 mcg PO BID 11/01/22 11/19/24 mcg (1,000 unit) tablet (Vitamin D3) folic acid 800 mcg tablet 0.8 mg PO DAILY 11/01/22 11/19/24 ascorbic acid (vitamin C) 1,000 mg 1 g PO DAILY 02/24/23 11/19/24 tablet (Vitamin C) lorazepam 0.5 mg tablet 0.5 mg PO DAILY Anxiety 02/24/23 11/19/24 meclizine 12.5 mg tablet 12.5 mg PO BID 02/24/23 11/19/24 potassium chloride 20 mEq 20 meq PO DAILY 02/24/23 11/19/24 tablet,extended release(part/cryst) (Klor-Con M) ibuprofen 200 mg tablet (Advil) 400 mg PO Q6H PRN Pain 12/04/23 11/19/24 calcium carbonate 600 mg PO DAILY 06/15/24 11/19/24 fluticasone 250 mcg-salmeterol 50 1 inh inhalation BID 07/21/24 11/19/24 mcg/dose blistr powdr for inhalation (Wixela Inhub) oxycodone 5 mg tablet 10 mg PO Q8H PRN Pain 07/21/24 11/19/24 morphine 15 mg tablet,extended 30 mg PO BID PRN Pain 11/19/24 11/19/24 release Previous Rx's Medication Instructions Recorded diclofenac sodium 1 % topical gel 4 g EXT Q8H #100 grams 11/22/24 (Voltaren Arthritis Pain) lidocaine 5 % topical patch 1 patch transdermal QAM #30 ea 11/22/24 hydromorphone 8 mg tablet 8 mg PO Q6H PRN pain #20 tabs 11/23/24 Results & Data (ED) Vital Signs Vital Signs - 24 hr 05/07/25 12:50 05/07/25 12:50 05/07/25 12:50 Temperature 36.7 C 36.7 C Temperature Source Oral Oral Pulse Rate 71 71 Pulse Rate [Apical] 71 Pulse Rate from SpO2 Sensor Respiratory Rate 19 Respiratory Effort / Characteristics Non-Labored Spontaneous Blood Pressure 108/50 L Blood Pressure [Right Arm] Blood Pressure Mean 69 Blood Pressure Mean [Right Arm] Blood Pressure Position Lying Pulse Oximetry 95 95 95 Oxygen Delivery Method Nasal Cannula Nasal Cannula Nasal Cannula Oxygen Flow Rate 5 5 5 Sepsis Recent Fever Within 48 Hours No Sepsis New/Unexplained Change in Mental Status No Sepsis Action Taken by Nursing No Action Required 05/07/25 12:51 05/07/25 12:58 05/07/25 13:00 Temperature Temperature Source Pulse Rate 67 71 63 Pulse Rate [Apical] Pulse Rate from SpO2 Sensor 63 Respiratory Rate 16 16 Respiratory Effort / Characteristics Blood Pressure Blood Pressure [Right Arm] Blood Pressure Mean Blood Pressure Mean [Right Arm] Blood Pressure Position Pulse Oximetry 82 L 100 Oxygen Delivery Method Oxygen Flow Rate Sepsis Recent Fever Within 48 Hours Sepsis New/Unexplained Change in Mental Status Sepsis Action Taken by Nursing 05/07/25 13:00 05/07/25 13:11 05/07/25 13:21 Temperature Temperature Source Pulse Rate 71 66 Pulse Rate [Apical] Pulse Rate from SpO2 Sensor Respiratory Rate 18 15 Respiratory Effort / Characteristics Blood Pressure 123/52 L Blood Pressure [Right Arm] Blood Pressure Mean 76 Blood Pressure Mean [Right Arm] Blood Pressure Position Pulse Oximetry 95 Oxygen Delivery Method Nasal Cannula Oxygen Flow Rate 5 Sepsis Recent Fever Within 48 Hours Sepsis New/Unexplained Change in Mental Status Sepsis Action Taken by Nursing 05/07/25 13:24 05/07/25 13:30 05/07/25 13:42 Temperature Temperature Source Pulse Rate 67 60 Pulse Rate [Apical] Pulse Rate from SpO2 Sensor 66 Respiratory Rate 14 19 Respiratory Effort / Characteristics Blood Pressure 109/51 L Blood Pressure [Right Arm] Blood Pressure Mean 82 Blood Pressure Mean [Right Arm] Blood Pressure Position Pulse Oximetry Oxygen Delivery Method Oxygen Flow Rate Sepsis Recent Fever Within 48 Hours Sepsis New/Unexplained Change in Mental Status Sepsis Action Taken by Nursing 05/07/25 13:51 05/07/25 14:15 05/07/25 14:15 Temperature Temperature Source Pulse Rate 59 L 67 Pulse Rate [Apical] Pulse Rate from SpO2 Sensor 73 Respiratory Rate 22 18 Respiratory Effort / Characteristics Blood Pressure 111/52 L Blood Pressure [Right Arm] Blood Pressure Mean 77 Blood Pressure Mean [Right Arm] Blood Pressure Position Pulse Oximetry Oxygen Delivery Method Oxygen Flow Rate Sepsis Recent Fever Within 48 Hours Sepsis New/Unexplained Change in Mental Status Sepsis Action Taken by Nursing 05/07/25 14:15 05/07/25 14:15 05/07/25 14:21 Temperature Temperature Source Pulse Rate 67 Pulse Rate [Apical] Pulse Rate from SpO2 Sensor 65 Respiratory Rate 18 Respiratory Effort / Characteristics Blood Pressure 111/52 L 111/52 L Blood Pressure [Right Arm] Blood Pressure Mean 77 77 Blood Pressure Mean [Right Arm] Blood Pressure Position Pulse Oximetry 92 Oxygen Delivery Method Oxygen Flow Rate Sepsis Recent Fever Within 48 Hours Sepsis New/Unexplained Change in Mental Status Sepsis Action Taken by Nursing 05/07/25 14:27 05/07/25 14:30 05/07/25 14:30 Temperature Temperature Source Pulse Rate 80 Pulse Rate [Apical] Pulse Rate from SpO2 Sensor 72 Respiratory Rate 21 Respiratory Effort / Characteristics Blood Pressure 115/66 115/66 Blood Pressure [Right Arm] Blood Pressure Mean 91 91 Blood Pressure Mean [Right Arm] Blood Pressure Position Pulse Oximetry Oxygen Delivery Method Oxygen Flow Rate Sepsis Recent Fever Within 48 Hours Sepsis New/Unexplained Change in Mental Status Sepsis Action Taken by Nursing 05/07/25 14:36 05/07/25 14:51 05/07/25 14:54 Temperature Temperature Source Pulse Rate 69 67 61 Pulse Rate [Apical] Pulse Rate from SpO2 Sensor 67 67 62 Respiratory Rate 13 20 21 Respiratory Effort / Characteristics Blood Pressure Blood Pressure [Right Arm] Blood Pressure Mean Blood Pressure Mean [Right Arm] Blood Pressure Position Pulse Oximetry 96 99 100 Oxygen Delivery Method Oxygen Flow Rate Sepsis Recent Fever Within 48 Hours Sepsis New/Unexplained Change in Mental Status Sepsis Action Taken by Nursing 05/07/25 15:00 05/07/25 15:00 05/07/25 15:03 Temperature Temperature Source Pulse Rate 67 Pulse Rate [Apical] Pulse Rate from SpO2 Sensor 66 Respiratory Rate 14 Respiratory Effort / Characteristics Blood Pressure 111/61 111/61 Blood Pressure [Right Arm] Blood Pressure Mean 75 75 Blood Pressure Mean [Right Arm] Blood Pressure Position Pulse Oximetry 100 Oxygen Delivery Method Oxygen Flow Rate Sepsis Recent Fever Within 48 Hours Sepsis New/Unexplained Change in Mental Status Sepsis Action Taken by Nursing 05/07/25 16:00 Temperature Temperature Source Pulse Rate Pulse Rate [Apical] 68 Pulse Rate from SpO2 Sensor Respiratory Rate 16 Respiratory Effort / Characteristics Non-Labored Spontaneous Blood Pressure Blood Pressure [Right Arm] 121/47 L Blood Pressure Mean Blood Pressure Mean [Right Arm] 71 Blood Pressure Position Pulse Oximetry 93 Oxygen Delivery Method Room Air Oxygen Flow Rate Sepsis Recent Fever Within 48 Hours Sepsis New/Unexplained Change in Mental Status Sepsis Action Taken by [facility] Medications Current Medication List: was personally reviewed by me Laboratory Data Attestation: I reviewed the patient's lab results. 05/07/25 12:54 05/07/25 14:14 Lab Results 05/07/25 05/07/25 Range/Units 12:54 14:14 WBC 10.21 (4.8-10.8) K/ul RBC 2.76 L (4.20-5.40) M/uL Hgb 8.0 L (12.0-16.0) g/dl Hct 26.1 L (37.0-47.0) % MCV 94.6 (80.0-100.0) fL MCH 29.0 (25.0-34.0) pg MCHC 30.7 L (32.0-36.0) g/dL RDW Std Deviation 57.2 H (36.4-46.3) fL RDW Coeff of Jagruti 16.6 H (11.5-14.5) % Plt Count 379 (130-400) K/uL MPV 10.3 (9.4-12.4) fL Immature Gran % (Auto) 0.6 % Neut % (Auto) 86.6 % Lymph % (Auto) 4.7 % [place] % (Auto) 6.2 % Eos % (Auto) 1.5 % Baso % (Auto) 0.4 % Neut # (Auto) 8.85 H (1.40-6.50) K/uL Lymph # (Auto) 0.48 L (1.20-3.40) K/uL [place] # (Auto) 0.63 H (0.11-0.59) K/uL Eos # (Auto) 0.15 (0.00-0.50) K/uL Baso # (Auto) 0.04 (0.00-0.20) K/uL Immature Gran # (Auto) 0.06 (0.01-0.20) K/uL PT Cancelled 12.2 H INR Cancelled 1.1 APTT Cancelled 32 H PTT Ratio Cancelled 1.2 Sodium TNP 134 L Potassium TNP 4.1 Chloride 98 (98-107) mmol/L Carbon Dioxide 33 H (21-32) mmol/L Anion Gap TNP BUN 17 (6-23) mg/dl Creatinine 0.97 (0.6-1.2) mg/dl Est Cr Clr Drug Dosing 51.2 ml/min eGFR 63.25 BUN/Creatinine Ratio 17.5 (10-20) Glucose 141 H (70-99(Fasting)) mg/dl Calcium 9.0 (8.6-10.3) mg/dl Total Bilirubin 0.4 (0.2-1.0) mg/dl AST TNP 21 ALT 15 (7-52) U/L Alkaline Phosphatase 83 (34-104) U/L Total Protein 7.0 (6.0-8.3) gm/dl Albumin 2.7 L (3.4-5.0) gm/dl Globulin 4.3 H (2.5-4.0) gm/dl Albumin/Globulin Ratio 0.6 L (0.9-2) Lipase < 3 L (11-82) U/L Administered Medications Morphine Sulfate (Morphine Sulfate 4 Mg/Ml 1 Ml Carp\\Vial) 4 mg IV Q15M PRN PRN Reason: Pain Stop: 05/21/25 12:52 Last Admin: 05/07/25 15:34 Dose: 4 mg Documented By: Admin: 05/07/25 13:37 Dose: 4 mg Documented By: MALAIKA Discontinued Medications Sodium Chloride (Nss) 1,000 mls @ 999 mls/hr IV .Q1H1M STA Stop: 05/07/25 13:53 Last Infusion: 05/07/25 15:05 Dose: Infused Documented By: Admin: 05/07/25 12:58 Dose: 999 mls/hr Documented By: ML Ioversol (Optiray 320 100ml) 94 ml IV ONCE ONE Stop: 05/07/25 13:57 Last Admin: 05/07/25 13:57 Dose: 94 ml Documented By: DM Morphine Sulfate (Morphine Sulfate 4 Mg/Ml 1 Ml Carp\\Vial) 4 mg IV NOW STA Stop: 05/07/25 12:54 Last Admin: 05/07/25 12:59 Dose: 4 mg Documented By: ML Ondansetron HCl (Ondansetron Inj 2 Mg/Ml 2 Ml Vial) 4 mg IV NOW STA Stop: 05/07/25 12:54 Last Admin: 05/07/25 12:59 Dose: 4 mg Documented By: ML Imaging Data Radiologist's Impression: Abdomen/Pelvis CT 05/07/25 12:54 Clinical History: Abdominal pain and rectal bleeding Technique: Axial computed tomography images were obtained of the abdomen and pelvis after the administration of intravenous contrast. No prior CT is available for comparison. Findings: The liver is overall of normal size, attenuation, and contour with no sign of cirrhosis or significant fatty infiltration. No liver mass lesion is seen. The portal vein is patent. The gallbladder has been removed. No bile duct dilatation is noted. The spleen is of normal size. No focal splenic lesion is evident. The pancreas appears normal with no sign of acute or chronic pancreatitis and no mass lesion noted. The pancreatic duct is of normal caliber. The adrenal glands appear unremarkable. No definite renal or proximal ureteral calculi are seen on this contrast-enhanced study. There is no hydronephrosis or perinephric stranding. No renal mass lesion is identified. The aorta is of normal caliber. No abdominal adenopathy is seen. The stomach appears normal. There is no sign of small bowel obstruction. There is constipation with prominence to within the rectum. There is some edema and fluid in the perirectal and presacral spaces. No free intraperitoneal fluid or air is identified. No distal ureteral or bladder calculi are seen. No bladder mass lesion is evident. The iliac arteries are of normal caliber. No pelvic adenopathy is noted. There is a small right inguinal hernia containing only fat. The uterus has been removed There is a small left pleural effusion. Mild thoracolumbar degenerative disc disease is seen. No fracture is identified. No focal osseous lesion is seen Impression: 1. Constipation with possible rectal fecal impaction 2. Small left pleural effusion 3. Small right inguinal hernia containing only fat ACT 112: Positive. There are findings on this exam that require communication between the performing entity and the patient following Patient Test Result Information Act ([place] ACT 112) guidelines Electronically signed by Gennaro Brooks 05-07-2025 3:26 PM Chest X-Ray 05/07/25 12:54 Technique: A frontal view of the chest was obtained Comparison is made to the prior examination dated 11/19/2024 Findings: There is unchanged left apical opacification with volume loss. There has been apparent interval increase in size of a cavitary nodule in the right upper lobe. The heart size is at the upper limit of normal. No pleural effusion or pneumothorax is seen. There are suspected small calcified common granulomas No fracture is noted. No foreign body is seen Impression: 1. Unchanged left apical opacification with volume loss, which could be due to scarring or prior surgery 2. Interval increase in size of a cavitary nodule in the right upper lobe, which could represent malignancy. Contrast-enhanced chest CT could be obtained for further evaluation ACT 112: Positive. There are findings on this exam that require communication between the performing entity and the patient following Patient Test Result [place] Act ([place] 112[place] guidelines Electronically signed by Gennaro Brooks 05-07-2025 2:09 PM Discharge Plan Visit Data Chief Complaint: Rectal Bleed ED Provider: Jan Merida Discharge Problem: Lower abdominal pain, Lung cancer, Constipation, Anemia, Rectal bleeding, Hospice care patient Patient Disposition: Admitted As Inpatient Condition: Fair Forms Stand Alone Forms: [employer] Prescriptions Prescriptions: No Action ibuprofen [Advil] 200 mg tablet 400 mg PO Q6H PRN (Reason: Pain) calcium carbonate 600 mg calcium (1,500 mg) tablet 600 mg PO DAILY oxycodone 5 mg tablet 10 mg PO Q8H PRN (Reason: Pain) fluticasone propion-salmeterol [Wixela Inhub] 250-50 mcg/dose blister with device 1 inh inhalation BID levothyroxine 100 mcg Tablet 100 mcg PO DAILYBB Rx Instructions: TOTAL DOSE 125 MCG--TAKES WITH 25 MCG TAB. fludrocortisone 0.1 mg Tablet 0.2 mg PO DAILY Hold Instructions: hold while on Decadron escitalopram oxalate 20 mg Tablet 20 mg PO QAM bupropion HCl 150 mg Tablet Extended Release 24 Hr 150 mg PO QAM cyanocobalamin (vitamin B-12) [Vitamin B-12] 1,000 mcg Tablet 1,000 mcg PO Q OTHER DAY zinc gluconate 50 mg Tablet 50 mg PO QAM albuterol sulfate [ProAir HFA] 90 mcg/actuation Hfa Aerosol Inhaler 2 puff INHALATION Q4 PRN (Reason: Wheezing) aspirin 81 mg Tablet,Delayed Release (Dr/Ec) 81 mg PO QPM aripiprazole 10 mg tablet 10 mg PO HS folic acid 800 mcg Tablet 0.8 mg PO DAILY cholecalciferol (vitamin D3) [Vitamin D3] 25 mcg (1,000 unit) Tablet 25 mcg PO BID ascorbic acid (vitamin C) [Vitamin C] 1,000 mg Tablet 1 g PO DAILY potassium chloride [Klor-Con M20] 20 mEq tablet,ER particles/crystals 20 meq PO DAILY lorazepam 0.5 mg tablet 0.5 mg PO DAILY meclizine 12.5 mg tablet 12.5 mg PO BID morphine 15 mg tablet extended release 30 mg PO BID PRN (Reason: Pain) diclofenac sodium [Voltaren Arthritis Pain] 1 % Gel 4 g EXT Q8H Qty: 100 0RF lidocaine 5 % Adhesive Patch,Medicated 1 patch transdermal QAM Qty: 30 0RF hydromorphone 8 mg tablet 8 mg PO Q6H PRN (Reason: pain) Qty: 20 0RF Referrals Referrals: Cony Hernandez MD [Primary Care Provider] - Discharge Problem: Lung cancer Qualifiers: Laterality: unspecified laterality Lung location: unspecified part of lung Q ualified Code(s): C34.90 - Malignant neoplasm of unspecified part of unspecified bronchus or lung Constipation Qualifiers: Constipation type: unspecified constipation type Qualified Code(s): K59.00 - Constipation, unspecified Anemia Qualifiers: Anemia type: unspecified type Qualified Code(s): D64.9 - Anemia, unspecified
[2025-05-07 13:35] LABS: Alanine Aminotransferase 15 U/L (7-52); Albumin Globulin Ratio 0.6 (0.9-2); Alkaline Phosphatase 83 U/L (34-104); Bilirubin,Total 0.4 mg/dl (0.2-1.0); Blood Urea Nitrogen 17 mg/dl (6-23); Calcium 9.0 mg/dl (8.6-10.3); Carbon Dioxide 33 mmol/L (21-32); Chloride 98 mmol/L (98-107); Creatinine Clr Calc Pharmacy 51.2 ml/min; Globulin 4.3 gm/dl (2.5-4.0); Glucose 141 mg/dl (70-99(Fasting)); Lipase < 3 U/L (11-82); Total Protein 7.0 gm/dl (6.0-8.3)
[2025-05-07 13:36] LABS: Hematocrit (blood only) 26.1 % (37.0-47.0); Hemoglobin 8.0 g/dl (12.0-16.0); Immature Granulocytes # (auto) 0.06 K/uL (0.01-0.20); Immature Granulocytes % (auto) 0.6 %; Mean Corpuscular Hemoglobin 29.0 pg (25.0-34.0); Mean Corpuscular Volume 94.6 fL (80.0-100.0); Platelet Count 379 K/uL (130-400); RDW Standard Deviation 57.2 fL (36.4-46.3); Red Blood Count 2.76 M/uL (4.20-5.40); White Blood Count 10.21 K/ul (4.8-10.8)
[2025-05-07] MEDS: MoRPHine SULFATE 4 MG/ML 1 ML CARP\\VIAL IV PRN (13:37)
[2025-05-07] MEDS: OPTIRAY 320 100ml IV ONE (13:57)
--- NOTE | 2025-05-07 13:59 | Electrocardiogram Report ---
Test Reason : Blood Pressure : */* mmHG Vent. Rate : 69 BPM Atrial Rate : 69 BPM P-R Int : 140 ms QRS Dur : 84 ms QT Int : 456 ms P-R-T Axes : 79 35 76 degrees QTcB Int : 488 ms Normal sinus rhythm Nonspecific T wave abnormality Abnormal ECG When compared with ECG of 19-Nov-2024 17:50, T wave amplitude has decreased in Inferior leads Nonspecific T wave abnormality, worse in Lateral leads Confirmed by Carlos Brizuela ([id number]) on 05/07/2025 1:59:39 PM Referred By: Confirmed By: Carlos Brizuela
--- NOTE | 2025-05-07 14:10 | XRay Report ---
Technique: A frontal view of the chest was obtained Comparison is made to the prior examination dated 11/19/2024 Findings: There is unchanged left apical opacification with volume loss. There has been apparent interval increase in size of a cavitary nodule in the right upper lobe. The heart size is at the upper limit of normal. No pleural effusion or pneumothorax is seen. There are suspected small calcified common granulomas No fracture is noted. No foreign body is seen Impression: 1. Unchanged left apical opacification with volume loss, which could be due to scarring or prior surgery 2. Interval increase in size of a cavitary nodule in the right upper lobe, which could represent malignancy. Contrast-enhanced chest CT could be obtained for further evaluation ACT 112: Positive. There are findings on this exam that require communication between the performing entity and the patient following Patient Test Result Information Act ([place] ACT 112) guidelines Electronically signed by Gennaro Brooks 05-07-2025 2:09 PM
[2025-05-07 14:49] LABS: Potassium 4.1 mmol/L (3.5-5.1); Sodium 134.0 mmol/L (136-145)
[2025-05-07 15:01] LABS: INR 1.1 (0.9-1.1); Partial Thromboplastin Time 32 Seconds (21-31); Prothrombin Time 12.2 Seconds (9.0-12.0)
--- NOTE | 2025-05-07 15:26 | CT Scan Report ---
Clinical History: Abdominal pain and rectal bleeding Technique: Axial computed tomography images were obtained of the abdomen and pelvis after the administration of intravenous contrast. No prior CT is available for comparison. Findings: The liver is overall of normal size, attenuation, and contour with no sign of cirrhosis or significant fatty infiltration. No liver mass lesion is seen. The portal vein is patent. The gallbladder has been removed. No bile duct dilatation is noted. The spleen is of normal size. No focal splenic lesion is evident. The pancreas appears normal with no sign of acute or chronic pancreatitis and no mass lesion noted. The pancreatic duct is of normal caliber. The adrenal glands appear unremarkable. No definite renal or proximal ureteral calculi are seen on this contrast-enhanced study. There is no hydronephrosis or perinephric stranding. No renal mass lesion is identified. The aorta is of normal caliber. No abdominal adenopathy is seen. The stomach appears normal. There is no sign of small bowel obstruction. There is constipation with prominence to within the rectum. There is some edema and fluid in the perirectal and presacral spaces. No free intraperitoneal fluid or air is identified. No distal ureteral or bladder calculi are seen. No bladder mass lesion is evident. The iliac arteries are of normal caliber. No pelvic adenopathy is noted. There is a small right inguinal hernia containing only fat. The uterus has been removed There is a small left pleural effusion. Mild thoracolumbar degenerative disc disease is seen. No fracture is identified. No focal osseous lesion is seen Impression: 1. Constipation with possible rectal fecal impaction 2. Small left pleural effusion 3. Small right inguinal hernia containing only fat ACT 112: Positive. There are findings on this exam that require communication between the performing entity and the patient following Patient Test Result Information Act ([place] ACT 112) guidelines Electronically signed by Gennaro Brooks 05-07-2025 3:26 PM
--- NOTE | 2025-05-07 17:08 | History & Physical Report ---
Date of Service May 07, 2025 Assessment & Plan (1) Constipation: (2) Lower abdominal pain: (3) Rectal bleeding: (4) Anemia: (5) Hospice care patient: (6) Lung cancer: Plan 69-year-old woman with past medical history of non-small cell lung cancer on hospice, chronic respiratory failure with hypoxia on 5 L oxygen baseline, COPD, hypercalcemia, hypothyroidism, prediabetes, vocal cord paralysis, peripheral vascular disease, bilateral carotid stenosis, GERD, bipolar disorder, attention deficit disorder. She was recommended to come to the hospital by her hospice company due to significant constipation at home and an episode of bright red blood with a small bowel movement a few days prior to admission. #Constipation | lower abdominal pain | possible rectal bleeding | anemia - CT A/P with significant constipation and possible rectal fecal impaction - Hemoccult testing ordered, pending. Rectal exam done by ED noted brown stool. Possible that BRBPR was secondary to hemorrhoids - Bowel regimen: 85 g MiraLAX x 1 now, Senokot-S HS, milk of magnesia suspension as needed, Dulcolax suppository as needed. Consider enema and/or digital disimpaction if current regimen is unsuccessful - Will need a more aggressive bowel regimen on discharge - About a 2 g drop in hemoglobin since November 2024, unclear if this is related to possible rectal bleeding versus secondary to her metastatic cancer. Continue to monitor CBC - Pain regimen available, listed below #Lung cancer | hospice - Pain regimen: Dilaudid p.o. 8 mg QID PRN first line, MS Contin 30 mg p.o. BID PRN second line, morphine 4 mg IV Q4H PRN breakthrough pain - Boost TID (primary nutrition per family), regular diet as tolerated - Continue 5 L O2 (baseline) - Will resume hospice on discharge #Bipolar disorder | Depression/anxiety - Continue Lexapro 20 mg daily, Lamictal 25 mg HS VTE PPx: SCDs. Chemoprophylaxis contraindicated until GI bleed is ruled out Dispo: Med/surg Family updated at bedside on admission Reviewed outpatient records History of Present Illness Chief Complaint: Abdominal pain Primary Care Provider: Cony Hernandez MD Page is a pleasant 69-year-old woman with past medical history of non-small cell lung cancer on hospice, chronic respiratory failure with hypoxia on 5 L oxygen baseline, COPD, hypercalcemia, hypothyroidism, prediabetes, vocal cord paralysis, peripheral vascular disease, bilateral carotid stenosis, GERD, bipolar disorder, attention deficit disorder. She presented from home with abdominal pain. At the time of my exam, the patient was lying in bed in no acute distress with her daughter, sister, and [id number] present at bedside. History is obtained from both patient and her daughter. They state constipation has been an ongoing problem at home for her. About 4 days ago, she had a small bowel movement with bright red blood noted. She has not had a bowel movement since then but has continued to have lower abdominal pain and stabbing rectal pain. Daughter reports she does not eat enough and has a poor appetite at baseline. Family/hospice team have tried stool softeners at home (daughter does not remember what type) without improvement, so her hospice team recommended she presents to the ED. ED physician performed a rectal exam there is significant for hard stool, no obvious rectal bleeding, stool was brown in color. Patient reports that she took all of her regular morning medications today; she has discontinued most of her medications and only takes Lamictal, Lexapro, oral Dilaudid, and morphine solution now. She wears 5 L O2 via NC at baseline. No CPAP at night. Vitals on admission are stable. Labs on admission are significant for anemia with Hgb 8.0 (decreased from 10.2 in November 2024). No leukocytosis. Electrolytes stable. Liver enzymes and renal function normal. CT A/P on admission reveals constipation with possible rectal fecal impaction, small left pleural effusion, small right inguinal hernia containing only fat. CXR shows unchanged left apical opacification with volume loss, interval increase in size of cavitary nodule in right upper lobe. We discussed code status, patient wishes to be a DNR/DNI. Allergies Allergy/AdvReac Type Severity Reaction Status Date / Time bee venom protein (honey bee) Allergy Intermediate swelling Verified 08/23/24 15:05 Tetracyclines Allergy Intermediate HIVES Verified 08/23/24 15:05 doxepin Allergy Unknown pt doesn't Verified 08/23/24 15:05 remember propoxyphene Allergy Unknown pt doesn't Verified 08/23/24 15:05 remember Sulfa (Sulfonamide AdvReac Intermediate nausea/vomi Verified 08/23/24 15:05 Antibiotics) ting Home Medications Medication Instructions Recorded Confirmed Type escitalopram oxalate 20 mg tablet 20 mg PO QAM 05/14/19 05/07/25 History morphine 15 mg tablet,extended 30 mg PO BID PRN Pain 11/19/24 05/07/25 History release hydromorphone 8 mg tablet 8 mg PO Q6H PRN pain #20 tabs 11/23/24 05/07/25 Rx lamotrigine 25 mg tablet 25 mg PO HS 05/07/25 05/07/25 History Past Med/Surg History Problem List (Updated 05/07/25 @ 16:25 by Jan Merida MD) Hospice care patient (Acute) Rectal bleeding (Acute) Anemia (Acute) Constipation (Acute) Lung cancer (Acute) Lower abdominal pain (Acute) Cancer-related breakthrough pain (Acute) Pain from bone metastases (Chronic) Heart murmur Transaminitis Bipolar disorder Hypothyroidism COPD exacerbation Sepsis Left upper lobe pneumonia (Acute) History of lung cancer (Acute) Hypercalcemia Weakness (Acute) Elevated troponin I level (Acute) Lung cancer (Acute) 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 HAPPENED DURING GALLBLADDER REMOVAL AT [facility]. HAD TO BE RE-INTUBATED. 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" GERD (gastroesophageal reflux disease) Dyslipidemia Asthma DOESNT FOLLOW WITH ANYONE- NO ATTACKS FOR OVER A YEAR inhaler prn Surgical History (Updated 07/21/24 @ 09:56 by Lea Jones RN) History of lung biopsy 06/23/24; [facility] H/O bilateral cataract extraction History of lung biopsy S/P laparoscopic cholecystectomy H/O colonoscopy S/P breast biopsy S/P tonsillectomy and adenoidectomy History of hysterectomy Family History Grandmother (Maternal) Cancer Grandfather Cancer Other No family history of adverse response to anesthesia Social History Smoking Status: Former smoker Tobacco Type: Cigarettes Age Started Using Tobacco: 16; Cigarettes Per Day: 2 PPD; Second Hand Exposure: No; Do You Dip or Chew Tobacco: No; Hx Alcohol Use: No Hx Substance Use: No Preferred Language: Vietnamese Communication Ability: Effective Visual Impairment: No Limitations Hearing Ability: Hard of Hearing Can Handler Required: No Beliefs That Will Affect Care: None Current Living Situation: Family Current Living Situation Comment: lives home with grandson Feels Safe at Home: Yes during the past year weight has: decreased > 10 lbs Assistive Devices: Oxygen - Continuous and Walker Review of Systems Review of Systems: All systems reviewed & are unremarkable except as noted in HPI & below Constitutional: + anorexia Gastrointestinal: + abdominal pain, + constipation and + b lood in stools Physical Exam Physical Exam: General: No acute distress, nondiaphoretic. Chronically ill-appearing. Skin: Warm, dry. No rashes or peripheral edema noted. Generalized pallor. Cardiac: Regular rate and rhythm without murmurs gallops or rubs. Pulm: Diminished breath sounds bilaterally L>R. Mild crackles in left upper lobe. Wet cough noted. No wheezing or rhonchi. Normal respiratory effort. 93% on 5 L NC. Abdominal: Soft, nondistended. Diffuse tenderness in lower quadrants. Hypoactive bowel sounds. Neuro: A&O x3. No focal neurological deficits. Results & Data Results & Data Vital Signs (Past 12 Hours) Vital Signs Temp Pulse Pulse Resp BP BP Pulse Ox 05/07/25 16:00 68 16 121/47 L 93 05/07/25 15:03 67 14 100 05/07/25 15:00 111/61 05/07/25 15:00 111/61 05/07/25 14:54 61 21 100 05/07/25 14:51 67 20 99 05/07/25 14:36 69 13 96 05/07/25 14:30 115/66 05/07/25 14:30 115/66 05/07/25 14:27 80 21 05/07/25 14:21 67 18 92 05/07/25 14:15 111/52 L 05/07/25 14:15 111/52 L 05/07/25 14:15 111/52 L 05/07/25 14:15 67 18 05/07/25 13:51 59 L 22 05/07/25 13:42 60 19 05/07/25 13:30 109/51 L 05/07/25 13:24 67 14 05/07/25 13:21 66 15 05/07/25 13:11 71 18 95 05/07/25 13:00 123/52 L 05/07/25 13:00 63 16 100 05/07/25 12:58 71 05/07/25 12:51 67 16 82 L 05/07/25 12:50 71 95 05/07/25 12:50 98.1 F 71 95 05/07/25 12:50 98.1 F 71 19 108/50 L 95 O2 Del Method O2 Flow Rate 05/07/25 16:00 Nasal Cannula 5 05/07/25 15:03 05/07/25 15:00 05/07/25 15:00 05/07/25 14:54 05/07/25 14:51 05/07/25 14:36 05/07/25 14:30 05/07/25 14:30 05/07/25 14:27 05/07/25 14:21 05/07/25 14:15 05/07/25 14:15 05/07/25 14:15 05/07/25 14:15 05/07/25 13:51 05/07/25 13:42 05/07/25 13:30 05/07/25 13:24 05/07/25 13:21 05/07/25 13:11 Nasal Cannula 5 05/07/25 13:00 05/07/25 13:00 05/07/25 12:58 05/07/25 12:51 05/07/25 12:50 Nasal Cannula 5 05/07/25 12:50 Nasal Cannula 5 05/07/25 12:50 Nasal Cannula 5 Laboratory Results Reviewed CBC with differential Reviewed coags Reviewed CMP, chemistries Diagnostic Findings Reviewed CXR Reviewed CT A/P Reviewed EKG Code Status & VTE Plan VTE Prophylaxis Plan VTE Prophylaxis will be ordered: Yes Supervising Physician Co-Signing Physician Notes I personally examined the patient and verified all bates points of history and exam, discussed case, and agree with decision making with Jovana Stoddard PA-C abdominal pain. Found to be quite constipated. Vitals noted. Appears pleasant but uncomfortable. Abdomen mildly distended without guarding rebound or rigidity moderate diffuse tenderness. CT noted. Abdominal painappears to be predominantly if not entirely due to constipation. Discussed with patient. Bowel regimen. Follow clinically. Hopefully pain will resolve with effective bowel movements. Otherwise as above. PG Care Time/CCT Total # of Minutes Spent Total Time Spent with Patient: Total time spent is greater than 50% in coordination of care (as documented) at patient's floor/unit and/or counseling patient: Coding Level of Care Code 81194 INT INP/OBS CARE MIN Diagnoses Constipation K59.00 Constipation type: unspecified constipation type Lower abdominal pain R10.30 Rectal bleeding K62.5 Anemia D64.9 Anemia type: unspecified type Hospice care patient Z51.5 Lung cancer C34.90 Laterality: unspecified laterality Lung location: unspecified part of lung (1) Constipation Constipation type: unspecified constipation type Qualified Code(s): K59.00 - Constipation, unspecified (4) Anemia Anemia type: unspecified type Qualified Code(s): D64.9 - Anemia, unspecified (6) Lung cancer Laterality: unspecified laterality Lung location: unspecified part of lung Qualified Code(s): C34.90 - Malignant neoplasm of unspecified part of unspecified bronchus or lung
[2025-05-07] MEDS ORDERED: ONDANSETRON INJ 2 MG/ML 2 ML VIAL IV PRN (19:16)
[2025-05-07] MEDS ORDERED: ALUMINUM/MAGNESIUM SUSP 30 ML UDC PO PRN (19:16)
[2025-05-07] MEDS: POLYETHYLENE (MIRALAX) 17 GM PACK PO STA (20:44)
[2025-05-07] MEDS: DOCUSATE SODIUM/SENNA 50/8.6MG TAB PO SCH (20:45)
[2025-05-07] MEDS: lamoTRIgine 25 MG TAB PO SCH (20:45)
[2025-05-08] MEDS: MoRPHine SULFATE 4 MG/ML 1 ML CARP\\VIAL IV PRN (01:46)
[2025-05-08] MEDS: MoRPHine SULFATE CR 15 MG TABCR PO PRN (04:23)
[2025-05-08] MEDS: SOD PHOSPHATE/SOD BIPHOSPHATE ENEMA 132 ML BTL PR STA (05:28)
[2025-05-08] MEDS ORDERED: POLYETHYLENE (MIRALAX) 17 GM PACK PO PRN (08:39)
[2025-05-08] MEDS: ESCITALOPRAM OXALATE 20 MG TAB PO SCH (08:46)
[2025-05-08] MEDS: ACETAMINOPHEN 325 MG TAB PO PRN (08:46)
[2025-05-08 08:57] LABS: Hematocrit (blood only) 26.0 % (37.0-47.0); Hemoglobin 7.8 g/dl (12.0-16.0); Mean Corpuscular Hemoglobin 29.3 pg (25.0-34.0); Mean Corpuscular Volume 97.7 fL (80.0-100.0); Platelet Count 347 K/uL (130-400); RDW Standard Deviation 58.5 fL (36.4-46.3); Red Blood Count 2.66 M/uL (4.20-5.40); White Blood Count 10.31 K/ul (4.8-10.8)
--- NOTE | 2025-05-08 11:30 | Hospitalist Progress Note ---
"Date of Service May 08, 2025 Assessment & Plan (1) Constipation: (2) Lower abdominal pain: (3) Rectal bleeding: (4) Anemia: (5) Hospice care patient: (6) Lung cancer: Plan 69-year-old woman with past medical history of non-small cell lung cancer on hospice, chronic respiratory failure with hypoxia on 5 L oxygen baseline, COPD, hypercalcemia, hypothyroidism, prediabetes, vocal cord paralysis, peripheral vascular disease, bilateral carotid stenosis, GERD, bipolar disorder, attention deficit disorder. She was recommended to come to the hospital by her hospice company due to significant constipation at home and an episode of bright red blood with a small bowel movement a few days prior to admission. #Constipation | lower abdominal pain - CT A/P with significant constipation and possible rectal fecal impaction - Hemoccult testing negative. Rectal exam done by ED noted brown stool. Possible that BRBPR was secondary to hemorrhoids - Had moderately sized BM 8/17 AM s/p 85 g MiraLAX and fleet enema - Bowel regimen: MiraLAX TID, Senokot-S HS, milk of magnesia suspension as needed, Dulcolax suppository as needed. Consider another enema and/or digital disimpaction if needed, but hopefully now that her bowels have started moving, digital disimpaction can be avoided - Started maintenance IV fluids with NSS @80/hr given reduced oral intake, soft BP, and hopefully with increased BMs soon - Will need a more aggressive bowel regimen on discharge - About a 2 g drop in hemoglobin since November 2024, suspect this is secondary to her metastatic cancer as her Hemoccult was negative. Continue to monitor CBC - Pain regimen available, listed below #Lung cancer | hospice - Pain regimen: Dilaudid p.o. 8 mg QID PRN first line, MS Contin 30 mg p.o. BID PRN second line, morphine 4 mg IV Q4H PRN breakthrough pain - Boost TID (primary nutrition per family), regular diet as tolerated - Continue 5 L O2 (baseline) - Will resume hospice on discharge #Bipolar disorder | Depression/anxiety - Continue Lexapro 20 mg daily, Lamictal 25 mg HS VTE PPx: SCDs. Add chemoproph if prolonged LOS Dispo: Anticipate discharge in next 24-48 hours pending improvement in constipation. Plan to resume hospice on discharge. Started IV fluids Further adjusted bowel regimen Admission and Anticipated Discharge Date Admission Date: May 07, 2025 Subjective Patient seen and evaluated at bedside. She received a fleet enema overnight and had a large bowel movement this morning. Per nightshift RN, seemed like overflow diarrhea. We discussed that we will continue with an aggressive bowel regimen to keep her bowels moving. She reports her pain is well-controlled at this time, rating a 3/10. No additional complaints or concerns currently. Physical Exam Physical Exam: General: No acute distress, nondiaphoretic. Chronically ill-appearing. Skin: Warm, dry. No rashes or peripheral edema noted. Generalized pallor. Cardiac: Regular rate and rhythm without murmurs gallops or rubs. Pulm: Diminished breath sounds bilaterally L>R. Mild crackles in left upper lobe. Wet cough noted. No wheezing or rhonchi. Normal respiratory effort. 100% on 5 L NC. Abdominal: Soft. Mildly distended. Diffuse tenderness in lower quadrants; improved. Bowel sounds present. Neuro: A&O x3. No focal neurological deficits. Results & Data Results & Data Vital Signs (Past 12 Hours) Vital Signs Temp Pulse Resp BP BP Pulse Ox O2 Del Method 05/08/25 08:43 106/58 L 05/08/25 07:47 97.7 F 72 16 88/52 L 100 Nasal Cannula 05/08/25 07:20 Nasal Cannula 05/08/25 00:03 93/56 L 05/07/25 23:59 98.1 F 66 16 97/61 L 87/50 L 98 Nasal Cannula O2 Flow Rate 05/08/25 08:43 05/08/25 07:47 05/08/25 07:20 5 05/08/25 00:03 05/07/25 23:59 5 Laboratory Results Reviewed CBC Reviewed BMP PG Care Time/CCT Total # of Minutes Spent Total Time Spent with Patient: Total time spent is greater than 50% in coordination of care (as documented) at patient's floor/unit and/or counseling patient: Coding Level of Care Code 72770 SUB INP/OBS CARE 3/50MIN Diagnoses Constipation K59.00 Constipation type: unspecified constipation type Lower abdominal pain R10.30 Rectal bleeding K62.5 Anemia D64.9 Anemia type: unspecified type Hospice care patient Z51.5 Lung cancer C34.90 Laterality: unspecified laterality Lung location: unspecified part of lung (1) Constipation Constipation type: unspecified constipation type Qualified Code(s): K59.00 - Constipation, unspecified (4) Anemia Anemia type: unspecified type Qualified Code(s): D64.9 - Anemia, unspecified (6) Lung cancer Laterality: unspecified laterality Lung location: unspecified part of lung Qualified Code(s): C34.90 - Malignant neoplasm of unspecified part of unspecified bronchus or lung"
[2025-05-08] MEDS: SODIUM CHLORIDE 0.9% 1,000 ML IV SCH (11:48)
[2025-05-08] MEDS: POLYETHYLENE (MIRALAX) 17 GM PACK PO SCH (13:52)
[2025-05-08] MEDS: MAGNESIUM HYDROXIDE SUSP 30 ML UDC PO PRN (17:20)
[2025-05-08 22:34] VITALS: TEMP 97.9
[2025-05-09 06:24] LABS: Hematocrit (blood only) 25.9 % (37.0-47.0); Hemoglobin 7.6 g/dl (12.0-16.0); Mean Corpuscular Hemoglobin 28.8 pg (25.0-34.0); Mean Corpuscular Volume 98.1 fL (80.0-100.0); Platelet Count 340 K/uL (130-400); RDW Standard Deviation 58.3 fL (36.4-46.3); Red Blood Count 2.64 M/uL (4.20-5.40); White Blood Count 7.93 K/ul (4.8-10.8)
[2025-05-09 06:47] LABS: Anion Gap 2.0 (3-11); Blood Urea Nitrogen 17.0 mg/dl (6-23); Calcium 8.5 mg/dl (8.6-10.3); Carbon Dioxide 36.0 mmol/L (21-32); Chloride 101.0 mmol/L (98-107); Creatinine Clr Calc Pharmacy 53.4 ml/min; Glucose 92.0 mg/dl (70-99(Fasting)); Potassium 4.1 mmol/L (3.5-5.1); Sodium 139.0 mmol/L (136-145)
[2025-05-09 08:03] VITALS: BP 111/65; PULSE 69; RESP 15; O2SAT 97
[2025-05-09] MEDS: POLYETHYLENE (MIRALAX) 17 GM PACK PO SCH (08:23)
[2025-05-09 10:11] LABS: Appearance Urine Clear (Clear); Glucose Urine UA Negative (Negative)
--- NOTE | 2025-05-09 10:18 | Discharge Summary ---
"Discharge Summary Date of Service May 09, 2025 Principal Dx & Hospital Course #1 = Principal Diagnosis (1) Constipation: (2) Lower abdominal pain: (3) Rectal bleeding: (4) Anemia: (5) Hospice care patient: (6) Lung cancer: Plan 69-year-old woman with past medical history of non-small cell lung cancer on hospice, chronic respiratory failure with hypoxia on 5 L oxygen baseline, COPD, hypercalcemia, hypothyroidism, prediabetes, vocal cord paralysis, peripheral vascular disease, bilateral carotid stenosis, GERD, bipolar disorder, attention deficit disorder. She was recommended to come to the hospital by her hospice company due to significant constipation at home and an episode of bright red blood with a small bowel movement a few days prior to admission. #Constipation | lower abdominal pain CTAP: significant constipation, possible rectal fecal impaction. 1 episode of BRBPR @ home secondary to hemorrhoids, hemoccult testing Has had several BM's while inpatient. Miralax 34gm TID + Senokot-S HS for bowel regimen @ home Prn Dulcolax suppository/enema can be used as well. s/p IVF hgb has dropped to 7.6, secondary to metastatic cancer - given hospice status no further labs indicated on outpatient basis. Advise close follow up w/ hospice agency to adjust bowel regimen as needed. #Lung cancer | hospice Pain regimen: Dilaudid p.o. 8 mg QID PRN first line, MS Contin 30 mg p.o. BID PRN second line, morphine 4 mg IV Q4H PRN breakthrough pain Boost TID (primary nutrition per family), regular diet as tolerated Continue 5 L O2 (baseline) Will resume hospice on discharge --> did discuss with daughter that Page is in pain @ home. - advised her to discuss w/ hospice agency for pain meds to be adjusted. #Bipolar disorder | Depression/anxiety - Continue Lexapro 20 mg daily, Lamictal 25 mg HS Updated daughter via phone 05/09 Updated CM that she was stable for discharge --> discharged home back on hospice Admission HPI Per Admitting Provider Page is a pleasant 69-year-old woman with past medical history of non-small cell lung cancer on hospice, chronic respiratory failure with hypoxia on 5 L oxygen baseline, COPD, hypercalcemia, hypothyroidism, prediabetes, vocal cord paralysis, peripheral vascular disease, bilateral carotid stenosis, GERD, bipolar disorder, attention deficit disorder. She presented from home with abdominal pain. At the time of my exam, the patient was lying in bed in no acute distress with her daughter, sister, and [id number] present at bedside. History is obtained from both patient and her daughter. They state constipation has been an ongoing problem at home for her. About 4 days ago, she had a small bowel movement with bright red blood noted. She has not had a bowel movement since then but has continued to have lower abdominal pain and stabbing rectal pain. Daughter reports she does not eat enough and has a poor appetite at baseline. Family/hospice team have tried stool softeners at home (daughter does not remember what type) without improvement, so her hospice team recommended she presents to the ED. ED physician performed a rectal exam there is significant for hard stool, no obvious rectal bleeding, stool was brown in color. Patient reports that she took all of her regular morning medications today; she has discontinued most of her medications and only takes Lamictal, Lexapro, oral Dilaudid, and morphine solution now. She wears 5 L O2 via NC at baseline. No CPAP at night. Vitals on admission are stable. Labs on admission are significant for anemia with Hgb 8.0 (decreased from 10.2 in November 2024). No leukocytosis. Electrolytes stable. Liver enzymes and renal function normal. CT A/P on admission reveals constipation with possible rectal fecal impaction, small left pleural effusion, small right inguinal hernia containing only fat. CXR shows unchanged left apical opacification with volume loss, interval increase in size of cavitary nodule in right upper lobe. We discussed code status, patient wishes to be a DNR/DNI. Discharge Exam Constitutional WD/WN, vitals as above Eyes PERRL, conjunctivae normal, anicteric sclerae Respiratory normal respiratory effort on 5L NC (baseline) Skin no rashes, warm and dry Neurologic PERRL, EOMI, accommodation nl, no face palsy, no dysarthria Psychiatric A+Ox3, euthymic affect Discharge Plan Discharge Items Patient Disposition: Hospice - Home Reason For Visit: CONSTIPATION Discharge Diagnosis: Constipation Condition on Discharge: Fair Activity: Resume your previous activity Non-emergency contact: Primary Care Provider Call non-emergency contact if: you have any medication questions, your symptoms worsen and your pain is not controlled Follow-up/Referrals: Cony Hernandez MD [Primary Care Provider] - Diet: Regular Addtl Attending Provider Instructions: Ms. Carrasco, You were recently hospitalized for constipation. We adjusted your bowel regimen and you are returning home with hospice care. Regarding your bowel regimen: Please take 2 scoops of Miralax three times daily and 2 Senna tablets prior to bed. Please follow up with your hospice agency to help control your pain at home. Please contact your PCP or hospice agency if you have any concerns at home. Sylvie Dotson PA-C Pending Studies at Discharge: No Stand-Alone Forms: My [facility] Medications and DC Order Prescriptions: New polyethylene glycol 3350 [Miralax] 17 gram Powder In Packet 34 g PO TID Qty: 100 0RF sennosides-docusate sodium [Senokot-S] 8.6-50 mg Tablet 2 tab PO HS Qty: 30 0RF Continued escitalopram oxalate 20 mg Tablet 20 mg PO QAM morphine 15 mg tablet extended release 30 mg PO BID PRN (Reason: Pain) hydromorphone 8 mg tablet 8 mg PO Q6H PRN (Reason: pain) Qty: 20 0RF lamotrigine 25 mg tablet 25 mg PO HS Discharge Orders: Discharge Order (Routine); Ordered 05/09/25 Ordered By: Sylvie Dotson Admission Data Admit Date/Time: 05/07/25 16:59 Attending Provider: Randolph Salmeron Admit Provider: Alberto Hogan Primary Care Provider: Cony Hernandez Other Providers: Alberto Hogan Other Interventions: Discharge Summary Assessment (RN) Last Done: 05/09/25 11:04 Hospital Stay Data Consultations 05/07/25 16:09 ED Decision to Admit Stat Diagnostic Imagining Performed 05/07/25 12:54 CT abd pelvis IV con only Stat Pending Results Patient Have Any Pending Studies at Discharge: No Discharge Instructions Given to Patient (Per Discharging Provider) Ms. Carrasco, Derrell were recently hospitalized for constipation. We adjusted your bowel regimen and you are returning home with hospice care. Regarding your bowel regimen: Please take 2 scoops of Miralax three times daily and 2 Senna tablets prior to bed. Please follow up with your hospice agency to help control your pain at home. Please contact your PCP or hospice agency if you have any concerns at home. Sylvie Dotson PA-C Supervising Physician Co-Signing Physician Notes The patient was not seen by me. The chart was reviewed. Case discussed with YONAS Rico. Agree with assessment and plan Total Time Total Time Spent Total Time Spent (In Minutes): 45 Total Time Includes: Examination of the Patient, Discharge Planning and Medication Reconciliation Coding Level of Care Code 19227 INP/OBS DISCH >30 MIN Diagnoses Constipation K59.00 Constipation type: unspecified constipation type Lower abdominal pain R10.30 Rectal bleeding K62.5 Anemia D64.9 Anemia type: unspecified type Hospice care patient Z51.5 Lung cancer C34.90 Laterality: unspecified laterality Lung location: unspecified part of lung"
== END 2025-05-09 11:28 | disposition hospice, home (50) | DRG 389 ==
LOC: ED 12:40 → 3E 16:25 → INTOOBSV 16:59 → SUATTDRO 16:59 → 3E 16:59